=== PATIENT | male | born 1935 | race Caucasian/White ===

== ENCOUNTER → 2016-09-23 | Outpatient (CLI) | payer BC ==
[~2016-09-23] MED LIST: ALPR0.5T PO; AMLO5TAB2 PO; ASPCH81X PO; ASPI81TA28 PO; ATOR-24 PO; ATOR-54 PO; BISA-16 PO; CEPH500C PO; CITA20TA4 PO; CITA20TA9 PO; DICY10CA55 PO; FINA5TAB PO; FLUT0.15 NAE; METO25TA56 PO; MULT-506 PO; NITR0.4S UT; NITR1CAP16 PO; PANT40TA PO; PHEN-775 PO; PSYL55.43 PO; TRAM-10 PO; WARF5TAB90 PO
== END | disposition home or self-care (01) ==
LOC: C.PATHSPEC 09-22 11:35
PROVIDERS: ATTEND Urology
DX: C67.9 Malignant neoplasm of bladder, unspecified (principal)

== ENCOUNTER 2016-09-24 09:32 | Emergency (ER) | payer BC ==
[~2016-09-24] VITALS: Ht 182.9 cm; Wt 89.8 kg
[~2016-09-24 09:32] MED LIST changes: -ASPCH81X PO; -ATOR-54 PO; -BISA-16 PO; -CEPH500C PO; -CITA20TA4 PO; -DICY10CA55 PO; -FLUT0.15 NAE; -NITR1CAP16 PO; -PANT40TA PO; -PHEN-775 PO; -TRAM-10 PO
[2016-09-24 09:35] VITALS: TEMP 37; Ht 182.9 cm; Wt 89.8 kg
[2016-09-24 11:07] LABS: BASO % 0.4 %; BASO ABS # 0.04 K/uL (0-0.2); COMPLETE YES; EOS % 0.2 %; HEMATOCRIT 49.3 % (42-52); IG% 0.2 %; LYMPH % 24.8 %; LYMPH ABS # 2.38 K/uL (1.2-3.4); MEAN CELL VOLUME 94.1 fL (80-100); MEAN CORPUSCULAR HEMOGLOBIN 32.6 pg (25-34); MEAN CORPUSCULAR HGB CONC 34.7 g/dl (32-36); MEAN PLATELET VOLUME 11.8 fL (7.4-10.4); MONO % 12.2 %; NEUT % 62.2 %; PLATELET COUNT 152 K/uL (130-400); RED BLOOD COUNT 5.24 M/uL (4.7-6.1); WHITE BLOOD COUNT 9.58 K/uL (4.8-10.8)
--- NOTE | 2016-09-24 11:18 | DIAGNOSTIC IMAGING REPORT ---
CT HEAD WITHOUT CONTRAST (CT) CLINICAL HISTORY: Head and facial trauma. Head pain. COMPARISON STUDY: No previous studies for comparison. TECHNIQUE: Axial CT of the brain is performed from the vertex to the skull base. IV contrast was not administered for this examination. CT DOSE: FINDINGS: No intra or extra-axial mass lesions are visualized. There is no CT evidence of acute cortical infarction. There is no evidence of midline shift. There is no acute hemorrhage. No calvarial fractures are visualized. There are patchy white matter hypodensities likely on a small vessel basis. There is no evidence of pathologic ventricular dilatation. There is no evidence of acute sinusitis. There is nonspecific soft tissue asymmetry medial to the left orbit, in the region the nasolacrimal fold. IMPRESSION: 1. Soft tissue asymmetry in the region of the left nasolacrimal fold 2. No evidence of acute intracranial injury. Electronically signed by: Ronnie Solares M.D. 09/24/2016 11:16 AM Dictated Date/Time: 09/24/2016 11:13 AM
[2016-09-24 11:25] LABS: BUN/CREATININE RATIO 18.4 (10-20); CALCIUM 9.2 mg/dl (8.5-10.1); CREATININE 1.1 mg/dl (0.60-1.40); POTASSIUM 4.6 mmol/L (3.5-5.1)
[2016-09-24 11:27] LABS: INR 2.5 (0.9-1.1); PARTIAL THROMBOPLASTIN RATIO 1.3; PROTHROMBIN TIME (PATIENT) 27.9 SECONDS (9.0-12.0)
--- NOTE | 2016-09-24 11:28 | DIAGNOSTIC IMAGING REPORT ---
MAXILLOFACIAL CT WITHOUT CONTRAST CLINICAL HISTORY: Fall. Evaluate for fracture. COMPARISON STUDY: None. TECHNIQUE: A maxillofacial CT was performed without IV contrast. Coronal and sagittal reformats were viewed. FINDINGS: No acute facial fracture is present. There is significant soft tissue swelling with a suspected hematoma within the left aspect of the nose. Alignment of the temporomandibular joints is anatomic. Several punctate densities within the skin are probably old. The largest is a 2 mm radiodensity within the skin of the left aspect of the nose. IMPRESSION: 1. No acute facial fracture. 2. Significant soft tissue swelling of the nose with a suspected subcutaneous hematoma within the left aspect of the nose. 3. Several punctate radiodensities within the skin, including a 2 mm density within left aspect of the nose. These are likely chronic although a tiny foreign body could appear similar. Electronically signed by: Junior Anthony M.D. 09/24/2016 11:25 AM Dictated Date/Time: 09/24/2016 11:16 AM
--- NOTE | 2016-09-24 12:17 | DIAGNOSTIC IMAGING REPORT ---
PELVIS 1 OR 2 VIEW ROUTINE CLINICAL HISTORY: Fall. COMPARISON STUDY: CT of the abdomen and pelvis November 23, 2013. FINDINGS: Right pelvic surgical clips are noted. The sacroiliac joints and symphysis pubis are intact. No acute fracture within the pelvis or hips identified. 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 IMPRESSION: No acute fracture within the pelvis or hips. Electronically signed by: Junior Anthony M.D. 09/24/2016 12:15 PM Dictated Date/Time: 09/24/2016 12:15 PM
--- NOTE | 2016-09-24 12:19 | DIAGNOSTIC IMAGING REPORT ---
LEFT HIP UNILATERAL 2 VIEWS CLINICAL HISTORY: Left hip pain following fall. COMPARISON: CT of the abdomen and pelvis November 23, 2013. FINDINGS: No acute fracture is identified. Alignment is anatomic. 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 IMPRESSION: No acute fracture or dislocation of the left hip. Moderate left hip arthritis. Electronically signed by: Junior Anthony M.D. 09/24/2016 12:17 PM Dictated Date/Time: 09/24/2016 12:16 PM
[2016-09-24 13:39] VITALS: BP 164/88; PULSE 79; O2SAT 98
--- NOTE | 2016-09-24 18:10 | EMERGENCY ROOM VISIT NOTE ---
History Report prepared by Jesus: Arnold Nagy Under the Supervision of: Dr. Samuel Hall M.D. First contact with patient: 10:29 Chief Complaint: FALL Stated Complaint: FALL History of Present Illness The patient is an 81 year old male who presents to the Emergency Room with complaints of an acute fall that occurred just prior to arrival. The patient was taking his garbage out to the curb when he slipped on ice. He cut his nose which was initially bleeding. The bleeding has since slowed down. The nose itself was not bleeding. The patient also complains of left leg pain that feels like he pulled a muscle. He did not lose consciousness from the fall. The patient denies any headaches, teeth pain, neck pain, back pain, hip pain, or wrist pain. The patient is on Coumadin for a history of atrial fibrillation. He had just one episode of atrial fibrillation. He had his INR checked one week ago , which was 2.4. The patient cannot recall when he had his last tetanus shot. His PCP usually keeps him up to date. Source of History: patient Onset: prior to arrival Position: other (global) Quality: other (fall) Timing: other (acute) Associated Symptoms: No LOC, No back pain, No headache, No neck pain Review of Systems See HPI for pertinent positives & negatives. A total of 10 systems reviewed and were otherwise negative. 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 (5) superficial phlemitis (6) Varicose veins of lower extremity Family History Hypertension Lung disease Social History Smoking Status: Never Smoker Alcohol Use: none Marital Status: Housing Status: lives alone Occupation Status: retired Current/Historical Medications Scheduled Amlodipine Besylate (Norvasc), 5 MG PO DAILY Aspirin (Aspirin Ec), 81 MG PO DAILY Atorvastatin (Lipitor), 40 MG PO DAILY Citalopram Hydrobromide (Celexa), 20 MG PO DAILY Finasteride (Proscar), 5 MG PO DAILY Metoprolol Tartrate (Lopressor) (Lopressor), 25 MG PO BID Multivitamin (Multivitamin), 1 TAB PO DAILY Nitroglycerin (Nitrostat), 0.4 MG UT PRN Psyllium (Metamucil Powder), 1 PACK PO PRN Warfarin Sodium (Coumadin), 5 MG PO DAILY Scheduled PRN Alprazolam (Xanax), 1 TAB PO TID PRN for Anxiety/Agitation Allergies Coded Allergies: Sulfa Antibiotics (Verified Allergy, Severe, ITCHING, 09/24/16) Levofloxacin (Verified Allergy, Intermediate, BRADYCARDIA, 09/24/16) Sertraline (Verified Allergy, Intermediate, GI SYMPTOMS, 09/24/16) Metronidazole (Verified Allergy, Unknown, PVC'S, 09/24/16) Penicillins (Unverified Allergy, Unknown, UNKNOWN, 09/24/16) Meloxicam (Verified Adverse Reaction, Intermediate, UPSET STOMACH, 09/24/16 ) Doxycycline (Verified Adverse Reaction, Unknown, GI UPSET, 09/24/16) Physical Exam Vital Signs Date Time Temp Pulse Resp B/P Pulse Ox O2 Delivery O2 Flow Rate FiO2 09/24/16 13:39 79 18 164/88 98 Room Air 09/24/16 12:08 58 16 174/94 96 Room Air 09/24/16 09:35 37.0 63 18 160/92 98 Room Air Physical Exam Constitutional: Vital signs reviewed. Eyes: Pupils are equal round reactive to light. Conjunctiva are noninjected. ENT: Pharynx is clear without erythema or exudate. Mucous membranes are moist. Significant swelling to the left side of his nose without epistaxis or septal hematoma. Abrasion over the left nose with some slight bleeding. Neck supple without meningeal signs. No midline tenderness over the cervical spine. Respiratory: Clear to auscultation bilaterally. Breath sounds are equal bilaterally. Cardiovascular: Regular rate and rhythm. No rubs or gallops. GI: Soft, nondistended and nontender. Bowel sounds are present. Musculoskeletal: No peripheral edema. Mild left hip tenderness without shortening or deformity. Integumentary: No cyanosis. Neurological: The patient is awake and alert. Cranial nerves II-XII are intact. Motor is 5 out of 5 all extremities. Sensation is intact to light touch all extremities. Normal speech. No pronator drift. Psychiatric: Normal affect. Medical Decision & Procedures ER Provider Diagnostic Interpretation: X-ray results as stated below per interpretation by me and the radiologist: CT results as stated below per my review and the radiologist's interpretation: CT HEAD WITHOUT CONTRAST (CT) CLINICAL HISTORY: Head and facial trauma. Head pain. COMPARISON STUDY: No previous studies for comparison. TECHNIQUE: Axial CT of the brain is performed from the vertex to the skull base. IV contrast was not administered for this examination. CT DOSE: FINDINGS: No intra or extra-axial mass lesions are visualized. There is no CT evidence of acute cortical infarction. There is no evidence of midline shift. There is no acute hemorrhage. No calvarial fractures are visualized. There are patchy white matter hypodensities likely on a small vessel basis. There is no evidence of pathologic ventricular dilatation. There is no evidence of acute sinusitis. There is nonspecific soft tissue asymmetry medial to the left orbit, in the region the nasolacrimal fold. IMPRESSION: 1. Soft tissue asymmetry in the region of the left nasolacrimal fold 2. No evidence of acute intracranial injury. Electronically signed by: Ronnie Solares M.D. 09/24/2016 11:16 AM Dictated Date/Time: 09/24/2016 11:[address] WITHOUT CONTRAST CLINICAL HISTORY: Fall. Evaluate for fracture. COMPARISON STUDY: None. TECHNIQUE: A maxillofacial CT was performed without IV contrast. Coronal and sagittal reformats were viewed. FINDINGS: No acute facial fracture is present. There is significant soft tissue swelling with a suspected hematoma within the left aspect of the nose. Alignment of the temporomandibular joints is anatomic. Several punctate densities within the skin are probably old. The largest is a 2 mm radiodensity within the skin of the left aspect of the nose. IMPRESSION: 1. No acute facial fracture. 2. Significant soft tissue swelling of the nose with a suspected subcutaneous hematoma within the left aspect of the nose. 3. Several punctate radiodensities within the skin, including a 2 mm density within left aspect of the nose. These are likely chronic although a tiny foreign body could appear similar. Electronically signed by: Junior Anthony M.D. 09/24/2016 11:25 AM Dictated Date/Time: 09/24/2016 11:16 AM LEFT HIP UNILATERAL 2 VIEWS CLINICAL HISTORY: Left hip pain following fall. COMPARISON: CT of the abdomen and pelvis November 23, 2013. FINDINGS: No acute fracture is identified. Alignment is anatomic. 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 IMPRESSION: No acute fracture or dislocation of the left hip. Moderate left hip arthritis. Electronically signed by: Junior Anthony M.D. 09/24/2016 12:17 PM Dictated Date/Time: 09/24/2016 12:16 PM PELVIS 1 OR 2 VIEW ROUTINE CLINICAL HISTORY: Fall. COMPARISON STUDY: CT of the abdomen and pelvis November 23, 2013. FINDINGS: Right pelvic surgical clips are noted. The sacroiliac joints and symphysis pubis are intact. No acute fracture within the pelvis or hips identified. 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 IMPRESSION: No acute fracture within the pelvis or hips. Electronically signed by: Junior Anthony M.D. 09/24/2016 12:15 PM Dictated Date/Time: 09/24/2016 12:15 PM Laboratory Results 09/24/16 10:45 Red Blood Count 5.24, Mean Corpuscular Volume 94.1, Mean Corpuscular Hemoglobin 32.6, Mean Corpuscular Hemoglobin Concent 34.7, Mean Platelet Volume 11.8, Neutrophils (%) (Auto) 62.2, Lymphocytes (%) (Auto) 24.8, Monocytes (%) (Auto) 12.2, Eosinophils (%) (Auto) 0.2, Basophils (%) (Auto) 0.4, Neutrophils # (Auto ) 5.95, Lymphocytes # (Auto) 2.38, Monocytes # (Auto) 1.17, Eosinophils # (Auto ) 0.02, Basophils # (Auto) 0.04 09/24/16 10:45 Test 09/24/16 10:45 White Blood Count 9.58 K/uL (4.8-10.8) Red Blood Count 5.24 M/uL (4.7-6.1) Hemoglobin 17.1 g/dL (14.0-18.0) Hematocrit 49.3 % (42-52) Mean Corpuscular Volume 94.1 fL (80-100) Mean Corpuscular Hemoglobin 32.6 pg (25-34) Mean Corpuscular Hemoglobin Concent 34.7 g/dl (32-36) Platelet Count 152 K/uL (130-400) Mean Platelet Volume 11.8 fL (7.4-10.4) Neutrophils (%) (Auto) 62.2 % Lymphocytes (%) (Auto) 24.8 % Monocytes (%) (Auto) 12.2 % Eosinophils (%) (Auto) 0.2 % Basophils (%) (Auto) 0.4 % Neutrophils # (Auto) 5.95 K/uL (1.4-6.5) Lymphocytes # (Auto) 2.38 K/uL (1.2-3.4) Monocytes # (Auto) 1.17 K/uL (0.11-0.59) Eosinophils # (Auto) 0.02 K/uL (0-0.5) Basophils # (Auto) 0.04 K/uL (0-0.2) RDW Standard Deviation 46.5 fL (36.4-46.3) RDW Coefficient of Variation 13.5 % (11.5-14.5) Immature Granulocyte % (Auto) 0.2 % Immature Granulocyte # (Auto) 0.02 K/uL (0.00-0.02) Prothrombin Time 27.9 SECONDS (9.0-12.0) Prothromb Time International Ratio 2.5 (0.9-1.1) Activated Partial Thromboplast Time 33.6 SECONDS (21.0-31.0) Partial Thromboplastin Ratio 1.3 Anion Gap 6.0 mmol/L (3-11) Est Creatinine Clear Calc Drug Dose 57.8 ml/min Estimated GFR () 72.6 Estimated GFR (Non- 62.6 BUN/Creatinine Ratio 18.4 (10-20) Calcium Level 9.2 mg/dl (8.5-10.1) Laboratory results as reviewed by me. ED Course 1031: The patient was evaluated in room C10. A complete history and physical exam was performed. 1235: Checked on the patient. Discussed the test results. He has increased swelling to the left nose, no septal hematoma. Paging ENT to see if they have any recommendations. I was not able to locate a foreign body in the skin. 1247: Discussed the case with Dr. Glez, ENT. He said to offer aspiration, but it may recollect. If he is not having significant pain and it is not expanding, we can leave it alone. 1302: The patient does not want needle aspiration at this time. It is not hurting him or bothering him. It does not seem to be expanding and does not occlude the nasal passage. There is currently no active bleeding. He was given precautions to return. The patient is ready for discharge. Medical Decision This is an 81-year-old male who presents after a mechanical fall with a facial injury. Differential diagnosis includes nasal fracture, intracranial hemorrhage , skull fracture, contusion, concussion. I did perform a limited focused review of portions of the patient's old chart on the electronic medical record. The patient has had no recent pertinent visits to this hospital. I did evaluate the patient as noted above. The patient has a small abrasion and soft tissue swelling to the left nostril. It is over the lateral soft tissue and not the septum. He appears to be developing a small hematoma. He has some mild bleeding from the abrasion but does not require any sutures. He is neurologically intact. IV access was established. I did order and personally review the patient's x-rays as described above. He has no fracture to the left hip. He states that he feels more like he just pulled a muscle and is able ambulate without significant pain. I did order and review the patient' s blood work as noted in the electronic medical record. His INR is 2.5. I did order a CT of the facial bones and head. I did review the images myself as well as the radiology report as described above. There is no evidence of intracranial hemorrhage or facial fracture. I did reassess the patient. I did discuss the test results with him. I did explore the patient's abrasion and nose for any foreign body. I did not see any. It was cleaned and dressed. The hematoma appeared to be slightly bigger at this time and he has developed some ecchymosis to his lower orbits. I did discuss the case with Dr. Glez of ENT. He suggested that possibly I could needle aspirate the hematoma and then apply pressure. He also stated that if it does not expending significantly and not giving him discomfort we could live alone at this time. I did discuss options with the patient and he preferred to watch it. He states he has no pain at this time. There is no occlusion of his nasal passages. He was therefore discharged home with head injury precautions. He was advised to return should he have worsening of the hematoma. Consults Time Called: 1235 Consulting Physician: Dr. Glez ENT Returned Call: [phone]: Discussed the case with Dr. Glez, ENT. He said to offer aspiration, but it may recollect. If he is not having significant pain and it is not expanding, we can leave it alone. Impression Primary Impression: Acute head injury Additional Impressions: Anticoagulated on warfarin Subcutaneous hematoma Left hip pain Scribe Attestation The scribe's documentation has been prepared under my direct and personally reviewed by me in its entirety. I confirm that the note above accurately reflects all work, treatment, procedures, and medical decision making performed by me. Departure Information Dispostion Home / Self-Care Referrals Reinaldo Bill D.O. (PCP) Forms HOME CARE DOCUMENTATION FORM, IMPORTANT VISIT INFORMATION Patient Instructions A Signature Page, ED Head Injury Closed, My [facility] Additional Instructions You have been examined and treated today on an emergency basis only. This is not a substitute for, or an effort to provide, complete comprehensive medical care. It is impossible to recognize and treat all injuries or illnesses in a single emergency department visit. It is therefore important that you follow up closely with your physician. Call as soon as possible for an appointment. Return for worsening symptoms or if you develop fever, vomiting, Or any other concerning symptoms. Return also if you develop increased swelling or pain to your left nostril. Problem Qualifiers Primary Impression: Acute head injury Encounter type: initial encounter Qualified Codes: S09.90XA - Unspecified injury of head, initial encounter
[2017-01-23] MEDS ORDERED: CITA20TA4 PO (08:51)
[2017-01-23] MEDS ORDERED: DICY10CA55 PO (08:51)
[2017-01-23] MEDS ORDERED: PANT40TA PO (08:51)
[2017-01-27] MEDS ORDERED: ATOR-54 PO (09:05)
[2017-01-27] MEDS ORDERED: PHEN-775 PO (09:51)
[2017-01-27] MEDS ORDERED: NITR1CAP16 PO (09:51)
== END 2016-09-24 13:41 | disposition home or self-care (01) ==
LOC: C.EDB 09:34 → C.EDC 13:41
DX: S09.90XA Unspecified injury of head, initial encounter (principal); S00.31XA Abrasion of nose, initial encounter; S00.10XA Contusion of unspecified eyelid and periocular area, initial encounter; M25.552 Pain in left hip; W00.0XXA Fall on same level due to ice and snow, initial encounter; Y93.89 Activity, other specified; Y99.8 Other external cause status; I48.91 Unspecified atrial fibrillation; I10 Essential (primary) hypertension; E78.5 Hyperlipidemia, unspecified; Z82.49 Family history of ischemic heart disease and other diseases of the circulatory system; Z79.01 Long term (current) use of anticoagulants; Z79.82 Long term (current) use of aspirin; Z79.899 Other long term (current) drug therapy

== ENCOUNTER 2016-09-28 11:31 | Emergency (ER) | payer BC ==
[~2016-09-28] VITALS: Ht 182.9 cm; Wt 89.4 kg
[2016-09-28 11:36] VITALS: TEMP 36.9; Ht 182.9 cm; Wt 89.4 kg
--- NOTE | 2016-09-28 12:10 | EMERGENCY ROOM VISIT NOTE ---
History Report prepared by Jesus: Km Ernst Under the Supervision of: Dr. Cy Shipley M.D. First contact with patient: 11:52 Chief Complaint: LEG PAIN,LEG INJURY Stated Complaint: L LEG THIGH PAIN,SWELLING History of Present Illness The patient is an 81 year old male who presents to the Emergency Room with complaints of constant left leg pain due to a fall beginning four days prior to arrival. He describes his pain as soreness and currently rates his discomfort as a 5/10 in severity. The patient associates left upper thigh bruising and left thigh swelling with today's symptoms. He states he came to the ED four days ago after his fall on ice, in which, he had a scan of his face, blood drawn , INR check, and left leg x-ray that revealed no fractures or breaks. The patient notes he was taken off Coumadin for two days and began taking it again yesterday. He notes he can bear weight, but it is difficult for him to change positions from sitting to standing. The patient notes a history of intermittent atrial fibrillation. He does not have any other medical concerns at this time. Source of History: patient Onset: 4 days PAINT TINTER Position: leg (left) Symptom Intensity: 5/10 Quality: other (soreness) Timing: constant Modifying Factors (Worsening): other (changing positions from sitting to standing) Note: Associated symptoms: left upper thigh bruising and left thigh swelling Review of Systems See HPI for pertinent positives & negatives. A total of 10 systems reviewed and were otherwise negative. 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 (5) superficial phlemitis (6) Varicose veins of lower extremity Family History Hypertension Lung disease Social History Smoking Status: Former Smoker Alcohol Use: none Marital Status: Housing Status: lives alone Occupation Status: retired Current/Historical Medications Scheduled Amlodipine Besylate (Norvasc), 5 MG PO DAILY Aspirin (Aspirin Chewable), 81 MG PO DAILY Atorvastatin (Lipitor), 40 MG PO DAILY Cephalexin Monohydrate (Keflex), 500 MG PO QID Citalopram Hydrobromide (Celexa), 0.5 TAB PO DAILY Finasteride (Proscar), 5 MG PO DAILY Fluticasone Propionate (Nasal) (Flonase Allergy Relief), 1 SPRAY CATHERINE DAILY Metoprolol Tartrate (Lopressor) (Lopressor), 0.5 TAB PO BID Multivitamin (Multivitamin), 1 TAB PO DAILY Nitroglycerin (Nitrostat), 0.4 MG UT PRN Pantoprazole (Protonix), 40 MG PO DAILY Psyllium (Metamucil Powder), 1 PACK PO PRN Warfarin Sodium (Coumadin), 5 MG PO QPM Scheduled PRN Alprazolam (Xanax), 1 TAB PO TID PRN for Anxiety/Agitation Bisacodyl (Dulcolax), 1 TAB PO UD PRN for Constipation Tramadol (Ultram), 50 MG PO BID PRN for Pain Allergies Coded Allergies: Sulfa Antibiotics (Verified Allergy, Severe, ITCHING, 09/24/16) Levofloxacin (Verified Allergy, Intermediate, BRADYCARDIA, 09/24/16) Sertraline (Verified Allergy, Intermediate, GI SYMPTOMS, 09/24/16) Metronidazole (Verified Allergy, Unknown, PVC'S, 09/24/16) Penicillins (Unverified Allergy, Unknown, UNKNOWN, 09/24/16) Meloxicam (Verified Adverse Reaction, Intermediate, UPSET STOMACH, 09/24/16 ) Doxycycline (Verified Adverse Reaction, Unknown, GI UPSET, 09/24/16) Physical Exam Vital Signs Date Time Temp Pulse Resp B/P Pulse Ox O2 Delivery O2 Flow Rate FiO2 09/28/16 13:53 91 18 151/84 93 Room Air 09/28/16 11:36 36.9 113 18 122/72 96 Room Air Physical Exam GENERAL: Patient is in no acute distress. HEENT: Multiple contusions to the face consistent with his recent fall. No cellulitis. Mucous membranes are moist. NECK: No stridor, no adenopathy, no meningismus, trachea is midline. LUNGS: Clear to auscultation bilaterally, no wheeze, no rhonchi, breath sounds equal. HEART: Without murmurs gallops or rubs, regular rate and rhythm. ABDOMEN: Soft, nontender, bowel sounds positive, no hernias, no peritonitis. EXTREMITIES: There is an apparent hematoma about the left posterior thigh and lateral thigh/hip. No cellulitis. Patient can bear weight. Left thigh is larger than the right thigh on exam. NEUROLOGIC: Oriented x 3, no acute motor or sensory deficits, no focal weakness. SKIN: No rash, no jaundice, no diaphoresis. Medical Decision & Procedures ER Provider Diagnostic Interpretation: US results as stated below per my review and radiologist interpretation: CT results as stated below per my review and radiologist interpretation: ULTRASOUND LEFT LOWER EXTREMITY VENOUS CLINICAL HISTORY: Left leg pain and swelling. COMPARISON STUDY: Left lower extremity venous ultrasound dated 11/17/2014. CT scan of the left lower extremity dated 09/28/2016. TECHNIQUE: Real-time, grayscale, and color Doppler sonography of the deep veins of the left lower extremity was performed from the inguinal crease to the calf. Compression and augmentation were utilized. FINDINGS: There is no sonographic evidence of deep venous thrombosis identified in the left lower extremity. The common femoral, superficial femoral, and popliteal veins are patent and normally compressible. The greater saphenous vein and the profunda femoris vein at the junction with the common femoral vein are clear. The visualized calf veins are patent. There is a nonvascular complex multiloculated versus 2 adjacent complex fluid collections identified within the left quadriceps musculature in the mid thigh. These measure 8.6 x 2.1 x 3.7 cm and 5.7 x 1.7 x 3.5 cm. IMPRESSION: 1. There is no sonographic evidence of deep venous thrombosis identified in the left lower extremity. 2. Findings are consistent with a complex nonvascular multiloculated versus adjacent intramuscular fluid collections in the left quadriceps musculature. The appearance is most consistent with hematoma when correlated with today's CT scan. Clinical follow-up to resolution is recommended. Electronically signed by: Cy Duenas M.D. 09/28/2016 1:[address] SCAN OF THE LEFT FEMUR WITHOUT IV CONTRAST CLINICAL HISTORY: Fall with left leg pain. COMPARISON STUDY: Radiograph of the left hip and bony pelvis dated 09/24/2016. TECHNIQUE: CT scan of the left femur is performed from the bony pelvis to the knee. Images are reviewed in the axial, sagittal, coronal planes. IV contrast was not administered for this examination. CT DOSE: 544.27 mGy.cm FINDINGS: The skeletal structures are osteopenic. There is no evidence of fracture in the left femur or the imaged left hemipelvis. Arthritic change is noted in the left hip and knee joints. Subcutaneous soft tissue edema is present in the left thigh. Intramuscular hematoma is identified in the left lateral quadriceps musculature. This measures approximately 5 x 5 x 2.5 cm in aggregate dimension. There is advanced atherosclerotic calcification of the left femoral and popliteal arteries. No left pelvic sidewall or inguinal lymphadenopathy is seen. The prostate gland is markedly enlarged and heterogeneous, and contains coarse calcifications. This is only partially visualized. IMPRESSION: 1. Generalized osteopenia. There is no evidence fracture involving the left femur or the visualized left hemipelvis. 2. Soft tissue edema is present in the thigh and there is intramuscular hematoma within the lateral left quadriceps musculature as detailed above. Electronically signed by: Cy Duenas M.D. 09/28/2016 1:28 PM Laboratory Results 09/28/16 12:25 09/28/16 12:25 Test 09/28/16 12:25 Red Blood Count 4.44 M/uL (4.7-6.1) Mean Corpuscular Volume 94.8 fL (80-100) Mean Corpuscular Hemoglobin 33.3 pg (25-34) Mean Corpuscular Hemoglobin Concent 35.2 g/dl (32-36) RDW Standard Deviation 47.7 fL (36.4-46.3) RDW Coefficient of Variation 13.7 % (11.5-14.5) Mean Platelet Volume 11.5 fL (7.4-10.4) Prothrombin Time 16.1 SECONDS (9.0-12.0) Prothromb Time International Ratio 1.5 (0.9-1.1) Activated Partial Thromboplast Time 29.4 SECONDS (21.0-31.0) Partial Thromboplastin Ratio 1.1 Anion Gap 9.0 mmol/L (3-11) Est Creatinine Clear Calc Drug Dose 64.9 ml/min Estimated GFR () 83.5 Estimated GFR (Non- 72.0 BUN/Creatinine Ratio 20.9 (10-20) Calcium Level 9.0 mg/dl (8.5-10.1) Laboratory results reviewed by me. Medications Administered Medications (Trade) Dose Ordered Sig/Eleni Route Start Time Stop Time Status Last Admin Dose Admin Cephalexin Monohydrate (Keflex Cap) 500 mg NOW STAT PO 09/28/16 14:06 09/28/16 14:07 DC 09/28/16 14:20 500 MG ED Course 1155: The patient was evaluated in room B2. A complete history and physical exam was performed. 1406: Ordered Keflex Cap 500 mg PO. 1410: Reevaluated the patient. Discussed results and discharge instructions: He verbalized understanding and agreement. The patient is ready for discharge. Medical Decision The differential diagnoses include but are not limited to: hematoma, anemia, coagulopathy, DVT, fracture, contusion. There is a mild leukocytosis which could be consistent with the stress of his presentation or possibly infection. No concerning anemia. INR is 1.5, low for someone taking Coumadin however, the patient has been holding his Coumadin for a few days. There is no significant electrolyte abnormality or kidney failure. Left femur CT does not show any hip or femur fracture. A soft tissue hematoma was noted. Left leg ultrasound shows no DVT, a hematoma in the thigh was noted. The patient was reassured by his findings. Because of my concerns that he may develop a sinusitis with all the facial trauma and congestion, he was given a dose of oral Keflex. He is being discharged on this for a week. The patient was advised to use some heat to the left thigh hematoma. He will watch for redness or infection in the thigh. He is going to follow with his doctor's office. He is going to follow with the Coumadin clinic for his INR checks. If worsening, he can return. Impression Primary Impression: Hematoma of left thigh Additional Impression: Fall Scribe Attestation The scribe's documentation has been prepared under my direction and personally reviewed by me in its entirety. I confirm that the note above accurately reflects all work, treatment, procedures, and medical decision making performed by me. Departure Information Dispostion Home / Self-Care Prescriptions Cephalexin Monohydrate (Keflex) 500 Mg Cap 500 MG PO QID, #28 CAP Prov: Cy Shipley M.D. 09/28/16 Referrals Reinaldo Bill D.OKell (PCP) Forms HOME CARE DOCUMENTATION FORM, IMPORTANT VISIT INFORMATION Patient Instructions My [facility] Additional Instructions keflex 4x per day for 1 week follow with coumadin clinic this week heat to the leg may help return for worsening symptoms or fever see carmen cintron this week Problem Qualifiers
[2016-09-28] MEDS ORDERED: PANT40TA PO (12:17)
[2016-09-28] MEDS ORDERED: TRAM-10 PO (12:17)
[2016-09-28] MEDS ORDERED: ASPCH81X PO (12:17)
[2016-09-28] MEDS ORDERED: BISA-16 PO (12:17)
[2016-09-28] MEDS ORDERED: FLUT0.15 NAE (12:17)
[2016-09-28 12:37] LABS: HEMATOCRIT 42.1 % (42-52); MEAN CELL VOLUME 94.8 fL (80-100); MEAN CORPUSCULAR HEMOGLOBIN 33.3 pg (25-34); MEAN CORPUSCULAR HGB CONC 35.2 g/dl (32-36); MEAN PLATELET VOLUME 11.5 fL (7.4-10.4); PLATELET COUNT 144 K/uL (130-400); RED BLOOD COUNT 4.44 M/uL (4.7-6.1); WHITE BLOOD COUNT 14.37 K/uL (4.8-10.8)
[2016-09-28 12:46] LABS: INR 1.5 (0.9-1.1); PARTIAL THROMBOPLASTIN RATIO 1.1; PROTHROMBIN TIME (PATIENT) 16.1 SECONDS (9.0-12.0)
[2016-09-28 12:59] LABS: BUN/CREATININE RATIO 20.9 (10-20); CREATININE 0.98 mg/dl (0.60-1.40)
--- NOTE | 2016-09-28 13:31 | DIAGNOSTIC IMAGING REPORT ---
CT SCAN OF THE LEFT FEMUR WITHOUT IV CONTRAST CLINICAL HISTORY: Fall with left leg pain. COMPARISON STUDY: Radiograph of the left hip and bony pelvis dated 09/24/2016. TECHNIQUE: CT scan of the left femur is performed from the bony pelvis to the knee. Images are reviewed in the axial, sagittal, coronal planes. IV contrast was not administered for this examination. CT DOSE: 544.27 mGy.cm FINDINGS: The skeletal structures are osteopenic. There is no evidence of fracture in the left femur or the imaged left hemipelvis. Arthritic change is noted in the left hip and knee joints. Subcutaneous soft tissue edema is present in the left thigh. Intramuscular hematoma is identified in the left lateral quadriceps musculature. This measures approximately 5 x 5 x 2.5 cm in aggregate dimension. There is advanced atherosclerotic calcification of the left femoral and popliteal arteries. No left pelvic sidewall or inguinal lymphadenopathy is seen. The prostate gland is markedly enlarged and heterogeneous, and contains coarse calcifications. This is only partially visualized. IMPRESSION: 1. Generalized osteopenia. There is no evidence fracture involving the left femur or the visualized left hemipelvis. 2. Soft tissue edema is present in the thigh and there is intramuscular hematoma within the lateral left quadriceps musculature as detailed above. Electronically signed by: Cy Duenas M.D. 09/28/2016 1:28 PM Dictated Date/Time: 09/28/2016 1:22 PM
--- NOTE | 2016-09-28 13:38 | DIAGNOSTIC IMAGING REPORT ---
ULTRASOUND LEFT LOWER EXTREMITY VENOUS CLINICAL HISTORY: Left leg pain and swelling. COMPARISON STUDY: Left lower extremity venous ultrasound dated 11/17/2014. CT scan of the left lower extremity dated 09/28/2016. TECHNIQUE: Real-time, grayscale, and color Doppler sonography of the deep veins of the left lower extremity was performed from the inguinal crease to the calf. Compression and augmentation were utilized. FINDINGS: There is no sonographic evidence of deep venous thrombosis identified in the left lower extremity. The common femoral, superficial femoral, and popliteal veins are patent and normally compressible. The greater saphenous vein and the profunda femoris vein at the junction with the common femoral vein are clear. The visualized calf veins are patent. There is a nonvascular complex multiloculated versus 2 adjacent complex fluid collections identified within the left quadriceps musculature in the mid thigh. These measure 8.6 x 2.1 x 3.7 cm and 5.7 x 1.7 x 3.5 cm. IMPRESSION: 1. There is no sonographic evidence of deep venous thrombosis identified in the left lower extremity. 2. Findings are consistent with a complex nonvascular multiloculated versus adjacent intramuscular fluid collections in the left quadriceps musculature. The appearance is most consistent with hematoma when correlated with today's CT scan. Clinical follow-up to resolution is recommended. Electronically signed by: Cy Duenas M.D. 09/28/2016 1:36 PM Dictated Date/Time: 09/28/2016 1:34 PM
[2016-09-28 13:53] VITALS: BP 151/84; PULSE 91; O2SAT 93
[2016-09-28] MEDS ORDERED: CEPHALEXIN MONOHYDRATE 250 MG CAP PO STA (14:06)
[2016-09-28] MEDS ORDERED: CEPH500C PO (14:12)
[2017-01-23] MEDS ORDERED: PANT40TA PO (08:51)
[2017-01-23] MEDS ORDERED: DICY10CA55 PO (08:51)
[2017-01-23] MEDS ORDERED: CITA20TA4 PO (08:51)
[2017-01-27] MEDS ORDERED: ATOR-54 PO (09:05)
[2017-01-27] MEDS ORDERED: NITR1CAP16 PO (09:51)
[2017-01-27] MEDS ORDERED: PHEN-775 PO (09:51)
== END 2016-09-28 14:45 | disposition home or self-care (01) ==
LOC: C.EDB 11:34
DX: S70.12XA Contusion of left thigh, initial encounter (principal); W19.XXXA Unspecified fall, initial encounter; I10 Essential (primary) hypertension; E78.5 Hyperlipidemia, unspecified; Z87.891 Personal history of nicotine dependence; Z79.82 Long term (current) use of aspirin; Z82.49 Family history of ischemic heart disease and other diseases of the circulatory system

== ENCOUNTER 2016-10-10 10:43 | Emergency (ER) | payer BC ==
[~2016-10-10] VITALS: Ht 182.9 cm; Wt 89.5 kg
[~2016-10-10 10:43] MED LIST changes: +ASPCH81X PO; -ASPI81TA28 PO; +BISA-16 PO; +CEPH500C PO; +FLUT0.15 NAE; +PANT40TA PO; +TRAM-10 PO
[2016-10-10 10:56] VITALS: TEMP 36.8; Ht 182.9 cm; Wt 89.5 kg
--- NOTE | 2016-10-10 13:03 | DIAGNOSTIC IMAGING REPORT ---
ULTRASOUND VENOUS DOPPLER ULTRASOUND OF THE LEFT LOWER EXTREMITY CLINICAL HISTORY: Left lower extremity swelling COMPARISON STUDY: 09/28/2016 FINDINGS: There is a small complex collection in the medial thigh, smaller than the prior study. This is consistent with a resolving hematoma. No intraluminal thrombus was visualized. The veins were fully compressible from the groin through the popliteal vein. The calf vessels appeared normal as visualized. IMPRESSION: No evidence of left lower extremity DVT. Electronically signed by: Ronnie Solares M.D. 10/10/2016 1:01 PM Dictated Date/Time: 10/10/2016 1:00 PM
[2016-10-10 14:02] VITALS: BP 147/82; PULSE 75; O2SAT 98
--- NOTE | 2016-10-10 15:17 | EMERGENCY ROOM VISIT NOTE ---
History Report prepared by Jesus: Arnold Nagy Under the Supervision of: Dr. Indra Ley D.O. First contact with patient: 11:16 Chief Complaint: LEG PAIN,LEG INJURY Stated Complaint: LEFT LEG PAIN POSSIBLE BLOOD CLOT History of Present Illness The patient is an 81 year old male who presents to the Emergency Room with complaints of persistent swelling of the left leg for the past several weeks. The patient started to experience swelling of the left upper leg with bruising after a fall. He had a negative ultrasound at that time, but was told he had a hematoma. Since then, the patient's bruising has improved but the swelling has moved to the lower leg. He also noticed increased warmth of the swollen area. The patient has been to physical therapy twice since the fall. The patient does a lot of walking. Patient denies headache, change in vision, fevers, chest pain , shortness of breath, nausea, vomiting, diarrhea, pain with urination, and melena. Source of History: patient Onset: several weeks ago Position: leg (left) Quality: other (swollen) Timing: other (persistent) Associated Symptoms: No SOB, No chest pain, No diarrhea, No fevers, No headache, No melena, No nausea, No urinary symptoms, No vomiting Review of Systems See HPI for pertinent positives & negatives. A total of 10 systems reviewed and were otherwise negative. 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 (5) superficial phlemitis (6) Varicose veins of lower extremity Family History Hypertension Lung disease Social History Smoking Status: Former Smoker Alcohol Use: none Marital Status: Housing Status: lives alone Occupation Status: retired Current/Historical Medications Scheduled Amlodipine Besylate (Norvasc), 5 MG PO DAILY Aspirin (Aspirin Chewable), 81 MG PO DAILY Atorvastatin (Lipitor), 40 MG PO DAILY Citalopram Hydrobromide (Celexa), 0.5 TAB PO BID Finasteride (Proscar), 5 MG PO DAILY Fluticasone Propionate (Nasal) (Flonase Allergy Relief), 1 SPRAY CATHERINE DAILY Metoprolol Tartrate (Lopressor) (Lopressor), 0.5 TAB PO BID Multivitamin (Multivitamin), 1 TAB PO DAILY Nitroglycerin (Nitrostat), 0.4 MG UT PRN Psyllium (Metamucil Powder), 1 PACK PO PRN Warfarin Sodium (Coumadin), 5 MG PO QPM Scheduled PRN Alprazolam (Xanax), 1 TAB PO BID PRN for Anxiety/Agitation Bisacodyl (Dulcolax), 1 TAB PO UD PRN for Constipation Tramadol (Ultram), 50 MG PO BID PRN for Pain Allergies Coded Allergies: Sulfa Antibiotics (Verified Allergy, Severe, ITCHING, 10/10/16) Levofloxacin (Verified Allergy, Intermediate, BRADYCARDIA, 10/10/16) Sertraline (Verified Allergy, Intermediate, GI SYMPTOMS, 10/10/16) Metronidazole (Verified Allergy, Unknown, PVC'S, 10/10/16) Penicillins (Unverified Allergy, Unknown, UNKNOWN, 10/10/16) Meloxicam (Verified Adverse Reaction, Intermediate, UPSET STOMACH, 10/10/16 ) Doxycycline (Verified Adverse Reaction, Unknown, GI UPSET, 10/10/16) Physical Exam Vital Signs Date Time Temp Pulse Resp B/P Pulse Ox O2 Delivery O2 Flow Rate FiO2 10/10/16 14:02 75 16 147/82 98 10/10/16 13:01 66 16 151/86 100 10/10/16 10:56 36.8 86 18 143/89 96 Room Air Physical Exam GENERAL: Sitting up in chair, alert, well appearing, well nourished, no distress , non-toxic EYE EXAM: normal conjunctiva. OROPHARYNX: no exudate, no erythema, lips, buccal mucosa, and tongue normal and mucous membranes are moist NECK: supple, no nuchal rigidity, no adenopathy, non-tender LUNGS: Clear to auscultation. Normal chest wall mechanics HEART: no murmurs, S1 normal and S2 normal ABDOMEN: abdomen soft, non-tender, normo-active bowel sounds, no masses, no rebound or guarding. UPPER EXTREMITIES: upper extremities are grossly normal. LOWER EXTREMITIES: Swelling of the left calf with old bruising on left thing and knee. Left calf larger than right with mild pitting edema. NEURO EXAM: Normal sensorium, cranial nerves II-XII grossly intact, normal speech, no gross weakness of arms, no gross weakness of legs. Gross sensation intact. Medical Decision & Procedures ER Provider Diagnostic Interpretation: US results have been interpreted by the radiologist and reviewed by me. ULTRASOUND VENOUS DOPPLER ULTRASOUND OF THE LEFT LOWER EXTREMITY CLINICAL HISTORY: Left lower extremity swelling COMPARISON STUDY: 09/28/2016 FINDINGS: There is a small complex collection in the medial thigh, smaller than the prior study. This is consistent with a resolving hematoma. No intraluminal thrombus was visualized. The veins were fully compressible from the groin through the popliteal vein. The calf vessels appeared normal as visualized. IMPRESSION: No evidence of left lower extremity DVT. Electronically signed by: Ronnie Solares M.D. 10/10/2016 1:01 PM Dictated Date/Time: 10/10/2016 1:00 PM ED Course ED COURSE: Vital signs were reviewed and were normal. The patients medical record was reviewed The above diagnostic studies were performed and reviewed. ED treatments and interventions as stated above. 1120: The patient was evaluated in room A10. A complete history and physical examination was performed. 1355: Updated the patient on the US findings. He is ready to go home. 1340: Upon reevaluation, the patient is ready for discharge.I discussed my findings with the patient and he understands and agrees with the treatment plan. Based on the patients age, coexisting illnesses, exam and lab findings the decision to treat as an outpatient was made. The patient remained stable while under my care. The patient appeared well at the time of discharge. Medical Decision Etiologies such as DVT, musculoskeletal, infection, joint effusion, trauma, lymphedema, idiopathic, CHF, as well as others were entertained. Patient is an 81-year-old male who was referred in by his primary care doctor for swelling in his left lower extremity. He fell close to 2 weeks ago and saw has been decreasing but still present. Notes that the bruising has also been improving. He has no chest pain or shortness of breath. No other complaints. On exam he does have mild pitting edema along with old bruising present. There is mild erythema around his ankle. I do not believe this is cellulitis but rather venous stasis. Duplex of the left lower Shoney's was performed and was negative per patient was updated bedside. He is discharged follow-up with his primary care doctor. Discussed with Pt concerning signs and symptoms to watch out for. Pt was instructed to follow up with their PCP and discussed with the patient their option to return to the ED at anytime for persistent or worsening symptoms. The appropriate anticipatory guidance and out-patient management, including indications for return to the emergency department, were explained at length to the patient and understood. Impression Primary Impression: Left leg swelling Scribe Attestation The scribe's documentation has been prepared under my direction and personally reviewed by me in its entirety. I confirm that the note above accurately reflects all work, treatment, procedures, and medical decision making performed by me. Departure Information Dispostion Home / Self-Care Referrals Reinaldo Bill D.O. (PCP) Forms HOME CARE DOCUMENTATION FORM, IMPORTANT VISIT INFORMATION Patient Instructions ED Edema Leg Unilateral, My [facility] Additional Instructions Please follow up with your primary care doctor or if you are a student [facility] with in the next 24 hours. Any worsening of your symptoms, please return to the ED immediately. This includes any chest pain, shortness of breath, passing out, or any other concerning signs or symptoms from your standpoint. Please continue to remain active and elevate the leg when at rest.
[2017-01-23] MEDS ORDERED: DICY10CA55 PO (08:51)
[2017-01-23] MEDS ORDERED: CITA20TA4 PO (08:51)
[2017-01-23] MEDS ORDERED: PANT40TA PO (08:51)
[2017-01-27] MEDS ORDERED: ATOR-54 PO (09:05)
[2017-01-27] MEDS ORDERED: NITR1CAP16 PO (09:51)
[2017-01-27] MEDS ORDERED: PHEN-775 PO (09:51)
== END 2016-10-10 14:03 | disposition home or self-care (01) ==
LOC: C.EDB 10:45 → C.EDA 14:03
DX: R22.42 Localized swelling, mass and lump, left lower limb (principal); I10 Essential (primary) hypertension; E78.5 Hyperlipidemia, unspecified; Z87.891 Personal history of nicotine dependence; Z79.82 Long term (current) use of aspirin; Z79.01 Long term (current) use of anticoagulants; Z79.899 Other long term (current) drug therapy; Z88.0 Allergy status to penicillin; Z88.2 Allergy status to sulfonamides; Z88.8 Allergy status to other drugs, medicaments and biological substances; Z82.49 Family history of ischemic heart disease and other diseases of the circulatory system

== ENCOUNTER → 2016-11-14 | Outpatient (CLI) | payer BC ==
[~2016-11-14] MED LIST changes: +ATOR-54 PO; -CEPH500C PO; +CITA20TA4 PO; +DICY10CA55 PO; +NITR1CAP16 PO; +PHEN-775 PO
== END | disposition home or self-care (01) ==
LOC: C.LABSPEC 16:57
PROVIDERS: ATTEND Urology
DX: R39.9 Unspecified symptoms and signs involving the genitourinary system (principal)

== ENCOUNTER → 2016-12-11 | Outpatient (CLI) | payer BC | END | disposition home or self-care (01) | LOC: C.LABSPEC 17:24 | PROVIDERS: ATTEND Nurse Practitioner Family | DX: R39.9 Unspecified symptoms and signs involving the genitourinary system (principal) ==

== ENCOUNTER → 2017-01-27 | Day surgery (SDC) | payer BC ==
--- NOTE | 2017-01-16 11:02 | DIAGNOSTIC IMAGING REPORT ---
TWO VIEW CHEST CLINICAL HISTORY: Bladder cancer. FINDINGS: PA and lateral chest radiographs are compared to study dated 01/16/2016. The heart is normal in size. There is atherosclerotic calcification of the thoracic aorta. Enlargement of the central pulmonary arteries indicates pulmonary artery hypertension. Emphysema and chronic interstitial thickening are identified. No airspace consolidation or pleural effusion is seen. There is no pneumothorax. There is an indeterminant 2.0 cm density project over the left lung base. The skeletal structures are osteopenic. Degenerative change and DISH are noted in the thoracic spine. IMPRESSION: 1. Emphysema with no acute cardiopulmonary abnormality. 2. An indeterminant 2.0 cm density projects over the left lung base. Although this may represent artifact/superimposition of shadows, a pulmonary lesion is not excluded. Correlation with a chest CT scan is recommended. Electronically signed by: Cy Duenas M.D. 01/16/2017 11:01 AM Dictated Date/Time: 01/16/2017 10:58 AM
[2017-01-16 12:13] LABS: BASO % 0.5 %; BASO ABS # 0.04 K/uL (0-0.2); COMPLETE YES; EOS % 0.7 %; HEMATOCRIT 49.5 % (42-52); IG% 0.2 %; LYMPH % 31.2 %; LYMPH ABS # 2.65 K/uL (1.2-3.4); MEAN CELL VOLUME 96.3 fL (80-100); MEAN CORPUSCULAR HEMOGLOBIN 32.5 pg (25-34); MEAN CORPUSCULAR HGB CONC 33.7 g/dl (32-36); MEAN PLATELET VOLUME 11.8 fL (7.4-10.4); MONO % 13.9 %; NEUT % 53.5 %; PLATELET COUNT 165 K/uL (130-400); RED BLOOD COUNT 5.14 M/uL (4.7-6.1); WHITE BLOOD COUNT 8.49 K/uL (4.8-10.8)
[2017-01-16 12:37] LABS: BLOOD UREA NITROGEN 18 mg/dl (7-18); BUN/CREATININE RATIO 18.5 (10-20); CALCIUM 9.5 mg/dl (8.5-10.1); CARBON DIOXIDE 31 mmol/L (21-32); CHLORIDE 105 mmol/L (98-107); CREATININE 0.97 mg/dl (0.60-1.40); GLUCOSE 96 mg/dl (70-99); POTASSIUM 4.4 mmol/L (3.5-5.1); SODIUM 142 mmol/L (136-145)
[2017-01-23 08:53] VITALS: BMI 26.0
--- NOTE | 2017-01-23 09:35 | PAT Medication Instructions ---
Service Date January 23, 2017. Current Home Medication List Alprazolam (Xanax), 1 TAB PO BID PRN for Anxiety/Agitation Amlodipine Besylate (Norvasc), 5 MG PO QAM Aspirin (Aspirin Chewable), 81 MG PO noon Atorvastatin (Lipitor), 40 MG PO HS Bisacodyl (Dulcolax), 1 TAB PO UD PRN for Constipation Citalopram Hydrobromide (Citalopram Hydrobromide), 0.5 TAB PO QAM Dicyclomine Hcl (Bentyl), 10 MG PO BID PRN for abdominal pain Finasteride (Proscar), 5 MG PO QAM Metoprolol Tartrate (Lopressor) (Lopressor), 0.5 TAB PO BID Multivitamin (Multivitamin), 1 TAB PO noon Nitroglycerin (Nitrostat), 0.4 MG UT PRN Pantoprazole (Protonix), 40 MG PO DAILY PRN for Indigestion Psyllium (Metamucil Powder), 1 PACK PO PRN Tramadol (Ultram), 50 MG PO BID PRN for Pain Warfarin Sodium (Coumadin), 5 MG PO QPM Medication Instructions For Your Scheduled Surgery Nitroglycerin (Nitrostat), 0.4 MG UT PRN (if needed) Warfarin Sodium (Coumadin), 5 MG PO QPM (per [facility] instructions) Aspirin 81mg (continue as usual per surgeon and cardio instructions) - Hold the following medications the morning of surgery: Psyllium (Metamucil Powder), 1 PACK PO PRN Multivitamin (Multivitamin), 1 TAB PO noon Dicyclomine Hcl (Bentyl), 10 MG PO BID PRN for abdominal pain Bisacodyl (Dulcolax), 1 TAB PO UD PRN for Constipation - Take the following medications the morning of surgery with a sip of water: Tramadol (Ultram), 50 MG PO BID PRN for Pain (can take up to four hours prior to surgery if needed) Pantoprazole (Protonix), 40 MG PO DAILY PRN for Indigestion Metoprolol Tartrate (Lopressor) (Lopressor), 0.5 TAB PO BID Finasteride (Proscar), 5 MG PO QAM Citalopram Hydrobromide (Citalopram Hydrobromide), 0.5 TAB PO QAM Alprazolam (Xanax), 1 TAB PO BID PRN for Anxiety/Agitation Amlodipine Besylate (Norvasc), 5 MG PO QAM - Take the following medications as scheduled the night before surgery: Tramadol (Ultram), 50 MG PO BID PRN for Pain Psyllium (Metamucil Powder), 1 PACK PO PRN Metoprolol Tartrate (Lopressor) (Lopressor), 0.5 TAB PO BID Dicyclomine Hcl (Bentyl), 10 MG PO BID PRN for abdominal pain Bisacodyl (Dulcolax), 1 TAB PO UD PRN for Constipation Atorvastatin (Lipitor), 40 MG PO HS Alprazolam (Xanax), 1 TAB PO BID PRN for Anxiety/Agitation If you have any questions please call us at [phone] or [phone] ( [place]) or [phone]
[~2017-01-27] VITALS: Ht 182.9 cm; Wt 88.4 kg
[~2017-01-27] MED LIST changes: +ACETAMINOPHEN 325 MG TAB PO PRN; +ATROPINE SULFATE 0.1 MG/ML 5ML SYR IV PRN; +CIPROFLOXACIN / D5W 400 MG IV SCH; -CITA20TA9 PO; +EpHEDrine SULFATE INJ 50 MG/ML AMP IV PRN; +FENTANYL CITRATE INJ 50 MCG/1 ML 2 ML VIAL IV PRN; +FENTANYL CITRATE INJ 50 MCG/1 ML 2 ML VIAL ONE; -FLUT0.15 NAE; +GLYCOPYRROLATE INJ 0.2 MG/ML VIAL ONE; +HYDROmorphone INJ 1 MG/ML SYR IV PRN; +LABETALOL HCL IV 5 MG/ML 20ML IV PRN; +LACTATED RINGER'S 1000ML 1,000 ML IV SCH; +LIDOCAINE HCL 2% 2 ML VIAL (20MG/ML) ONE; +MEPERIDINE HCL 25 MG/ML CARP IV PRN; +MIDAZOLAM HCL 1 MG/ML 2ML VIAL ONE; +ONDANSETRON INJ 2 MG/ML 2 ML VIAL IV PRN; +ONDANSETRON INJ 2 MG/ML 2 ML VIAL ONE; +PHENAZOPYRIDINE HCL 200 MG TAB PO SCH; +PROPOFOL IV EMULSION 10 MG/ML 20 ML VIAL IV ONE; +SODIUM CHLORIDE 0.9% 1000ML 1,000 ML IV SCH
[2017-01-27 09:10] VITALS: BP 142/71; PULSE 49; TEMP 36.4; O2SAT 95; Ht 182.9 cm; Wt 88.4 kg
[2017-01-27 09:20] LABS: INR 1.1 (0.9-1.1); PROTHROMBIN TIME (PATIENT) 11.5 SECONDS (9.0-12.0)
--- NOTE | 2017-01-27 09:50 | History & Physical Bridge Note ---
H&P Re-Evaluation Bridge Note: I have examined the patient, reviewed the History & Physical and in the interval since the performance of the History & Physical I have noted the following changes of clinical significance: No changes noted
--- NOTE | 2017-01-27 10:15 | Discharge Instructions ---
Discharge Instructions Date of Service January 27, 2017. Admission Reason for Admission: Bladder Tumor Discharge Discharge Diagnosis / Problem: bladder tumor Discharge Goals Goal(s): Decrease discomfort, Improve function, Increase independence, Improve disease control, Prevent Disease Progression Activity Recommendations Activity Limitations: resume your previous activity Lifting Limitations: none Exercise/Sports Limitations: none May Resume Sexual Activity: when tolerated Shower/Bathe: no limitations Driving or Machine Use: resume 1 day after discharge . Instructions / Follow-Up Instructions / Follow-Up Please avoid taking your coumadin tonight if your urine is overly bloody. If it is clear, it is ok to resume the medication. Discharge Diet Recommended Diet: Regular Diet Pending Studies Studies pending at discharge: no Medical Emergencies . Who to Call and When: Medical Emergencies: If at any time you feel your situation is an emergency, please call 911 immediately. . Non-Emergent Contact Non-Emergency issues call your: Urologist Call Non-Emergent contact if: you have a fever, temperature is above 101.5, your pain is not controlled, your pain is worsening . . "Provider Documentation" section prepared by Doug Carmichael. . VTE Core Measure Inpt VTE Proph given/why not?: Warfarin (Coumadin)
--- NOTE | 2017-01-27 10:49 | [facility] Post Operative Brief Note ---
Immediate Operative Summary Operative Date January 27, 2017. Pre-Operative Diagnosis Bladder Carcinoma Post-Operative Diagnosis Bladder Carcinoma Procedure(s) Performed Transurethral Resection Bladder Tumor Surgeon Dr. Seth Ashford Printing Plate Clerk Surgeon(s) None Estimated Blood Loss 0 ml Findings Somewhat "carpeted" bladder tumor x2. Posterior wall, and left of midline. No large, protuberant, papillary tumors, but the two distinct areas were each around 2-3cm2 Specimens Permanent Specimen A: Posterior wall bladder biopsy Drains none Anesthesia gen Complication(s) None Disposition Recovery Room / PACU
[2017-01-27 11:30] VITALS: BP 164/87; PULSE 62; TEMP 36.4; O2SAT 100
--- NOTE | 2017-01-27 11:32 | Anesthesiology Progress Note ---
Anesthesia Post Op Note Date & Time January 27, 2017 at 11:33 Vital Signs Pain Intensity: 0 Vital Signs Past 12 Hours Date Time Temp Pulse Resp B/P Pulse Ox O2 Delivery O2 Flow Rate FiO2 01/27/17 11:30 65 12 147/85 100 Nasal Cannula 3 01/27/17 11:20 36.5 74 12 147/90 100 Nasal Cannula 3 01/27/17 11:10 73 12 153/89 100 Nasal Cannula 3 01/27/17 11:00 74 12 157/91 97 Nasal Cannula 3 01/27/17 10:50 36.4 80 12 165/97 97 Nasal Cannula 3 01/27/17 09:10 36.4 49 20 142/71 95 Room Air Notes Mental Status: alert / awake / arousable, participated in evaluation Pt Amnestic to Procedure: Yes Nausea / Vomiting: adequately controlled Pain: adequately controlled Airway Patency, RR, SpO2: stable & adequate BP & HR: stable & adequate Hydration State: stable & adequate Anesthetic Complications: no major complications apparent
--- NOTE | 2017-01-27 11:36 | OPERATIVE REPORT ---
DATE OF OPERATION: 01/27/2017 PREOPERATIVE DIAGNOSIS: Bladder cancer. POSTOPERATIVE DIAGNOSIS: Bladder cancer. PROCEDURE PERFORMED: Cystoscopy, bladder biopsy and fulguration. ANESTHESIA: General. ESTIMATED BLOOD LOSS: 0. URINE OUTPUT: Not recorded. SPECIMENS: Bladder biopsy x2 for routine pathology. DESCRIPTION OF THE PROCEDURE: Maninder Choudhury was identified in the preoperative holding area. Appropriate informed consents were reviewed and completed and the patient was transported to the operating suite. Upon arrival, he received appropriate preoperative antibiotics in the form of ciprofloxacin. Adequate general anesthesia was achieved and the patient was placed in dorsal lithotomy position where he was sterilely prepped and draped in standard fashion. To begin the case, I passed a 24 [place] resectoscope with visual obturator and 30 degree lens. Inspection revealed no evidence of stricture disease. Prostate was open. Full inspection of the bladder was carried out. There were no large papillary tumors appreciated. There were, however, 2 areas of abnormality appreciated. The first was directly on the posterior wall behind the trigone. The second was to the patient's left hand side along the posterior lateral wall. Both of these appeared to have early papillary features and essentially a carpeting type approach without a large papillary protruding tumor. These both encompassed an area of 2-3 cm2. I biopsied both of these areas with a cold cup biopsy forceps and passed these specimens off the table. I then used a resecting loop to simply fulgurate these areas without further resection. I fully inspected the bladder again with the 30 and 70 degree lens to ensure no other large areas or small areas of tumor and I appreciated no other abnormalities. At the conclusion of the case there was excellent hemostasis. Bladder was decompressed and the case concluded. I attest to the content of the Intraoperative Record and any orders documented therein. Any exceptio ns are noted below.
[2017-01-27 12:00] VITALS: BP 192/98; PULSE 73; O2SAT 100
[2017-01-27 12:29] VITALS: BP 162/89; PULSE 56; TEMP 36.5; O2SAT 92
== END | disposition home or self-care (01) ==
LOC: C.ACU 08:31
PROVIDERS: ATTEND Urology
DX: C67.9 Malignant neoplasm of bladder, unspecified (principal); M19.90 Unspecified osteoarthritis, unspecified site; N40.1 Benign prostatic hyperplasia with lower urinary tract symptoms; N13.8 Other obstructive and reflux uropathy; I10 Essential (primary) hypertension; E78.5 Hyperlipidemia, unspecified; Z72.0 Tobacco use; Z79.01 Long term (current) use of anticoagulants; Z79.82 Long term (current) use of aspirin; Z79.899 Other long term (current) drug therapy

== ENCOUNTER 2017-09-04 23:45 | Observation (INO) | payer BC ==
[~2017-09-04] VITALS: Ht 182.9 cm; Wt 88.0 kg
[~2017-09-04 23:45] MED LIST changes: -ACETAMINOPHEN 325 MG TAB PO PRN; -ATOR-24 PO; -ATROPINE SULFATE 0.1 MG/ML 5ML SYR IV PRN; -CIPROFLOXACIN / D5W 400 MG IV SCH; -EpHEDrine SULFATE INJ 50 MG/ML AMP IV PRN; -FENTANYL CITRATE INJ 50 MCG/1 ML 2 ML VIAL IV PRN; -FENTANYL CITRATE INJ 50 MCG/1 ML 2 ML VIAL ONE; -GLYCOPYRROLATE INJ 0.2 MG/ML VIAL ONE; -HYDROmorphone INJ 1 MG/ML SYR IV PRN; -LABETALOL HCL IV 5 MG/ML 20ML IV PRN; -LACTATED RINGER'S 1000ML 1,000 ML IV SCH; -LIDOCAINE HCL 2% 2 ML VIAL (20MG/ML) ONE; -MEPERIDINE HCL 25 MG/ML CARP IV PRN; -MIDAZOLAM HCL 1 MG/ML 2ML VIAL ONE; -NITR1CAP16 PO; -ONDANSETRON INJ 2 MG/ML 2 ML VIAL IV PRN; -ONDANSETRON INJ 2 MG/ML 2 ML VIAL ONE; -PHEN-775 PO; -PHENAZOPYRIDINE HCL 200 MG TAB PO SCH; -PROPOFOL IV EMULSION 10 MG/ML 20 ML VIAL IV ONE; -SODIUM CHLORIDE 0.9% 1000ML 1,000 ML IV SCH
[2017-09-04] MEDS ORDERED: DILTIAZEM HCL 5 MG/ML 5 ML VIAL IV STA (23:56)
[2017-09-05 00:05] LABS: BASO % 0.4 %; BASO ABS # 0.05 K/uL (0-0.2); EOS % 1.4 %; EOS ABS # 0.17 K/uL (0-0.5); HEMOGLOBIN 17.9 g/dL (14.0-18.0); IG# 0.04 K/uL (0.00-0.02); LYMPH % 40.8 %; LYMPH ABS # 4.96 K/uL (1.2-3.4); MEAN CELL VOLUME 97.9 fL (80-100); MEAN CORPUSCULAR HEMOGLOBIN 33.7 pg (25-34); MEAN CORPUSCULAR HGB CONC 34.4 g/dl (32-36); MEAN PLATELET VOLUME 11.4 fL (7.4-10.4); MONO % 14.3 %; MONO ABS # 1.74 K/uL (0.11-0.59); NEUT % 42.8 %; NEUT ABS # 5.19 K/uL (1.4-6.5); PLATELET COUNT 152 K/uL (130-400); RED CELL DISTRIBUTION WIDTH SD 49.9 fL (36.4-46.3); WHITE BLOOD COUNT 12.15 K/uL (4.8-10.8)
--- NOTE | 2017-09-05 00:08 | EMERGENCY ROOM VISIT NOTE ---
History Report prepared by Jesus: Avila Vaughn Under the Supervision of: Dr. Delvin Urias M.D. First contact with patient: 23:51 Chief Complaint: CHEST PAIN Stated Complaint: CHEST PAIN - JUST UNDER STERNUM,THROAT TIGHTNING History of Present Illness The patient is a 82 year old male who presents to the Emergency Room with complaints of constant mid chest pain that began at 2100. He rates his pain as a 7/10 in severity. He describes his pain as a tight sensation. The patient states that he started to experience chest pain around his epigastric region that radiated to his throat. The patient reports that he has not done any exertional activities today, but reports he went to the gym yesterday. He denies nausea, vomiting, syncope, shortness of breath, and heart palpitations. The patient states that he has a history of atrial fibrillation two years ago, which he takes Metoprolol for. He reports that he also takes Coumadin. The patient denies a history of heart failure. Source of History: patient Onset: 2100 Position: chest Symptom Intensity: 7/10 Quality: other (tight) Timing: constant Associated Symptoms: No LOC, No SOB, No nausea, No vomiting Review of Systems See HPI for pertinent positives & negatives. A total of 10 systems reviewed and were otherwise negative. 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 (5) superficial phlemitis (6) Varicose veins of lower extremity Family History Hypertension Lung disease Social History Smoking Status: Current Every Day Smoker Alcohol Use: none Marital Status: Housing Status: lives alone Occupation Status: retired Current/Historical Medications Scheduled Amlodipine Besylate (Norvasc), 5 MG PO QAM Aspirin (Aspirin Chewable), 81 MG PO noon Atorvastatin (Lipitor), 20 MG PO DAILY Citalopram Hydrobromide (Citalopram Hydrobromide), 10 MG PO DAILY Docusate Sodium (Colace), 100 MG PO DAILY Finasteride (Proscar), 5 MG PO QAM Metoprolol Tartrate (Lopressor) (Lopressor), 12.5 MG PO BID Multiple Vitamins W/ Minerals (Preservision Areds 2), 1 CAP PO BID Multivitamin (Multivitamin), 1 TAB PO noon Nitroglycerin (Nitrostat), 0.4 MG UT PRN Psyllium (Metamucil Powder), 1 PACK PO PRN Warfarin Sodium (Coumadin), 0 PO UD Scheduled PRN Alprazolam (Xanax), 0.25 MG PO TID PRN for Anxiety/Agitation Aluminum/Magnesium/Simeth (Maalox Max Susp), 30 ML PO DAILY PRN for GI Upset Dicyclomine Hcl (Bentyl), 10 MG PO BID PRN for abdominal pain Allergies Coded Allergies: Sulfa Antibiotics (Verified Allergy, Severe, ITCHING, 01/27/17) Levofloxacin (Verified Allergy, Intermediate, BRADYCARDIA, 01/27/17) Metronidazole (Verified Allergy, Unknown, PVC'S, 01/27/17) Penicillins (Unverified Allergy, Unknown, UNKNOWN, 01/27/17) Meloxicam (Verified Adverse Reaction, Intermediate, UPSET STOMACH, 01/27/17 ) Sertraline (Verified Adverse Reaction, Intermediate, GI SYMPTOMS, 01/27/17) Hydrocodone (Verified Adverse Reaction, Mild, constipation, 01/27/17) Doxycycline (Verified Adverse Reaction, Unknown, GI UPSET, 01/27/17) Physical Exam Vital Signs Date Time Temp Pulse Resp B/P (MAP) Pulse Ox O2 Delivery O2 Flow Rate FiO2 09/05/17 03:41 98 20 133/86 94 Room Air 09/05/17 03:35 116 137/98 09/05/17 03:00 96 20 129/84 95 Room Air 09/05/17 02:30 83 20 118/83 94 Room Air 09/05/17 02:00 92 20 143/81 94 Room Air 09/05/17 01:11 108 20 130/86 93 Room Air 09/05/17 00:44 101 18 106/76 94 Room Air 09/05/17 00:09 107 22 133/75 94 Room Air 09/05/17 00:01 95 Room Air 09/04/17 23:58 95 Room Air 09/04/17 23:58 130 16 163/118 95 Room Air 09/04/17 23:48 36.4 94 18 196/106 97 Room Air Physical Exam GENERAL: Patient is well appearing and in minimal distress. HEENT: No acute trauma, normocephalic atraumatic, mucous membranes moist, no nasal congestion, no scleral icterus. NECK: No stridor, no adenopathy, no meningismus, trachea is midline. LUNGS: No dyspnea. Clear to auscultation and equal bilaterally. No wheeze, no rhonchi. HEART: Tachycardic rate and irregular rhythm. No murmurs, rubs, gallops appreciated. ABDOMEN: Soft, nontender, bowel sounds positive, no masses appreciated, no peritonitis. BACK: No midline tenderness, no CVA tenderness EXTREMITIES: Normal motion all extremities, no cyanosis, no edema. NEUROLOGIC: Alert and oriented, no acute motor or sensory deficits, no focal weakness, cranial nerves grossly intact. SKIN: No rash, no jaundice, no diaphoresis. Medical Decision & Procedures ER Provider Diagnostic Interpretation: X ray results are stated below per my interpretation: Chest: 1 view: No infiltrate, no effusion, normal cardiac border, bilateral lower lobes have old scarring which is similar to previous chest x-rays. Laboratory Results 09/04/17 23:55 Red Blood Count 5.31, Mean Corpuscular Volume 97.9, Mean Corpuscular Hemoglobin 33.7, Mean Corpuscular Hemoglobin Concent 34.4, Mean Platelet Volume 11.4, Neutrophils (%) (Auto) 42.8, Lymphocytes (%) (Auto) 40.8, Monocytes (%) (Auto) 14.3, Eosinophils (%) (Auto) 1.4, Basophils (%) (Auto) 0.4, Neutrophils # (Auto ) 5.19, Lymphocytes # (Auto) 4.96, Monocytes # (Auto) 1.74, Eosinophils # (Auto ) 0.17, Basophils # (Auto) 0.05 09/04/17 23:55 Test 09/04/17 23:55 White Blood Count 12.15 K/uL (4.8-10.8) Red Blood Count 5.31 M/uL (4.7-6.1) Hemoglobin 17.9 g/dL (14.0-18.0) Hematocrit 52.0 % (42-52) Mean Corpuscular Volume 97.9 fL (80-100) Mean Corpuscular Hemoglobin 33.7 pg (25-34) Mean Corpuscular Hemoglobin Concent 34.4 g/dl (32-36) Platelet Count 152 K/uL (130-400) Mean Platelet Volume 11.4 fL (7.4-10.4) Neutrophils (%) (Auto) 42.8 % Lymphocytes (%) (Auto) 40.8 % Monocytes (%) (Auto) 14.3 % Eosinophils (%) (Auto) 1.4 % Basophils (%) (Auto) 0.4 % Neutrophils # (Auto) 5.19 K/uL (1.4-6.5) Lymphocytes # (Auto) 4.96 K/uL (1.2-3.4) Monocytes # (Auto) 1.74 K/uL (0.11-0.59) Eosinophils # (Auto) 0.17 K/uL (0-0.5) Basophils # (Auto) 0.05 K/uL (0-0.2) RDW Standard Deviation 49.9 fL (36.4-46.3) RDW Coefficient of Variation 14.0 % (11.5-14.5) Immature Granulocyte % (Auto) 0.3 % Immature Granulocyte # (Auto) 0.04 K/uL (0.00-0.02) Prothrombin Time 18.4 SECONDS (9.0-12.0) Prothromb Time International Ratio 1.8 (0.9-1.1) Activated Partial Thromboplast Time 30.1 SECONDS (21.0-31.0) Partial Thromboplastin Ratio 1.2 Anion Gap 8.0 mmol/L (3-11) Est Creatinine Clear Calc Drug Dose 60.7 ml/min Estimated GFR () 78.0 Estimated GFR (Non- 67.3 BUN/Creatinine Ratio 24.5 (10-20) Calcium Level 9.9 mg/dl (8.5-10.1) Magnesium Level 2.5 mg/dl (1.8-2.4) Total Bilirubin 0.4 mg/dl (0.2-1) Direct Bilirubin mg/dl (0-0.2) Aspartate Amino Transf (AST/SGOT) 29 U/L (15-37) Alanine Aminotransferase (ALT/SGPT) 38 U/L (12-78) Alkaline Phosphatase 208 U/L (45-117) Total Creatine Kinase 138 U/L (39-308) Creatine Kinase MB 4.2 ng/ml (0.5-3.6) Creatine Kinase MB Ratio 3.0 (0-3.0) Troponin I 0.027 ng/ml (0-0.045) Total Protein 7.6 gm/dl (6.4-8.2) Albumin 4.1 gm/dl (3.4-5.0) Lipase 219 U/L (73-393) Chemistry Specimen Hemolysis Laboratory results as reviewed by me. Medications Administered Medications (Trade) Dose Ordered Sig/Eleni Route Start Time Stop Time Status Last Admin Dose Admin Diltiazem HCl (Cardizem Inj) 20 mg NOW STAT IV 09/04/17 23:56 09/04/17 23:58 DC 09/05/17 00:07 20 MG Sodium Chloride 500 ml @ 999 mls/hr Q31M STAT IV 09/05/17 00:13 09/05/17 00:43 DC 09/05/17 00:29 999 MLS/HR Diltiazem HCl (Cardizem Inj) 15 mg NOW STAT IV 09/05/17 00:37 09/05/17 00:38 DC 09/05/17 00:42 15 MG Alprazolam (Xanax Tab) 0.5 mg NOW STAT PO 09/05/17 02:03 09/05/17 02:04 DC 09/05/17 02:13 0.5 MG Diltiazem HCl (Cardizem Inj) 15 mg NOW STAT IV 09/05/17 02:04 09/05/17 02:05 DC 09/05/17 02:20 15 MG Metoprolol Tartrate (Lopressor Iv) 5 mg STK-MED ONCE .ROUTE 09/05/17 03:33 09/05/17 03:34 DC 09/05/17 03:35 5 MG ECG Indication: chest pain Rate (beats per minute): 144 Rhythm: atrial fibrillation Findings: ST depression (Inferiolateral), other (RVR) ED Course 2352: The patient was evaluated in room A11B. A complete history and physical exam was performed. 2356: Ordered Cardizem Injection 20 mg IV. 0011: I reevaluated the patient and he is heart rate is down in the 110s and irregular. HE reports he is relieved of all symptoms. 0013: Ordered Sodium Chloride 500 ml @ 999 mls/hr IV. 0034: I reevaluated the patient and his heart rate increased to 130s. He does not currently complain of pain. 0037: Ordered Cardizem Injection 15 mg IV. 0040: I reevaluated the patient and he is resting comfortably. I discussed an NG tube placement with the patient and he agreed to further evaluation and treatment. 0042: [facility] He understands the patients condition and agrees to accept the patient. Medical Decision Differential: NSR, SVT, PACs, PVCs, Cardiac Dysrhythmia, Endocrine Dysfunction, Electrolyte/Metabolic Abnormality, Pulmonary Embolism, Infectious, GI, amongst other pathologies entertained. 82 yr old male who notes he usually is in NSR but is on coumadin for history afib arrives with low substernal chest pressure. In Afib RVR on arrival which when slowed with Cardizem he notes complete resolution of discomfort. Already on coumadin and thus I feel PE unlikely. There is lateral ST depressions consistent with rate though with pain free after slowing HR, no current trop bump and already on coumadin I feel further anticoag not at this time warranted. No clear evidence infectious etiology. May be a bit on dry side thus the NSS bolus. Other electrolytes OK. Patient ended up requiring 3 rounds cardizem to keep HR under moderate control and will be brought in to hospitalist service for further management. Medication Reconcilliation Current Medication List: was personally reviewed by me Blood Pressure Screening Patient's blood pressure: Elevated blood pressure Monitored by Hospitalist. Consults Time Called: 41 Consulting Physician: [facility] Returned Call: 41 I discussed the patients case with [facility]. He understands the patients condition and agrees to accept the patient. Impression Primary Impression: Atrial fibrillation with RVR Additional Impression: Substernal chest pain Critical Care I have personally spent greater than 35 minutes of critical care time in the direct management of this patient. This was a life/limb threatening event. This includes time spent evaluating patient, direct bedside care, chart review, placing orders, interpretation of diagnostic studies, discussion with consultants, patient, and family members, as well as other required patient management activities. This 35 minutes is in excess of all separately billable procedures. Scribe Attestation The scribe's documentation has been prepared under my direction and personally reviewed by me in its entirety. I confirm that the note above accurately reflects all work, treatment, procedures, and medical decision making performed by me. Departure Information Dispostion Being Evaluated By Hospitalist Referrals Reinaldo Bill D.O. (PCP) Patient Instructions My [facility] Problem Qualifiers
[2017-09-05] MEDS ORDERED: SODIUM CHLORIDE 0.9% 500ML 500 ML IV STA (00:13)
[2017-09-05 00:23] LABS: INR 1.8 (0.9-1.1); PTT PATIENT 30.1 SECONDS (21.0-31.0)
[2017-09-05] MEDS ORDERED: DILTIAZEM HCL 5 MG/ML 5 ML VIAL IV STA ×2 (00:37→02:04)
[2017-09-05] MEDS ORDERED: ATOR-22 PO (00:43)
[2017-09-05] MEDS ORDERED: CITA20TA4 PO (00:45)
[2017-09-05] MEDS ORDERED: RED PO (00:50)
[2017-09-05 00:54] LABS: ALBUMIN 4.1 gm/dl (3.4-5.0); ALKALINE PHOSPHATASE 208 U/L (45-117); ALT/SGPT 38 U/L (12-78); AST/SGOT 29 U/L (15-37); BLOOD UREA NITROGEN 25 mg/dl (7-18); CALCIUM 9.9 mg/dl (8.5-10.1); CARBON DIOXIDE 29 mmol/L (21-32); CKMB 4.2 ng/ml (0.5-3.6); CREATININE 1.03 mg/dl (0.60-1.40); GLUCOSE 166 mg/dl (70-99); LIPASE 219 U/L (73-393); SODIUM 139 mmol/L (136-145); TOTAL PROTEIN 7.6 gm/dl (6.4-8.2)
[2017-09-05] MEDS ORDERED: MULT60CA PO (00:54)
[2017-09-05] MEDS ORDERED: ALUMSUS2 PO (00:56)
[2017-09-05] MEDS ORDERED: ALPRAZOLAM 0.5 MG TAB PO STA (02:03)
--- NOTE | 2017-09-05 02:43 | History and Physical ---
History & Physical Date & Time of Service: Sep 05, 2017 at 02:43 . Chief Complaint: chest pain, palpitations . Primary Care Physician: Reinaldo Bill D.O. . History of Present Illness Source: patient, clinic records, hospital records 82 YO male followed by Dr. Bill for Internal Medicine and Dr. Sandra for Cardiology. History of ischemic heart disease, PAF, and other problems noted below. Developed midsternal / epigastric discomfort this evening around 21:00. Noted some palpitations. No dyspnea, diaphoresis, nausea, vomiting. Tried Maalox and TUMS without relief. Came to ED for evaluation where he was found to be in AF with RVR. Received 2 doses of IV diltiazem with slowing of his ventricular rate and improvement of his symptoms. . Past Medical/Surgical History Chronic and Resolved Medical Problems: (1) Anticoagulated on warfarin Status: Chronic (2) Benign hypertension Status: Chronic (3) BPH (benign prostatic hypertrophy) Status: Chronic (4) Carcinoma of bladder Status: Chronic (5) COPD (chronic obstructive pulmonary disease) Status: Chronic (6) Coronary artery disease Permanent Comment: cath 08/13/15 moderate mid RCA stenosis, indeterminate ostial LAD lesion Status: Chronic (7) Depression Status: Chronic (8) Dyslipidemia Status: Chronic (9) History of squamous cell carcinoma of skin Status: Chronic (10) Hyperlipidemia Status: Chronic (11) Hypertension Status: Chronic (13) Meningioma Status: Chronic (14) Neoplasm of ureter Status: Chronic (15) Paroxysmal atrial fibrillation Status: Chronic (16) Pseudoaneurysm of right femoral artery Permanent Comment: after cardiac cath 2014 Status: Resolved (17) 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 Sandra; moderate mid RCA, indeterminate ostial LAD Status: Chronic (2) Status post cataract extraction Status: Chronic (3) Status post tonsillectomy Status: Chronic . Family History FATHER Heart disease Hypertension MOTHER Heart disease Hypertension BROTHER Diabetes mellitus DAUGHTER Multiple sclerosis Social History Smoking Status: Former Smoker Smokeless Tobacco Use: Yes Alcohol Use: none Marital Status: ( in SNF) Occupational Status: retired Immunizations History of Influenza Vaccine: Yes History of Tetanus Vaccine?: Unknown History of Pneumococcal: Yes History of Hepatitis B Vaccine: Unknown Multi-Drug Resistant Organisms History of MDRO: No Allergies Coded Allergies: Sulfa Antibiotics (Verified Allergy, Severe, ITCHING, 01/27/17) Levofloxacin (Verified Allergy, Intermediate, BRADYCARDIA, 01/27/17) Metronidazole (Verified Allergy, Unknown, PVC'S, 01/27/17) Penicillins (Unverified Allergy, Unknown, UNKNOWN, 01/27/17) Meloxicam (Verified Adverse Reaction, Intermediate, UPSET STOMACH, 01/27/17 ) Sertraline (Verified Adverse Reaction, Intermediate, GI SYMPTOMS, 01/27/17) Hydrocodone (Verified Adverse Reaction, Mild, constipation, 01/27/17) Doxycycline (Verified Adverse Reaction, Unknown, GI UPSET, 01/27/17) Home Medications Scheduled Amlodipine Besylate (Norvasc), 5 MG PO QAM Aspirin (Aspirin Chewable), 81 MG PO noon Atorvastatin (Lipitor), 20 MG PO DAILY Citalopram Hydrobromide (Citalopram Hydrobromide), 10 MG PO DAILY Docusate Sodium (Colace), 100 MG PO DAILY Finasteride (Proscar), 5 MG PO QAM Metoprolol Tartrate (Lopressor) (Lopressor), 12.5 MG PO BID Multiple Vitamins W/ Minerals (Preservision Areds 2), 1 CAP PO BID Multivitamin (Multivitamin), 1 TAB PO noon Nitroglycerin (Nitrostat), 0.4 MG UT PRN Psyllium (Metamucil Powder), 1 PACK PO PRN Warfarin Sodium (Coumadin), 0 PO UD Scheduled PRN Alprazolam (Xanax), 0.25 MG PO TID PRN for Anxiety/Agitation Aluminum/Magnesium/Simeth (Maalox Max Susp), 30 ML PO DAILY PRN for GI Upset Dicyclomine Hcl (Bentyl), 10 MG PO BID PRN for abdominal pain Review of Systems Constitutional: No fever, No weight loss Eyes: + worsening of vision (macular degeneration), No diplopia ENT: No nasal symptoms, No sore throat Respiratory: No cough, No shortness of breath Cardiovascular: + problem reported (per HPI) Abdomen: No pain, No nausea, No vomiting, No diarrhea, No GI bleeding Musculoskeletal: + joint pain Genitourinary - Male: + urinary frequency, No hematuria, No dysuria Neurologic: + problem reported (occasinal headache) Psychiatric: + depression symptoms Endocrine: No excessive thirst, No excessive urination Hematologic / Lymphatic: + abnormal bleeding/bruising (bruises easily) Integumentary: No rash, No new/changing skin lesions Physical Exam Vital Signs Date Time Temp Pulse Resp B/P (MAP) Pulse Ox O2 Delivery O2 Flow Rate FiO2 09/05/17 02:30 83 20 118/83 94 Room Air 09/05/17 02:00 92 20 143/81 94 Room Air 09/05/17 01:11 108 20 130/86 93 Room Air 09/05/17 00:44 101 18 106/76 94 Room Air 09/05/17 00:09 107 22 133/75 94 Room Air 09/05/17 00:01 95 Room Air 09/04/17 23:58 95 Room Air 09/04/17 23:58 130 16 163/118 95 Room Air 09/04/17 23:48 36.4 94 18 196/106 97 Room Air General Appearance: WD/WN, no apparent distress Head: normocephalic, atraumatic Eyes: normal inspection, PERRL, EOMI, sclerae normal, + pertinent finding ( conjunctivae clear) ENT: hearing grossly normal, pharynx normal Neck: supple, no adenopathy, thyroid normal, no JVD, trachea midline Respiratory/Chest: lungs clear, no respiratory distress, no accessory muscle use Cardiovascular: no edema, no gallop, no JVD, no murmur, normal peripheral pulses, + irregularly irregular Abdomen/GI: normal bowel sounds, non tender, soft, no organomegaly, no pulsatile mass Extremities/Musculoskelatal: normal inspection, no calf tenderness, normal capillary refill, no pedal edema Neurologic/Psych: cook pressure II-XII nml as tested (PERRL, EOMI, no facial palsy, no dysarthria), no motor/sensory deficits (grossly intact), alert, oriented x 3, + depressed affect Skin: normal color, warm/dry, no rash Lymphatic: no adenopathy (cervical) Diagnostics Laboratory Results Results Past 24 Hours Test 09/04/17 23:55 Range/Units White Blood Count 12.15 4.8-10.8 K/uL Red Blood Count 5.31 4.7-6.1 M/uL Hemoglobin 17.9 14.0-18.0 g/dL Hematocrit 52.0 42-52 % Mean Corpuscular Volume 97.9 80-100 fL Mean Corpuscular Hemoglobin 33.7 25-34 pg Mean Corpuscular Hemoglobin Concent 34.4 32-36 g/dl Platelet Count 152 130-400 K/uL Mean Platelet Volume 11.4 7.4-10.4 fL Neutrophils (%) (Auto) 42.8 % Lymphocytes (%) (Auto) 40.8 % Monocytes (%) (Auto) 14.3 % Eosinophils (%) (Auto) 1.4 % Basophils (%) (Auto) 0.4 % Neutrophils # (Auto) 5.19 1.4-6.5 K/uL Lymphocytes # (Auto) 4.96 1.2-3.4 K/uL Monocytes # (Auto) 1.74 0.11-0.59 K/uL Eosinophils # (Auto) 0.17 0-0.5 K/uL Basophils # (Auto) 0.05 0-0.2 K/uL RDW Standard Deviation 49.9 36.4-46.3 fL RDW Coefficient of Variation 14.0 11.5-14.5 % Immature Granulocyte % (Auto) 0.3 % Immature Granulocyte # (Auto) 0.04 0.00-0.02 K/uL Prothrombin Time 18.4 9.0-12.0 SECONDS Prothromb Time International Ratio 1.8 0.9-1.1 Activated Partial Thromboplast Time 30.1 21.0-31.0 SECONDS Partial Thromboplastin Ratio 1.2 Sodium Level 139 136-145 mmol/L Potassium Level 3.5-5.1 mmol/L Chloride Level 102 98-107 mmol/L Carbon Dioxide Level 29 21-32 mmol/L Anion Gap 8.0 3-11 mmol/L Blood Urea Nitrogen 25 7-18 mg/dl Creatinine 1.03 0.60-1.40 mg/dl Est Creatinine Clear Calc Drug Dose 60.7 ml/min Estimated GFR () 78.0 Estimated GFR (Non- 67.3 BUN/Creatinine Ratio 24.5 10-20 Random Glucose 166 70-99 mg/dl Calcium Level 9.9 8.5-10.1 mg/dl Magnesium Level 2.5 1.8-2.4 mg/dl Total Bilirubin 0.4 0.2-1 mg/dl Direct Bilirubin 0-0.2 mg/dl Aspartate Amino Transf (AST/SGOT) 29 15-37 U/L Alanine Aminotransferase (ALT/SGPT) 38 12-78 U/L Alkaline Phosphatase 208 45-117 U/L Total Creatine Kinase 138 39-308 U/L Creatine Kinase MB 4.2 0.5-3.6 ng/ml Creatine Kinase MB Ratio 3.0 0-3.0 Troponin I 0.027 0-0.045 ng/ml Total Protein 7.6 6.4-8.2 gm/dl Albumin 4.1 3.4-5.0 gm/dl Lipase 219 73-393 U/L Chemistry Specimen Hemolysis Diagnostic Radiology CHEST ONE VIEW PORTABLE FINDINGS: A few bibasilar linear densities consistent with subsegmental atelectasis. The lungs are otherwise clear. No pleural effusions. No pneumothorax. The heart is normal in size. Severe degenerative changes within the glenohumeral joint. This also remains unchanged. IMPRESSION: A few bibasilar linear densities consistent with subsegmental atelectasis. Otherwise, no acute process within the chest. Electronically signed by: Pietro Dobbins M.D. 09/05/2017 8:12 AM Dictated Date/Time: 09/05/2017 8:11 AM . EKG EKG performed at 23:54 reviewed and demonstrated AF at 140 / minute, lateral ST depression. . Impression Assessment and Plan ATRIAL FIBRILLATION History of PAF. Presents with recurrent AF with RVR. Received IV diltiazem in ED with slowing of rate. Will continue metoprolol with IV metoprolol as needed pending Cardiology input. Continue warfarin. Consult Cardiology. CHEST PAIN Probably due to AF with RVR. EKG shows lateral ST depression. Known CAD per cath 2014. Continue aspirin, metoprolol, amlodipine, statin. Check serial cardiac markers. Consult Cardiology. HYPERTENSION Continue metoprolol and amlodipine. Follow and titrate Rx. VTE PROPHYLAXIS Continue warfarin. RESUSCITATION STATUS Discussed with patient. He has a living will. He would like resuscitation attempted in the event of a cardiopulmonary arrest if there is a reasonable chance of a meaningful recovery, but does not want prolonged extraordinary measures if prognosis is poor. Therefore, code status = "Level 1" (full resuscitation). DISPOSITION Observation status on Telemetry Status; transition to inpatient status if warranted. Expected discharge to home. Internal Medicine follow-up with Dr. Bill. Cardiology follow-up with Dr. Sandra. . VTE Prophylaxis Given or contraindicated: Warfarin (Coumadin)
[2017-09-05] MEDS ORDERED: METOPROLOL TARTRATE 1 MG/ML VIAL IV PRN (03:30)
[2017-09-05] MEDS ORDERED: NITROGLYCERIN 0.4 MG SL PER TAB CHARGE UT SCH (03:30)
[2017-09-05] MEDS ORDERED: ALUMINUM/MAGNESIUM/SIMETH (MAALOX MAX) 30 ML UDC PO PRN (03:30)
[2017-09-05] MEDS ORDERED: DOCU-94 PO (03:33)
[2017-09-05] MEDS ORDERED: METOPROLOL TARTRATE 1 MG/ML VIAL ONE (03:33)
[2017-09-05] MEDS ORDERED: METOPROLOL TARTRATE 1 MG/ML VIAL IV STA (03:45)
[2017-09-05 04:05] VITALS: BP 135/88; PULSE 87; TEMP 36.5; O2SAT 97; Ht 182.9 cm; Wt 88.0 kg
--- NOTE | 2017-09-05 04:05 | NUR ---
A/ID: PT ARRIVES FROM ED TO TELEMETRY 244 W[facility] TO [facility]ARDIOLOGY. AMBULATES INDEPENDENTLY FROM LITER TO BED WITH STEADY GAIT. A/O X 4 AND DENIES PAIN/CHEST PAIN. ENCOURAGED TO NOTIFY STAFF IF DEVELOPS. EARTH MOVING TECHNICIAN APPLIED REVEALS AFIB RATE IN THE 90'S-100'S. OTHER VS ACCEPTABLE. LUNGS CTA O2 SATS HIGH 90'S ON RA. PT LIVES INDEPENDENTLY AND DROVE TO FACILITY. ANTICIPATE D/C TO HOME. ORIENTED TO ROOM, UNIT AND CALL CHEN SYSTEM. PLAN OF CARE DISCUSSED AND QUESTIONS ENCOURAGED. CALL CHEN IN REACH. WILL CONTINUE TO MONITOR PT.
[2017-09-05] MEDS ORDERED: IV FLUIDS COMPLETED PRN (05:30)
[2017-09-05] MEDS ORDERED: METOPROLOL TARTRATE 1 MG/ML VIAL IV ONE (06:16)
--- NOTE | 2017-09-05 06:17 | NUR ---
A: SPOKE WITH DR GUY AND MADE AWARE THAT PT REMAINS IN AFIB WITH HR NOW SUSTAINING IN THE 120'S-130'S. AWAITING ORDERS.
--- NOTE | 2017-09-05 07:06 | NUR ---
A: AT 0645 NOTED ON TELEMETRY PT HEART RATE DROPPED TO 42 AND APPEARED TO BE SINUS RHYTHM. OBTAINED STAT 12 LEAD EKG TO CONFIRM. PATIENT REPORTS EPIGASTRIC DISCOMFORT IS GONE. UPDATED DR GUY.
[2017-09-05 08:05] VITALS: BP 138/78; PULSE 53; TEMP 36.3; O2SAT 96
[2017-09-05 08:07] LABS: CALCIUM 9.1 mg/dl (8.5-10.1); CREATININE 0.93 mg/dl (0.60-1.40)
--- NOTE | 2017-09-05 08:13 | DIAGNOSTIC IMAGING REPORT ---
CHEST ONE VIEW PORTABLE HISTORY: Substernal/epigastric Chest Pain COMPARISON: Chest 01/16/2017. FINDINGS: A few bibasilar linear densities consistent with subsegmental atelectasis. The lungs are otherwise clear. No pleural effusions. No pneumothorax. The heart is normal in size. Severe degenerative changes within the glenohumeral joint. This also remains unchanged. IMPRESSION: A few bibasilar linear densities consistent with subsegmental atelectasis. Otherwise, no acute process within the chest. Electronically signed by: Pietro Dobbins M.D. 09/05/2017 8:12 AM Dictated Date/Time: 09/05/2017 8:11 AM
--- NOTE | 2017-09-05 08:20 | NUR ---
PATIENT ASSESSED, DENIED DISCOMFORTS, SOB. REMAINED IN SR AT THIS TIME. MEDS GIVEN PER EMAR. VSS. SEE DATA.
[2017-09-05] MEDS: MULTIVITAMIN TAB PO SCH (08:25)
[2017-09-05] MEDS: CITALOPRAM 20 MG TAB PO SCH (08:26)
[2017-09-05] MEDS: ENTERIC COATED ASA PO SCH (08:26)
[2017-09-05] MEDS: AMLODIPINE BESYLATE 5 MG TAB PO SCH (08:27)
[2017-09-05] MEDS: FINASTERIDE 5 MG TAB PO SCH (08:27)
[2017-09-05] MEDS: CEROVITE ADV FORMULA TAB PO SCH ×2 (08:29→16:32)
[2017-09-05] MEDS ORDERED: DOCUSATE SODIUM 100 MG CAP PO SCH (09:00)
[2017-09-05] MEDS ORDERED: ATORVASTATIN 20 MG TAB PO SCH (09:00)
[2017-09-05] MEDS ORDERED: PSYLLIUM 58.6% PWD PACK PO SCH (09:00)
[2017-09-05] MEDS ORDERED: METOPROLOL TARTRATE 25 MG TAB PO SCH (09:00)
--- NOTE | 2017-09-05 09:37 | NUR ---
slag dumper case management note. Pt identified on social service screening tool as >80 and lives alone. Spoke with pt. Pt a&o. Pt lives alone. Pts is in [place] [facility]. Pt drives. Pt lives in a 2 story house with first floor living. Pt is independent with adl's. Pt does not have home health. Pt has a cleaning lady every 2 weeks. Explained role of behavioral health case manager. Pt plans to return home at discharge. Pt denies any discharge needs. Case management to follow with pt.
[2017-09-05] MEDS: ALPRAZOLAM 0.5 MG TAB PO PRN ×2 (10:59→20:34)
--- NOTE | 2017-09-05 12:10 | NUR ---
PATIENT REASSESSED, STABLE. DR CASTELLON HERE AND MADE AWARE OF FAST ARRHYTHMIA. SEE STRIP ON CHART. SEE VS, ASSESSMENT DATA.
[2017-09-05 12:46] VITALS: BP 126/76; PULSE 48; TEMP 36.6; O2SAT 96
--- NOTE | 2017-09-05 12:52 | CARDIOLOGY CONSULTATION ---
DATE OF CONSULTATION: 09/05/2017 [facility] REASON FOR CONSULTATION: Atrial fibrillation and chest discomfort. HISTORY OF PRESENT ILLNESS: The patient is an 82-year-old male patient who recently saw Dr. Sandra through our office. At that time, he was having some muscle aches and joint pains, which were felt perhaps due to Lipitor. He does have a history of coronary artery disease and by previous cardiac catheterization 2 years ago, he had moderate disease of the right coronary artery and an indeterminate ostial LAD stenosis. At that time, he had an abnormal nuclear stress test that suggested posterior wall ischemia. The patient has done well following that cardiac catheterization 2 years ago. He does have a history of paroxysmal atrial fibrillation. Although, he was not having any active symptoms, Dr. Sandra felt that he should have a recent stress test and it was scheduled for September. On the day of admission, the patient developed some epigastric discomfort. He thought it might be due to some indigestion or GERD. He has had these symptoms before in the past. At this time, however, it was different and that he felt his heart racing. He decided to present to the Emergency Department, where he was found to be in atrial fibrillation with RVR. He converted spontaneously to normal sinus rhythm. He has no cardiac complaints this morning and is currently in a sinus bradycardia. The patient's cardiac markers after admission are borderline elevated with a troponin peaking at 0.13. He denies shortness of breath. He has had no dizziness or lightheadedness. He is on long-term anticoagulation with Coumadin. He has never been on an antiarrhythmic medication. ALLERGIES: THE PATIENT HAS MULTIPLE ALLERGIES AND I SUGGEST THAT YOU REVIEW OF THE MEDICAL RECORD. PAST MEDICAL HISTORY: The patient has a history of paroxysmal atrial fibrillation and coronary artery disease as described in the history of chief complaint. In addition, he has had a history of previous DVT. History of hypertension and dyslipidemia. He also has a history of GERD and gastritis, which he felt so was the cause of his symptoms on initial presentation. FAMILY MEDICAL HISTORY: Noncontributory. SOCIAL HISTORY: The patient is currently an everyday smoker. He is . His is currently in a senior living. REVIEW OF SYSTEMS: A 10-point review of systems is otherwise negative. PHYSICAL EXAMINATION: GENERAL: He is alert and oriented. VITAL SIGNS: Blood pressure is 120/80 and pulse is regular at 55 beats per minute. He is afebrile. HEENT: He is normocephalic. Pupils are equal and reactive to light. Extraocular muscles are intact bilaterally. NECK: The neck veins are flat. Carotids have good upstrokes bilaterally without bruits. Thyroid is nonpalpable. RESPIRATORY: Breath sounds equal bilaterally and clear to auscultation. CARDIOVASCULAR: Heart has a regular rhythm. Normal S1 and S2. No S3 or S4. No cardiac rubs or murmurs. GASTROINTESTINAL: Abdomen is soft and nontender without organomegaly. EXTREMITIES: Free of edema, digit clubbing, or cyanosis. NEUROLOGIC: Grossly intact. SKIN: Warm to touch. LYMPH NODES: Negative to palpation. LABORATORY DATA: Creatinine is 0.93 and potassium is 4.0. Troponin peaked at 0.13. EKG shows sinus bradycardia today with nonspecific ST and T-wave changes. IMPRESSION: 1. Paroxysmal atrial fibrillation. 2. Known coronary artery disease by cardiac catheterization. 3. History of deep venous thrombosis. 4. Hypertension. 5. Dyslipidemia. 6. History of gastroesophageal reflux disease and gastritis. RECOMMENDATIONS: I believe that the patient's cardiac markers are reflection of demand ischemia and not acute coronary syndrome. The demand ischemia is most likely due to his atrial fibrillation with RVR on presentation. I think he is at increased risk for additional atrial fibrillation and with this underlying coronary artery disease, I think it is best that we start him on amiodarone. Recently, his metoprolol was decreased due to evidence of bradycardia. I think the patient is at risk for the need of a permanent pacemaker in the future. I discussed my treatment plans and of course, the possibility of a permanent pacemaker with the patient and he fully understands. I will hold his metoprolol at this point as we start the amiodarone. I will also reduce his dosage of warfarin as the amiodarone will impact the INR. I will have further evaluation and treatment options following the above.
[2017-09-05] MEDS: AMIODARONE 200 MG TAB PO SCH ×2 (13:28→18:51)
[2017-09-05] MEDS ORDERED: WARFARIN SOD 7.5 MG TAB PO SCH (16:00)
[2017-09-05 16:04] VITALS: BP 148/82; PULSE 62; TEMP 36.6; O2SAT 96
[2017-09-05] MEDS: WARFARIN SOD 5 MG TAB PO SCH (16:27)
--- NOTE | 2017-09-05 16:55 | NUR ---
PATIENT REASSESSED, STABLE. NO CHANGE NOTED AND PATIENT CONTINUED TO DENY DISCOMFORTS, SOB. AMIODARONE THERAPY INITIATED PER EMAR. SEE OUTCOME, VS DATA.
--- NOTE | 2017-09-05 17:38 | Progress Note ---
Medicine Progress Note Date & Time of Visit: Sep 05, 2017 at 10:20. Subjective Pt was seen and examined Lying in bed with no distress Pt said that he feels fine he is anxious to go home Converted to sinus rhythm this morning Denies any chest pain, palpitation, dizziness and SOB Objective Last 8 Hrs Date Time Temp Pulse Resp B/P (MAP) Pulse Ox O2 Delivery O2 Flow Rate FiO2 09/05/17 16:04 36.6 62 18 148/82 (104) 96 Room Air 09/05/17 12:46 36.6 48 16 126/76 (93) 96 Room Air Physical Exam: General- No acute distress Head- atraumatic Eyes- PERRL, EOMI ENT- oropharynx clear Neck- supple, no JVD Lungs- clear to auscultation Heart- regular rhythm Abdomen- normal bowel sounds, soft Extremities- no calf tenderness Neuro- alert, oriented x 3; PERRL, EOMI Skin- warm & dry Laboratory Results: Last 24 Hours Test 09/04/17 23:55 09/05/17 07:13 09/05/17 12:47 White Blood Count 12.15 K/uL Red Blood Count 5.31 M/uL Hemoglobin 17.9 g/dL Hematocrit 52.0 % Mean Corpuscular Volume 97.9 fL Mean Corpuscular Hemoglobin 33.7 pg Mean Corpuscular Hemoglobin Concent 34.4 g/dl Platelet Count 152 K/uL Mean Platelet Volume 11.4 fL Neutrophils (%) (Auto) 42.8 % Lymphocytes (%) (Auto) 40.8 % Monocytes (%) (Auto) 14.3 % Eosinophils (%) (Auto) 1.4 % Basophils (%) (Auto) 0.4 % Neutrophils # (Auto) 5.19 K/uL Lymphocytes # (Auto) 4.96 K/uL Monocytes # (Auto) 1.74 K/uL Eosinophils # (Auto) 0.17 K/uL Basophils # (Auto) 0.05 K/uL RDW Standard Deviation 49.9 fL RDW Coefficient of Variation 14.0 % Immature Granulocyte % (Auto) 0.3 % Immature Granulocyte # (Auto) 0.04 K/uL Prothrombin Time 18.4 SECONDS 20.9 SECONDS Prothromb Time International Ratio 1.8 2.0 Activated Partial Thromboplast Time 30.1 SECONDS Partial Thromboplastin Ratio 1.2 Sodium Level 139 mmol/L 139 mmol/L Potassium Level mmol/L 4.0 mmol/L Chloride Level 102 mmol/L 103 mmol/L Carbon Dioxide Level 29 mmol/L 30 mmol/L Anion Gap 8.0 mmol/L 6.0 mmol/L Blood Urea Nitrogen 25 mg/dl 20 mg/dl Creatinine 1.03 mg/dl 0.93 mg/dl Est Creatinine Clear Calc Drug Dose 60.7 ml/min 67.2 ml/min Estimated GFR () 78.0 88.3 Estimated GFR (Non- 67.3 76.2 BUN/Creatinine Ratio 24.5 21.6 Random Glucose 166 mg/dl 130 mg/dl Calcium Level 9.9 mg/dl 9.1 mg/dl Magnesium Level 2.5 mg/dl Total Bilirubin 0.4 mg/dl Direct Bilirubin mg/dl Aspartate Amino Transf (AST/SGOT) 29 U/L Alanine Aminotransferase (ALT/SGPT) 38 U/L Alkaline Phosphatase 208 U/L Total Creatine Kinase 138 U/L Creatine Kinase MB 4.2 ng/ml Creatine Kinase MB Ratio 3.0 Troponin I 0.027 ng/ml 0.130 ng/ml 0.076 ng/ml Total Protein 7.6 gm/dl Albumin 4.1 gm/dl Lipase 219 U/L Chemistry Specimen Hemolysis Assessment & Plan ATRIAL FIBRILLATION WITH RVR. 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 Fib RVR 3rd set troponin trending down Continue aspirin, statin. Metoprolol d/c by cardio No chest pain currently HYPERTENSION Continue amlodipine. Monitor BP VTE PROPHYLAXIS On warfarin. INR 2.0 RESUSCITATION STATUS FULL CODE Current Inpatient Medications: Current Inpatient Medications Medications (Trade) Dose Ordered Sig/Eleni Route Start Time Stop Time Status Last Admin Dose Admin Metoprolol Tartrate (Lopressor Iv) 5 mg Q4H PRN IV 09/05/17 03:30 10/05/17 03:29 09/05/17 06:22 5 MG Alprazolam (Xanax Tab) 0.25 mg TID PRN PO 09/05/17 03:30 18 03:29 09/05/17 10:59 0.25 MG Al Hydrox/Mg Hydrox/Simethicone (Maalox Max Susp) 30 ml DAILY PRN PO 09/05/17 03:30 10/05/17 03:29 Amlodipine Besylate (Norvasc Tab) 5 mg QAM PO 09/05/17 09:00 10/05/17 08:59 09/05/17 08:27 5 MG Aspirin (Ecotrin Tab) 81 mg QAM PO 09/05/17 09:00 10/05/17 08:59 09/05/17 08:26 81 MG Citalopram Hydrobromide (celeXA TAB) 10 mg DAILY PO 09/05/17 09:00 10/05/17 08:59 09/05/17 08:26 10 MG Finasteride (Proscar Tab) 5 mg QAM PO 09/05/17 09:00 10/05/17 08:59 09/05/17 08:27 5 MG Multivitamins (Multivitamin Tab) 1 tab DAILY PO 09/05/17 09:00 10/05/17 08:59 09/05/17 08:25 1 TAB Nitroglycerin (Nitrostat Tab) 0.4 mg PRN UT 09/05/17 03:30 10/05/17 03:29 Multivitamins/ Minerals (Multivitamin W/ Minerals Tab) 1 tab BID PO 09/05/17 09:00 10/05/17 08:59 09/05/17 08:29 1 TAB Miscellaneous (Iv Fluids Completed) 1 ea PRN PRN N/A 09/05/17 05:30 09/05/18 05:29 Amiodarone HCl (Cordarone Tab) 200 mg TIDM PO 09/05/17 16:45 10/05/17 16:44 09/05/17 13:28 200 MG Warfarin Sodium (Coumadin Tab) 5 mg DAILY@1600 PO 09/05/17 16:00 10/05/17 15:59 09/05/17 16:27 5 MG Atorvastatin Calcium (Lipitor Tab) 20 mg HS PO 09/05/17 21:00 10/05/17 20:59 Psyllium Hydrophilic Mucilloid (Metamucil Powder) 1 pkt HS PO 09/05/17 21:00 1/22/18 20:59 Docusate Sodium (coLACE CAP) 100 mg HS PO 09/05/17 21:00 10/05/17 20:59
[2017-09-05 19:28] VITALS: BP 159/84; PULSE 57; TEMP 36.7; O2SAT 95
[2017-09-05] MEDS: PSYLLIUM 58.6% PWD PACK PO SCH (19:31)
[2017-09-05] MEDS: DOCUSATE SODIUM 100 MG CAP PO SCH (19:33)
[2017-09-05] MEDS: ATORVASTATIN 20 MG TAB PO SCH (19:33)
--- NOTE | 2017-09-05 20:00 | NUR ---
AA&OX4,NSR,VSS,DENIES PAIN,CALL CHEN IN REACH,AMBULATING IN ROOM,WILL CONTINUE TO MONITOR
--- NOTE | 2017-09-06 | NUR ---
PT ASLEEP,REFUSED VITAL SIGNS AT THIS TIME,DENIES PAIN,CALL CHEN IN REACH,WILL CONTINUE TO MONITOR
[2017-09-06 03:40] VITALS: BP 168/81; PULSE 70; TEMP 36.4; O2SAT 95
--- NOTE | 2017-09-06 04:00 | NUR ---
assessment unchanged,denies pain,call mike in reach,will contineu to monitor
[2017-09-06 06:25] LABS: INR 1.8 (0.9-1.1)
[2017-09-06] MEDS: AMIODARONE 200 MG TAB PO SCH ×3 (07:40→17:19)
[2017-09-06] MEDS: CITALOPRAM 20 MG TAB PO SCH (07:41)
[2017-09-06] MEDS: ENTERIC COATED ASA PO SCH (07:41)
[2017-09-06] MEDS: AMLODIPINE BESYLATE 5 MG TAB PO SCH (07:41)
[2017-09-06] MEDS: CEROVITE ADV FORMULA TAB PO SCH ×2 (07:42→20:19)
[2017-09-06] MEDS: MULTIVITAMIN TAB PO SCH (07:42)
[2017-09-06] MEDS: FINASTERIDE 5 MG TAB PO SCH (07:43)
--- NOTE | 2017-09-06 07:45 | NUR ---
PATIENT DENIED DISCOMFORTS, SOB. PATIENT OOB TO CHAIR AND AMBULATING IN ROOM AND TOLERATING WELL. NO DYSRHYTHMIAS NOTED.
[2017-09-06 07:52] VITALS: BP 177/80; PULSE 63; TEMP 36.9; O2SAT 95
[2017-09-06] MEDS ORDERED: LISINOPRIL 10 MG TAB PO ONE (11:00)
[2017-09-06] MEDS ORDERED: LISINOPRIL 20 MG TAB PO ONE (11:00)
--- NOTE | 2017-09-06 11:00 | PROGRESS NOTE ---
DATE: 09/06/2017 FOLLOWUP VISIT SUBJECTIVE: The patient is an 82-year-old male with a history of coronary artery disease and paroxysmal atrial fibrillation. The patient presented with atrial fibrillation and RVR. He had a slight increase in his cardiac troponins, which are most likely due to his underlying coronary artery disease and demand ischemia. He has since converted to sinus mechanism. He is receiving a load of amiodarone and tolerating this medication without complaints. OBJECTIVE: GENERAL: He is alert and oriented. VITAL SIGNS: Blood pressure is 177/80, pulse is regular at 63 beats per minute. He is afebrile. HEENT: He is normocephalic. Pupils are equal and reactive to light. Extraocular muscles are intact bilaterally. NECK: The neck veins are flat. Carotids have good upstrokes bilaterally without bruits. Thyroid is nonpalpable. RESPIRATORY: Breath sounds equal bilaterally and clear to auscultation. CARDIOVASCULAR: Heart has a regular rhythm. Normal S1, S2. No S3, S4. No cardiac rubs or murmurs. GASTROINTESTINAL: Abdomen is soft, nontender without organomegaly. EXTREMITIES: Free of edema, digit clubbing, or cyanosis. NEUROLOGIC: Grossly intact. SKIN: Warm to touch. LYMPH NODES: Negative to palpation. LABORATORY DATA: Hemoglobin is 17.9, potassium is 4.1, creatinine is 0.93. INR 1.8 today. IMPRESSION: 1. Paroxysmal atrial fibrillation. 2. Known coronary artery disease by cardiac catheterization. 3. History of deep venous thrombosis. 4. Hypertension. 5. Dyslipidemia. 6. History of gastroesophageal reflux and gastritis. RECOMMENDATIONS: The patient's amiodarone will be increased to 400 mg t.i.d. starting today. He is hypertensive in the hospital and I have added lisinopril to his current medical regimen. If he continues to tolerate the amiodarone without incident, we may consider discharging him home tomorrow.
--- NOTE | 2017-09-06 12:02 | NUR ---
PATIENT REASSESSED, STABLE WITHOUT DYSRHYTHMIAS. PATIENT EDUCATED ON NEW MEDICATIONS, TREATMENT PLAN, VERBALIZED UNDERSTANDING.
[2017-09-06 12:11] VITALS: BP 137/45; PULSE 70; TEMP 36.5; O2SAT 98
--- NOTE | 2017-09-06 13:46 | Progress Note ---
Medicine Progress Note Date & Time of Visit: Sep 06, 2017 at 13:37. Subjective Pt was seen and examined Sitting in bed with no distress Pt said that he feels fine He wants to leave today to go to see his Denies any chest pain, palpitation, dizziness and SOB Objective Last 8 Hrs Date Time Temp Pulse Resp B/P (MAP) Pulse Ox O2 Delivery O2 Flow Rate FiO2 09/06/17 12:11 36.5 70 16 137/45 (75) 98 Room Air 09/06/17 07:52 36.9 63 16 177/80 (112) 95 Room Air Physical Exam: General- No acute distress Head- atraumatic Eyes- PERRL, EOMI ENT- oropharynx clear Neck- supple, no JVD Lungs- clear to auscultation Heart- regular rhythm Abdomen- normal bowel sounds, soft Extremities- no calf tenderness Neuro- alert, oriented x 3; PERRL, EOMI Skin- warm & dry Laboratory Results: Last 24 Hours Test 09/06/17 05:20 Prothrombin Time 18.4 SECONDS Prothromb Time International Ratio 1.8 Assessment & Plan ATRIAL FIBRILLATION WITH RVR. 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 Fib RVR 3rd set troponin trending down Continue aspirin, statin. Metoprolol d/c by cardio No chest pain currently Stable HYPERTENSION Continue amlodipine. Monitor BP VTE PROPHYLAXIS On warfarin. INR 1.8 RESUSCITATION STATUS FULL CODE DISPOSITION Possible discharge home tomorrow Consultants: cardio Current Inpatient Medications: Current Inpatient Medications Medications (Trade) Dose Ordered Sig/Eleni Route Start Time Stop Time Status Last Admin Dose Admin Metoprolol Tartrate (Lopressor Iv) 5 mg Q4H PRN IV 09/05/17 03:30 10/05/17 03:29 09/05/17 06:22 5 MG Alprazolam (Xanax Tab) 0.25 mg TID PRN PO 09/05/17 03:30 18 03:29 09/05/17 20:34 0.25 MG Al Hydrox/Mg Hydrox/Simethicone (Maalox Max Susp) 30 ml DAILY PRN PO 09/05/17 03:30 1/22/18 03:29 Amlodipine Besylate (Norvasc Tab) 5 mg QAM PO 09/05/17 09:00 10/05/17 08:59 09/06/17 07:41 5 MG Aspirin (Ecotrin Tab) 81 mg QAM PO 09/05/17 09:00 10/05/17 08:59 09/06/17 07:41 81 MG Citalopram Hydrobromide (celeXA TAB) 10 mg DAILY PO 09/05/17 09:00 10/05/17 08:59 09/06/17 07:41 10 MG Finasteride (Proscar Tab) 5 mg QAM PO 09/05/17 09:00 10/05/17 08:59 09/06/17 07:43 5 MG Multivitamins (Multivitamin Tab) 1 tab DAILY PO 09/05/17 09:00 10/05/17 08:59 09/06/17 07:42 1 TAB Nitroglycerin (Nitrostat Tab) 0.4 mg PRN UT 09/05/17 03:30 10/05/17 03:29 Multivitamins/ Minerals (Multivitamin W/ Minerals Tab) 1 tab BID PO 09/05/17 09:00 10/05/17 08:59 09/06/17 07:42 1 TAB Miscellaneous (Iv Fluids Completed) 1 ea PRN PRN N/A 09/05/17 05:30 09/05/18 05:29 Warfarin Sodium (Coumadin Tab) 5 mg DAILY@1600 PO 09/05/17 16:00 10/05/17 15:59 09/05/17 16:27 5 MG Atorvastatin Calcium (Lipitor Tab) 20 mg HS PO 09/05/17 21:00 10/05/17 20:59 09/05/17 19:33 20 MG Psyllium Hydrophilic Mucilloid (Metamucil Powder) 1 pkt HS PO 09/05/17 21:00 10/05/17 20:59 Docusate Sodium (coLACE CAP) 100 mg HS PO 09/05/17 21:00 10/05/17 20:59 09/05/17 19:33 100 MG Amiodarone HCl (Cordarone Tab) 400 mg TIDM PO 09/06/17 11:30 1/22/18 16:44 09/06/17 11:40 400 MG Lisinopril (Zestril Tab) 10 mg QAM PO 09/07/17 09:00 10/07/17 08:59
[2017-09-06 15:32] VITALS: BP 150/87; PULSE 65; TEMP 36.6; O2SAT 95
--- NOTE | 2017-09-06 15:32 | NUR ---
PATIENT REASSESSED, STABLE. SEE ASSESSMENT, VS, OUTCOME DATA.
[2017-09-06] MEDS: ALPRAZOLAM 0.5 MG TAB PO PRN ×2 (15:37→21:06)
[2017-09-06] MEDS: WARFARIN SOD 5 MG TAB PO SCH (15:40)
[2017-09-06] MEDS: PSYLLIUM 58.6% PWD PACK PO SCH (15:58)
[2017-09-06 19:13] VITALS: BP 160/81; PULSE 63; TEMP 36.7; O2SAT 97
--- NOTE | 2017-09-06 20:00 | NUR ---
AA&OX4,VSS,DENIES PAIN,AMBULATING IN ROOM WITHOUT ISSUES,CALL CHEN IN REACH,WILL CONTINUE TO MONITOR
[2017-09-06] MEDS: ATORVASTATIN 20 MG TAB PO SCH (20:18)
[2017-09-06] MEDS: DOCUSATE SODIUM 100 MG CAP PO SCH (20:18)
[2017-09-06 23:46] VITALS: BP 155/81; PULSE 69; TEMP 36.5; O2SAT 95
[2017-09-07] MEDS ORDERED: AMIODARONE 200 MG TAB PO SCH
--- NOTE | 2017-09-07 00:01 | NUR ---
A: Patient A&O, denies pain, chest pain or SOB on RA. Telemetry: Sinus Danilo, HR 50's. Voices no further complaints. Call mike in reach, will monitor.
[2017-09-07 04:00] VITALS: BP 131/73; PULSE 63; TEMP 36.8; O2SAT 96
--- NOTE | 2017-09-07 04:07 | NUR ---
A: Patient resting through the night, voiced no complaints. Call mike in reach.
[2017-09-07 07:15] LABS: INR 1.9 (0.9-1.1)
[2017-09-07 07:24] LABS: CALCIUM 8.9 mg/dl (8.5-10.1); CREATININE 1.18 mg/dl (0.60-1.40); POTASSIUM 4.5 mmol/L (3.5-5.1)
[2017-09-07 07:32] VITALS: BP 158/81; PULSE 56; TEMP 36.5; O2SAT 95
--- NOTE | 2017-09-07 08:00 | NUR ---
a: pt. alert and intact, he denies cp, pressure, sob or palpitations. sr sustained on the monitor and vss. pt. anticipates discharge to home today.
[2017-09-07] MEDS: AMIODARONE 200 MG TAB PO SCH ×2 (08:50→11:54)
[2017-09-07] MEDS: CEROVITE ADV FORMULA TAB PO SCH (08:51)
[2017-09-07] MEDS: AMLODIPINE BESYLATE 5 MG TAB PO SCH (08:51)
[2017-09-07] MEDS: CITALOPRAM 20 MG TAB PO SCH (08:51)
[2017-09-07] MEDS: MULTIVITAMIN TAB PO SCH (08:52)
[2017-09-07] MEDS: FINASTERIDE 5 MG TAB PO SCH (08:52)
[2017-09-07] MEDS: ENTERIC COATED ASA PO SCH (08:52)
[2017-09-07] MEDS ORDERED: LISINOPRIL 10 MG TAB PO SCH (09:00)
--- NOTE | 2017-09-07 10:29 | PROGRESS NOTE ---
DATE: 09/07/2017 FOLLOWUP VISIT SUBJECTIVE: The patient is an 82-year-old male with a history of coronary artery disease and paroxysmal atrial fibrillation. He presented with atrial fibrillation and RVR. After admission, his cardiac troponins did elevate slightly most likely on the basis of demand ischemia and his coronary artery disease. He was started on amiodarone, which he is tolerating and he is maintaining a sinus mechanism. The patient is anxious to go home and I think that would be appropriate today. OBJECTIVE: GENERAL: He is alert and oriented. VITAL SIGNS: Blood pressure is 140/80 and pulse is regular at 56. He is maintaining a sinus rhythm. HEENT: He is normocephalic. Pupils are equal and reactive to light. Extraocular muscles are intact bilaterally. NECK: The neck veins are flat. Carotids have good upstrokes bilaterally without bruits. Thyroid is nonpalpable. RESPIRATORY: Breath sounds are equal bilaterally and clear to auscultation. CARDIOVASCULAR: Heart has a regular rhythm. Normal S1 and S2. No S3 or S4. No cardiac rubs or murmurs. GASTROINTESTINAL: Abdomen is soft and nontender without organomegaly. EXTREMITIES: Free of edema, digit clubbing, or cyanosis. NEUROLOGIC: Grossly intact. SKIN: Warm to touch. LYMPH NODES: Negative to palpation. IMPRESSION: 1. Paroxysmal atrial fibrillation. 2. 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 3. History of deep venous thrombosis. 4. Hypertension and dyslipidemia. 5. History of gastroesophageal reflux. RECOMMENDATIONS: As outlined above, I think the patient can be discharged to outpatient followup. I would continue the amiodarone load with 400 mg twice daily until he is seen in the office. I will arrange for a followup earlier this week or next. CELE
[2017-09-07] MEDS ORDERED: PSYLLIUM 58.6% PWD PACK PO ONE (11:15)
[2017-09-07 11:25] VITALS: BP 179/91; PULSE 68; TEMP 36.4; O2SAT 97
[2017-09-07 12:16] VITALS: BP 179/91; PULSE 68; TEMP 36.4; O2SAT 97
--- NOTE | 2017-09-07 12:17 | Progress Note ---
Medicine Progress Note Date & Time of Visit: Sep 07, 2017 at 12:07. Subjective Pt was seen and examined Lying in bed with no distress with son at bedside Pt said that he only had a small bowel movement today He said that he had a large bowel movement yesterday Denies any chest pain, palpitation, dizziness and SOB Objective Last 8 Hrs Date Time Temp Pulse Resp B/P (MAP) Pulse Ox O2 Delivery O2 Flow Rate FiO2 09/07/17 11:25 36.4 68 20 179/91 (120) 97 Room Air 09/07/17 07:32 36.5 56 18 158/81 (106) 95 Room Air Physical Exam: General- No acute distress Head- atraumatic Eyes- PERRL, EOMI ENT- oropharynx clear Neck- supple, no JVD Lungs- clear to auscultation Heart- regular rhythm Abdomen- normal bowel sounds, soft Extremities- no calf tenderness Neuro- alert, oriented x 3; PERRL, EOMI Skin- warm & dry Laboratory Results: Last 24 Hours Test 09/07/17 06:36 Prothrombin Time 20.1 SECONDS Prothromb Time International Ratio 1.9 Sodium Level 137 mmol/L Potassium Level 4.5 mmol/L Chloride Level 103 mmol/L Carbon Dioxide Level 30 mmol/L Anion Gap 4.0 mmol/L Blood Urea Nitrogen 22 mg/dl Creatinine 1.18 mg/dl Est Creatinine Clear Calc Drug Dose 53.0 ml/min Estimated GFR () 66.2 Estimated GFR (Non- 57.1 BUN/Creatinine Ratio 18.9 Random Glucose 111 mg/dl Calcium Level 8.9 mg/dl Assessment & Plan ATRIAL FIBRILLATION WITH RVR. 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 Fib RVR 3rd set troponin trending down Continue aspirin, statin. Metoprolol d/c by cardio No chest pain currently Stable HYPERTENSION Continue amlodipine. Monitor BP VTE PROPHYLAXIS On warfarin. INR 1.9 RESUSCITATION STATUS FULL CODE DISPOSITION Discharge home today Consultants: cardio Current Inpatient Medications: Current Inpatient Medications Medications (Trade) Dose Ordered Sig/Eleni Route Start Time Stop Time Status Last Admin Dose Admin Metoprolol Tartrate (Lopressor Iv) 5 mg Q4H PRN IV 09/05/17 03:30 10/05/17 03:29 09/05/17 06:22 5 MG Alprazolam (Xanax Tab) 0.25 mg TID PRN PO 09/05/17 03:30 10/05/17 03:29 09/06/17 21:06 0.25 MG Al Hydrox/Mg Hydrox/Simethicone (Maalox Max Susp) 30 ml DAILY PRN PO 09/05/17 03:30 10/05/17 03:29 Amlodipine Besylate (Norvasc Tab) 5 mg QAM PO 09/05/17 09:00 10/05/17 08:59 09/07/17 08:51 5 MG Aspirin (Ecotrin Tab) 81 mg QAM PO 09/05/17 09:00 10/05/17 08:59 09/07/17 08:52 81 MG Citalopram Hydrobromide (celeXA TAB) 10 mg DAILY PO 09/05/17 09:00 10/05/17 08:59 09/07/17 08:51 10 MG Finasteride (Proscar Tab) 5 mg QAM PO 09/05/17 09:00 10/05/17 08:59 09/07/17 08:52 5 MG Multivitamins (Multivitamin Tab) 1 tab DAILY PO 09/05/17 09:00 10/05/17 08:59 09/07/17 08:52 1 TAB Nitroglycerin (Nitrostat Tab) 0.4 mg PRN UT 09/05/17 03:30 10/05/17 03:29 Multivitamins/ Minerals (Multivitamin W/ Minerals Tab) 1 tab BID PO 09/05/17 09:00 10/05/17 08:59 09/07/17 08:51 1 TAB Miscellaneous (Iv Fluids Completed) 1 ea PRN PRN N/A 09/05/17 05:30 09/05/18 05:29 Warfarin Sodium (Coumadin Tab) 5 mg DAILY@1600 PO 09/05/17 16:00 10/05/17 15:59 09/06/17 15:40 5 MG Atorvastatin Calcium (Lipitor Tab) 20 mg HS PO 09/05/17 21:00 10/05/17 20:59 09/06/17 20:18 20 MG Psyllium Hydrophilic Mucilloid (Metamucil Powder) 1 pkt HS PO 09/05/17 21:00 10/05/17 20:59 09/06/17 15:58 1 PKT Docusate Sodium (coLACE CAP) 100 mg HS PO 09/05/17 21:00 10/05/17 20:59 09/06/17 20:18 100 MG Amiodarone HCl (Cordarone Tab) 400 mg TIDM PO 09/06/17 11:30 10/05/17 16:44 09/07/17 11:54 400 MG Lisinopril (Zestril Tab) 10 mg QAM PO 09/07/17 09:00 10/07/17 08:59 09/07/17 08:52 10 MG
[2017-09-07] MEDS ORDERED: LSN10 PO (12:19)
[2017-09-07] MEDS ORDERED: CRD200 PO (12:19)
--- NOTE | 2017-09-07 12:27 | Discharge Instructions ---
Discharge Instructions Date of Service Sep 07, 2017. Admission Reason for Admission: Atrial Fibrillation With Rvr Discharge Discharge Diagnosis / Problem: Atrial fibrillation with RVR, hypertension, Dyslipidemia, Elevated troponin Discharge Goals Goal(s): Decrease discomfort, Improve function, Improve disease control Activity Recommendations Activity Limitations: resume your previous activity (as tolerated ) . Instructions / Follow-Up Instructions / Follow-Up Follow up with your primary care provider Dr. Bill within 1 week (Please call for the appointment) Follow up with your cardiology Dr. stapleton in 1to 2 weeks Continue follow with the coumadin clinic (INR 1.9 today) Metoprolol discontinued Fall precaution Home dose pack amiodarone given for tonight and tomorrow morning) Current Hospital Diet Patient's current hospital diet: AHA Diet (Heart Healthy) Discharge Diet Recommended Diet: AHA Diet (Heart Healthy) Pending Studies Studies pending at discharge: no Medical Emergencies . Who to Call and When: Medical Emergencies: If at any time you feel your situation is an emergency, please call 911 immediately. . Non-Emergent Contact Non-Emergency issues call your: Primary Care Provider, Supervisor Paste Mixing Call Non-Emergent contact if: you have any medication questions . . "Provider Documentation" section prepared by Sai Franco. . VTE Core Measure Inpt VTE Proph given/why not?: Warfarin (Coumadin)
[2017-09-07] MEDS ORDERED: AMIODARONE 200 MG TAB PO ONE (12:30)
--- NOTE | 2017-09-07 13:15 | NUR ---
a: discharge instructions given and pt. verbalizes understanding. son here for discharge. home pack of amiodarone given and wallet and money from security retrieved. skin tear drsg changes explained to pt. and supplies given.
--- NOTE | 2017-09-08 11:19 | Discharge Summary ---
Discharge Summary Date of Service Sep 08, 2017. Discharge Summary Admission Date: Sep 05, 2017 at 02:57 Discharge Date: Sep 07, 2017 Discharge Disposition: Home Principal Diagnosis: Atrial fibrillation with RVR, hypertension, Dyslipidemia, Elevated troponin Secondary Diagnoses/Problems: hypertension Dyslipidemia Elevated troponin Procedures: CHEST ONE VIEW PORTABLE HISTORY: Substernal/epigastric Chest Pain COMPARISON: Chest 01/16/2017. FINDINGS: A few bibasilar linear densities consistent with subsegmental atelectasis. The lungs are otherwise clear. No pleural effusions. No pneumothorax. The heart is normal in size. Severe degenerative changes within the glenohumeral joint. This also remains unchanged. IMPRESSION: A few bibasilar linear densities consistent with subsegmental atelectasis. Otherwise, no acute process within the chest. Electronically signed by: Pietro Dobbins M.D. 09/05/2017 8:12 AM Dictated Date/Time: 09/05/2017 8:11 AM Consultations: cardio Medication Reconciliation New Medications: Amiodarone HCl (Amiodarone HCl) 200 Mg Tab 400 MG PO BID for 30 Days, #120 TAB Lisinopril (Zestril) 10 Mg Tab 10 MG PO QAM for 30 Days, #30 TAB Continued Medications: Alprazolam (Xanax) 0.5 Mg Tab 0.25 MG PO TID PRN for Anxiety/Agitation, TAB Aluminum/Magnesium/Simeth (Maalox Max Susp) Susp 30 ML PO DAILY PRN for GI Upset Amlodipine Besylate (Norvasc) 5 Mg Tab 5 MG PO QAM, TAB Aspirin (Aspirin Chewable) 81 Mg Chew 81 MG PO noon Atorvastatin (Lipitor) 20 Mg Tab 20 MG PO DAILY, TAB Citalopram Hydrobromide (Citalopram Hydrobromide) 20 Mg Tab 10 MG PO DAILY, TAB 1/2 TABLET DOSE Dicyclomine Hcl (Bentyl) 10 Mg Cap 10 MG PO BID PRN for abdominal pain, CAP Docusate Sodium (Colace) 100 Mg Cap 100 MG PO DAILY, CAP Finasteride (Proscar) 5 Mg Tab 5 MG PO QAM Multiple Vitamins W/ Minerals (Preservision Areds 2) 1 Cap Cap 1 CAP PO BID Multivitamin (Multivitamin) Tab 1 TAB PO noon, TAB Nitroglycerin (Nitrostat) 0.4 Mg Sub 0.4 MG UT PRN, BTL NEEDED FOR CHEST PAIN : ONE TABLET UNDER THE TONGUE EVERY 5 MINUTES UP TO 3 DOSES. Psyllium (Metamucil Powder) Powd 1 PACK PO PRN, PACK Warfarin Sodium (Coumadin) 5 Mg Tab 0 PO UD Dose as of 09/05/17: 10 mg Mon, 5 mg Tue, 7.5 mg Wed, 5 mg Vidya, Fri, Sat, Sun Discontinued Medications: Metoprolol Tartrate (Lopressor) (Lopressor) 25 Mg Tab 12.5 MG PO BID Admission Information HPI (per Admitting provider): 82 YO male followed by Dr. Bill for Internal Medicine and Dr. Stapleton for Cardiology. History of ischemic heart disease, PAF, and other problems noted below. Developed midsternal / epigastric discomfort this evening around 21:00. Noted some palpitations. No dyspnea, diaphoresis, nausea, vomiting. Tried Maalox and TUMS without relief. Came to ED for evaluation where he was found to be in AF with RVR. Received 2 doses of IV diltiazem with slowing of his ventricular rate and improvement of his symptoms. . Physical Exam (per Admitting): General Appearance: WD/WN, no apparent distress Head: normocephalic, atraumatic Eyes: normal inspection, PERRL, EOMI, sclerae normal, + pertinent finding ( conjunctivae clear) ENT: hearing grossly normal, pharynx normal Neck: supple, no adenopathy, thyroid normal, no JVD, trachea midline Respiratory/Chest: lungs clear, no respiratory distress, no accessory muscle use Cardiovascular: no edema, no gallop, no JVD, no murmur, normal peripheral pulses, + irregularly irregular Abdomen/GI: normal bowel sounds, non tender, soft, no organomegaly, no pulsatile mass Extremities/Musculoskelatal: normal inspection, no calf tenderness, normal capillary refill, no pedal edema Neurologic/Psych: [place] II-XII nml as tested (PERRL, EOMI, no facial palsy, no dysarthria), no motor/sensory deficits (grossly intact), alert, oriented x 3 , + depressed affect Skin: normal color, warm/dry, no rash Lymphatic: no adenopathy (cervical) Hospital Course ATRIAL FIBRILLATION WITH RVR. 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 Fib RVR 3rd set troponin trending down Continue aspirin, statin. Metoprolol d/c by cardio No chest pain currently Stable HYPERTENSION Continue amlodipine. Monitor BP VTE PROPHYLAXIS On warfarin. INR 1.9 RESUSCITATION STATUS FULL CODE DISPOSITION Discharge home today Total time spent on discharge = 35 MINUTES This includes examination of the patient, discharge planning, medication reconciliation, and communication with other providers. Discharge Instructions Discharge Instructions Date of Service Sep 07, 2017. Admission Reason for Admission: Atrial Fibrillation With Rvr Discharge Discharge Diagnosis / Problem: Atrial fibrillation with RVR, hypertension, Dyslipidemia, Elevated troponin Discharge Goals Goal(s): Decrease discomfort, Improve function, Improve disease control Activity Recommendations Activity Limitations: resume your previous activity (as tolerated ) . Instructions / Follow-Up Instructions / Follow-Up Follow up with your primary care provider Dr. Bill within 1 week (Please call for the appointment) Follow up with your cardiology Dr. stapleton in 1to 2 weeks Continue follow with the coumadin clinic (INR 1.9 today) Metoprolol discontinued Fall precaution Home dose pack amiodarone given for tonight and tomorrow morning) Current Hospital Diet Patient's current hospital diet: AHA Diet (Heart Healthy) Discharge Diet Recommended Diet: AHA Diet (Heart Healthy) Pending Studies Studies pending at discharge: no Medical Emergencies . Who to Call and When: Medical Emergencies: If at any time you feel your situation is an emergency, please call 911 immediately. . Non-Emergent Contact Non-Emergency issues call your: Primary Care Provider, Label Cutter Call Non-Emergent contact if: you have any medication questions . . "Provider Documentation" section prepared by Sai Franco. . VTE Core Measure Inpt VTE Proph given/why not?: Warfarin (Coumadin) Additional Copies To Reinaldo Bill D.O.
[2017-11-23] MEDS ORDERED: LISI-461 PO (12:13)
[2017-11-23] MEDS ORDERED: PSYL48.59 PO (12:13)
[2017-11-23] MEDS ORDERED: AMIO200T4 PO (12:13)
[2017-11-23] MEDS ORDERED: RANI150T85 PO (12:13)
[2017-12-07] MEDS ORDERED: CIPR1TAB11 PO (16:07)
[2017-12-07] MEDS ORDERED: PHEN95TA14 PO (16:07)
[2018-02-25] MEDS ORDERED: WARF2.5T8 PO (11:31)
[2018-03-02] MEDS ORDERED: OXYC-57 PO (10:40)
[2018-05-08] MEDS ORDERED: BNT10 PO (12:27)
[2018-05-08] MEDS ORDERED: VANC5CAP OR (12:27)
== END 2017-09-07 13:20 | disposition home or self-care (01) ==
LOC: C.EDB 23:47 → C.2T 09-05 02:57 → ENRESERV 09-05 03:11
PROVIDERS: ADMIT Hospitalist; ATTEND Internal Medicine
DX: I48.0 Paroxysmal atrial fibrillation (principal); I25.118 Atherosclerotic heart disease of native coronary artery with other forms of angina pectoris; I10 Essential (primary) hypertension; R79.89 Other specified abnormal findings of blood chemistry; K21.9 Gastro-esophageal reflux disease without esophagitis; Z79.82 Long term (current) use of aspirin; Z79.01 Long term (current) use of anticoagulants; Z87.891 Personal history of nicotine dependence; Z86.718 Personal history of other venous thrombosis and embolism; Z85.828 Personal history of other malignant neoplasm of skin; Z82.49 Family history of ischemic heart disease and other diseases of the circulatory system; Z83.3 Family history of diabetes mellitus

== ENCOUNTER 2017-12-07 09:56 | Day surgery (SDC) | payer BC ==
[2017-11-23 12:33] VITALS: BMI 27.0
--- NOTE | 2017-11-23 13:15 | PAT Medication Instructions ---
Service Date Nov 23, 2017. Current Home Medication List Alprazolam (Xanax), 0.25 MG PO TID PRN for Anxiety/Agitation Amiodarone Hcl (Cordarone), 200 MG PO QPM Amlodipine Besylate (Norvasc), 5 MG PO QAM Aspirin (Aspirin Chewable), 81 MG PO noon Atorvastatin (Lipitor), 20 MG PO QAM Citalopram Hydrobromide (Citalopram Hydrobromide), 10 MG PO NOON Docusate Sodium (Colace), 100 MG PO QPM Finasteride (Proscar), 5 MG PO QAM Lisinopril (Zestril), 10 MG PO QPM Multiple Vitamins W/ Minerals (Preservision Areds 2), 1 CAP PO BID Multivitamin (Multivitamin), 1 TAB PO noon Nitroglycerin (Nitrostat), 0.4 MG UT PRN Psyllium (Metamucil), 1 DOSE PO QPM Warfarin Sodium (Coumadin), 2.5-5 PO QPM Medication Instructions For Your Scheduled Surgery - Follow surgeon and shallot cleaner for instructions: Warfarin Sodium (Coumadin), 2.5-5 PO QPM Aspirin (Aspirin Chewable), 81 MG PO noon - Hold the following medications 24 hours prior to surgery: Lisinopril (Zestril), 10 MG PO QPM - Hold the following medications the morning of surgery: Finasteride (Proscar), 5 MG PO QAM Multiple Vitamins W/ Minerals (Preservision Areds 2), 1 CAP PO BID Multivitamin (Multivitamin), 1 TAB PO noon - Take the following medications the morning of surgery with a sip of water: Nitroglycerin (Nitrostat), 0.4 MG UT PRN (if needed) Citalopram Hydrobromide (Citalopram Hydrobromide), 10 MG PO NOON Amlodipine Besylate (Norvasc), 5 MG PO QAM Alprazolam (Xanax), 0.25 MG PO TID PRN for Anxiety/Agitation (if needed) Atorvastatin (Lipitor), 20 MG PO QAM - Take the following medications as scheduled the night before surgery: Psyllium (Metamucil), 1 DOSE PO QPM Nitroglycerin (Nitrostat), 0.4 MG UT PRN (if needed) Multiple Vitamins W/ Minerals (Preservision Areds 2), 1 CAP PO BID Docusate Sodium (Colace), 100 MG PO QPM Amiodarone Hcl (Cordarone), 200 MG PO QPM Alprazolam (Xanax), 0.25 MG PO TID PRN for Anxiety/Agitation (if needed) If you have any questions please call us at [phone] or [phone] or [phone]
[2017-11-23 15:01] LABS: BASO % 0.2 %; BASO ABS # 0.02 K/uL (0-0.2); EOS % 0.6 %; EOS ABS # 0.06 K/uL (0-0.5); HEMATOCRIT 49.9 % (42-52); HEMOGLOBIN 16.5 g/dL (14.0-18.0); IG# 0.01 K/uL (0.00-0.02); LYMPH % 28.5 %; LYMPH ABS # 2.74 K/uL (1.2-3.4); MEAN CELL VOLUME 97.8 fL (80-100); MEAN CORPUSCULAR HEMOGLOBIN 32.4 pg (25-34); MEAN CORPUSCULAR HGB CONC 33.1 g/dl (32-36); MEAN PLATELET VOLUME 11.5 fL (7.4-10.4); MONO % 13.8 %; MONO ABS # 1.32 K/uL (0.11-0.59); NEUT % 56.8 %; NEUT ABS # 5.45 K/uL (1.4-6.5); PLATELET COUNT 169 K/uL (130-400); RED CELL DISTRIBUTION WIDTH CV 14.7 % (11.5-14.5); RED CELL DISTRIBUTION WIDTH SD 53.2 fL (36.4-46.3)
[2017-11-23 15:14] LABS: INR 1.6 (0.9-1.1); PTT PATIENT 29.4 SECONDS (21.0-31.0)
[2017-11-23 15:40] LABS: CALCIUM 9.4 mg/dl (8.5-10.1); CREATININE 1.11 mg/dl (0.60-1.40); POTASSIUM 4.6 mmol/L (3.5-5.1)
[~2017-12-07] VITALS: Ht 182.9 cm; Wt 89.8 kg
[~2017-12-07 09:56] MED LIST changes: +AMIO200T4 PO; +ATOR-22 PO; -ATOR-54 PO; -BISA-16 PO; +CIPROFLOXACIN 200MG / D5W IV SCH; -DICY10CA55 PO; +DOCU-94 PO; +LACTATED RINGER'S 1000ML 1,000 ML IV SCH; +LISI-461 PO; -METO25TA56 PO; +MULT60CA PO; -PANT40TA PO; +PSYL48.59 PO; -PSYL55.43 PO; -TRAM-10 PO
[2017-12-07 10:30] VITALS: BP 170/93; PULSE 91; TEMP 36.6; O2SAT 96; Ht 182.9 cm; Wt 89.8 kg
[2017-12-07 10:40] LABS: INR 1.1 (0.9-1.1); PTT PATIENT 25.3 SECONDS (21.0-31.0)
[2017-12-07] MEDS ORDERED: EpHEDrine SULFATE 50MG/5ML SYR ONE (11:25)
[2017-12-07] MEDS ORDERED: ONDANSETRON INJ 2 MG/ML 2 ML VIAL ONE (11:25)
[2017-12-07] MEDS ORDERED: LIDOCAINE HCL 2% 2 ML VIAL (20MG/ML) ONE (11:25)
[2017-12-07] MEDS ORDERED: FENTANYL CITRATE INJ 50 MCG/1 ML 2 ML VIAL ONE (11:25)
[2017-12-07] MEDS ORDERED: PROPOFOL IV EMULSION 10 MG/ML 20 ML VIAL IV ONE (11:25)
[2017-12-07] MEDS ORDERED: PHENYLEPHRINE 100MCG/ML 5ML SYR ONE (11:25)
[2017-12-07] MEDS ORDERED: SUCCINYLCHOLINE CHLORIDE 20 MG/ML 10 ML VIAL IV ONE (11:45)
[2017-12-07] MEDS ORDERED: ONDANSETRON INJ 2 MG/ML 2 ML VIAL IV PRN (12:00)
[2017-12-07] MEDS ORDERED: FENTANYL CITRATE INJ 50 MCG/1 ML 2 ML VIAL IV PRN (12:00)
[2017-12-07] MEDS ORDERED: ATROPINE SULFATE 0.1 MG/ML 5ML SYR IV PRN (12:00)
[2017-12-07] MEDS ORDERED: HYDROmorphone INJ 1 MG/ML SYR IV PRN (12:00)
[2017-12-07] MEDS ORDERED: EpHEDrine SULFATE INJ 50 MG/ML AMP IV PRN (12:00)
[2017-12-07] MEDS ORDERED: GLYCOPYRROLATE INJ 0.2 MG/ML VIAL ONE (15:47)
[2017-12-07] MEDS ORDERED: EpHEDrine SULFATE INJ 50 MG/ML AMP ONE (15:47)
[2017-12-07] MEDS ORDERED: PHENAZOPYRIDINE HCL 200 MG TAB PO STA (16:04)
[2017-12-07] MEDS ORDERED: SODIUM CHLORIDE 0.9% 1000ML 1,000 ML IV SCH (16:04)
--- NOTE | 2017-12-07 16:04 | [facility] Operative Report ---
Operative Report Operative Date Dec 07, 2017. Pre-Operative Diagnosis Bladder tumor Post-Operative Diagnosis Bladder tumor 3 Procedure(s) Performed Cystoscopy, bladder biopsy, fulguration of bladder tumor 3 (each a proximally 1 cm in diameter) Surgeon Becca Estimated Blood Loss 0cc Findings 3 small, papillary appearing bladder tumor recurrences Drains None Anesthesia Type General Complication(s) none Disposition yes Recovery Room / PACU Indications History of bladder cancer with recurrence on recent cystoscopy in the office Description of Procedure The patient was identified in the preoperative holding area, appropriate informed consents reviewed and completed and the patient was transported to the operating suite. Upon arrival he received appropriate preoperative antibiotics in the form of ciprofloxacin. Adequate general anesthesia was achieved, he was placed in dorsal lithotomy position where he was sterilely prepped and draped in standard fashion. I began the case by passing a 27 Kazakh resectoscope with 30 lens. Inspection of the urethra revealed no evidence of stricture disease. Inspection of the prostate revealed significant lateral lobe hypertrophy and an intravesical component. After filling the bladder, full inspection of the bladder was conducted. He has a moderately to heavily trabeculated bladder. He was noted to have 3 areas with papillary appearing tumors. These were somewhat flat, but with definite papillary architecture, in appearance without significant projection into the lumen of the bladder. I performed a biopsy of the lesion and directly on the posterior wall. I then used a loop device to fulgurate the 3 lesions. There was a tumor on the upper posterior wall, the lower posterior wall, and the left lateral wall. All these were fulgurated entirely. He had one using prostatic vessel from my scope riding across the prostate, used electrocautery to perform a point coagulation of that area. In the end, hemostasis was excellent, I elected to conclude the case. Patient was extubated and taken to the PACU in stable condition. There were no complications. Appearance of the tumors was documented in photographs. I attest to the content of the Intraoperative Record and any orders documented therein. Any exceptions are noted below.
[2017-12-07] MEDS ORDERED: PHEN95TA14 PO (16:07)
[2017-12-07] MEDS ORDERED: CIPR1TAB11 PO (16:07)
--- NOTE | 2017-12-07 16:08 | Discharge Instructions ---
Discharge Instructions Date of Service Dec 07, 2017. Admission Reason for Admission: Bladder Carcinoma Discharge Discharge Diagnosis / Problem: bladder cancer Discharge Goals Goal(s): Decrease discomfort, Increase independence, Improve disease control, Prevent Disease Progression Activity Recommendations Activity Limitations: resume your previous activity Lifting Limitations: none Exercise/Sports Limitations: none May Resume Sexual Activity: when tolerated Shower/Bathe: no limitations Driving or Machine Use: resume 1 day after discharge . Instructions / Follow-Up Instructions / Follow-Up Please resume your coumadin as previously scheduled. Current Hospital Diet Patient's current hospital diet: Discharge Diet Recommended Diet: Regular Diet Procedures Procedures Performed: Cystoscopy, bladder biopsy, fulguration of bladder tumor 3 (each a proximally 1 cm in diameter) Pending Studies Studies pending at discharge: no Medical Emergencies . Who to Call and When: Medical Emergencies: If at any time you feel your situation is an emergency, please call 911 immediately. . Non-Emergent Contact Non-Emergency issues call your: Urologist Call Non-Emergent contact if: you have a fever, your pain is not controlled, your pain is unusual for you . . "Provider Documentation" section prepared by Doug Carmichael. .
[2017-12-07] MEDS ORDERED: ACETAMINOPHEN 325 MG TAB PO PRN (16:15)
[2017-12-07] MEDS ORDERED: LABETALOL HCL IV 5 MG/ML 20ML IV ONE (16:42)
--- NOTE | 2017-12-07 16:53 | Anesthesiology Progress Note ---
Anesthesia Post Op Note Date & Time Dec 07, 2017 at 16:53 Vital Signs Pain Intensity: 0 Vital Signs Past 12 Hours Date Time Temp Pulse Resp B/P (MAP) Pulse Ox O2 Delivery O2 Flow Rate FiO2 12/07/17 16:45 76 17 160/92 94 Room Air 12/07/17 16:35 92 17 181/96 94 Room Air 12/07/17 16:25 96 17 184/99 100 Oxymask 8 12/07/17 16:15 97 16 182/93 100 Oxymask 8 12/07/17 16:08 36.5 96 16 180/99 100 Oxymask 8 12/07/17 10:30 36.6 91 20 170/93 (118) 96 Room Air Notes Mental Status: alert / awake / arousable, participated in evaluation Pt Amnestic to Procedure: Yes Nausea / Vomiting: adequately controlled Pain: adequately controlled Airway Patency, RR, SpO2: stable & adequate BP & HR: stable & adequate Hydration State: stable & adequate Anesthetic Complications: no major complications apparent
[2017-12-07 17:00] VITALS: BP 176/82; PULSE 72; TEMP 36.9; O2SAT 95
[2017-12-07 17:30] VITALS: BP 188/93; PULSE 85; O2SAT 95
== END 2017-12-07 17:47 | disposition home or self-care (01) ==
LOC: C.ACU 09:56
PROVIDERS: ATTEND Urology
DX: C67.9 Malignant neoplasm of bladder, unspecified (principal); I25.10 Atherosclerotic heart disease of native coronary artery without angina pectoris; J44.9 Chronic obstructive pulmonary disease, unspecified; I48.91 Unspecified atrial fibrillation; I10 Essential (primary) hypertension; E78.5 Hyperlipidemia, unspecified; F41.9 Anxiety disorder, unspecified; F32.9 Major depressive disorder, single episode, unspecified; Z98.890 Other specified postprocedural states; Z79.82 Long term (current) use of aspirin; Z79.899 Other long term (current) drug therapy; Z79.01 Long term (current) use of anticoagulants; Z88.2 Allergy status to sulfonamides; Z88.0 Allergy status to penicillin; Z88.1 Allergy status to other antibiotic agents; Z98.41 Cataract extraction status, right eye; Z87.891 Personal history of nicotine dependence; Z87.09 Personal history of other diseases of the respiratory system; Z86.718 Personal history of other venous thrombosis and embolism

== ENCOUNTER 2018-05-06 06:52 | Inpatient (IN) | payer BC, OTHER ==
[2018-05-06] VITALS (7 sets, daily range): BP systolic 142–163; BP diastolic 83–95; PULSE 59–77; TEMP 36.2–36.6; O2SAT 95–99; Ht 182.9 cm; Wt 90.0 kg
[~2018-05-06] VITALS: Ht 182.9 cm; Wt 90.0 kg
[~2018-05-06 06:52] MED LIST changes: -CIPROFLOXACIN 200MG / D5W IV SCH; -LACTATED RINGER'S 1000ML 1,000 ML IV SCH; +WARF2.5T8 PO; -WARF5TAB90 PO
[2018-05-06] MEDS ORDERED: SODIUM CHLORIDE 0.9% 1000ML 1,000 ML IV STA (07:17)
[2018-05-06] MEDS ORDERED: WARF5TAB7 PO (07:39)
[2018-05-06] MEDS ORDERED: ATOR-24 PO (07:39)
[2018-05-06] MEDS ORDERED: WARF2.5T8 PO (07:39)
[2018-05-06 07:40] LABS: ISTAT CREATININE 1.1 mg/dl (0.6-1.3); ISTAT IONIZED CALCIUM 1.14 mmol/l (1.12-1.32); ISTAT POTASSIUM 4.2 mEq/L (3.3-5.0)
[2018-05-06] MEDS ORDERED: OPTIRAY 320 IV PRN (07:45)
--- NOTE | 2018-05-06 07:57 | EMERGENCY ROOM VISIT NOTE ---
History First contact with patient: 07:08 Chief Complaint: GI ASSESSMENT Stated Complaint: RECTAL BLEEDING Nursing Triage Summary: Pt reports he woke up around 5am and had a bowel movement with blood in it. Pt reports bright red blood. Pt reports nausea. Pt denies pain. History of Present Illness The patient is a 82 year old male who presents to the Emergency Room with complaints of "rectal bleeding". The patient notes that when he woke up today around 5 AM he had a bowel movement which he notes was almost all bright red blood. He denies having this in the recent past. He notes he is on Coumadin for atrial fibrillation. Last INR 2.5. He notes no abdominal pain but does feel nauseous. He states he feels as though he could have another bowel movement just the same. He denies any history of rectal bleeding. He notes a history of hemorrhoids in the past but notes that they do not seem to be bothering him currently. He denies any chest pain, shortness of breath, fevers or chills. Review of Systems A complete 10-point Review of Systems was discussed with the patient, with pertinent positives and negatives listed in the History of Present Illness. All remaining Review of Systems questions can be considered negative unless otherwise specified. 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 Surgical Problems: (1) Status post cardiac catheterization (2) Status post cataract extraction (3) Status post tonsillectomy Family History Diabetes mellitus BROTHER Heart disease FATHER MOTHER Hypertension FATHER MOTHER Multiple sclerosis DAUGHTER Social History Smoking Status: Never Smoker Alcohol Use: none Marital Status: Housing Status: lives alone Occupation Status: retired Current/Historical Medications Scheduled Amiodarone Hcl (Cordarone), 200 MG PO QPM Amlodipine Besylate (Norvasc), 5 MG PO QAM Aspirin (Aspirin Chewable), 81 MG PO noon Atorvastatin (Lipitor), 40 MG PO QAM Citalopram Hydrobromide (Citalopram Hydrobromide), 10 MG PO NOON Docusate Sodium (Colace), 100 MG PO QPM Finasteride (Proscar), 5 MG PO QPM Lisinopril (Zestril), 10 MG PO QPM Multiple Vitamins W/ Minerals (Preservision Areds 2), 1 CAP PO BID Multivitamin (Multivitamin), 1 TAB PO noon Nitroglycerin (Nitrostat), 0.4 MG UT PRN Psyllium (Metamucil), 1 DOSE PO QPM Warfarin Sod (Jantoven), 2.5 MG PO TuSa Warfarin Sod (Jantoven), 5 MG PO SuMoWeThFr Scheduled PRN Alprazolam (Xanax), 0.25 MG PO TID PRN for Anxiety/Agitation Physical Exam Vital Signs Date Time Temp Pulse Resp B/P (MAP) Pulse Ox O2 Delivery O2 Flow Rate FiO2 05/06/18 09:46 72 16 199/120 97 Room Air 05/06/18 09:45 97 Room Air 05/06/18 08:29 67 18 173/88 94 Room Air 05/06/18 07:40 73 05/06/18 07:29 97 Room Air 05/06/18 07:03 36.6 83 18 146/82 94 Room Air Physical Exam VITAL SIGNS - Vital signs and nursing notes were reviewed. Stable. Afebrile. GENERAL -82-year-old male appearing his stated age who is in no acute distress. Communicates well with provider and answers questions appropriately. SKIN - Without rashes. Skin tear left hand. HEAD - NC/AT. EYES - PERRL with EOMI bilaterally. Sclera anicteric. EARS - No deformities of external structures noted on gross examination bilaterally. NOSE - Midline and without cyanosis. No epistaxis or purulent drainage noted. MOUTH/OROPHARYNX - Without perioral cyanosis. LUNGS - Chest wall symmetric without accessory muscle use, intercostals retractions, or central cyanosis. Normal vesicular breath sounds CTA B/L. No wheezes, rales, or rhonchi appreciated. CARDIAC - RRR with S1/S2. No murmur, rubs, or gallops appreciated. ABDOMEN - Abdominal contour normal without pulsations or visible masses. BS normoactive all four quadrants. No tenderness, palpable masses, hepatosplenomegaly, or ascites noted. EXTREMITIES - No clubbing or peripheral cyanosis. No pretibial edema present. +5 /5 strength noted in UE/LE bilaterally. NEUROLOGIC - Cranial nerves II through XII grossly intact. Sensory intact to light touch throughout. PSYCH - A&Ox3 and cooperates fully with examiner. Pt is very pleasant and interacts well with examiner. RECTAL exam: There is a small hemorrhoid that is not bleeding. Rectal examination does reveal bright red blood. No masses. Heme positive stool. Medical Decision & Procedures ER Provider Diagnostic Interpretation: ANGIO ABD/PELVIS WITH CONTRAST CLINICAL HISTORY: Bloody bowel movement. Rectal bleeding. COMPARISON STUDY: CT of the abdomen and pelvis September 24, [address] of the abdomen and pelvis November 23, 2013. TECHNIQUE: Axial images of the abdomen and pelvis were obtained during arterial phase following intravenous injection of 119 cc Optiray 320 IV. Sagittal and coronal reconstructed reviewed as well as maximal intensity projections on an independent 3-D workstation. FINDINGS: Lung bases are clear. Heart is mildly enlarged. Arterial phase images of liver, spleen, adrenal glands and pancreas are unremarkable. A 1.3 cm right adrenal nodule is unchanged since CT of November 23, 2013. This is benign. A 1.8 cm lesion within the upper pole of the right kidney was shown to represent a hyperdense cyst on prior CT of September 24, 2012. Extensive colonic diverticulosis is noted. There is no significant bowel wall thickening. Note is made of a small focus of increased attenuation within the posterior aspect of the distal descending colon shown on axial image 283 of 491. This may reflect a small focus of active extravasation or bowel contents. There are prominent perirectal vessels. Prostate is markedly enlarged. There is evidence for a previous distal right ureteral resection with reimplantation. There is no lymphadenopathy. There are postoperative findings within the right groin with a fat-containing right inguinal hernia. There is trace fluid. This is postsurgical. There are no suspicious osseous lesions. Caliber of the abdominal aorta is normal. There is no aneurysm or dissection within the abdominal aorta. 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 The vessel measures 2 cm in caliber. There is mild stenosis at the origin the celiac axis and right renal artery. SMA is patent. Small gallstone is noted. IMPRESSION: 1. Extensive colonic diverticulosis. Small intraluminal focus of increased attenuation within the distal descending colon may reflect a small focus of active extravasation or simply bowel contents. 2. No bowel obstruction. No small bowel wall thickening. 3. Prominent perirectal vessels, a nonspecific finding. 4. Normal caliber abdominal aorta. Extensive atherosclerotic plaque. Mild stenosis at the origin of the celiac axis and right renal artery. Patent SMA. 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 Electronically signed by: Junior Anthony M.D. 05/06/2018 8:49 AM Dictated Date/Time: 05/06/2018 8:23 AM Laboratory Results 05/06/18 07:24 Red Blood Count 5.15, Mean Corpuscular Volume 98.3, Mean Corpuscular Hemoglobin 32.8, Mean Corpuscular Hemoglobin Concent 33.4, Mean Platelet Volume 11.7, Neutrophils (%) (Auto) 59.8, Lymphocytes (%) (Auto) 28.6, Monocytes (%) (Auto) 9.5, Eosinophils (%) (Auto) 1.1, Basophils (%) (Auto) 0.6, Neutrophils # (Auto) 5.32, Lymphocytes # (Auto) 2.55, Monocytes # (Auto) 0.85, Eosinophils # (Auto) 0.10, Basophils # (Auto) 0.05 05/06/18 07:24 Test 05/06/18 07:24 05/06/18 07:27 White Blood Count 8.91 K/uL (4.8-10.8) Red Blood Count 5.15 M/uL (4.7-6.1) Hemoglobin 16.9 g/dL (14.0-18.0) Hematocrit 50.6 % (42-52) Mean Corpuscular Volume 98.3 fL (80-100) Mean Corpuscular Hemoglobin 32.8 pg (25-34) Mean Corpuscular Hemoglobin Concent 33.4 g/dl (32-36) Platelet Count 154 K/uL (130-400) Mean Platelet Volume 11.7 fL (7.4-10.4) Neutrophils (%) (Auto) 59.8 % Lymphocytes (%) (Auto) 28.6 % Monocytes (%) (Auto) 9.5 % Eosinophils (%) (Auto) 1.1 % Basophils (%) (Auto) 0.6 % Neutrophils # (Auto) 5.32 K/uL (1.4-6.5) Lymphocytes # (Auto) 2.55 K/uL (1.2-3.4) Monocytes # (Auto) 0.85 K/uL (0.11-0.59) Eosinophils # (Auto) 0.10 K/uL (0-0.5) Basophils # (Auto) 0.05 K/uL (0-0.2) RDW Standard Deviation 52.6 fL (36.4-46.3) RDW Coefficient of Variation 14.5 % (11.5-14.5) Immature Granulocyte % (Auto) 0.4 % Immature Granulocyte # (Auto) 0.04 K/uL (0.00-0.02) Activated Partial Thromboplast Time 31.4 SECONDS (21.0-31.0) Partial Thromboplastin Ratio 1.2 Est Creatinine Clear Calc Drug Dose 54.4 ml/min Estimated GFR () 68.3 Estimated GFR (Non- 58.9 BUN/Creatinine Ratio 19.5 (10-20) Calcium Level 8.9 mg/dl (8.5-10.1) Total Bilirubin 0.6 mg/dl (0.2-1) Aspartate Amino Transf (AST/SGOT) 26 U/L (15-37) Alanine Aminotransferase (ALT/SGPT) 46 U/L (12-78) Alkaline Phosphatase 127 U/L (45-117) Total Protein 7.3 gm/dl (6.4-8.2) Albumin 3.8 gm/dl (3.4-5.0) Globulin 3.5 gm/dl (2.5-4.0) Albumin/Globulin Ratio 1.1 (0.9-2) Bedside Hemoglobin 17.7 g/dl (14.0-18.0) Bedside Hematocrit 52 % (42-52) Bedside Sodium 141 mEq/L (135-144) Bedside Potassium 4.2 mEq/L (3.3-5.0) Bedside Chloride 102 mEq/L (101-112) Bedside Total CO2 26 mEq/l (24-31) Anion Gap 18.0 mmol/L (16-25) Bedside Blood Urea Nitrogen 25 mg/dl (7-18) Bedside Creatinine 1.1 mg/dl (0.6-1.3) Bedside Glucose (other) 120 mg/dl (70-99) Bedside Ionized Calcium (Migel) 1.14 mmol/l (1.12-1.32) Medications Administered Medications (Trade) Dose Ordered Sig/Eleni Route Start Time Stop Time Status Last Admin Dose Admin Sodium Chloride 1,000 ml @ 999 mls/hr Q1H1M STAT IV 05/06/18 07:17 05/06/18 08:17 DC 05/06/18 07:35 999 MLS/HR Medical Decision Patient was seen and evaluated as above in room B6. Review was performed of nursing notes and vital signs. After obtaining a thorough history and physical examination the above work up was performed. He presents to us today with bright red blood per rectum x2. He had a bowel movement at home and today here in the emergency department. Rectal exam is heme positive. INR 2.0. CBC reveals no concerning leukocytosis or anemia. Metabolic panel reveals no evidence of kidney failure. CT of the abdomen was obtained. This reveals a potential small diverticular bleed. No evidence of mesenteric ischemia. Findings discussed with the attending and subsequently Dyan Conte of [facility] gastroenterology. Patient will be admitted to the [facility] medicine team for further evaluation and management. I did discuss potentially reversing the INR and at this time it was recommended to hold medication rather than reverse. Patient was amenable to staying. Please refer to further documentation regarding his stay. He has been hemodynamically stable while here in the emergency department. Each bowel movement produces less and less blood here in the ED however I do believe that admission is still warranted. Case was discussed with the attending physician. In the evaluation and treatment of this patient the following differential diagnoses were entertained: GI bleed, diverticular bleed, mesenteric ischemia, hemorrhoid, among others Impression Primary Impression: GI bleeding Departure Information Dispostion Admitted as an inpatient Condition FAIR Referrals Reinaldo Bill D.O. (PCP) Patient Instructions [facility]
[2018-05-06 08:08] LABS: BASO % 0.6 %; BASO ABS # 0.05 K/uL (0-0.2); EOS % 1.1 %; HEMATOCRIT 50.6 % (42-52); HEMOGLOBIN 16.9 g/dL (14.0-18.0); IG# 0.04 K/uL (0.00-0.02); LYMPH % 28.6 %; LYMPH ABS # 2.55 K/uL (1.2-3.4); MEAN CELL VOLUME 98.3 fL (80-100); MEAN CORPUSCULAR HEMOGLOBIN 32.8 pg (25-34); MEAN CORPUSCULAR HGB CONC 33.4 g/dl (32-36); MEAN PLATELET VOLUME 11.7 fL (7.4-10.4); MONO % 9.5 %; MONO ABS # 0.85 K/uL (0.11-0.59); NEUT % 59.8 %; NEUT ABS # 5.32 K/uL (1.4-6.5); PLATELET COUNT 154 K/uL (130-400); RED CELL DISTRIBUTION WIDTH CV 14.5 % (11.5-14.5); RED CELL DISTRIBUTION WIDTH SD 52.6 fL (36.4-46.3); WHITE BLOOD COUNT 8.91 K/uL (4.8-10.8)
[2018-05-06 08:15] LABS: PTT PATIENT 31.4 SECONDS (21.0-31.0)
[2018-05-06 08:27] LABS: ALBUMIN 3.8 gm/dl (3.4-5.0); CALCIUM 8.9 mg/dl (8.5-10.1); CREATININE 1.15 mg/dl (0.60-1.40); TOTAL PROTEIN 7.3 gm/dl (6.4-8.2)
--- NOTE | 2018-05-06 08:50 | DIAGNOSTIC IMAGING REPORT ---
ANGIO ABD/PELVIS WITH CONTRAST CLINICAL HISTORY: Bloody bowel movement. Rectal bleeding. COMPARISON STUDY: CT of the abdomen and pelvis September 24, [address] of the abdomen and pelvis November 23, 2013. TECHNIQUE: Axial images of the abdomen and pelvis were obtained during arterial phase following intravenous injection of 119 cc Optiray 320 IV. Sagittal and coronal reconstructed reviewed as well as maximal intensity projections on an independent 3-D workstation. FINDINGS: Lung bases are clear. Heart is mildly enlarged. Arterial phase images of liver, spleen, adrenal glands and pancreas are unremarkable. A 1.3 cm right adrenal nodule is unchanged since CT of November 23, 2013. This is benign. A 1.8 cm lesion within the upper pole of the right kidney was shown to represent a hyperdense cyst on prior CT of September 24, 2012. Extensive colonic diverticulosis is noted. There is no significant bowel wall thickening. Note is made of a small focus of increased attenuation within the posterior aspect of the distal descending colon shown on axial image 283 of 491. This may reflect a small focus of active extravasation or bowel contents. There are prominent perirectal vessels. Prostate is markedly enlarged. There is evidence for a previous distal right ureteral resection with reimplantation. There is no lymphadenopathy. There are postoperative findings within the right groin with a fat-containing right inguinal hernia. There is trace fluid. This is postsurgical. There are no suspicious osseous lesions. Caliber of the abdominal aorta is normal. There is no aneurysm or dissection within the abdominal aorta. 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 The vessel measures 2 cm in caliber. There is mild stenosis at the origin the celiac axis and right renal artery. SMA is patent. Small gallstone is noted. IMPRESSION: 1. Extensive colonic diverticulosis. Small intraluminal focus of increased attenuation within the distal descending colon may reflect a small focus of active extravasation or simply bowel contents. 2. No bowel obstruction. No small bowel wall thickening. 3. Prominent perirectal vessels, a nonspecific finding. 4. Normal caliber abdominal aorta. Extensive atherosclerotic plaque. Mild stenosis at the origin of the celiac axis and right renal artery. Patent SMA. 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 Electronically signed by: Junior Anthony M.D. 05/06/2018 8:49 AM Dictated Date/Time: 05/06/2018 8:23 AM
[2018-05-06] MEDS ORDERED: ACETAMINOPHEN 325 MG TAB PO PRN (10:15)
[2018-05-06] MEDS ORDERED: ONDANSETRON INJ 2 MG/ML 2 ML VIAL IV PRN ×2 (10:15→17:30)
[2018-05-06] MEDS ORDERED: AMLODIPINE BESYLATE 5 MG TAB PO ONE (11:15)
[2018-05-06] MEDS: SODIUM CHLORIDE 0.9% 1000ML 1,000 ML IV SCH ×2 (11:21→22:21)
[2018-05-06] MEDS: MULTIVITAMIN TAB PO SCH (11:56)
[2018-05-06] MEDS: CITALOPRAM 20 MG TAB PO SCH (11:56)
--- NOTE | 2018-05-06 12:17 | Gastrointestinal Consultation ---
Gastrointestinal Consultation Date of Consultation: May 06, 2018 Attending Physician: Darryl Patrick Consulting Physician: Dion Hernandez Reason for Consultation: Rectal bleeding History of Present Illness Patient is a 82 year old male w PMHx of Afib on Coumadin and baby ASA, BPH, bladder & ureter ca, COPD, depression, CAD, dyslipidemia, HTN, SCC, mac degeneration, meningioma, R femoral artery pseudoaneurysm who presented to ED w c/o rectal bleeding starting 5AM today. He had mild cramping on lower abd area. Had another BM while in ED which he reported had more feces in it and also darker colored red blood. He denies any associated n/v, fever, chills, light headedness, dizziness. His blood ct showed no leukocytosis, normal H/H and platelet. INR 2 on Coumadin. CMP grossly unremarkable w mildly up BUN 22. CTA abd/pelvis performed showed extensive colonic diverticulosis w small intraluminal focus of increased attenuation on distal descending colon ? 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 Pt reported had 2 colonoscopies in the past. I see it being done in 2000, and 2002 in this hospital but I cannot access records. Hx of polyps and diverticulosis. He denies any constipation or straining prior to admission. He takes Metamucil at home. Past Medical/Surgical History Medical Problems: (1) Atrial fibrillation with RVR Status: Acute (2) Atrial fibrillation with RVR Status: Acute (3) Chest pain Status: Acute (4) Epigastric abdominal pain Status: Acute (5) Fall Status: Acute (6) GERD (gastroesophageal reflux disease) Status: Acute (7) Hematoma of left thigh Status: Acute (8) Left leg swelling Status: Acute (9) Pseudoaneurysm following procedure Status: Acute (10) Right leg DVT Status: Acute (11) Substernal chest pain Status: Acute Past Medical History: See above. Past Surgical History: Cataract surgery Tonsillectomy Cardiac cath Family History Diabetes mellitus BROTHER Heart disease FATHER MOTHER Hypertension FATHER MOTHER Multiple sclerosis DAUGHTER Social History Smoking Status: Never Smoker Alcohol Use: none Marital Status: Housing Status: lives alone Occupation Status: retired Allergies Coded Allergies: Sulfa Antibiotics (Verified Allergy, Severe, ITCHING, 05/06/18) Levofloxacin (Verified Allergy, Intermediate, BRADYCARDIA, 05/06/18) Metronidazole (Verified Allergy, Unknown, PVC'S, 05/06/18) Penicillins (Verified Allergy, Unknown, HIVES, 05/06/18) Meloxicam (Verified Adverse Reaction, Intermediate, UPSET STOMACH, 05/06/18 ) Sertraline (Verified Adverse Reaction, Intermediate, GI SYMPTOMS, 05/06/18) Doxycycline (Verified Adverse Reaction, Mild, GI UPSET, 05/06/18) Hydrocodone (Verified Adverse Reaction, Mild, constipation, 05/06/18) Current Medications Home Meds and Scripts Medications Dose Route/Sig Max Daily Dose Days Date Category Dose Instructions Jantoven (Warfarin Sodium) 5 Mg Tab 5 Mg PO SUMOWETHFR 05/06/18 Reported Jantoven (Warfarin Sodium) 2.5 Mg Tab 2.5 Mg PO TUSA 05/06/18 Reported Lipitor (Atorvastatin Calcium) 40 Mg Tab 40 Mg PO QAM 05/06/18 Reported Zestril (Lisinopril) 10 Mg Tab 10 Mg PO QPM 11/23/17 Reported Metamucil (Psyllium) 48.57 % Pow 1 Dose PO QPM 11/23/17 Reported Cordarone (Amiodarone Hcl) 200 Mg Tab 200 Mg PO QPM 11/23/17 Reported Colace (Docusate Sodium) 100 Mg Cap 100 Mg PO QPM 09/05/17 Reported Preservision Areds 2 (Multiple Vitamins W/ Minerals) 1 Cap Cap 1 Cap PO BID 09/05/17 Reported Citalopram Hydrobromide 20 Mg Tab 10 Mg PO NOON 09/05/17 Reported 1/2 TABLET DOSE Aspirin Chewable (Aspirin) 81 Mg Chew 81 Mg PO NOON 09/28/16 Reported Nitrostat (Nitroglycerin) 0.4 Mg Sub 0.4 Mg UT PRN 01/16/16 Reported NEEDED FOR CHEST PAIN : ONE TABLET UNDER THE TONGUE EVERY 5 MINUTES UP TO 3 DOSES. Xanax (Alprazolam) 0.5 Mg Tab 0.25 Mg PO TID PRN 08/10/15 Reported Multivitamin (Multivitamins) Tab 1 Tab PO NOON 03/14/14 Reported Norvasc (Amlodipine Besylate) 5 Mg Tab 5 Mg PO QAM 10/29/12 Reported Proscar (Finasteride) 5 Mg Tab 5 Mg PO QPM 12/02/09 Reported Review of Systems Constitutional: No fever, No chills Respiratory: No cough, No shortness of breath Cardiac: No chest pain Abdomen: + pain, + GI bleeding, No nausea, No vomiting Skin: No rash, No itch, No jaundice Physical Exam Date Time Temp Pulse Resp B/P (MAP) Pulse Ox O2 Delivery O2 Flow Rate FiO2 05/06/18 11:49 36.6 77 20 163/95 (117) 97 Room Air 05/06/18 10:44 73 16 173/91 96 05/06/18 09:46 72 16 199/120 97 Room Air 05/06/18 09:45 97 Room Air 05/06/18 08:29 67 18 173/88 94 Room Air 05/06/18 07:40 73 05/06/18 07:29 97 Room Air 05/06/18 07:03 36.6 83 18 146/82 94 Room Air General Appearance: WD/WN, no apparent distress Eyes: normal inspection, PERRL, EOMI Neck: supple, no JVD, trachea midline Respiratory/Chest: normal breath sounds, no respiratory distress, no accessory muscle use Cardiovascular: regular rate, rhythm, no gallop, no murmur Abdomen: normal bowel sounds, non tender, soft, + pertinent finding (Normal external rectum; + int hemorrhoids but small, + maroon colored speck of blood in rectal vault) Neurologic/Psych: alert, normal mood/affect, oriented x 3 Skin: normal color, no jaundice, no rash Laboratory Results Last 24 Hours Test 05/06/18 07:24 05/06/18 07:27 White Blood Count 8.91 K/uL Red Blood Count 5.15 M/uL Hemoglobin 16.9 g/dL Hematocrit 50.6 % Mean Corpuscular Volume 98.3 fL Mean Corpuscular Hemoglobin 32.8 pg Mean Corpuscular Hemoglobin Concent 33.4 g/dl Platelet Count 154 K/uL Mean Platelet Volume 11.7 fL Neutrophils (%) (Auto) 59.8 % Lymphocytes (%) (Auto) 28.6 % Monocytes (%) (Auto) 9.5 % Eosinophils (%) (Auto) 1.1 % Basophils (%) (Auto) 0.6 % Neutrophils # (Auto) 5.32 K/uL Lymphocytes # (Auto) 2.55 K/uL Monocytes # (Auto) 0.85 K/uL Eosinophils # (Auto) 0.10 K/uL Basophils # (Auto) 0.05 K/uL RDW Standard Deviation 52.6 fL RDW Coefficient of Variation 14.5 % Immature Granulocyte % (Auto) 0.4 % Immature Granulocyte # (Auto) 0.04 K/uL Prothrombin Time 20.9 SECONDS Prothromb Time International Ratio 2.0 Activated Partial Thromboplast Time 31.4 SECONDS Partial Thromboplastin Ratio 1.2 Sodium Level 140 mmol/L Potassium Level 4.0 mmol/L Chloride Level 104 mmol/L Carbon Dioxide Level 30 mmol/L Anion Gap 6.0 mmol/L 18.0 mmol/L Blood Urea Nitrogen 22 mg/dl Creatinine 1.15 mg/dl Est Creatinine Clear Calc Drug Dose 54.4 ml/min Estimated GFR () 68.3 Estimated GFR (Non- 58.9 BUN/Creatinine Ratio 19.5 Random Glucose 113 mg/dl Calcium Level 8.9 mg/dl Total Bilirubin 0.6 mg/dl Aspartate Amino Transf (AST/SGOT) 26 U/L Alanine Aminotransferase (ALT/SGPT) 46 U/L Alkaline Phosphatase 127 U/L Total Protein 7.3 gm/dl Albumin 3.8 gm/dl Globulin 3.5 gm/dl Albumin/Globulin Ratio 1.1 Bedside Hemoglobin 17.7 g/dl Bedside Hematocrit 52 % Bedside Sodium 141 mEq/L Bedside Potassium 4.2 mEq/L Bedside Chloride 102 mEq/L Bedside Total CO2 26 mEq/l Bedside Blood Urea Nitrogen 25 mg/dl Bedside Creatinine 1.1 mg/dl Bedside Glucose (other) 120 mg/dl Bedside Ionized Calcium (Migel) 1.14 mmol/l Impression Patient is a 82 year old male who presented to ED w rectal bleeding starting at 5AM today. He had another episode of BM w blood after went to ED but said had more feces and blood color was turning darker. He is on Coumadin and ASA 81mg daily for Afib, INR on presentation was 2. H/H normal, no significant rise in BUN. CTA done w findings of extensive colonic diverticuli and increased attenuation on descending colon ? active extravastation vs stool. DDx: diverticular bleeding, int hemorrhoids bleeding. Plan - CL diet today, and will give Golytely bowel prep which can sometimes help stop diverticular bleeding. NPO after midnight for possible colonoscopy showed rectal bleeding not stopped overnight - Vit K 5mg IV x 1 ; hold ASA and Coumadin. Keep INR <1.5 if need to perform colonoscopy. - Check Cdiff and stool cx to r/o infectious process causing bloody stools. I saw and evaluated the patient with Ms. Conte. Patient presented with sudden onset rectal bleeding this morning. He had 2 bloody bowel movements prior to admission which subsequently appears to be improving. Initially the patient had no abdominal discomfort however he does admit to cramping this afternoon. His last colonoscopy was performed approximately 8 years ago and notable for diverticulosis. Physical examination No obvious distress, mild epigastric discomfort with nonfocal tenderness Impression: Patient presenting with signs and symptoms most consistent with a diverticular hemorrhage. I would suggest a reversal of the patient's anticoagulation this afternoon and a bowel preparation. If the bleeding discontinues we will then make arrangements for an outpatient colonoscopy in the next 4-6 weeks. If the bleeding persists we would then make arrangements for colonoscopy to see if a bleeding site can be identified.
--- NOTE | 2018-05-06 12:47 | History and Physical ---
History & Physical Date & Time of Service: May 06, 2018 ~ 4397 Chief Complaint: Rectal bleeding Primary Care Physician: Reinaldo Bill D.O. History of Present Illness 82-year-old male who presents to the ED with rectal bleeding. Patient reports that he woke up early this morning and went to the bathroom. He was noted to have a large amount of bright red blood in the toilet with a small amount of stool contents. Patient reports having some mild nausea and abdominal bloating and some lower abdominal cramping. He denies vomiting. Patient reports he otherwise has been feeling well recently. He denies chest pain shortness of breath. He has chronic intermittent lightheaded and dizziness which is unchanged from baseline. No syncopal events. He denies fevers and chills. No urinary symptoms. In the ED, patient's hemoglobin is stable at 16.9. Patient is anticoagulated on Coumadin for history of paroxysmal atrial fibrillation, INR is 2.0. Patient is hemodynamically stable. He was given IVF. Past Medical/Surgical History Medical Problems: (1) Anticoagulated on warfarin Status: Chronic (2) Benign hypertension Status: Chronic (3) BPH (benign prostatic hypertrophy) Status: Chronic (4) Carcinoma of bladder Status: Chronic (5) COPD (chronic obstructive pulmonary disease) Status: Chronic (6) Coronary artery disease Permanent Comment: cath 08/13/15 moderate mid RCA stenosis, indeterminate ostial LAD lesion Status: Chronic (7) Depression Status: Chronic (8) Dyslipidemia Status: Chronic (9) History of squamous cell carcinoma of skin Status: Chronic (10) Hyperlipidemia Status: Chronic (11) Hypertension Status: Chronic (12) Insertion of stent into ureter Status: Chronic (13) Macular degeneration Status: Chronic (14) Meningioma Status: Chronic (15) Neoplasm of ureter Status: Chronic (16) Paroxysmal atrial fibrillation Status: Chronic (17) Pseudoaneurysm of right femoral artery Permanent Comment: after cardiac cath 2014 Status: Resolved (18) Varicose veins of lower extremity Status: Chronic Surgical Problems: (1) Status post cardiac catheterization Permanent Comment: [facility] 08/13/15 Dr. Sandra; moderate mid RCA, indeterminate ostial LAD Status: Chronic (2) Status post cataract extraction Status: Chronic (3) Status post tonsillectomy Status: Chronic Family History Diabetes mellitus BROTHER Heart disease FATHER MOTHER Hypertension FATHER MOTHER Multiple sclerosis DAUGHTER Social History Smoking Status: Former Smoker Alcohol Use: none Marital Status: Occupational Status: retired Immunizations History of Influenza Vaccine: Yes Influenza Vaccine Date: Jun 01, 2017 History of Tetanus Vaccine?: Yes Tetanus Immunization Date: Jun 10, 2012 History of Pneumococcal: Yes Pneumococcal Date: Jul 28, 2016 Allergies Coded Allergies: Sulfa Antibiotics (Verified Allergy, Severe, ITCHING, 05/06/18) Levofloxacin (Verified Allergy, Intermediate, BRADYCARDIA, 05/06/18) Metronidazole (Verified Allergy, Unknown, PVC'S, 05/06/18) Penicillins (Verified Allergy, Unknown, HIVES, 05/06/18) Meloxicam (Verified Adverse Reaction, Intermediate, UPSET STOMACH, 05/06/18 ) Sertraline (Verified Adverse Reaction, Intermediate, GI SYMPTOMS, 05/06/18) Doxycycline (Verified Adverse Reaction, Mild, GI UPSET, 05/06/18) Hydrocodone (Verified Adverse Reaction, Mild, constipation, 05/06/18) Home Medications Scheduled Amiodarone Hcl (Cordarone), 200 MG PO QPM Amlodipine Besylate (Norvasc), 5 MG PO QAM Aspirin (Aspirin Chewable), 81 MG PO noon Atorvastatin (Lipitor), 40 MG PO QAM Citalopram Hydrobromide (Citalopram Hydrobromide), 10 MG PO NOON Docusate Sodium (Colace), 100 MG PO QPM Finasteride (Proscar), 5 MG PO QPM Lisinopril (Zestril), 10 MG PO QPM Multiple Vitamins W/ Minerals (Preservision Areds 2), 1 CAP PO BID Multivitamin (Multivitamin), 1 TAB PO noon Nitroglycerin (Nitrostat), 0.4 MG UT PRN Psyllium (Metamucil), 1 DOSE PO QPM Warfarin Sod (Jantoven), 2.5 MG PO TuSa Warfarin Sod (Jantoven), 5 MG PO [id number] Scheduled PRN Alprazolam (Xanax), 0.25 MG PO TID PRN for Anxiety/Agitation Review of Systems ROS per HPI, all other systems reviewed and negative Physical Exam Vital Signs Date Time Temp Pulse Resp B/P (MAP) Pulse Ox O2 Delivery O2 Flow Rate FiO2 05/06/18 12:00 98 Room Air 05/06/18 11:49 36.6 77 20 163/95 (117) 97 Room Air 05/06/18 10:44 73 16 173/91 96 05/06/18 09:46 72 16 199/120 97 Room Air 05/06/18 09:45 97 Room Air 05/06/18 08:29 67 18 173/88 94 Room Air 05/06/18 07:40 73 05/06/18 07:29 97 Room Air 05/06/18 07:03 36.6 83 18 146/82 94 Room Air General Appearance: WD/WN, no apparent distress Head: normocephalic, atraumatic Eyes: normal inspection, EOMI, sclerae normal ENT: hearing grossly normal, + pertinent finding (Mucous murmurs moist) Neck: supple, no JVD, trachea midline Respiratory/Chest: lungs clear, normal breath sounds, no respiratory distress Cardiovascular: regular rate, rhythm, no edema, normal peripheral pulses Abdomen/GI: normal bowel sounds, non tender, soft, no organomegaly Extremities/Musculoskelatal: normal inspection, no calf tenderness, normal capillary refill Neurologic/Psych: no motor/sensory deficits, alert, normal mood/affect, oriented x 3 Skin: normal color, warm/dry Diagnostics Laboratory Results Results Past 24 Hours Test 05/06/18 07:24 05/06/18 07:27 Range/Units White Blood Count 8.91 4.8-10.8 K/uL Red Blood Count 5.15 4.7-6.1 M/uL Hemoglobin 16.9 14.0-18.0 g/dL Hematocrit 50.6 42-52 % Mean Corpuscular Volume 98.3 80-100 fL Mean Corpuscular Hemoglobin 32.8 25-34 pg Mean Corpuscular Hemoglobin Concent 33.4 32-36 g/dl Platelet Count 154 130-400 K/uL Mean Platelet Volume 11.7 7.4-10.4 fL Neutrophils (%) (Auto) 59.8 % Lymphocytes (%) (Auto) 28.6 % Monocytes (%) (Auto) 9.5 % Eosinophils (%) (Auto) 1.1 % Basophils (%) (Auto) 0.6 % Neutrophils # (Auto) 5.32 1.4-6.5 K/uL Lymphocytes # (Auto) 2.55 1.2-3.4 K/uL Monocytes # (Auto) 0.85 0.11-0.59 K/uL Eosinophils # (Auto) 0.10 0-0.5 K/uL Basophils # (Auto) 0.05 0-0.2 K/uL RDW Standard Deviation 52.6 36.4-46.3 fL RDW Coefficient of Variation 14.5 11.5-14.5 % Immature Granulocyte % (Auto) 0.4 % Immature Granulocyte # (Auto) 0.04 0.00-0.02 K/uL Prothrombin Time 20.9 9.0-12.0 SECONDS Prothromb Time International Ratio 2.0 0.9-1.1 Activated Partial Thromboplast Time 31.4 21.0-31.0 SECONDS Partial Thromboplastin Ratio 1.2 Sodium Level 140 136-145 mmol/L Potassium Level 4.0 3.5-5.1 mmol/L Chloride Level 104 98-107 mmol/L Carbon Dioxide Level 30 21-32 mmol/L Anion Gap 6.0 18.0 16-25 mmol/L Blood Urea Nitrogen 22 7-18 mg/dl Creatinine 1.15 0.60-1.40 mg/dl Est Creatinine Clear Calc Drug Dose 54.4 ml/min Estimated GFR () 68.3 Estimated GFR (Non- 58.9 BUN/Creatinine Ratio 19.5 10-20 Random Glucose 113 70-99 mg/dl Calcium Level 8.9 8.5-10.1 mg/dl Total Bilirubin 0.6 0.2-1 mg/dl Aspartate Amino Transf (AST/SGOT) 26 15-37 U/L Alanine Aminotransferase (ALT/SGPT) 46 12-78 U/L Alkaline Phosphatase 127 45-117 U/L Total Protein 7.3 6.4-8.2 gm/dl Albumin 3.8 3.4-5.0 gm/dl Globulin 3.5 2.5-4.0 gm/dl Albumin/Globulin Ratio 1.1 0.9-2 Bedside Hemoglobin 17.7 14.0-18.0 g/dl Bedside Hematocrit 52 42-52 % Bedside Sodium 141 135-144 mEq/L Bedside Potassium 4.2 3.3-5.0 mEq/L Bedside Chloride 102 101-112 mEq/L Bedside Total CO2 26 24-31 mEq/l Bedside Blood Urea Nitrogen 25 7-18 mg/dl Bedside Creatinine 1.1 0.6-1.3 mg/dl Bedside Glucose (other) 120 70-99 mg/dl Bedside Ionized Calcium (Migel) 1.14 1.12-1.32 mmol/l Diagnostic Radiology CTA IMPRESSION: 1. Extensive colonic diverticulosis. Small intraluminal focus of increased attenuation within the distal descending colon may reflect a small focus of active extravasation or simply bowel contents. 2. No bowel obstruction. No small bowel wall thickening. 3. Prominent perirectal vessels, a nonspecific finding. 4. Normal caliber abdominal aorta. Extensive atherosclerotic plaque. Mild stenosis at the origin of the celiac axis and right renal artery. Patent SMA. 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 Impression Assessment and Plan LOWER GI BLEED COUMADIN COAGULOPATHY -Admit to telemetry -Patient presenting from home with bright red bleeding per rectum that began early this morning; anticoagulated on Coumadin for paroxysmal atrial fibrillation, INR 2.0 -Likely diverticular bleed, CTA showing extensive colonic diverticulosis -Hemoglobin stable at 16.9; hemodynamically stable -Serial H&H -Will recheck INR at 1500, consider reversal at that time -GI consult, case discussed with MARLO Talley PAROXYSMAL ATRIAL FIBRILLATION -Currently in NSR -Rhythm controlled on amiodarone, will continue -Holding Coumadin due to GI bleed HISTORY OF CAD -Stable, no reports of chest pain -Check EKG HYPERTENSION -BP elevated, however patient missed his a.m. medications -Continue amlodipine and lisinopril at home doses and adjust if needed DVT PROPHYLAXIS -SCDs due to GI bleeding CODE STATUS -Patient is a full code as per my discussion with him. DISPOSITION -In my clinical judgment this beneficiary meets acute admission criteria, established by [facility], that includes being hospitalized through two midnights. Attending physician Dr. Patrick addendum I have seen and examined the patient with PARAM Perkins and agree with the assessment and plan as above and would like to comment that this patient likely has diverticular bleed given extensive diverticulosis. As per rectal exam from gastroenterology also evidence for hemorrhoid bleeding. Besides blood per rectum , patient also having abdominal pain on exam. His hemoglobin is relatively stable as Hgb 16.9 to 16.4. As per gastroenterology service, will keep on clear liquid diet for now, give Golytely bowel prep, NPO after midnight for possible colonoscopy if rectal bleeding persists. Holding aspirin and coumadin. Vitamin K 5 mg IV x 1 dose ordered as per gastroenterology recommendations. Give pain medications for abdominal pain control. Physical Exam General: no acute distress Lungs: CTABL, no wheezing, on room air Heart: regular rate Abdomen: soft, bowel sounds present, epigastric tenderness Legs: no edema Neuro: awake, alert, oriented x 3 Advanced Directives Existing Living Will: Yes Existing Power of Core Fitter: Yes Resuscitation Status VTE Prophylaxis Will order VTE Prophylaxis: Yes
[2018-05-06] MEDS ORDERED: HYDROmorphone INJ 0.5 MG/0.5 ML SYR IV PRN (15:30)
[2018-05-06 16:02] LABS: HEMOGLOBIN 16.4 g/dL (14.0-18.0)
[2018-05-06 16:06] LABS: INR 1.9 (0.9-1.1)
[2018-05-06] MEDS ORDERED: DICYCLOMINE HCL 10 MG CAP PO PRN (16:30)
[2018-05-06] MEDS ORDERED: PHYTONADIONE INJ 5 MG in SODIUM CHLORIDE 0.9% 50ML 50 ML IV ONE (16:30)
[2018-05-06] MEDS ORDERED: LAVAGE SOLUTION 4000ML PO SCH (17:00)
[2018-05-06] MEDS: CEROVITE ADV FORMULA TAB PO SCH (20:16)
[2018-05-06] MEDS: FINASTERIDE 5 MG TAB PO SCH (20:17)
[2018-05-06] MEDS: AMIODARONE 200 MG TAB PO SCH (20:17)
[2018-05-06] MEDS: LISINOPRIL 10 MG TAB PO SCH (20:18)
[2018-05-06] MEDS: ALPRAZOLAM 0.5 MG TAB PO PRN (23:57)
[2018-05-07 03:39] LABS: HEMATOCRIT 40.4 % (42-52); HEMOGLOBIN 13.6 g/dL (14.0-18.0)
[2018-05-07 03:58] VITALS: BP 198/96; PULSE 83; TEMP 36.7; O2SAT 97
[2018-05-07 06:52] VITALS: BP 158/91; PULSE 80; TEMP 37; O2SAT 94
[2018-05-07] MEDS: SODIUM CHLORIDE 0.9% 1000ML 1,000 ML IV SCH (07:30)
[2018-05-07] MEDS: AMLODIPINE BESYLATE 5 MG TAB PO SCH (07:43)
[2018-05-07] MEDS: CEROVITE ADV FORMULA TAB PO SCH ×2 (07:43→19:54)
[2018-05-07] MEDS: ATORVASTATIN 40 MG TAB PO SCH (07:43)
[2018-05-07] MEDS: ALPRAZOLAM 0.5 MG TAB PO PRN (07:48)
--- NOTE | 2018-05-07 09:28 | Gastroenterology Progress Note ---
Progress Note Date of Service: May 07, 2018 Subjective Pt evaluation today including: conversation w/ patient, physical exam, chart review, lab review, review of inpatient medication list Pt given Golytely, had multiple loose BMs w blood and loose stools till this AM. H/H 1340. He denies much abd cramping, no n/v. His Cdiff came back positive , stool cx pending. Review of Systems Constitutional: No fever, No chills Cardiac: No chest pain, No edema Abdomen: + GI bleeding, No pain, No nausea, No vomiting Psych: + anxiety Medications Current Inpatient Medications Medications (Trade) Dose Ordered Sig/Eleni Route Start Time Stop Time Status Last Admin Dose Admin Ioversol (Optiray 320) 100 ml UD PRN IV 05/06/18 07:45 05/10/18 07:44 Acetaminophen (Tylenol Tab) 650 mg Q4H PRN PO 05/06/18 10:15 06/05/18 10:14 Ondansetron HCl (Zofran Inj) 4 mg Q6H PRN IV 05/06/18 10:15 06/05/18 10:14 Sodium Chloride 1,000 ml @ 100 mls/hr Q10H IV 05/06/18 11:15 06/05/18 11:14 05/07/18 07:30 100 MLS/HR Alprazolam (Xanax Tab) 0.25 mg TID PRN PO 05/06/18 10:30 06/05/18 10:29 05/07/18 07:48 0.25 MG Amiodarone HCl (Cordarone Tab) 200 mg QPM PO 05/06/18 21:00 06/05/18 20:59 05/06/18 20:17 200 MG Amlodipine Besylate (Norvasc Tab) 5 mg QAM PO 05/07/18 09:00 06/06/18 08:59 05/07/18 07:43 5 MG Atorvastatin Calcium (Lipitor Tab) 40 mg QAM PO 05/07/18 09:00 06/06/18 08:59 05/07/18 07:43 40 MG Citalopram Hydrobromide (celeXA TAB) 10 mg DAILY@1200 PO 05/06/18 12:00 06/05/18 11:59 05/06/18 11:56 10 MG Finasteride (Proscar Tab) 5 mg QPM PO 05/06/18 21:00 06/05/18 20:59 05/06/18 20:17 5 MG Lisinopril (Zestril Tab) 10 mg QPM PO 05/06/18 21:00 06/05/18 20:59 05/06/18 20:18 10 MG Multivitamins (Multivitamin Tab) 1 tab DAILY@1200 PO 05/06/18 12:00 06/05/18 11:59 05/06/18 11:56 1 TAB Multivitamins/ Minerals (Multivitamin W/ Minerals Tab) 1 tab BID PO 05/06/18 21:00 06/05/18 20:59 05/07/18 07:43 1 TAB Hydromorphone HCl (Dilaudid Inj) 0.5 mg Q8H PRN IV 05/06/18 15:30 05/20/18 15:29 05/06/18 16:46 0.5 MG Dicyclomine HCl (Bentyl Cap) 10 mg BID PRN PO 05/06/18 16:30 06/05/18 16:29 05/06/18 17:57 10 MG Vancomycin HCl (Vancomycin Oral Soln) 125 mg Q6 PO 05/07/18 12:00 05/17/18 11:59 Raspberry (Raspberry Syrup 5ml Cup) 5 ml Q6 PO 05/07/18 12:00 05/21/18 11:59 Objective Vital Signs Date Time Temp Pulse Resp B/P (MAP) Pulse Ox O2 Delivery O2 Flow Rate FiO2 05/07/18 06:52 37.0 80 18 158/91 (113) 94 Room Air 05/07/18 03:58 36.7 83 18 198/96 (130) 97 Room Air 05/06/18 23:37 36.4 64 16 144/86 (105) 99 05/06/18 20:00 Room Air 05/06/18 19:15 36.5 63 18 143/84 (103) 95 05/06/18 16:00 65 05/06/18 16:00 98 Room Air 05/06/18 14:54 36.2 59 20 142/83 (102) 96 Room Air 05/06/18 12:00 98 Room Air 05/06/18 11:49 36.6 77 20 163/95 (117) 97 Room Air 05/06/18 10:44 73 16 173/91 96 05/06/18 09:46 72 16 199/120 97 Room Air 05/06/18 09:45 97 Room Air Physical Exam General Appearance: WD/WN, no apparent distress Eyes: normal inspection, PERRL, EOMI Neck: supple, no JVD, trachea midline Respiratory/Chest: normal breath sounds, no respiratory distress, no accessory muscle use Cardiovascular: regular rate, rhythm, no gallop, no murmur Abdomen: normal bowel sounds, non tender, soft Extremities: normal inspection, no pedal edema, no calf tenderness Neurologic/Psych: no motor/sensory deficits, alert, normal mood/affect, oriented x 3 Skin: normal color, no jaundice, no rash Laboratory Results Last 24 Hours Test 05/06/18 15:37 05/06/18 21:21 05/07/18 03:00 Hemoglobin 16.4 g/dL 15.0 g/dL 13.6 g/dL Hematocrit 49.0 % 45.0 % 40.4 % Prothrombin Time 19.9 SECONDS Prothromb Time International Ratio 1.9 Assessment and Plan Patient is a 82 year old male who presented to ED w rectal bleeding starting at 5AM today. He had another episode of BM w blood after went to ED but said had more feces and blood color was turning darker. He is on Coumadin and ASA 81mg daily for Afib, INR on presentation was 2. H/H normal, no significant rise in BUN. CTA done w findings of extensive colonic diverticuli and increased attenuation on descending colon ? active extravastation vs stool. DDx: diverticular bleeding, int hemorrhoids bleeding. Cdiff came back positive yesterday, stool cx pending. He admits hx of Cdiff many years ago. Denies recent illness or antibx exposure. Plan - CL diet today, advance as tolerated. - Vancomycin 125mg PO QID x 14 days. Contact precautions, stressed hand washing , bleaching toilet at home - Will cancel colonoscopy, reschedule for 4-6 weeks. - If stable, by tomorrow can DC home. I saw and evaluated the patient. Overnight he was found to be C. difficile positive. At this point we would recommend use of vancomycin 125 mg 4 times daily. This is the most likely cause of his medication. We will also recommend an outpatient colonoscopy to be done in 6-8 weeks. MR standpoint the patient can restart his Coumadin once his hematochezia has stopped. Please call with any questions or concerns, GI to sign off for the present time.
[2018-05-07] MEDS ORDERED: NURSING VERBAL MED ORDER ONE (11:30)
[2018-05-07 11:39] VITALS: BP 165/82; PULSE 74; TEMP 36.6; O2SAT 94
[2018-05-07] MEDS: VANCOMYCIN HCL 125 MG/2.5ML SOLN PO SCH ×3 (11:58→23:34)
[2018-05-07] MEDS: RASPBERRY SYRUP 5 ML UDP PO SCH ×3 (11:58→23:34)
[2018-05-07] MEDS: CITALOPRAM 20 MG TAB PO SCH (11:58)
[2018-05-07] MEDS: MULTIVITAMIN TAB PO SCH (11:58)
--- NOTE | 2018-05-07 11:58 | Clinical Documentation Query ---
CLINICAL DOCUMENTATION QUERY Dr. MARQUIS, In your clinical opinion is this patient being managed for: ( ) C diff colitis likely cause of GI bleed ( ) Not Agree ( ) Other explanation of clinical findings (No explanation is considered a No Response) ( x) Unable to determine ( ) Need to Discuss (Phone CDS or qliq) (No discussion is considered a No Response) The medical record reflects the following clinical findings, treatment, and risk factors. Clinical Indicators: 82 yo male presenting with bright red rectal bleeding. Stool + for C diff Treatment: GI consult, vancomycin, IV fluids, Risk Factors: age, hx C diff "many years ago" Please clarify and document your clinical opinion in the progress notes and discharge summary. Terms such as "probable", "suspected", "likely", "questionable", "possible", or "still to be ruled out" are acceptable. IF IN AGREEMENT, YOU MUST DOCUMENT ABOVE DIAGNOSTIC STATEMENT IN DAILY PROGRESS NOTES AND DISCHARGE SUMMARY. This document is not part of the patient's record. Thank You, Celeste Jarquin RN [phone]
--- NOTE | 2018-05-07 12:27 | Progress Note ---
Progress Note Date of Service May 07, 2018. Progress Note Subjective: Patient continues to have bowl movements with blood as per patient however these bowel movements are less blood as per patient. He showed hospitalist that was more brown and orange in color this morning. Patient's Hgb trending down however patient denies chest pain or shortness of breath or lightheadedness. Denies acute abdominal pain Physical Exam General no acute distress Lungs: clear to auscultation bilaterally Heart: regular rate Abdomen: bowel sounds present, no rebound tenderness or guarding Extremities: ambulatory, no edema, nontender Neuro: awake and alert, no focal deficits Assessment and Plan LOWER GI BLEED COUMADIN COAGULOPATHY -patient likely has diverticular bleed given extensive diverticulosis. As per rectal exam from gastroenterology also evidence for hemorrhoid bleeding. -CBC is downtrending and initially patient was planned to have colonoscopy on and received vitamin K 5 mg x 1 for his INR on 05/06/18 -However, C.difficile test came back positive yesterday and as per gastroenterology team the colonoscopy is canceled at this time to treat possible C.difficile exposure and recommendations of clear liquid diet to be advanced as tolerated -will continue to monitor patient's hemoglobin -monitor abdominal discomfort and pain medications as needed C.difficile exposure - Vancomycin 125mg PO QID x 14 days. Contact precautions, stressed hand washing , bleaching toilet at home PAROXYSMAL ATRIAL FIBRILLATION -Currently in NSR -Rhythm controlled on amiodarone, will continue -Continue to hold Coumadin for now due to blood per rectum, was given vitamin K 5 mg x 1 for his INR on 05/06/18 HISTORY OF CAD -Stable HYPERTENSION -Continue amlodipine and lisinopril at home doses DVT PROPHYLAXIS -SCDs due to GI bleeding CODE STATUS -Full Code
[2018-05-07 12:56] LABS: HEMATOCRIT 39.8 % (42-52); HEMOGLOBIN 13.1 g/dL (14.0-18.0); MEAN CELL VOLUME 98.8 fL (80-100); MEAN CORPUSCULAR HEMOGLOBIN 32.5 pg (25-34); MEAN PLATELET VOLUME 11.5 fL (7.4-10.4); PLATELET COUNT 160 K/uL (130-400); RED CELL DISTRIBUTION WIDTH CV 14.6 % (11.5-14.5); RED CELL DISTRIBUTION WIDTH SD 52.7 fL (36.4-46.3); WHITE BLOOD COUNT 10.43 K/uL (4.8-10.8)
[2018-05-07 13:03] LABS: MEAN CORPUSCULAR HGB CONC 32.9 g/dl (32-36)
[2018-05-07 15:49] VITALS: BP 164/77; PULSE 60; TEMP 36.5; O2SAT 98
[2018-05-07 19:13] VITALS: BP 161/82; PULSE 56; TEMP 36.4; O2SAT 98
[2018-05-07] MEDS: AMIODARONE 200 MG TAB PO SCH (19:54)
[2018-05-07] MEDS: FINASTERIDE 5 MG TAB PO SCH (19:54)
[2018-05-07] MEDS: LISINOPRIL 10 MG TAB PO SCH (19:55)
[2018-05-07] MEDS ORDERED: ALPRAZOLAM 0.5 MG TAB PO PRN (20:15)
[2018-05-07 23:50] VITALS: BP 160/95; PULSE 71; TEMP 36.7; O2SAT 96
[2018-05-08 06:14] VITALS: BP 163/91; PULSE 76; TEMP 36.8; O2SAT 97
[2018-05-08] MEDS: RASPBERRY SYRUP 5 ML UDP PO SCH ×2 (06:14→12:34)
[2018-05-08] MEDS: VANCOMYCIN HCL 125 MG/2.5ML SOLN PO SCH ×2 (06:14→12:33)
[2018-05-08 07:42] VITALS: BP 148/76; PULSE 66; TEMP 36.6; O2SAT 95
[2018-05-08 08:00] LABS: BASO % 0.2 %; BASO ABS # 0.02 K/uL (0-0.2); EOS % 0.5 %; EOS ABS # 0.04 K/uL (0-0.5); HEMATOCRIT 39.3 % (42-52); HEMOGLOBIN 13.1 g/dL (14.0-18.0); IG# 0.01 K/uL (0.00-0.02); LYMPH % 24.9 %; LYMPH ABS # 2.17 K/uL (1.2-3.4); MEAN CELL VOLUME 97.5 fL (80-100); MEAN CORPUSCULAR HEMOGLOBIN 32.5 pg (25-34); MEAN CORPUSCULAR HGB CONC 33.3 g/dl (32-36); MEAN PLATELET VOLUME 11.8 fL (7.4-10.4); MONO % 12.1 %; MONO ABS # 1.05 K/uL (0.11-0.59); NEUT % 62.2 %; NEUT ABS # 5.41 K/uL (1.4-6.5); PLATELET COUNT 152 K/uL (130-400); RED CELL DISTRIBUTION WIDTH CV 14.5 % (11.5-14.5); RED CELL DISTRIBUTION WIDTH SD 51.9 fL (36.4-46.3)
[2018-05-08 08:07] LABS: INR 1.1 (0.9-1.1)
[2018-05-08] MEDS: ATORVASTATIN 40 MG TAB PO SCH (08:51)
[2018-05-08] MEDS: AMLODIPINE BESYLATE 5 MG TAB PO SCH (08:52)
[2018-05-08] MEDS: CEROVITE ADV FORMULA TAB PO SCH (08:52)
--- NOTE | 2018-05-08 11:29 | Progress Note ---
Internal Med Progress Note Date of Service: May 08, 2018. Provider Documentation: Subjective: Hemoglobin successively stable as 13.1 from 05/07/18 to 05/08/18 Patient reports less bowel movements and no gross bleeding with some stool that is somewhat dark. He denies lightheadedness or shortness of breath or chest pain. Blood pressure stable. Physical Exam General no acute distress Lungs: clear to auscultation bilaterally Heart: regular rate Abdomen: bowel sounds present, no rebound tenderness or guarding Extremities: ambulatory, no edema, nontender Neuro: awake and alert, no focal deficits ASSESSMENT & PLAN: Hospital Course and Discharge Plans LOWER GI BLEED -patient likely has diverticular bleed given extensive diverticulosis. As per rectal exam from gastroenterology also evidence for hemorrhoid bleeding. -CBC was downtrending from 16.9 and initially patient was planned to have colonoscopy on 05/07/18 and received vitamin K 5 mg x 1 for his INR on 05/06/18 -However, C.difficile test came back and as per gastroenterology team the colonoscopy is canceled at this time to treat possible C.difficile exposure and recommendations -Vancomycin 125mg PO QID for 14 day total course was started on 05/07/18. Advised patient for hand washing and bleaching toilet at home -Hemoglobin successively stable as 13.1 from 05/07/18 to 05/08/18 with some resolution of symptoms -Outpatient Gastroenterology colonoscopy planned for 4 to 6 weeks from discharge date -advise patient to hold off on coumadin until absence of rectal bleeding or until follow up with primary care doctor on 05/13/18 C.difficile exposure -Vancomycin 125mg PO QID for 14 day total course was started on 05/07/18. Advised patient for hand washing and bleaching toilet at home PAROXYSMAL ATRIAL FIBRILLATION -Currently in NSR -Rhythm controlled on amiodarone, continue -advise patient to hold off on coumadin until absence of rectal bleeding or until follow up with primary care doctor on 05/13/18 HISTORY OF CAD -Stable HYPERTENSION -Continue amlodipine and lisinopril at home doses Discharge Instructions Please hold off on coumadin until absence of rectal bleeding or until follow up with primary care doctor on 05/13/18 Upcoming appointments 05/10/2018 1:00 PM Nurse Dermatology Sp Dermatology [facility] 05/10/2018 6:15 PM [facility] (probably can be skipped if off coumadin) 05/13/2018 11:20 AM Brenden Portillo MD General Internal Medicine [facility] 05/13/2018 1:45 PM Leslee Lopez MD Dermatology [facility] 05/21/2018 10:20 AM Yaniv Silveira MD Gastroenterology, [facility] Outpatient Gastroenterology colonoscopy planned for 4 to 6 weeks from discharge date Vital Signs: Date Time Temp Pulse Resp B/P (MAP) Pulse Ox O2 Delivery O2 Flow Rate FiO2 05/08/18 12:01 37.4 85 19 156/82 (106) 95 Room Air 05/08/18 08:00 Room Air 05/08/18 07:42 36.6 66 19 148/76 (100) 95 Room Air 05/08/18 06:14 36.8 76 18 163/91 (115) 97 Room Air 05/07/18 23:50 36.7 71 18 160/95 (116) 96 Room Air 05/07/18 20:00 Room Air 05/07/18 19:13 36.4 56 17 161/82 (108) 98 Room Air 05/07/18 15:49 36.5 60 18 164/77 (106) 98 Room Air Lab Results: Results Past 24 Hours Test 05/07/18 12:38 05/08/18 07:14 Range/Units White Blood Count 10.43 8.70 4.8-10.8 K/uL Red Blood Count 4.03 4.03 4.7-6.1 M/uL Hemoglobin 13.1 13.1 14.0-18.0 g/dL Hematocrit 39.8 39.3 42-52 % Mean Corpuscular Volume 98.8 97.5 80-100 fL Mean Corpuscular Hemoglobin 32.5 32.5 25-34 pg Mean Corpuscular Hemoglobin Concent 32.9 33.3 32-36 g/dl RDW Standard Deviation 52.7 51.9 36.4-46.3 fL RDW Coefficient of Variation 14.6 14.5 11.5-14.5 % Platelet Count 160 152 130-400 K/uL Mean Platelet Volume 11.5 11.8 7.4-10.4 fL Neutrophils (%) (Auto) 62.2 % Lymphocytes (%) (Auto) 24.9 % Monocytes (%) (Auto) 12.1 % Eosinophils (%) (Auto) 0.5 % Basophils (%) (Auto) 0.2 % Neutrophils # (Auto) 5.41 1.4-6.5 K/uL Lymphocytes # (Auto) 2.17 1.2-3.4 K/uL Monocytes # (Auto) 1.05 0.11-0.59 K/uL Eosinophils # (Auto) 0.04 0-0.5 K/uL Basophils # (Auto) 0.02 0-0.2 K/uL Immature Granulocyte % (Auto) 0.1 % Immature Granulocyte # (Auto) 0.01 0.00-0.02 K/uL Prothrombin Time 11.5 9.0-12.0 SECONDS Prothromb Time International Ratio 1.1 0.9-1.1
[2018-05-08 12:01] VITALS: BP 156/82; PULSE 85; TEMP 37.4; O2SAT 95
[2018-05-08] MEDS ORDERED: BNT10 PO (12:27)
[2018-05-08] MEDS ORDERED: VANC5CAP OR (12:27)
[2018-05-08] MEDS: CITALOPRAM 20 MG TAB PO SCH (12:33)
[2018-05-08] MEDS: MULTIVITAMIN TAB PO SCH (12:33)
--- NOTE | 2018-05-08 12:35 | Discharge Instructions ---
Discharge Instructions Date of Service May 08, 2018. Admission Reason for Admission: Gi Bleed Discharge Discharge Diagnosis / Problem: Lower GI bleed. Diverticulosis. Diverticuar Bleed. Hemorrhoids. Discharge Goals Goal(s): Improve disease control Activity Recommendations Activity Limitations: per Instructions/Follow-up section . Instructions / Follow-Up Instructions / Follow-Up Hospital Course and Discharge Plans LOWER GI BLEED -patient likely has diverticular bleed given extensive diverticulosis. As per rectal exam from gastroenterology also evidence for hemorrhoid bleeding. -CBC was downtrending from 16.9 and initially patient was planned to have colonoscopy on 05/07/18 and received vitamin K 5 mg x 1 for his INR on 05/06/18 -However, C.difficile test came back and as per gastroenterology team the colonoscopy is canceled at this time to treat possible C.difficile exposure and recommendations -Vancomycin 125mg PO QID for 14 day total course was started on 05/07/18. Advised patient for hand washing and bleaching toilet at home -Hemoglobin successively stable as 13.1 from 05/07/18 to 05/08/18 with some resolution of symptoms -Outpatient Gastroenterology colonoscopy planned for 4 to 6 weeks from discharge date -advise patient to hold off on coumadin until absence of rectal bleeding or until follow up with primary care doctor on 05/13/18 C.difficile exposure -Vancomycin 125mg PO QID for 14 day total course was started on 05/07/18. Advised patient for hand washing and bleaching toilet at home PAROXYSMAL ATRIAL FIBRILLATION -Currently in NSR -Rhythm controlled on amiodarone, continue -advise patient to hold off on coumadin until absence of rectal bleeding or until follow up with primary care doctor on 05/13/18 HISTORY OF CAD -Stable HYPERTENSION -Continue amlodipine and lisinopril at home doses Discharge Instructions Please hold off on coumadin until absence of rectal bleeding or until follow up with primary care doctor on 05/13/18 Upcoming appointments 05/10/2018 1:00 PM Nurse Dermatology Sp Dermatology [facility] 05/10/2018 6:15 PM [facility], [facility] (probably can be skipped if off coumadin) 05/13/2018 11:20 AM Brenden Portillo MD General Internal Medicine [facility] 05/13/2018 1:45 PM Leslee Lopez MD Dermatology [facility] 05/21/2018 10:20 AM Yaniv Silveira MD Gastroenterology, [facility] Outpatient Gastroenterology colonoscopy planned for 4 to 6 weeks from discharge date Current Hospital Diet Patient's current hospital diet: AHA Diet (Heart Healthy) Discharge Diet Recommended Diet: AHA Diet (Heart Healthy) Pending Studies Studies pending at discharge: no Laboratory Results 05/08/18 07:14 Red Blood Count 4.03, Mean Corpuscular Volume 97.5, Mean Corpuscular Hemoglobin 32.5, Mean Corpuscular Hemoglobin Concent 33.3, Mean Platelet Volume 11.8, Neutrophils (%) (Auto) 62.2, Lymphocytes (%) (Auto) 24.9, Monocytes (%) (Auto) 12.1, Eosinophils (%) (Auto) 0.5, Basophils (%) (Auto) 0.2, Neutrophils # (Auto ) 5.41, Lymphocytes # (Auto) 2.17, Monocytes # (Auto) 1.05, Eosinophils # (Auto ) 0.04, Basophils # (Auto) 0.02 05/06/18 07:24 Test 05/06/18 07:24 05/06/18 07:27 05/08/18 07:14 Activated Partial Thromboplast Time 31.4 SECONDS (21.0-31.0) Partial Thromboplastin Ratio 1.2 Est Creatinine Clear Calc Drug Dose 54.4 ml/min Estimated GFR () 68.3 Estimated GFR (Non- 58.9 BUN/Creatinine Ratio 19.5 (10-20) Calcium Level 8.9 mg/dl (8.5-10.1) Total Bilirubin 0.6 mg/dl (0.2-1) Aspartate Amino Transf (AST/SGOT) 26 U/L (15-37) Alanine Aminotransferase (ALT/SGPT) 46 U/L (12-78) Alkaline Phosphatase 127 U/L (45-117) Total Protein 7.3 gm/dl (6.4-8.2) Albumin 3.8 gm/dl (3.4-5.0) Globulin 3.5 gm/dl (2.5-4.0) Albumin/Globulin Ratio 1.1 (0.9-2) Bedside Hemoglobin 17.7 g/dl (14.0-18.0) Bedside Hematocrit 52 % (42-52) Bedside Sodium 141 mEq/L (135-144) Bedside Potassium 4.2 mEq/L (3.3-5.0) Bedside Chloride 102 mEq/L (101-112) Bedside Total CO2 26 mEq/l (24-31) Anion Gap 18.0 mmol/L (16-25) Bedside Blood Urea Nitrogen 25 mg/dl (7-18) Bedside Creatinine 1.1 mg/dl (0.6-1.3) Bedside Glucose (other) 120 mg/dl (70-99) Bedside Ionized Calcium (Migel) 1.14 mmol/l (1.12-1.32) White Blood Count 8.70 K/uL (4.8-10.8) Red Blood Count 4.03 M/uL (4.7-6.1) Hemoglobin 13.1 g/dL (14.0-18.0) Hematocrit 39.3 % (42-52) Mean Corpuscular Volume 97.5 fL (80-100) Mean Corpuscular Hemoglobin 32.5 pg (25-34) Mean Corpuscular Hemoglobin Concent 33.3 g/dl (32-36) Platelet Count 152 K/uL (130-400) Mean Platelet Volume 11.8 fL (7.4-10.4) Neutrophils (%) (Auto) 62.2 % Lymphocytes (%) (Auto) 24.9 % Monocytes (%) (Auto) 12.1 % Eosinophils (%) (Auto) 0.5 % Basophils (%) (Auto) 0.2 % Neutrophils # (Auto) 5.41 K/uL (1.4-6.5) Lymphocytes # (Auto) 2.17 K/uL (1.2-3.4) Monocytes # (Auto) 1.05 K/uL (0.11-0.59) Eosinophils # (Auto) 0.04 K/uL (0-0.5) Basophils # (Auto) 0.02 K/uL (0-0.2) RDW Standard Deviation 51.9 fL (36.4-46.3) RDW Coefficient of Variation 14.5 % (11.5-14.5) Immature Granulocyte % (Auto) 0.1 % Immature Granulocyte # (Auto) 0.01 K/uL (0.00-0.02) Prothrombin Time 11.5 SECONDS (9.0-12.0) Prothromb Time International Ratio 1.1 (0.9-1.1) Date/Time Source Procedure Growth Status 05/06/18 15:48 Stool C.difficile Toxin B Gene (PCR) - Final Positive for C. difficile toxin B gene Complete Medical Emergencies . Who to Call and When: Medical Emergencies: If at any time you feel your situation is an emergency, please call 911 immediately. . Non-Emergent Contact Non-Emergency issues call your: Primary Care Provider, Composition Professor Call Non-Emergent contact if: you have any medication questions . . "Provider Documentation" section prepared by Darryl Patrick. .
--- NOTE | 2018-05-08 12:36 | Discharge Summary ---
Discharge Summary Date of Service May 08, 2018. Discharge Summary Admission Date: May 06, 2018 at 10:10 Discharge Date: May 08, 2018 Discharge Disposition: Home Principal Diagnosis: Lower GI bleed. Diverticulosis. Diverticular Bleed. Hemorrhoids.possible hemorrhoid bleeding Secondary Diagnoses/Problems: hypertension has been on coumadin for paroxysmal atrial fibrillation but Coumadin stopped for now due to lower GI bleed Medication Reconciliation New Medications: Vancomycin Hcl (Vancomycin) 125 Mg Cap 1 CAP OR Q6H for 13 Days, #52 CAP Dicyclomine HCl (Dicyclomine HCl) 10 Mg Cap 10 MG PO BID PRN for abd cramping for 5 Days, #10 CAP Continued Medications: Alprazolam (Xanax) 0.5 Mg Tab 0.25 MG PO TID PRN for Anxiety/Agitation, TAB Amiodarone Hcl (Cordarone) 200 Mg Tab 200 MG PO QPM, TAB Amlodipine Besylate (Norvasc) 5 Mg Tab 5 MG PO QAM, TAB Aspirin (Aspirin Chewable) 81 Mg Chew 81 MG PO noon Atorvastatin (Lipitor) 40 Mg Tab 40 MG PO QAM, TAB Citalopram Hydrobromide (Citalopram Hydrobromide) 20 Mg Tab 10 MG PO NOON, TAB 1/2 TABLET DOSE Docusate Sodium (Colace) 100 Mg Cap 100 MG PO QPM, CAP Finasteride (Proscar) 5 Mg Tab 5 MG PO QPM Lisinopril (Zestril) 10 Mg Tab 10 MG PO QPM, TAB Multiple Vitamins W/ Minerals (Preservision Areds 2) 1 Cap Cap 1 CAP PO BID Multivitamin (Multivitamin) Tab 1 TAB PO noon, TAB Nitroglycerin (Nitrostat) 0.4 Mg Sub 0.4 MG UT PRN, BTL NEEDED FOR CHEST PAIN : ONE TABLET UNDER THE TONGUE EVERY 5 MINUTES UP TO 3 DOSES. Psyllium (Metamucil) 48.57 % Pow 1 DOSE PO QPM Discontinued Medications: Warfarin Sod (Jantoven) 2.5 Mg Tab 2.5 MG PO TuSa Warfarin Sod (Jantoven) 5 Mg Tab 5 MG PO [id number] Admission Information HPI (per Admitting provider): 82-year-old male who presents to the ED with rectal bleeding. Patient reports that he woke up early this morning and went to the bathroom. He was noted to have a large amount of bright red blood in the toilet with a small amount of stool contents. Patient reports having some mild nausea and abdominal bloating and some lower abdominal cramping. He denies vomiting. Patient reports he otherwise has been feeling well recently. He denies chest pain shortness of breath. He has chronic intermittent lightheaded and dizziness which is unchanged from baseline. No syncopal events. He denies fevers and chills. No urinary symptoms. In the ED, patient's hemoglobin is stable at 16.9. Patient is anticoagulated on Coumadin for history of paroxysmal atrial fibrillation, INR is 2.0. Patient is hemodynamically stable. He was given IVF. Physical Exam (per Admitting): General Appearance: WD/WN, no apparent distress Head: normocephalic, atraumatic Eyes: normal inspection, EOMI, sclerae normal ENT: hearing grossly normal, + pertinent finding (Mucous murmurs moist) Neck: supple, no JVD, trachea midline Respiratory/Chest: lungs clear, normal breath sounds, no respiratory distress Cardiovascular: regular rate, rhythm, no edema, normal peripheral pulses Abdomen/GI: normal bowel sounds, non tender, soft, no organomegaly Extremities/Musculoskelatal: normal inspection, no calf tenderness, normal capillary refill Neurologic/Psych: no motor/sensory deficits, alert, normal mood/affect, oriented x 3 Skin: normal color, warm/dry Hospital Course Hospital Course and Discharge Plans LOWER GI BLEED -patient likely has diverticular bleed given extensive diverticulosis. As per rectal exam from gastroenterology also evidence for hemorrhoid bleeding. -CBC was downtrending from 16.9 and initially patient was planned to have colonoscopy on 05/07/18 and received vitamin K 5 mg x 1 for his INR on 05/06/18 -However, C.difficile test came back and as per gastroenterology team the colonoscopy is canceled at this time to treat possible C.difficile exposure and recommendations -Vancomycin 125mg PO QID for 14 day total course was started on 05/07/18. Advised patient for hand washing and bleaching toilet at home -Hemoglobin successively stable as 13.1 from 05/07/18 to 05/08/18 with some resolution of symptoms -Outpatient Gastroenterology colonoscopy planned for 4 to 6 weeks from discharge date -advise patient to hold off on coumadin until absence of rectal bleeding or until follow up with primary care doctor on 05/13/18 C.difficile exposure -Vancomycin 125mg PO QID for 14 day total course was started on 05/07/18. Advised patient for hand washing and bleaching toilet at home PAROXYSMAL ATRIAL FIBRILLATION -Currently in NSR -Rhythm controlled on amiodarone, continue -advise patient to hold off on coumadin until absence of rectal bleeding or until follow up with primary care doctor on 05/13/18 HISTORY OF CAD -Stable HYPERTENSION -Continue amlodipine and lisinopril at home doses Discharge Instructions Please hold off on coumadin until absence of rectal bleeding or until follow up with primary care doctor on 05/13/18 Upcoming appointments 05/10/2018 1:00 PM Nurse Dermatology Sp Dermatology [facility] 05/10/2018 6:15 PM [facility] (probably can be skipped if off coumadin) 05/13/2018 11:20 AM Brenden Portillo MD General Internal Medicine [facility] 05/13/2018 1:45 PM Leslee Lopez MD Dermatology [facility] 05/21/2018 10:20 AM Yaniv Silveira MD Gastroenterology, [facility] Outpatient Gastroenterology colonoscopy planned for 4 to 6 weeks from discharge date Total time spent on discharge = 40 minutes This includes examination of the patient, discharge planning, medication reconciliation, and communication with other providers. Discharge Instructions see above
[2018-05-08 12:50] VITALS: BP 156/82; PULSE 85; TEMP 37.4; O2SAT 95
== END 2018-05-08 13:09 | disposition home or self-care (01) | DRG 371 ==
LOC: C.EDB 06:52 → C.2T 10:10 → ENRESERV 10:31 → C.2T 17:28
PROVIDERS: ADMIT Hospitalist; ATTEND Hospitalist
DX: A04.72 Enterocolitis due to Clostridium difficile, not specified as recurrent (principal); K57.31 Diverticulosis of large intestine without perforation or abscess with bleeding; I10 Essential (primary) hypertension; E78.5 Hyperlipidemia, unspecified; I48.0 Paroxysmal atrial fibrillation; I25.10 Atherosclerotic heart disease of native coronary artery without angina pectoris; F32.9 Major depressive disorder, single episode, unspecified; J44.9 Chronic obstructive pulmonary disease, unspecified; Z79.01 Long term (current) use of anticoagulants; Z79.82 Long term (current) use of aspirin; Z79.899 Other long term (current) drug therapy

== ENCOUNTER 2021-03-02 09:12 | Observation (INO) ==
[2021-03-02] MEDS ORDERED: SODIUM CHLORIDE 0.9% 1000ML 1,000 ML IV SCH (09:45)
[2021-03-02] MEDS ORDERED: OPTIRAY 320 100ml IV ONE (10:02)
--- NOTE | 2021-03-02 10:08 | Emergency Department Note ---
History of Present Illness General Chief complaint: Rectal Bleed Stated complaint: RECTAL BLEED Time Seen by Provider: 03/02/21 09:30 Source: patient Mode of arrival: ambulatory Limitations: no limitations History of Present Illness Provider complaint: diarrhea, GI bleed Onset (ago): day(s) 2 Location: abdomen Radiation: non-radiation Severity: moderate Pain Consistency: + colicky Maximum Pain Intensity: 6 Current Pain Intensity: 6 Quality: + aching Relieved By: + none Exacerbated By: + none Associated symptoms: + malaise Treatments prior to arrival: none This is an 85-year-old male presents emergency department complaining of diarrhea and GI bleed. Patient states on he began having looser stools and noticed a small amount of blood in the toilet water. States the stools are otherwise brown in color. States yesterday he noticed slightly more blood and then today when he had several episodes of diarrhea it appeared to be all blood. Patient states on arrival here he has had another episode and while still appearing bloody it does appear slightly darker. Patient states he does use w arfarin due to history of atrial fibrillation and states his last INR was 3. Patient states he has had accompanying lower abdominal cramping, pain is otherwise nonradiating, and seems to be colicky in nature. No accompanying nausea, vomiting, fevers, chills. Patient admits to slight increased fatigue and lightheadedness with standing. Patient states his last colonoscopy was a little over a year ago and was reported to him as unremarkable. No prior history of IBS or IBD. Patient states he has previously had a history of hemorrhoids as he is dealt with constipation a lot and has occasionally needed to strain. Pt seen during a time of high acuity and national emergency pandemic while wea ring PPE. Home Medications Medication Instructions Recorded Confirmed Type alprazolam [Xanax] 0.5 mg PO BID PRN 06/24/18 03/02/21 History amiodarone 200 mg PO HS 06/24/18 03/02/21 History amlodipine 2.5 mg PO QAM 06/24/18 03/02/21 History atorvastatin 40 mg PO QAM 06/24/18 03/02/21 History finasteride 5 mg PO HS 06/24/18 03/02/21 History lisinopril 10 mg PO QDL 06/24/18 03/02/21 History nitroglycerin [Nitrostat] 0.4 mg SUBLINGUAL DIRECTED PRN 06/24/18 03/02/21 History vit C,H-Hl-svetm-lutein-zeaxan 1 tab PO BID 06/24/18 03/02/21 History [PreserVision AREDS-2] multivitamin 1 tab PO QDL 03/18/19 03/02/21 History polyethylene glycol 3350 [Miralax] 17 g PO DAILY PRN 03/18/19 03/02/21 History warfarin 2.5 mg PO 5XWK 03/18/19 03/02/21 History warfarin 5 mg PO 2XWK 03/18/19 03/02/21 History psyllium seed (sugar) oral powder 1 tbs PO DAILY 01/26/20 03/02/21 History acetaminophen [Tylenol Extra 500 mg PO Q6H PRN 03/02/21 03/02/21 History Strength] aspirin [Aspir-81] 81 mg PO DAILY 03/02/21 03/02/21 History linaclotide [Linzess] 145 mcg PO DAILY 03/02/21 03/02/21 History Allergies Allergy/AdvReac Type Severity Reaction Status Date / Time Sulfa (Sulfonamide Allergy Severe ITCHING Verified 03/02/21 10:34 Antibiotics) levofloxacin Allergy Intermediate BRADYCARDIA Verified 03/02/21 10:34 metronidazole Allergy Unknown PVC'S Verified 03/02/21 10:34 Penicillins Allergy Unknown HIVES Verified 03/02/21 10:34 meloxicam AdvReac Intermediate UPSET Verified 03/02/21 10:34 STOMACH sertraline AdvReac Intermediate GI SYMPTOMS Verified 03/02/21 10:34 doxycycline AdvReac Mild GI UPSET Verified 03/02/21 10:34 hydrocodone AdvReac Mild constipatio Verified 03/02/21 10:34 n Past Med/Surg History Medical History Anticoagulated on warfarin Benign hypertension BPH (benign prostatic hypertrophy) C. difficile colitis Carcinoma of bladder Chronic pain of both shoulders COPD (chronic obstructive pulmonary disease) Coronary artery disease "cath 08/13/15 moderate mid RCA stenosis, indeterminate ostial LAD lesion" Depression Dyslipidemia History of squamous cell carcinoma of skin Hyperlipidemia Hypertension Macular degeneration Meningioma Neoplasm of ureter Osteoarthritis of shoulders, bilateral Paroxysmal atrial fibrillation Ulcer Surgical History History of colonoscopy History of urologic surgery Right ureterectomy with ureteral reimplantation 12/2012 Hx of inguinal hernia surgery Right Status post cardiac catheterization "[facility] 08/13/15 Dr. Sandra; moderate mid RCA, indeterminate ostial LAD" Status post cataract extraction Status post tonsillectomy Family History Mother Coronary heart disease Volvulus Brother Diabetes Social History Smoking Status: Former smoker Tobacco Type: Smokeless Tobacco (Dip or Chew) Do You Dip or Chew Tobacco: Yes (4 pouches a day); Hx Alcohol Use: No Hx Substance Use: No Preferred Language: Upper Sorbian Communication Ability: Effective Visual Impairment: No Limitations Hearing Ability: Normal Beliefs That Will Affect Care: None marital status: / Current Living Situation: Family Current Living Situation Comment: daughter lives with Other Information That Helps Us Care for You: No Feels Safe at Home: Yes Safety Concerns: Feels Safe At This Time Assistive Devices: Walker Assistive Devices Comment: reading glasses, 3 partials in mouth Review of Systems See HPI for pertinent positives & negatives. and A total of 10 systems reviewed and were otherwise negative Physical Exam Vital Signs Vital Signs - 24 hr 03/02/21 09:14 Temperature 36.5 C Temperature Source Oral Pulse Rate 103 H Respiratory Rate 18 Blood Pressure 178/86 H Blood Pressure Mean 116 Pulse Oximetry 96 Oxygen Delivery Method Room Air Sepsis Recent Fever Within 48 Hours No Sepsis New/Unexplained Change in Mental Status No Sepsis Action Taken by Nursing No Action Required GENERAL: alert, well appearing, well nourished, no distress, non-toxic EYE EXAM: normal conjunctiva, PERRL and EOM's grossly intact OROPHARYNX: no exudate, no erythema, lips, buccal mucosa, and tongue normal and mucous membranes are moist NECK: supple, no nuchal rigidity, no adenopathy, non-tender LUNGS: Clear to auscultation. Normal chest wall mechanics, no w/r/r HEART: no murmurs, S1 normal and S2 normal ABDOMEN: abdomen soft, non-tender, normo-active bowel sounds, no masses, no rebound or guarding. BACK: Back is symmetrical on inspection and there is no deformity, no midline tenderness, no CVA tenderness. SKIN: no rashes and no bruising UPPER EXTREMITIES: upper extremities are grossly normal. FROM, nml pulses b/l. LOWER EXTREMITIES: No pitting edema. FROM, nml pulses b/l. NEURO EXAM: Normal sensorium, cranial nerves II-XII grossly intact, normal speech, no gross weakness of arms, no gross weakness of legs. Gross sensation intact. Course Administered Medications Acetaminophen (Acetaminophen 325 Mg Tab) 650 mg PO Q4H PRN PRN Reason: Pain or Fever Stop: 04/01/21 14:43 Last Admin: 03/02/21 22:58 Dose: 650 mg Documented by: [id number] Alprazolam (Alprazolam 0.5 Mg Tablet) 0.5 mg PO BID PRN PRN Reason: Anxiety Stop: 04/01/21 14:43 Last Admin: 03/04/21 20:33 Dose: 0.5 mg Documented by: [id number] Admin: 03/04/21 00:22 Dose: 0.5 mg Documented by: [id number] Admin: 03/03/21 15:45 Dose: 0.5 mg Documented by: [id number] Admin: 03/02/21 20:29 Dose: 0.5 mg Documented by: [id number] Alprazolam (Alprazolam 0.5 Mg Tablet) 0.5 mg PO HS PRN PRN Reason: anxiety/insomnia Stop: 04/02/21 19:37 Last Admin: 03/03/21 21:03 Dose: 0.5 mg Documented by: [id number] Amiodarone HCl (Amiodarone 200 Mg Tab) 200 mg PO HS GRISELDA Stop: 04/01/21 20:59 Last Admin: 03/04/21 20:33 Dose: 200 mg Documented by: [id number] Admin: 03/03/21 21:03 Dose: 200 mg Documented by: [id number] Admin: 03/02/21 20:28 Dose: 200 mg Documented by: [id number] Amlodipine Besylate (Amlodipine Besylate 5 Mg Tab) 2.5 mg PO QAM GRISELDA Stop: 04/02/21 08:59 Last Admin: 03/04/21 08:06 Dose: 2.5 mg Documented by: [id number] Admin: 03/03/21 07:59 Dose: 2.5 mg Documented by: [id number] Atorvastatin Calcium (Atorvastatin 40 Mg Tab) 40 mg PO QAM [facility] Stop: 04/02/21 08:59 Last Admin: 03/04/21 08:06 Dose: 40 mg Documented by: [id number] Admin: 03/03/21 07:59 Dose: 40 mg Documented by: [id number] Finasteride (Finasteride 5 Mg Tab) 5 mg PO HS [facility] Stop: 04/01/21 20:59 Last Admin: 03/04/21 20:33 Dose: 5 mg Documented by: [id number] Admin: 03/03/21 21:03 Dose: 5 mg Documented by: [id number] Admin: 03/02/21 20:28 Dose: 5 mg Documented by: [id number] Lisinopril (Lisinopril 10 Mg Tab) 10 mg PO QAM [facility] Stop: 04/03/21 08:59 Last Admin: 03/04/21 08:06 Dose: 10 mg Documented by: [id number] Admin: 03/03/21 15:46 Dose: 10 mg Documented by: [id number] Multivitamins/Minerals (Cerovite Adv Formula Tab) 1 tab PO DAILY [facility] Stop: 04/02/21 08:59 Last Admin: 03/04/21 08:06 Dose: 1 tab Documented by: [id number] Admin: 03/03/21 07:59 Dose: 1 tab Documented by: [id number] Oxycodone HCl (Oxycodone Hcl Ir 5 Mg Tab (Immediate Release)) 5 mg PO Q6H PRN PRN Reason: Severe Pain Stop: 03/17/21 07:39 Last Admin: 03/03/21 07:58 Dose: 5 mg Documented by: [id number] Discontinued Medications Sodium Chloride (Nss 1000ml) 1,000 mls @ 125 mls/hr IV .Q8H GRISELDA Stop: 04/01/21 09:44 Last Infusion: 03/02/21 16:10 Dose: 0 mls/hr Documented by: [id number] Admin: 03/02/21 10:11 Dose: 125 mls/hr Documented by: [id number] Phytonadione 5 mg/ Sodium (Chloride) 50.5 mls @ 101 mls/hr IV ONE ONE; Protocol Stop: 03/02/21 13:59 Last Infusion: 03/02/21 13:58 Dose: 0 mls/hr Documented by: [id number] Admin: 03/02/21 13:39 Dose: 101 mls/hr Documented by: [id number] Ciprofloxacin (Cipro / D5w) 400 mg in 200 mls @ 100 mls/hr IV Q12H GRISELDA; Protoc ol Stop: 03/12/21 15:59 Last Infusion: 03/04/21 06:02 Dose: 0 mls/hr Documented by: [id number] Admin: 03/04/21 04:11 Dose: 100 mls/hr Documented by: [id number] Infusion: 03/03/21 17:53 Dose: 0 mls/hr Documented by: [id number] Admin: 03/03/21 15:45 Dose: 100 mls/hr Documented by: [id number] Infusion: 03/03/21 07:14 Dose: 0 mls/hr Documented by: [id number] Admin: 03/03/21 04:48 Dose: 100 mls/hr Documented by: [id number] Infusion: 03/02/21 18:33 Dose: 0 mls/hr Documented by: [id number] Admin: 03/02/21 16:33 Dose: 100 mls/hr Documented by: [id number] Metronidazole (Flagyl) 500 mg in 100 mls @ 100 mls/hr IV Q8H GRISELDA; Protocol Stop: 03/12/21 15:59 Last Admin: 03/04/21 08:37 Dose: Not Given Documented by: [id number] Infusion: 03/04/21 01:23 Dose: 0 mls/hr Documented by: [id number] Admin: 03/04/21 00:11 Dose: 100 mls/hr Documented by: [id number] Infusion: 03/03/21 17:06 Dose: 0 mls/hr Documented by: [id number] Admin: 03/03/21 15:45 Dose: 100 mls/hr Documented by: [id number] Infusion: 03/03/21 09:18 Dose: 0 mls/hr Documented by: [id number] Admin: 03/03/21 07:59 Dose: 100 mls/hr Documented by: [id number] Infusion: 03/03/21 01:45 Dose: 0 mls/hr Documented by: [id number] Admin: 03/03/21 00:45 Dose: 100 mls/hr Documented by: [id number] Infusion: 03/02/21 17:33 Dose: 0 mls/hr Documented by: [id number] Admin: 03/02/21 16:33 Dose: 100 mls/hr Documented by: [id number] Ioversol (Optiray 320 100ml) 93 ml IV ONCE ONE Stop: 03/02/21 10:03 Last Admin: 03/02/21 10:03 Dose: 93 ml Documented by: [id number] Lisinopril (Lisinopril 10 Mg Tab) 10 mg PO NOW STA Stop: 03/02/21 13:39 Last Admin: 03/02/21 13:58 Dose: 10 mg Documented by: [id number] Lisinopril (Lisinopril 10 Mg Tab) 10 mg PO QDL [facility] Stop: 04/02/21 11:29 Last Admin: 03/03/21 16:04 Dose: Not Given Documented by: [id number] Polyethylene Glycol/Electrolytes (Lavage Solution 4000ml) 8 dose PO TODAY@1730 [facility] Stop: 03/03/21 00:00 Last Admin: 03/02/21 18:09 Dose: 8 dose Documented by: [id number] Medical Decision Making Differential Diagnosis Differential diagnosis includes etiologies such as diverticulosis, AVM, coagulopathy, colitis, inflammatory bowel disease, malignancy, Meenu-Nunez tear, esophagitis, peptic ulcer disease, variceal bleed, gastritis, epistaxis, fissure, hemorrhoids, as well as others were entertained. Medical Records Attestation: I reviewed the patient's medical records. Home Medications Current Medication List: was personally reviewed by me Laboratory Data Attestation: I reviewed the patient's lab results. Result diagrams: 03/04/21 06:20 03/03/21 03:54 Lab Results 03/02/21 03/02/21 03/02/21 Range/Units 10:05 10:05 10:05 WBC 13.01 H (4.8-10.8) K/uL RBC 4.84 (4.7-6.1) M/uL Hgb 15.3 (14.0-18.0) g/dL Hct 47.6 (42-52) % MCV 98.3 (80-100) fL MCH 31.6 (25-34) pg MCHC 32.1 (32-36) g/dL RDW Std Deviation 52.8 H (36.4-46.3) fL RDW Coeff of Courtney 14.6 H (11.5-14.5) % Plt Count 225 (130-400) K/uL MPV 11.1 H (7.4-10.4) fL Immature Gran % (Auto) 0.2 % Neut % (Auto) 74.7 % Lymph % (Auto) 14.5 % Cotton % (Auto) 10.2 % Eos % (Auto) 0.2 % Baso % (Auto) 0.2 % Neut # (Auto) 9.71 H (1.4-6.5) K/uL Lymph # (Auto) 1.89 (1.2-3.4) K/uL Cotton # (Auto) 1.33 H (0.11-0.59) K/uL Eos # (Auto) 0.02 (0-0.5) K/uL Baso # (Auto) 0.03 (0-0.2) K/uL Immature Gran # (Auto) 0.03 H (0.00-0.02) K/uL PT 26.4 H (9.0-12.0) Seconds INR 2.8 H (0.9-1.1) Sodium (136-145) mmol/L Potassium (3.5-5.1) mmol/L Chloride (98-107) mmol/L Carbon Dioxide (21-32) mmol/L Anion Gap (3-11) BUN (7-18) mg/dl Creatinine (0.6-1.4) mg/dl Est Cr Clr Drug Dosing ml/min Est GFR ( Amer) ml/min Est GFR (Non-Af Amer) ml/min BUN/Creatinine Ratio (10-20) Glucose (70-99) mg/dl Calcium (8.5-10.1) mg/dl Magnesium (1.8-2.4) mg/dl Total Bilirubin (0.2-1) mg/dl AST (15-37) U/L ALT (12-78) U/L Alkaline Phosphatase (45-117) U/L Troponin I (0-0.045) ng/ml Total Protein (6.4-8.2) gm/dl Albumin (3.4-5.0) gm/dl Globulin (2.5-4.0) gm/dl Albumin/Globulin Ratio (0.9-2) Lipase (73-393) U/L Blood Type O Positive Antibody Screen NEGATIVE Crossmatch See Detail 03/02/21 Range/Units 10:05 WBC (4.8-10.8) K/uL RBC (4.7-6.1) M/uL Hgb (14.0-18.0) g/dL Hct (42-52) % MCV (80-100) fL MCH (25-34) pg MCHC (32-36) g/dL RDW Std Deviation (36.4-46.3) fL RDW Coeff of Courtney (11.5-14.5) % Plt Count (130-400) K/uL MPV (7.4-10.4) fL Immature Gran % (Auto) % Neut % (Auto) % Lymph % (Auto) % Cotton % (Auto) % Eos % (Auto) % Baso % (Auto) % Neut # (Auto) (1.4-6.5) K/uL Lymph # (Auto) (1.2-3.4) K/uL Cotton # (Auto) (0.11-0.59) K/uL Eos # (Auto) (0-0.5) K/uL Baso # (Auto) (0-0.2) K/uL Immature Gran # (Auto) (0.00-0.02) K/uL PT (9.0-12.0) Seconds INR (0.9-1.1) Sodium 138 (136-145) mmol/L Potassium 4.1 (3.5-5.1) mmol/L Chloride 104 (98-107) mmol/L Carbon Dioxide 30 (21-32) mmol/L Anion Gap 4.0 (3-11) BUN 25 H (7-18) mg/dl Creatinine 1.20 (0.6-1.4) mg/dl Est Cr Clr Drug Dosing 49.4 ml/min Est GFR ( Amer) 63.5 ml/min Est GFR (Non-Af Amer) 54.8 ml/min BUN/Creatinine Ratio 20.5 H (10-20) Glucose 126 H (70-99) mg/dl Calcium 9.2 (8.5-10.1) mg/dl Magnesium 2.4 (1.8-2.4) mg/dl Total Bilirubin 0.6 (0.2-1) mg/dl AST 31 (15-37) U/L ALT 52 (12-78) U/L Alkaline Phosphatase 125 H (45-117) U/L Troponin I < 0.015 (0-0.045) ng/ml Total Protein 7.8 (6.4-8.2) gm/dl Albumin 3.5 (3.4-5.0) gm/dl Globulin 4.3 H (2.5-4.0) gm/dl Albumin/Globulin Ratio 0.8 L (0.9-2) Lipase 123 (73-393) U/L Blood Type Antibody Screen Crossmatch Imaging Data Radiologist's Impression: CT abd pelvis IV con only CLINICAL HISTORY: lower abd pain, gi bleed COMPARISON STUDY: August 19, 2019 TECHNIQUE: A dose lowering technique was utilized adhering to the principles of ALARA. CT DOSE: 1197.72 mGy.cm FINDINGS: Lower chest: Minimal atelectasis is seen at bilateral bases.. Liver: The contrast-enhanced liver is normal in size, contour, and attenuation. There is no intrahepatic biliary ductal dilatation. The hepatic veins and portal veins are patent. Gallbladder: Is fluid-filled with small gallstone within its dependent portion. No definite inflammatory changes are seen in the gallbladder fossa. Spleen: Normal in size and attenuation. Pancreas: Unremarkable. Adrenal glands: Unremarkable. Kidneys: No hydronephrosis is seen. Nonobstructive nephrolithiasis is seen on the left. Few calcifications are seen within right renal pelvis which are most likely vascular. Few or cystic lesions are seen within left renal parenchyma, largest is measured in 1.9 cm and seen at lower pole of the left kidney. Pelvic viscera: Urinary bladder is adequately filled with fluid. Prostate gland is significantly enlarged with lobulated cortical protrusion to the urinary bladder lumen. There is fat-containing right inguinal hernia with questionable 3.5 x 1.7 cm area of decreased attenuation attached to its anterior aspect. There are possible mild surrounding fat stranding. Bowel: Bowel loops are nondilated. Appendix shows normal morphology and gas filled. Diverticulosis of descending and sigmoid colon is seen. Minimal fat s tranding is seen within mid lower abdomen and could represent developing diverticulitis which is better visualized on coronal reconstruction image 334 out of 513 and also marked in PACs on series 3 image 262. Peritoneum: There is no intraperitoneal free air or abdominal ascites. Vasculature: Abdominal aorta is normal in caliber with heavy calcifications of its wall. Adenopathy: None. Skeletal structures: Multilevel degenerative changes of the spine. IMPRESSION: 1. Fat-containing inguinal hernia with hypoattenuating collection at the its anterior aspect and possible mild fat stranding. No bowel loops are seen within the hernia sac. Please correlate above-mentioned findings with direct inspection. Further evaluation with ultrasound might be considered if clinically indicated. 2. Diverticulosis of descending and sigmoid colon, possible developing diverticulitis as detailed above. 3. Nonobstructive nephrolithiasis on the left. 4. Atherosclerosis. 5. Cholelithiasis without cholecystitis. 6. Enlarged prostate gland with lobulated contour protrudes into the urinary bladder lumen. No evidence of hydronephrosis. 7. Additional findings as above. ACT 112: Negative or not required by law. The above report was generated using voice recognition software. It may contain grammatical, syntax or spelling errors. Electronically signed by: Michaelle Hansen DO 03/02/2021 11:28 AM Dictated: 03/02/21 1114Transcribed: 03/02/21 1114 ECG Data Attestation: I personally reviewed and interpreted this ECG as follows: Indication: + abdominal pain Rate (beats per minute): 94 Rhythm: + normal sinus ECG Intervals/blocks: + Normal QRS and + Normal QT ECG [place]: + Normal ECG ST segments: + Normal ST segments MDM Narrative This is an 85-year-old male who presents due to concern for GI bleed. Patient with history of Coumadin use due to atrial fibrillation. Patient was noted to have a bloody bowel movement on arrival here and had 2 subsequent episodes while being evaluated. Patient was hemodynamically stable. H&H stable. Patient with mild lower abdominal cramping accompanying. CT did not reveal any active bleeding, diverticulosis was noted, as well as inguinal hernia. I do not be lieve these are the cause of the patient's bleeding. No prior history of significant GI bleed other than some hemorrhoids. Patient has had prior colonoscopy which is reported to him as unremarkable. Due to recurrent episodes of bleeding here despite stable labs and vital signs, case was discussed with hospitalist for additional evaluation and management. Patient was not reversed at this time ending additional evaluation given his history of atrial fibrillation and risk of stroke. Patient and family at bedside kept aware of all results, verbalized understanding, were in agreement with plan. An order was placed for continuous cardiac monitoring. The monitor shows a rate of 72_ with _normal sinus_ rhythm. Impression & Plan Acute GI bleeding, Abdominal pain Discharge Plan Visit Data Chief Complaint: Rectal Bleed Stated Complaint: RECTAL BLEED ED Provider: Mary Ellen Barrera Discharge Problem: Acute GI bleeding, Abdominal pain Patient Disposition: Admitted As Inpatient Discharge Instructions Interventions: ED Discharge Assessment Last Done: 03/02/21 14:07 Discharge Problem: Abdominal pain Qualifiers: Abdominal location: lower abdomen, unspecified Qualified Code(s): R10.30 - Lower abdominal pain, unspecified
[2021-03-02 10:14] LABS: Basophils # (auto) 0.03 K/uL (0-0.2); Basophils % (auto) 0.2 %; Eosinophils # (auto) 0.02 K/uL (0-0.5); Eosinophils % (auto) 0.2 %; Hematocrit (blood only) 47.6 % (42-52); Hemoglobin 15.3 g/dL (14.0-18.0); Immature Granulocytes # (auto) 0.03 K/uL (0.00-0.02); Immature Granulocytes % (auto) 0.2 %; Lymphocytes # (auto) 1.89 K/uL (1.2-3.4); Lymphocytes % (auto) 14.5 %; Mean Corpuscular Hemoglobin 31.6 pg (25-34); Mean Corpuscular Hgb Conc 32.1 g/dL (32-36); Mean Corpuscular Volume 98.3 fL (80-100); Mean Platelet Volume 11.1 fL (7.4-10.4); Monocytes # (auto) 1.33 K/uL (0.11-0.59); Monocytes % (auto) 10.2 %; Neutrophils # (auto) 9.71 K/uL (1.4-6.5); Neutrophils % (auto) 74.7 %; Platelet Count 225 K/uL (130-400); RDW Coefficient of Variation 14.6 % (11.5-14.5); RDW Standard Deviation 52.8 fL (36.4-46.3); Red Blood Count 4.84 M/uL (4.7-6.1); White Blood Count 13.01 K/uL (4.8-10.8)
[2021-03-02 10:25] LABS: INR 2.8 (0.9-1.1); Prothrombin Time 26.4 Seconds (9.0-12.0)
[2021-03-02 10:32] LABS: Alanine Aminotransferase 52 U/L (12-78); Albumin Level 3.5 gm/dl (3.4-5.0); Aspartate Aminotransferase 31 U/L (15-37); BUN Creatinine Ratio 20.5 (10-20); Blood Urea Nitrogen 25 mg/dl (7-18); Calcium 9.2 mg/dl (8.5-10.1); Carbon Dioxide 30 mmol/L (21-32); Chloride 104 mmol/L (98-107); Creatinine Clr Calc Pharmacy 49.4 ml/min; Est GFR (African American) 63.5 ml/min; Est GFR (Non-African American) 54.8 ml/min; Glucose 126 mg/dl (70-99); Lipase 123 U/L (73-393); Magnesium 2.4 mg/dl (1.8-2.4); Potassium 4.1 mmol/L (3.5-5.1); Sodium 138 mmol/L (136-145)
[2021-03-02 10:37] LABS: Albumin Globulin Ratio 0.8 (0.9-2); Alkaline Phosphatase 125 U/L (45-117); Bilirubin,Total 0.6 mg/dl (0.2-1); Globulin 4.3 gm/dl (2.5-4.0); Total Protein 7.8 gm/dl (6.4-8.2); Troponin I < 0.015 ng/ml (0-0.045)
--- NOTE | 2021-03-02 11:08 | Electrocardiogram Report ---
Test Reason : Blood Pressure : / mmHG Vent. Rate : 094 BPM Atrial Rate : 094 BPM P-R Int : 182 ms QRS Dur : 082 ms QT Int : 360 ms P-R-T Axes : 022 023 022 degrees QTc Int : 450 ms Normal sinus rhythm Confirmed by Seth Montoya ([id number]) on 03/02/2021 11:07:33 AM Referred By: REFERRED SELF Confirmed By:Bigg Montoya
--- NOTE | 2021-03-02 11:30 | CT Scan Report ---
CT abd pelvis IV con only CLINICAL HISTORY: lower abd pain, gi bleed COMPARISON STUDY: August 19, 2019 TECHNIQUE: A dose lowering technique was utilized adhering to the principles of ALARA. CT DOSE: 1197.72 mGy.cm FINDINGS: Lower chest: Minimal atelectasis is seen at bilateral bases.. Liver: The contrast-enhanced liver is normal in size, contour, and attenuation. There is no intrahepa tic biliary ductal dilatation. The hepatic veins and portal veins are patent. Gallbladder: Is fluid-filled with small gallstone within its dependent portion. No definite inflammat ory changes are seen in the gallbladder fossa. Spleen: Normal in size and attenuation. Pancreas: Unremarkable. Adrenal glands: Unremarkable. Kidneys: No hydronephrosis is seen. Nonobstructive nephrolithiasis is seen on the left. Few calcifica tions are seen within right renal pelvis which are most likely vascular. Few or cystic lesions are se en within left renal parenchyma, largest is measured in 1.9 cm and seen at lower pole of the left kid soren. Pelvic viscera: Urinary bladder is adequately filled with fluid. Prostate gland is significantly enla rged with lobulated cortical protrusion to the urinary bladder lumen. There is fat-containing right inguinal hernia with questionable 3.5 x 1.7 cm area of decreased attenu ation attached to its anterior aspect. There are possible mild surrounding fat stranding. Bowel: Bowel loops are nondilated. Appendix shows normal morphology and gas filled. Diverticulosis of descending and sigmoid colon is seen. Minimal fat stranding is seen within mid lower abdomen and cou ld represent developing diverticulitis which is better visualized on coronal reconstruction image 334 out of 513 and also marked in PACs on series 3 image 262. Peritoneum: There is no intraperitoneal free air or abdominal ascites. Vasculature: Abdominal aorta is normal in caliber with heavy calcifications of its wall. Adenopathy: None. Skeletal structures: Multilevel degenerative changes of the spine. IMPRESSION: 1. Fat-containing inguinal hernia with hypoattenuating collection at the its anterior aspect and pos sible mild fat stranding. No bowel loops are seen within the hernia sac. Please correlate above-menti oned findings with direct inspection. Further evaluation with ultrasound might be considered if clini kavya indicated. 2. Diverticulosis of descending and sigmoid colon, possible developing diverticulitis as detailed ab ove. 3. Nonobstructive nephrolithiasis on the left. 4. Atherosclerosis. 5. Cholelithiasis without cholecystitis. 6. Enlarged prostate gland with lobulated contour protrudes into the urinary bladder lumen. No evide nce of hydronephrosis. 7. Additional findings as above. ACT 112: Negative or not required by law. The above report was generated using voice recognition software. It may contain grammatical, syntax o r spelling errors. Electronically signed by: Michaelle Hansen DO 03/02/2021 11:28 AM
--- NOTE | 2021-03-02 12:25 | History & Physical Report ---
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 Currently patient hemodynamically stable and hemoglobin 15.3. Patient had witnessed 2 large melena BMs in ED. He remains asymptomatic from an anemia standpoint. He does not meet SIRS or sepsis criteria. Mild leukocytosis at 13,000. CT abdomen pelvis concerning for early development of possible acute sigmoid diverticulitis, also noted incidentally was right fat-containing inguinal hernia with possible fat stranding. Admit to med telemetry Discussed case with GI -likely diverticular bleed Reverse INR with 5 mg IV vitamin K Repeat H&H and INR at 4 PM Clear liquid diet Type and cross 2 units and hold, will transfuse if hemoglobin less than 8 or symptomatic Hold ASA and warfarin Will rediscuss with GI after 4 PM labs given elevated wbc, mild LLQ and concern for diverticular bleed will empirically tx with IV zosyn Possible right inguinal hernia Obtain ultrasound of right inguinal region to eval for hernia -if positive will get general surgery input (3) Paroxysmal atrial fibrillation: (4) Anticoagulated on warfarin: Rate and rhythm controlled on amiodarone, currently in normal sinus rhythm INR 2.8, reverse warfarin with vitamin K Repeat INR at 4 PM and in a.m. (5) Coronary artery disease: Nonobstructive On ASA, lisinopril, statin as outpatient Holding ASA in setting of GI bleed (6) Hypertension: Blood pressure elevated in ED, will reevaluate On amlodipine and lisinopril Patient due for lisinopril and will give dose now (7) Dyslipidemia: Continue statin (8) DVT prophylaxis: SCD/teds Dispo: Med telemetry PCP: Fly Full code Patient was seen and examined in collaboration with Dr. Knight, please see addendum History of Present Illness Chief Complaint: Bloody loose BMs x2 days. 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 Symptoms started on whenever he would have a bowel movement he would also had a ring of red blood noted in toilet bowl. He persistently continued to have bright red blood with bowel movements for the past 2 days. When he woke up this morning he had the urge to have a bowel movement and passed a large amount of melena without stool. Since being in ED he is also passing an additional 2 more BMs. Further he complains of having left-sided intermittent abdominal discomfort. Pain waxes and wanes, improves with bowel movement, last several hours, described as a dull ache and, "bothersome." He denies ever having similar symptoms before. He further denies any fever, chills, sweats, lightheadedness, dizziness, syncope, chest pain, shortness breath, EDUARDO, nausea, vomiting, diarrhea, increased urgency with urination, or hematuria. He does have difficulty with chronic constipation. He follows with gastroenterology in approximately 2 to 3 months ago was started on Linzess. This has helped significantly as his bowel movements are typically on the looser side. He also occasionally takes Metamucil and MiraLAX as needed. He does admit to straining approximately 2 days ago but denies any pain with bowel movement. He has been eating and drinking normally and appetite is normal. In ED patient remained hemodynamically stable, mildly hypertensive. Lab work notable for H&H 15.3 and 47.6, WBC 13.01, INR 2.8, BUN 25, creatinine 1.20, glucose 126. CT abdomen pelvis reveals diverticulosis of descending and sigmoid colon with a possible development of diverticulitis. Also noted is fat-containing inguinal hernia with hypoattenuating collection in its anterior aspect and possible mild fat stranding. In ED he received IV fluid. Allergies Allergy/AdvReac Type Severity Reaction Status Date / Time Sulfa (Sulfonamide Allergy Severe ITCHING Verified 03/02/21 10:34 Antibiotics) levofloxacin Allergy Intermediate BRADYCARDIA Verified 03/02/21 10:34 metronidazole Allergy Unknown PVC'S Verified 03/02/21 10:34 Penicillins Allergy Unknown HIVES Verified 03/02/21 10:34 meloxicam AdvReac Intermediate UPSET Verified 03/02/21 10:34 STOMACH sertraline AdvReac Intermediate GI SYMPTOMS Verified 03/02/21 10:34 doxycycline AdvReac Mild GI UPSET Verified 03/02/21 10:34 hydrocodone AdvReac Mild constipatio Verified 03/02/21 10:34 n Home Medications Medication Instructions Recorded Confirmed Type alprazolam [Xanax] 0.5 mg PO BID PRN 06/24/18 03/02/21 History amiodarone 200 mg PO HS 06/24/18 03/02/21 History amlodipine 2.5 mg PO QAM 06/24/18 03/02/21 History atorvastatin 40 mg PO QAM 06/24/18 03/02/21 History finasteride 5 mg PO HS 06/24/18 03/02/21 History lisinopril 10 mg PO QDL 06/24/18 03/02/21 History nitroglycerin [Nitrostat] 0.4 mg SUBLINGUAL DIRECTED PRN 06/24/18 03/02/21 History vit C,G-Jp-vmxna-lutein-zeaxan 1 tab PO BID 06/24/18 03/02/21 History [PreserVision AREDS-2] multivitamin 1 tab PO QDL 03/18/19 03/02/21 History polyethylene glycol 3350 [Miralax] 17 g PO DAILY PRN 03/18/19 03/02/21 History warfarin 2.5 mg PO 5XWK 03/18/19 03/02/21 History warfarin 5 mg PO 2XWK 03/18/19 03/02/21 History psyllium seed (sugar) oral powder 1 tbs PO DAILY 01/26/20 03/02/21 History acetaminophen [Tylenol Extra 500 mg PO Q6H PRN 03/02/21 03/02/21 History Strength] aspirin [Aspir-81] 81 mg PO DAILY 03/02/21 03/02/21 History linaclotide [Linzess] 145 mcg PO DAILY 03/02/21 03/02/21 History Past Med/Surg History Medical History Anticoagulated on warfarin Benign hypertension BPH (benign prostatic hypertrophy) C. difficile colitis Carcinoma of bladder Chronic pain of both shoulders COPD (chronic obstructive pulmonary disease) Coronary artery disease "cath 08/13/15 moderate mid RCA stenosis, indeterminate ostial LAD lesion" Depression Dyslipidemia History of squamous cell carcinoma of skin Hyperlipidemia Hypertension Macular degeneration Meningioma Neoplasm of ureter Osteoarthritis of shoulders, bilateral Paroxysmal atrial fibrillation Ulcer Surgical History History of colonoscopy History of urologic surgery Right ureterectomy with ureteral reimplantation 12/2012 Hx of inguinal hernia surgery Right Status post cardiac catheterization "[facility] 08/13/15 Dr. Sandra; moderate mid RCA, indeterminate ostial LAD" Status post cataract extraction Status post tonsillectomy Family History (Updated 03/02/21 @ 12:22 by Laina Duff PA-C) Mother Coronary heart disease Volvulus Brother Diabetes Social History (Updated 03/02/21 @ 13:21 by Laina Duff PA-C) Smoking Status: Former smoker Tobacco Type: Smokeless Tobacco (Dip or Chew) Do You Dip or Chew Tobacco: Yes (4 pouches a day); Hx Alcohol Use: No Hx Substance Use: No Preferred Language: Swazi Communication Ability: Effective Visual Impairment: No Limitations Hearing Ability: Normal Beliefs That Will Affect Care: None marital status: / Current Living Situation: Family Current Living Situation Comment: daughter lives with Other Information That Helps Us Care for You: No Feels Safe at Home: Yes Safety Concerns: Feels Safe At This Time Assistive Devices: Denture - Upper and Denture - Lower Assistive Devices Comment: reading glasses, 3 partials in mouth Review of Systems Review of Systems: All systems reviewed & are unremarkable except as noted in HPI & below Physical Exam Physical Exam: Constitutional: WD/WN, vitals as above, NAD, sitting up in bed, pleasant, conversing easily Head: Normocephalic, Atraumatic Eyes: PERRL, conjunctivae normal, anicteric sclerae ENMT: external ear and nose normal, oropharynx normal Neck: trachea midline, no thyromegaly normal visual inspection Respiratory: normal respiratory effort, lungs clear to auscultation, no wheeze, rales, rhonchi. Normal insp/exp effort, no accessory muscle use Cardiovascular: RRR, no murmur, no edema Vessels: no JVD or carotid bruit Chest: normal inspection of chest Abdomen: normal bowel sounds, soft, mild tenderness to palpation left lower quadrant, no rebound, no guarding, no rigidity, no hepatosplenomegaly Musculoskeletal: no cyanosis or clubbing, extremities motor strength 5/5 Skin: no rashes, warm and dry normal turgor Neurologic: PERRL, EOMI, accommodation nl, no face palsy, no dysarthria CN's II-XI intact bilaterally and moves all extremities Psychiatric: A+Ox3, euthymic affect Lymphatic: no cervical or axillary lymphadenopathy : Rectal exam normal, no fissure or hemorrhoid Results & Data Results & Data ([facility]) Vital Signs (Past 12 Hours) Vital Signs Temp Pulse Resp BP Pulse Ox 03/02/21 11:30 173/96 H 97 03/02/21 09:14 36.5 C 103 H 18 178/86 H 96 Diagnostic Findings Abdomen/Pelvis CT 03/02/21 09:46 CT abd pelvis IV con only CLINICAL HISTORY: lower abd pain, gi bleed COMPARISON STUDY: August 19, 2019 TECHNIQUE: A dose lowering technique was utilized adhering to the principles of ALARA. CT DOSE: 1197.72 mGy.cm FINDINGS: Lower chest: Minimal atelectasis is seen at bilateral bases.. Liver: The contrast-enhanced liver is normal in size, contour, and attenuation. There is no intrahepatic biliary ductal dilatation. The hepatic veins and portal veins are patent. Gallbladder: Is fluid-filled with small gallstone within its dependent portion. No definite inflammatory changes are seen in the gallbladder fossa. Spleen: Normal in size and attenuation. Pancreas: Unremarkable. Adrenal glands: Unremarkable. Kidneys: No hydronephrosis is seen. Nonobstructive nephrolithiasis is seen on the left. Few calcifications are seen within right renal pelvis which are most likely vascular. Few or cystic lesions are seen within left renal parenchyma, largest is measured in 1.9 cm and seen at lower pole of the left kidney. Pelvic viscera: Urinary bladder is adequately filled with fluid. Prostate gland is significantly enlarged with lobulated cortical protrusion to the urinary bladder lumen. There is fat-containing right inguinal hernia with questionable 3.5 x 1.7 cm area of decreased attenuation attached to its anterior aspect. There are possible mild surrounding fat stranding. Bowel: Bowel loops are nondilated. Appendix shows normal morphology and gas filled. Diverticulosis of descending and sigmoid colon is seen. Minimal fat stranding is seen within mid lower abdomen and could represent developing diverticulitis which is better visualized on coronal reconstruction image 334 out of 513 and also marked in PACs on series 3 image 262. Peritoneum: There is no intraperitoneal free air or abdominal ascites. Vasculature: Abdominal aorta is normal in caliber with heavy calcifications of its wall. Adenopathy: None. Skeletal structures: Multilevel degenerative changes of the spine. IMPRESSION: 1. Fat-containing inguinal hernia with hypoattenuating collection at the its anterior aspect and possible mild fat stranding. No bowel loops are seen within the hernia sac. Please correlate above-mentioned findings with direct inspection. Further evaluation with ultrasound might be considered if clinically indicated. 2. Diverticulosis of descending and sigmoid colon, possible developing diverticulitis as detailed above. 3. Nonobstructive nephrolithiasis on the left. 4. Atherosclerosis. 5. Cholelithiasis without cholecystitis. 6. Enlarged prostate gland with lobulated contour protrudes into the urinary bladder lumen. No evidence of hydronephrosis. 7. Additional findings as above. ACT 112: Negative or not required by law. The above report was generated using voice recognition software. It may contain grammatical, syntax or spelling errors. Electronically signed by: Michaelle Hansen DO 03/02/2021 11:28 AM Medications Administered Medication List Sodium Chloride (Nss 1000ml) 1,000 mls @ 125 mls/hr IV .Q8H GRISELDA Stop: 04/01/21 09:44 Last Admin: 03/02/21 10:11 Dose: 125 mls/hr Documented by: [id number] Discontinued Medications Ioversol (Optiray 320 100ml) 93 ml IV ONCE ONE Stop: 03/02/21 10:03 Last Admin: 03/02/21 10:03 Dose: 93 ml Documented by: [id number] ECG Rate (beats per minute): 94 Rhythm: normal sinus COVID-19 Results Results COVID-19 Adm Lab Results: RBC 4.84 M/uL (4.7-6.1) 03/02/21 WBC 13.01 K/uL (4.8-10.8) H 03/02/21 Hgb 15.3 g/dL (14.0-18.0) 03/02/21 Hct 47.6 % (42-52) 03/02/21 Plt Count 225 K/uL (130-400) 03/02/21 Neutrophils (%) (Auto) 74.7 % 03/02/21 Lymphocytes (%) (Auto) 14.5 % 03/02/21 Monocytes # (Auto) 1.33 K/uL (0.11-0.59) H 03/02/21 Eosinophils # (Auto) 0.02 K/uL (0-0.5) 03/02/21 Immature Granulocyte % (Auto) 0.2 % 03/02/21 Neutrophils # (Auto) 9.71 K/uL (1.4-6.5) H 03/02/21 Lymphocytes # (Auto) 1.89 K/uL (1.2-3.4) 03/02/21 Monocytes # (Auto) 1.33 K/uL (0.11-0.59) H 03/02/21 Eosinophils # (Auto) 0.02 K/uL (0-0.5) 03/02/21 Basophils # (Auto) 0.03 K/uL (0-0.2) 03/02/21 Immature Granulocyte # (Auto) 0.03 K/uL (0.00-0.02) H 03/02/21 Na 138 mmol/L (136-145) 03/02/21 K 4.1 mmol/L (3.5-5.1) 03/02/21 Cl 104 mmol/L (98-107) 03/02/21 CO2 30 mmol/L (21-32) 03/02/21 Anion Gap 4.0 (3-11) 03/02/21 BUN 25 mg/dl (7-18) H 03/02/21 Creatinine 1.20 mg/dl (0.6-1.4) 03/02/21 BUN/Creatinine Ratio 20.5 (10-20) H 03/02/21 Glucose Level 126 mg/dl (70-99) H 03/02/21 Ca 9.2 mg/dl (8.5-10.1) 03/02/21 Total Bilirubin 0.6 mg/dl (0.2-1) 03/02/21 AST/SGOT 31 U/L (15-37) 03/02/21 ALT/SGPT 52 U/L (12-78) 03/02/21 Alkaline Phosphatase 125 U/L (45-117) H 03/02/21 Total Protein 7.8 gm/dl (6.4-8.2) 03/02/21 Albumin 3.5 gm/dl (3.4-5.0) 03/02/21 Globulin 4.3 gm/dl (2.5-4.0) H 03/02/21 Albumin/Globulin Ratio 0.8 (0.9-2) L 03/02/21 Troponin I < 0.015 ng/ml (0-0.045) 03/02/21 INR 2.8 (0.9-1.1) H 03/02/21 COVID-19 PCR NEGATIVE (Negative) 03/02/21 Code Status & VTE Plan Code Status Full Code VTE Prophylaxis Plan VTE Prophylaxis will be ordered: Yes Supervising Physician Co-Signing Physician Notes I have seen and examined the patient and have discussed the case with the provider above. I agree with the assessment and plan as stated. 85 yo M with possible warfarin-associated diverticular bleed. He is hypertensive and tachycardic presenting because of increased hematochezia this morning. Denies fevers, chills, abd pain. INR reversed in ER. Denies lightheadedness. Physical reveals normal coloring, normal mentation, tachy heart rate with regular rhythm to auscultation, clear lungs to auscultation throughout, soft abdomen that is NTND and no CVA tenderness. Rectal exam deferred. Agree wt plan for clear liquids with plan to monitor H/H and transfuse as needed overnight. Trend INR in am. GI consulted. Cont to monitor closely on telemetry. He will receive abx based on questionable developing diverticulitis present on CT study. Hypertension noted but patient was noncompliant with his antihypertensive this morning. This was given and will watch for improvement over the next few hours. DO Eugene
[2021-03-02] MEDS ORDERED: PHYTONADIONE 5 MG in SODIUM CHLORIDE 0.9% 50 ML IV ONE (13:30)
[2021-03-02] MEDS ORDERED: lisinopril 10 MG TAB PO STA (13:38)
[2021-03-02] MEDS ORDERED: ACETAMINOPHEN 325 MG TAB PO PRN (14:44)
[2021-03-02] MEDS ORDERED: MAGNESIUM HYDROXIDE SUSP 30 ML UDC PO PRN (14:44)
[2021-03-02] MEDS ORDERED: ALUMINUM/MAGNESIUM SUSP 30 ML UDC PO PRN (14:44)
[2021-03-02] MEDS ORDERED: PIPERACILL/TAZOBAC CONSULT ACTIVE PRN (14:44)
[2021-03-02] MEDS ORDERED: SODIUM CHLORIDE 0.9% 250 ML IV PRN (14:44)
[2021-03-02] MEDS ORDERED: ONDANSETRON INJ 2 MG/ML 2 ML VIAL IV PRN (14:44)
[2021-03-02] MEDS ORDERED: POLYETHYLENE (MIRALAX) 17 GM PACK PO PRN (14:44)
[2021-03-02 16:14] LABS: Hematocrit (blood only) 45.3 % (42-52); Hemoglobin 14.9 g/dL (14.0-18.0)
[2021-03-02] MEDS: CIPROFLOXACIN / D5W 400 MG/200 ML BAG IV SCH (16:33)
[2021-03-02] MEDS: metroNIDAZOLE 500 MG/100 ML BAG IV SCH (16:33)
[2021-03-02 16:37] LABS: INR 2.1 (0.9-1.1); Prothrombin Time 20.3 Seconds (9.0-12.0)
[2021-03-02] MEDS ORDERED: LAVAGE SOLUTION 4000ML PO SCH (17:30)
[2021-03-02] MEDS: FINASTERIDE 5 MG TAB PO SCH (20:28)
[2021-03-02] MEDS: AMIODARONE 200 MG TAB PO SCH (20:28)
[2021-03-02] MEDS: ALPRAZolam 0.5 MG TABLET PO PRN (20:29)
[2021-03-02 22:41] LABS: Hematocrit (blood only) 39.6 % (42-52)
[2021-03-02 22:53] LABS: INR 1.6 (0.9-1.1); Prothrombin Time 15.7 Seconds (9.0-12.0)
[2021-03-03] MEDS: metroNIDAZOLE 500 MG/100 ML BAG IV SCH ×3 (00:45→15:45)
[2021-03-03 04:20] LABS: Basophils # (auto) 0.02 K/uL (0-0.2); Basophils % (auto) 0.2 %; Eosinophils # (auto) 0.03 K/uL (0-0.5); Eosinophils % (auto) 0.2 %; Hematocrit (blood only) 36.9 % (42-52); Hemoglobin 12.2 g/dL (14.0-18.0); Immature Granulocytes # (auto) 0.03 K/uL (0.00-0.02); Immature Granulocytes % (auto) 0.2 %; Lymphocytes # (auto) 2.91 K/uL (1.2-3.4); Lymphocytes % (auto) 24.1 %; Mean Corpuscular Hemoglobin 31.4 pg (25-34); Mean Corpuscular Hgb Conc 33.1 g/dL (32-36); Mean Corpuscular Volume 94.9 fL (80-100); Mean Platelet Volume 10.9 fL (7.4-10.4); Monocytes # (auto) 1.64 K/uL (0.11-0.59); Monocytes % (auto) 13.6 %; Neutrophils # (auto) 7.43 K/uL (1.4-6.5); Neutrophils % (auto) 61.7 %; Platelet Count 182 K/uL (130-400); RDW Coefficient of Variation 14.5 % (11.5-14.5); RDW Standard Deviation 49.7 fL (36.4-46.3); Red Blood Count 3.89 M/uL (4.7-6.1); White Blood Count 12.06 K/uL (4.8-10.8)
[2021-03-03 04:37] LABS: INR 1.4 (0.9-1.1)
[2021-03-03 04:38] LABS: Albumin Level 2.9 gm/dl (3.4-5.0); BUN Creatinine Ratio 22.9 (10-20); Calcium 8.5 mg/dl (8.5-10.1); Est GFR (African American) 75.5 ml/min; Est GFR (Non-African American) 65.2 ml/min; Potassium 3.6 mmol/L (3.5-5.1)
[2021-03-03 04:43] LABS: Bilirubin,Total 0.9 mg/dl (0.2-1); Globulin 2.9 gm/dl (2.5-4.0); Total Protein 5.8 gm/dl (6.4-8.2)
[2021-03-03] MEDS: CIPROFLOXACIN / D5W 400 MG/200 ML BAG IV SCH ×2 (04:48→15:45)
[2021-03-03] MEDS ORDERED: oxyCODONE HCL IR 5 MG TAB (IMMEDIATE RELEASE) PO PRN (07:40)
[2021-03-03] MEDS ORDERED: MoRPHine SULFATE 4 MG/ML 1 ML CARP\\VIAL IV PRN (07:40)
[2021-03-03] MEDS: ATORVASTATIN 40 MG TAB PO SCH (07:59)
[2021-03-03] MEDS: CEROVITE ADV FORMULA TAB PO SCH (07:59)
[2021-03-03] MEDS: amLODIPine BESYLATE 5 MG TAB PO SCH (07:59)
[2021-03-03] MEDS ORDERED: PSYLLIUM 58.6% POWDER PACKET PO SCH (09:00)
[2021-03-03] MEDS ORDERED: LINACLOTIDE 145 MCG CAPSULE PO SCH (09:00)
[2021-03-03 10:24] LABS: Hemoglobin 12.7 g/dL (14.0-18.0)
--- NOTE | 2021-03-03 11:16 | Anesthesiology Consultation ---
Date of Service March 03, 2021 Assessment & Plan (1) Encounter for pre-operative examination: Chart Review Chart Review: Acceptable Risk for Surgery History Surgery Operation Date: 03/03/21 15:00 Proposed Procedures p Colonoscopy - Moe Bustamante MD Height/Weight Height: 6 ft Weight: 87 kg Allergies Allergy/AdvReac Type Severity Reaction Status Date / Time Sulfa (Sulfonamide Allergy Severe ITCHING Verified 03/02/21 10:34 Antibiotics) levofloxacin Allergy Intermediate BRADYCARDIA Verified 03/02/21 10:34 metronidazole Allergy Unknown PVC'S Verified 03/02/21 10:34 Penicillins Allergy Unknown HIVES Verified 03/02/21 10:34 meloxicam AdvReac Intermediate UPSET Verified 03/02/21 10:34 STOMACH sertraline AdvReac Intermediate GI SYMPTOMS Verified 03/02/21 10:34 doxycycline AdvReac Mild GI UPSET Verified 03/02/21 10:34 hydrocodone AdvReac Mild constipatio Verified 03/02/21 10:34 n Medications Home Medications Medication Instructions Recorded Confirmed Last Taken alprazolam [Xanax] 0.5 mg PO BID PRN 06/24/18 03/02/21 08/17/19 amiodarone 200 mg PO HS 06/24/18 03/02/21 03/01/21 amlodipine 2.5 mg PO QAM 06/24/18 03/02/21 03/02/21 atorvastatin 40 mg PO QAM 06/24/18 03/02/21 03/02/21 finasteride 5 mg PO HS 06/24/18 03/02/21 03/01/21 lisinopril 10 mg PO QDL 06/24/18 03/02/21 03/01/21 nitroglycerin [Nitrostat] 0.4 mg SUBLINGUAL DIRECTED PRN 06/24/18 03/02/21 Unknown vit C,E-Gp-lxqnd-lutein-zeaxan 1 tab PO BID 06/24/18 03/02/21 03/02/21 [PreserVision AREDS-2] multivitamin 1 tab PO QDL 03/18/19 03/02/21 03/01/21 polyethylene glycol 3350 [Miralax] 17 g PO DAILY PRN 03/18/19 03/02/21 03/01/21 warfarin 2.5 mg PO 5XWK 03/18/19 03/02/21 02/28/21 warfarin 5 mg PO 2XWK 03/18/19 03/02/21 03/01/21 psyllium seed (sugar) oral powder 1 tbs PO DAILY 01/26/20 03/02/21 Unknown acetaminophen [Tylenol Extra 500 mg PO Q6H PRN 03/02/21 03/02/21 Unknown Strength] aspirin [Aspir-81] 81 mg PO DAILY 03/02/21 03/02/21 03/01/21 linaclotide [Linzess] 145 mcg PO DAILY 03/02/21 03/02/21 03/01/21 Active Medications Generic Name Dose Route Start Last Admin Trade Name Freq PRN Reason Stop Dose Admin Acetaminophen 650 mg 03/02/21 14:44 03/02/21 22:58 Acetaminophen 325 Mg Tab PO 04/01/21 14:43 650 mg Q4H PRN Administration Pain or Fever Alprazolam 0.5 mg 03/02/21 14:44 03/02/21 20:29 Alprazolam 0.5 Mg Tablet PO 04/01/21 14:43 0.5 mg BID PRN Administration Anxiety Amiodarone HCl 200 mg 03/02/21 21:00 03/02/21 20:28 Amiodarone 200 Mg Tab PO 04/01/21 20:59 200 mg HS GRISELDA Administration Amlodipine Besylate 2.5 mg 03/03/21 09:00 03/03/21 07:59 Amlodipine Besylate 5 Mg Tab PO 04/02/21 08:59 2.5 mg QAM GRISELDA Administration Atorvastatin Calcium 40 mg 03/03/21 09:00 03/03/21 07:59 Atorvastatin 40 Mg Tab PO 04/02/21 08:59 40 mg QAM GRISELDA Administration Finasteride 5 mg 03/02/21 21:00 03/02/21 20:28 Finasteride 5 Mg Tab PO 04/01/21 20:59 5 mg HS GRISELDA Administration Ciprofloxacin 400 mg in 200 mls @ 100 mls/hr 03/02/21 16:00 03/03/21 07:14 Cipro / D5w IV 03/12/21 15:59 Infused Q12H GRISELDA Infusion Protocol Metronidazole 500 mg in 100 mls @ 100 mls/hr 03/02/21 16:00 03/03/21 09:18 Flagyl IV 03/12/21 15:59 Infused Q8H GRISELDA Infusion Protocol Multivitamins/Minerals 1 tab 03/03/21 09:00 03/03/21 07:59 Cerovite Adv Formula Tab PO 04/02/21 08:59 1 tab DAILY GRISELDA Administration Oxycodone HCl 5 mg 03/03/21 07:40 03/03/21 07:58 Oxycodone Hcl Ir 5 Mg Tab (Immediate Release) PO 03/17/21 07:39 5 mg Q6H PRN Administration Severe Pain Past Medical History Medical History Anticoagulated on warfarin Benign hypertension BPH (benign prostatic hypertrophy) C. difficile colitis Carcinoma of bladder Chronic pain of both shoulders COPD (chronic obstructive pulmonary disease) Coronary artery disease "cath 08/13/15 moderate mid RCA stenosis, indeterminate ostial LAD lesion" Depression Dyslipidemia History of squamous cell carcinoma of skin Hyperlipidemia Hypertension Macular degeneration Meningioma Neoplasm of ureter Osteoarthritis of shoulders, bilateral Paroxysmal atrial fibrillation Ulcer Past Family History Family History Mother Coronary heart disease Volvulus Brother Diabetes Past Surgical History Surgical History History of colonoscopy History of urologic surgery Right ureterectomy with ureteral reimplantation 12/2012 Hx of inguinal hernia surgery Right Status post cardiac catheterization "[facility] 08/13/15 Dr. Sandra; moderate mid RCA, indeterminate ostial LAD" Status post cataract extraction Status post tonsillectomy Social History Smoking Status: Former smoker tobacco type: smokeless tobacco Do You Dip or Chew Tobacco: Yes (4 pouches a day) Hx Alcohol Use: No Hx Substance Use: No Physical Exam Vital Signs Last Vital Signs Temp 36.5 C 03/03/21 07:35 Pulse 81 03/03/21 08:00 Resp 20 03/03/21 07:35 BP 147/80 H 03/03/21 07:35 Pulse Ox 96 03/03/21 07:35 Testing Laboratory Results 03/03/21 10:12 03/03/21 03:54 PT 14.0 Seconds (9.0-12.0) H 03/03/21 03:54 INR 1.4 (0.9-1.1) H 03/03/21 03:54 Blood Type O Positive 03/02/21 10:05 Antibody Screen NEGATIVE 03/02/21 10:05 Electrocardiogram Date: 03/03/21 Findings: + NSR @ (83) and + NSST changes
--- NOTE | 2021-03-03 11:24 | Gastrointestinal Consultation ---
Date of Consultation March 03, 2021 Assessment & Plan (1) Acute GI bleeding: Likely lower GI bleed due to diverticulosis in the setting of Coumadin use and constipation however may also be due to ischemic colitis. Less likely due to UGIB in view of stable hemodynamic and BUN at baseline. Recommend: Colonoscopy today. Patient was explained in detail regarding risks, benefits, limitations and alternatives of the above endoscopic procedure. Risks of intravenous sedation used for procedure were also explained. Risks include, but not limited to perforation, bleeding, infection, respiratory distress, cardiac arrest and . Patient is also aware about the possibility of missed lesion. Patient's questions were answered. The patient verbalized understanding the information and agreed to undergo the procedure. Continue to monitor H/H. History of Present Illness Attending Physician: Kena Knight DO 85 years old male patient with AFIB on Coumadin, COPD, CAD, presented to the hospital with bright red bleeding per rectum, CT scan showed left sided diverticulosis and ? diverticulitis. His initial Hgb was 15 and now dropped to 12. Continue with rectal bleeding today after drinking half a gallon of Golytel y. No abdominal pain. No nausea or vomiting. Allergies Allergy/AdvReac Type Severity Reaction Status Date / Time Sulfa (Sulfonamide Allergy Severe ITCHING Verified 03/02/21 10:34 Antibiotics) levofloxacin Allergy Intermediate BRADYCARDIA Verified 03/02/21 10:34 metronidazole Allergy Unknown PVC'S Verified 03/02/21 10:34 Penicillins Allergy Unknown HIVES Verified 03/02/21 10:34 meloxicam AdvReac Intermediate UPSET Verified 03/02/21 10:34 STOMACH sertraline AdvReac Intermediate GI SYMPTOMS Verified 03/02/21 10:34 doxycycline AdvReac Mild GI UPSET Verified 03/02/21 10:34 hydrocodone AdvReac Mild constipatio Verified 03/02/21 10:34 n Home Medications Medication Instructions Recorded Confirmed Type alprazolam [Xanax] 0.5 mg PO BID PRN 06/24/18 03/02/21 History amiodarone 200 mg PO HS 06/24/18 03/02/21 History amlodipine 2.5 mg PO QAM 06/24/18 03/02/21 History atorvastatin 40 mg PO QAM 06/24/18 03/02/21 History finasteride 5 mg PO HS 06/24/18 03/02/21 History lisinopril 10 mg PO QDL 06/24/18 03/02/21 History nitroglycerin [Nitrostat] 0.4 mg SUBLINGUAL DIRECTED PRN 06/24/18 03/02/21 History vit C,P-Ju-gqelp-lutein-zeaxan 1 tab PO BID 06/24/18 03/02/21 History [PreserVision AREDS-2] multivitamin 1 tab PO QDL 03/18/19 03/02/21 History polyethylene glycol 3350 [Miralax] 17 g PO DAILY PRN 03/18/19 03/02/21 History warfarin 2.5 mg PO 5XWK 03/18/19 03/02/21 History warfarin 5 mg PO 2XWK 03/18/19 03/02/21 History psyllium seed (sugar) oral powder 1 tbs PO DAILY 01/26/20 03/02/21 History acetaminophen [Tylenol Extra 500 mg PO Q6H PRN 03/02/21 03/02/21 History Strength] aspirin [Aspir-81] 81 mg PO DAILY 03/02/21 03/02/21 History linaclotide [Linzess] 145 mcg PO DAILY 03/02/21 03/02/21 History Patient History Medical History Anticoagulated on warfarin Benign hypertension BPH (benign prostatic hypertrophy) C. difficile colitis Carcinoma of bladder Chronic pain of both shoulders COPD (chronic obstructive pulmonary disease) Coronary artery disease "cath 08/13/15 moderate mid RCA stenosis, indeterminate ostial LAD lesion" Depression Dyslipidemia History of squamous cell carcinoma of skin Hyperlipidemia Hypertension Macular degeneration Meningioma Neoplasm of ureter Osteoarthritis of shoulders, bilateral Paroxysmal atrial fibrillation Ulcer Surgical History History of colonoscopy History of urologic surgery Right ureterectomy with ureteral reimplantation 12/2012 Hx of inguinal hernia surgery Right Status post cardiac catheterization "[facility] 08/13/15 Dr. Sandra; moderate mid RCA, indeterminate ostial LAD" Status post cataract extraction Status post tonsillectomy Family History Mother Coronary heart disease Volvulus Brother Diabetes Social History (Updated 03/02/21 @ 13:21 by Laina Duff PA-C) Smoking Status: Former smoker Tobacco Type: Smokeless Tobacco (Dip or Chew) Do You Dip or Chew Tobacco: Yes (4 pouches a day); Hx Alcohol Use: No Hx Substance Use: No Preferred Language: [place] Communication Ability: Effective Visual Impairment: No Limitations Hearing Ability: Normal Beliefs That Will Affect Care: None marital status: / Current Living Situation: Family Current Living Situation Comment: daughter lives with Other Information That Helps Us Care for You: No Feels Safe at Home: Yes Safety Concerns: Feels Safe At This Time Assistive Devices Comment: reading glasses, 3 partials in mouth Review of Systems Constitutional: no fever, no chills, no fatigue and no weight loss Eyes: no eye pain and no worsening vision Ear, Nose, Mouth, Throat: no tinnitus, no dizziness, no nasal discharge and no epistaxis Respiratory: no cough, no dyspnea, no dyspnea on exertion and no wheezing Cardiovascular: no chest pain, no orthopnea, no palpitations and no edema Gastrointestinal: as per Subjective / HPI Musculoskeletal: no stiffness and no myalgia Neurologic: no localized weakness, no paralysis, no tremor(s) and no headache(s) Endocrine: no polydipsia and no polyuria Hematologic / Lymphatic: no easy bleeding and no night sweats Physical Exam Constitutional: + well hydrated, cooperative and comfortable Eyes: PERRL, conjunctivae normal, anicteric sclerae ENMT: external ear and nose normal, oropharynx normal Neck: normal visual inspection and trachea midline Respiratory: normal respiratory effort, lungs clear to auscultation Auscultation: no wheezes Cardiovascular: RRR, no murmur, no edema Gastrointestinal (Abdomen): normal bowel sounds, soft, nontender, no hepatosplenomegaly Musculoskeletal: no cyanosis or clubbing, extremities motor strength 5/5 Skin: no rashes, warm and dry Neurologic: awake; no focal motor deficits Motor/Sensory: no tremor Results & Data ([facility]) Vital Signs (Past 12 Hours) Vital Signs Temp Pulse Pulse Pulse Resp BP Pulse Ox 03/03/21 08:00 81 03/03/21 07:35 36.5 C 88 20 147/80 H 96 03/03/21 04:00 36.5 C 89 18 147/81 H 97 03/02/21 23:55 36.7 C 79 18 119/77 97 Laboratory Results Laboratory Results - last 24 hr 03/02/21 03/02/21 03/02/21 10:05 12:36 12:36 WBC RBC Hgb Hct MCV MCH MCHC RDW Std Deviation RDW Coeff of Courtney Plt Count MPV Immature Gran % (Auto) Neut % (Auto) Lymph % (Auto) [place] % (Auto) Eos % (Auto) Baso % (Auto) Neut # (Auto) Lymph # (Auto) [place] # (Auto) Eos # (Auto) Baso # (Auto) Immature Gran # (Auto) PT INR Sodium Potassium Chloride Carbon Dioxide Anion Gap BUN Creatinine Est Cr Clr Drug Dosing Est GFR ( Amer) Est GFR (Non-Af Amer) BUN/Creatinine Ratio Glucose Estimat Average Glucose Hemoglobin A1c Calcium Magnesium Total Bilirubin AST ALT Alkaline Phosphatase Total Protein Albumin Globulin Albumin/Globulin Ratio COVID-19 Eval Order Covid19 at [facility] SARS-CoV-2 (PCR) NEGATIVE Crossmatch See Detail 03/02/21 03/02/21 03/02/21 16:05 16:05 22:12 WBC RBC Hgb 14.9 13.0 L Hct 45.3 39.6 L MCV MCH MCHC RDW Std Deviation RDW Coeff of Courtney Plt Count MPV Immature Gran % (Auto) Neut % (Auto) Lymph % (Auto) [place] % (Auto) Eos % (Auto) Baso % (Auto) Neut # (Auto) Lymph # (Auto) [place] # (Auto) Eos # (Auto) Baso # (Auto) Immature Gran # (Auto) PT 20.3 H INR 2.1 H Sodium Potassium Chloride Carbon Dioxide Anion Gap BUN Creatinine Est Cr Clr Drug Dosing Est GFR ( Amer) Est GFR (Non-Af Amer) BUN/Creatinine Ratio Glucose Estimat Average Glucose Hemoglobin A1c Calcium Magnesium Total Bilirubin AST ALT Alkaline Phosphatase Total Protein Albumin Globulin Albumin/Globulin Ratio COVID-19 Eval Order SARS-CoV-2 (PCR) Crossmatch 03/02/21 03/03/21 03/03/21 22:12 03:54 03:54 WBC 12.06 H RBC 3.89 L Hgb 12.2 L Hct 36.9 L MCV 94.9 MCH 31.4 MCHC 33.1 RDW Std Deviation 49.7 H RDW Coeff of Courtney 14.5 Plt Count 182 MPV 10.9 H Immature Gran % (Auto) 0.2 Neut % (Auto) 61.7 Lymph % (Auto) 24.1 [place] % (Auto) 13.6 Eos % (Auto) 0.2 Baso % (Auto) 0.2 Neut # (Auto) 7.43 H Lymph # (Auto) 2.91 [place] # (Auto) 1.64 H Eos # (Auto) 0.03 Baso # (Auto) 0.02 Immature Gran # (Auto) 0.03 H PT 15.7 H 14.0 H INR 1.6 H 1.4 H Sodium Potassium Chloride Carbon Dioxide Anion Gap BUN Creatinine Est Cr Clr Drug Dosing Est GFR ( Amer) Est GFR (Non-Af Amer) BUN/Creatinine Ratio Glucose Estimat Average Glucose Hemoglobin A1c Calcium Magnesium Total Bilirubin AST ALT Alkaline Phosphatase Total Protein Albumin Globulin Albumin/Globulin Ratio COVID-19 Eval Order SARS-CoV-2 (PCR) Crossmatch 03/03/21 03/03/21 03/03/21 03:54 03:54 10:12 WBC RBC Hgb 12.7 L Hct 38.0 L MCV MCH MCHC RDW Std Deviation RDW Coeff of Courtney Plt Count MPV Immature Gran % (Auto) Neut % (Auto) Lymph % (Auto) [place] % (Auto) Eos % (Auto) Baso % (Auto) Neut # (Auto) Lymph # (Auto) [place] # (Auto) Eos # (Auto) Baso # (Auto) Immature Gran # (Auto) PT INR Sodium 141 Potassium 3.6 Chloride 108 H Carbon Dioxide 26 Anion Gap 7.0 BUN 24 H Creatinine 1.04 Est Cr Clr Drug Dosing 57.0 Est GFR ( Amer) 75.5 Est GFR (Non-Af Amer) 65.2 BUN/Creatinine Ratio 22.9 H Glucose 114 H Estimat Average Glucose Pending Hemoglobin A1c Pending Calcium 8.5 Magnesium 2.0 Total Bilirubin 0.9 AST 23 ALT 37 Alkaline Phosphatase 90 Total Protein 5.8 L D Albumin 2.9 L Globulin 2.9 Albumin/Globulin Ratio 1.0 COVID-19 Eval Order SARS-CoV-2 (PCR) Crossmatch
[2021-03-03] MEDS ORDERED: lisinopril 10 MG TAB PO SCH (11:30)
[2021-03-03] MEDS ORDERED: ATROPINE SULFATE 0.1 MG/ML 10ML SYR IV PRN (11:56)
[2021-03-03] MEDS ORDERED: LIDOCAINE 2% 2 ML VIAL/AMP(20MG/ML) INFIL ONE (12:20)
[2021-03-03] MEDS ORDERED: PROPOFOL IV EMULSION 10 MG/ML 20 ML VIAL IV ONE (12:20)
--- NOTE | 2021-03-03 12:45 | Operative Report ---
Post Operative Report Pre & Post Diagnosis Operation Date: 03/03/21 15:00 Pre-Op Diagnosis: Hematochezia, Presumed Gastrointestional Bleed I identified the patient and participated in the time-out.: Yes Procedure Operation Date: 03/03/21 15:00 Actual Procedures p Colonoscopy - Moe Bustamante MD Surgeon Meo Bustamante MD Stacker Operator None Estimated Blood Loss 0 Findings See Below (Active diverticular bleeding treated by over the scope clip) Specimens None Description of Procedure Colonoscopy I attest to the content of the Intraoperative Record and any orders documented therein. Any exceptions are noted below.
--- NOTE | 2021-03-03 13:09 | Electrocardiogram Report ---
Test Reason : Blood Pressure : / mmHG Vent. Rate : 083 BPM Atrial Rate : 083 BPM P-R Int : 168 ms QRS Dur : 094 ms QT Int : 402 ms P-R-T Axes : 059 045 087 degrees QTc Int : 472 ms Normal sinus rhythm Nonspecific ST and T wave abnormality Abnormal ECG Confirmed by Seth Montoya ([id number]) on 03/03/2021 1:08:31 PM Referred By: REFERRED SELF Confirmed By:Bigg Montoya
--- NOTE | 2021-03-03 13:23 | Anesthesiology Progress Note ---
Date of Service March 03, 2021 Anesthesia Post Procedure Vital Signs Vital Signs: Temp Pulse Pulse Pulse Resp BP BP 03/03/21 13:20 78 17 153/82 H 03/03/21 13:10 79 14 149/86 H 03/03/21 13:03 36.5 C 81 18 141/68 H 03/03/21 11:00 36.6 C 84 18 143/84 H 03/03/21 08:00 81 03/03/21 07:35 36.5 C 88 20 147/80 H 03/03/21 04:00 36.5 C 89 18 147/81 H 03/02/21 23:55 36.7 C 79 18 119/77 03/02/21 22:20 80 03/02/21 19:40 36.7 C 104 H 18 151/99 H 03/02/21 17:11 93 H 20 146/88 H 03/02/21 14:47 36.4 C L 99 H 94 H 21 194/102 H 03/02/21 13:39 107 H 17 179/95 H Pulse Ox Pulse Ox 03/03/21 13:20 98 03/03/21 13:10 99 03/03/21 13:03 99 03/03/21 11:00 95 03/03/21 08:00 03/03/21 07:35 96 03/03/21 04:00 97 03/02/21 23:55 97 03/02/21 22:20 03/02/21 19:40 95 03/02/21 17:11 03/02/21 14:47 95 95 03/02/21 13:39 97 Pain Intensity Left Lower Abdomen: Pain Intensity: 8 Transfer of Care Handoff Completed per policy Notes Mental Status: alert / awake / arousable Patient Amnestic to Procedure: Yes Nausea / Vomiting: adequately controlled Pain: adequately controlled Airway Patency, RR, SpO2: stable & adequate BP & HR: stable & adequate Hydration State: stable & adequate Anesthetic Complications: no major complications apparent
--- NOTE | 2021-03-03 13:39 | GI REPORT ---
Patient Name: Maninder Choudhury Procedure Date: 03/03/2021 12:11 PM Date of : 1935 Admit Type: Inpatient Age: 85 Gender: Male Attending MD: Moe Bustamante MD Procedure: Colonoscopy Providers: Moe Bustamante MD Referring MD: Kena Knight Do Indications: Rectal bleeding Medicines: Propofol per Anesthesia Complications: No immediate complications. Estimated Blood Loss: Estimated blood loss: none. Procedure: Pre-Anesthesia Assessment: - Prior to the procedure, a History and Physical was performed, and patient medications, allergies and sensitivities were reviewed. The patient's tolerance of previous anesthesia was reviewed. - The risks and benefits of the procedure and the sedation options and risks were discussed with the patient. All questions were answered and informed consent was obtained. - Patient identification and proposed procedure were verified prior to the procedure by the physician and the nurse. The procedure was verified in the procedure room. - Pre-procedure physical examination revealed no contraindications to sedation. After I obtained informed consent, the scope was passed under direct vision. Throughout the procedure, the patient's blood pressure, pulse, and oxygen saturations were monitored continuously. The Colonoscope was introduced through the anus and advanced to the terminal ileum. The colonoscopy was performed without difficulty. The patient tolerated the procedure well. The quality of the bowel preparation was good. The terminal ileum, ileocecal valve, appendiceal orifice, and rectum were photographed. Findings: The perianal and digital rectal examinations were normal. The terminal ileum appeared normal. Scattered small and large-mouthed diverticula were found in the entire colon. A single medium-mouthed diverticulum was found in the descending colon with active bleeding coming from the diverticular opening. For location marking, one hemostatic clip was successfully placed (MR conditional). For hemostasis, one over the scope clip (PADLOCK) clip was successfully placed (MR conditional). Bleeding had stopped at the end of the procedure. Non-bleeding internal hemorrhoids were found during retroflexion. The hemorrhoids were small. Impression: - The examined portion of the ileum was normal. - Diverticulosis in the entire examined colon. - Active bleeding coming from a diverticular opening in the descending colon treated and controlled using a Padlock clip. - Non-bleeding internal hemorrhoids. - No specimens collected. Recommendation: - [facility] care. - Clear liquid diet today, then advance as tolerated to resume regular diet. - Monitor H/H. Moe Bustamante MD 03/03/2021 1:38:40 PM This report has been signed electronically. Note Initiated On: 03/03/2021 12:11 PM Number of Addenda: 0 I attest to the content of the Intraoperative Record and orders documented therein, exceptions below {[id number]}
--- NOTE | 2021-03-03 14:15 | Ultrasound Report ---
US abdomen limited CLINICAL HISTORY: Eval for R inguinal hernia on CT COMPARISON STUDY: Abdomen and pelvis CT 03/02/2021. FINDINGS: Confirmation of the nonreducible fat-containing right inguinal hernia. The hernia neck saray ures 2.8 cm. Focal area of shadowing along the anterior aspect of the hernia favors the prior mesh. IMPRESSION: There is a moderate size fat-containing nonreducible right inguinal hernia. Focal area o f shadowing anterior to the hernia may represent the residual mesh from the previous hernia repair. ACT 112: Negative or not required by law. Electronically signed by: Pietro Dobbins M.D. 03/03/2021 2:13 PM
--- NOTE | 2021-03-03 15:44 | Hospitalist Progress Note ---
Date of Service March 03, 2021 Assessment & Plan (1) Acute GI bleeding: warfarin -associated GI bleeding. INR reversed with vitamin K. Diverticular bleed in descending colon seen today on colonoscopy. Treated wtih Padlock clip. CBC in am. clears tday with advancement in diet in am. Cont abx for now until confirm with GI that these may be stopped. (2) Paroxysmal atrial fibrillation: He has remained in sinus rhythm on telemetry. Cont holding warfarin and aspirin at this time. Cont amiodarone per home regimen. (3) Anticoagulated on warfarin: reversed with vitamin K on admission (4) Coronary artery disease: Nonobstructive CAD, stable. Cont medical management with lisinopril, statin (5) Hypertension: controlled, cont current therapy (6) DVT prophylaxis: SCD/teds Dispo: to home in 1-2 days. Full code DO [facility] Admission and Anticipated Discharge Date Admission Date: March 02, 2021 Subjective 85 yo M presented with hematochezia INR reversed yesterday continued to have bloody BMs overnight with prep Colonoscopy today with diverticular bleed improved and denies pain Feeling well but very concerned about having insomnia tonight was asking to take oxycodone together with xanax for sleep as needed daughter present at bedside-all questions answered. Review of Systems Review of Systems: All systems reviewed & are unremarkable except as noted in Subjective Physical Exam Physical Exam: CONSTITUTIONAL: WNWD, vitals as above, generally well- appearing EYES: normal conjunctivae, no scleral icterus ENT: external ear and nose normal, MMM RESPIRATORY: clear to auscultation bilaterally, no crackles, rales or wheezes, normal respiratory effort CARDIOVASCULAR: regular rate and rhythm, S1 and 2 heard without murmurs, gallops or rubs, no JVD, no peripheral edema GASTROINTESTINAL: soft, nontender, nondistended MUSCULOSKELETAL: strength 5/5 throughout, head is normocephalic and atraumatic SKIN: warm and dry NEUROLOGIC: CN 2-12 grossly intact, no sensory deficit, normal cognition, normal speech, no tremor, no gross focal deficits. PSYCHIATRIC: alert cooperative and oriented to person, place and time. Results & Data Results & Data ([facility]) Vital Signs (Past 12 Hours) Vital Signs Temp Pulse Pulse Pulse Resp BP Pulse Ox 03/03/21 13:30 36.2 C L 77 15 161/73 H 98 03/03/21 13:20 78 17 153/82 H 98 03/03/21 13:10 79 14 149/86 H 99 03/03/21 13:03 36.5 C 81 18 141/68 H 99 03/03/21 11:00 36.6 C 84 18 143/84 H 95 03/03/21 08:00 81 03/03/21 07:35 36.5 C 88 20 147/80 H 96 03/03/21 04:00 36.5 C 89 18 147/81 H 97 Laboratory Results Short CBC 03/02/21 03/02/21 03/03/21 Range/Units 16:05 22:12 03:54 WBC 12.06 H (4.8-10.8) K/uL Hgb 14.9 13.0 L 12.2 L (14.0-18.0) g/dL Hct 45.3 39.6 L 36.9 L (42-52) % Plt Count 182 (130-400) K/uL 03/03/21 Range/Units 10:12 WBC (4.8-10.8) K/uL Hgb 12.7 L (14.0-18.0) g/dL Hct 38.0 L (42-52) % Plt Count (130-400) K/uL BMP 03/03/21 03:54 Sodium 141 Potassium 3.6 Chloride 108 H Carbon Dioxide 26 BUN 24 H Creatinine 1.04 Glucose 114 H Calcium 8.5 Liver Function 03/03/21 Range/Units 03:54 Total Bilirubin 0.9 (0.2-1) mg/dl AST 23 (15-37) U/L ALT 37 (12-78) U/L Alkaline Phosphatase 90 (45-117) U/L Albumin 2.9 L (3.4-5.0) gm/dl Medications Administered Current Inpatient Medications Acetaminophen (Acetaminophen 325 Mg Tab) 650 mg PO Q4H PRN PRN Reason: Pain or Fever Stop: 04/01/21 14:43 Last Admin: 03/02/21 22:58 Dose: 650 mg Documented by: Al Hydrox/Mg Hydrox/Simethicone (Aluminum/Magnesium Susp 30 Ml Udc) 15 ml PO Q4H PRN PRN Reason: Dyspepsia Stop: 04/01/21 14:43 Alprazolam (Alprazolam 0.5 Mg Tablet) 0.5 mg PO BID PRN PRN Reason: Anxiety Stop: 04/01/21 14:43 Last Admin: 03/02/21 20:29 Dose: 0.5 mg Documented by: Amiodarone HCl (Amiodarone 200 Mg Tab) 200 mg PO HS GRISELDA Stop: 04/01/21 20:59 Last Admin: 03/02/21 20:28 Dose: 200 mg Documented by: Amlodipine Besylate (Amlodipine Besylate 5 Mg Tab) 2.5 mg PO QAM GRISELDA Stop: 04/02/21 08:59 Last Admin: 03/03/21 07:59 Dose: 2.5 mg Documented by: Atorvastatin Calcium (Atorvastatin 40 Mg Tab) 40 mg PO QAM [facility] Stop: 04/02/21 08:59 Last Admin: 03/03/21 07:59 Dose: 40 mg Documented by: Finasteride (Finasteride 5 Mg Tab) 5 mg PO HS [facility] Stop: 04/01/21 20:59 Last Admin: 03/02/21 20:28 Dose: 5 mg Documented by: Ciprofloxacin (Cipro / D5w) 400 mg in 200 mls @ 100 mls/hr IV Q12H GRISELDA; Protocol Stop: 03/12/21 15:59 Last Infusion: 03/03/21 07:14 Dose: Infused Documented by: Metronidazole (Flagyl) 500 mg in 100 mls @ 100 mls/hr IV Q8H GRISELDA; Protocol Stop: 03/12/21 15:59 Last Infusion: 03/03/21 09:18 Dose: Infused Documented by: Linaclotide (Linaclotide 145 Mcg Capsule) 145 mcg PO DAILY GRISELDA Stop: 04/02/21 08:59 Lisinopril (Lisinopril 10 Mg Tab) 10 mg PO QAM GRISELDA Stop: 04/03/21 08:59 Magnesium Hydroxide (Magnesium Hydroxide Susp 30 Ml Udc) 30 ml PO Q12H PRN PRN Reason: Constipation Stop: 04/01/21 14:43 Morphine Sulfate (Morphine Sulfate 4 Mg/Ml 1 Ml Carp\Vial) 4 mg IV Q2H PRN PRN Reason: Pain Stop: 03/17/21 07:39 Multivitamins/Minerals (Cerovite Adv Formula Tab) 1 tab PO DAILY GRISELDA Stop: 04/02/21 08:59 Last Admin: 03/03/21 07:59 Dose: 1 tab Documented by: Ondansetron HCl (Ondansetron Inj 2 Mg/Ml 2 Ml Vial) 4 mg IV Q6H PRN PRN Reason: Nausea Stop: 04/01/21 14:43 Oxycodone HCl (Oxycodone Hcl Ir 5 Mg Tab (Immediate Release)) 5 mg PO Q6H PRN PRN Reason: Severe Pain Stop: 03/17/21 07:39 Last Admin: 03/03/21 07:58 Dose: 5 mg Documented by: Polyethylene Glycol (Polyethylene (Miralax) 17 Gm Pack) 17 gm PO DAILY PRN PRN Reason: Constipation Stop: 04/01/21 14:43 Psyllium Hydrophilic Mucilloid (Psyllium 58.6% Powder Packet) 1 pkt PO DAILY GRISELDA Stop: 04/02/21 08:59
[2021-03-03] MEDS: ALPRAZolam 0.5 MG TABLET PO PRN ×2 (15:45→21:03)
[2021-03-03] MEDS: lisinopril 10 MG TAB PO SCH (15:46)
[2021-03-03] MEDS: AMIODARONE 200 MG TAB PO SCH (21:03)
[2021-03-03] MEDS: FINASTERIDE 5 MG TAB PO SCH (21:03)
[2021-03-04] MEDS: metroNIDAZOLE 500 MG/100 ML BAG IV SCH ×2 (00:11→08:37)
[2021-03-04] MEDS: ALPRAZolam 0.5 MG TABLET PO PRN ×2 (00:22→20:33)
[2021-03-04] MEDS: CIPROFLOXACIN / D5W 400 MG/200 ML BAG IV SCH (04:11)
[2021-03-04 06:35] LABS: Estimated Average Glucose 120 mg/dl; Hemoglobin A1C 5.8 % (4.5-5.6)
[2021-03-04 06:59] LABS: Hematocrit (blood only) 35.9 % (42-52); Hemoglobin 11.5 g/dL (14.0-18.0); Mean Corpuscular Hemoglobin 31.4 pg (25-34); Mean Corpuscular Volume 98.1 fL (80-100); Mean Platelet Volume 11.3 fL (7.4-10.4); Nucleated RBC # (auto) 0.06 K/uL (0-0); Nucleated RBC % (auto) 0.5 %; Platelet Count 195 K/uL (130-400); RDW Coefficient of Variation 14.7 % (11.5-14.5); RDW Standard Deviation 52.7 fL (36.4-46.3); Red Blood Count 3.66 M/uL (4.7-6.1); White Blood Count 11.58 K/uL (4.8-10.8)
[2021-03-04] MEDS: CEROVITE ADV FORMULA TAB PO SCH (08:06)
[2021-03-04] MEDS: amLODIPine BESYLATE 5 MG TAB PO SCH (08:06)
[2021-03-04] MEDS: ATORVASTATIN 40 MG TAB PO SCH (08:06)
[2021-03-04] MEDS: lisinopril 10 MG TAB PO SCH (08:06)
--- NOTE | 2021-03-04 11:34 | Gastroenterology Progress Note ---
Date of Service March 04, 2021 Assessment & Plan (1) Diverticular hemorrhage: 85 year old male admitted with rectal bleeding s/p colonoscopy w/ bleeding site at diverticula, clipped, clinically feeling well. Continue diet as ordered Trend H&H Would watch overnight If remains stable, consider DC in the AM Admission and Anticipated Discharge Date Admission Date: March 02, 2021 Supervising Physician Co-Signing Physician Notes Attg add: I interviewed and examined pt, reviewed chart and labs. Pt with scant amt of brown-red stool this am. Abd is non tender, Hgb stable. Follow hgb overnight, plan for d/c tomorrow if hgb stable. Subjective Feeling well Had a brown/bloody stool this AM Less blood than prior No abd pain No nausea, vomiting. Colonoscopy reviewed. Review of Systems Review of Systems: All systems reviewed & are unremarkable except as noted in HPI & below Physical Exam Constitutional: WD/WN, vitals as above no acute distress Neck: trachea midline, no thyromegaly Respiratory: normal respiratory effort, lungs clear to auscultation Cardiovascular: RRR, no murmur, no edema Gastrointestinal (Abdomen): normal bowel sounds, soft, nontender, no hepatosplenomegaly Results & Data ([facility]) Vital Signs (Past 12 Hours) Vital Signs Temp Pulse Resp BP BP Pulse Ox 03/04/21 11:03 36.3 C L 90 20 149/87 H 100 03/04/21 06:57 36.7 C 73 18 145/80 H 94 Laboratory Results 03/04/21 03/03/21 Range/Units 06:20 03:54 WBC 11.58 H (4.8-10.8) K/uL RBC 3.66 L (4.7-6.1) M/uL Hgb 11.5 L (14.0-18.0) g/dL Hct 35.9 L (42-52) % MCV 98.1 (80-100) fL MCH 31.4 (25-34) pg MCHC 32.0 (32-36) g/dL RDW Std Deviation 52.7 H (36.4-46.3) fL RDW Coeff of Courtney 14.7 H (11.5-14.5) % Plt Count 195 (130-400) K/uL MPV 11.3 H (7.4-10.4) fL Absolute Nucleated RBC 0.06 H (0-0) K/uL Nucleated RBC % (auto) 0.5 % Estimat Average Glucose 120 mg/dl Hemoglobin A1c 5.8 H (4.5-5.6) %
--- NOTE | 2021-03-04 12:42 | Surgery Consultation ---
Date of Consultation March 04, 2021 Assessment & Plan (1) Recurrent inguinal hernia: Recurrent fat-containing hernia, asymptomatic. He is not lifting as much as he was while caring for his . He is not interested in repair and has plans for the summer. He can follow-up in clinic in a few months or sooner if he develops symptoms. Supervising Physician Co-Signing Physician Notes I personally saw and evaluated the patient with David Dumont PA-C and agree with the assessment and plan 85 yo male with recurrent right inguinal hernia, minimally symptomatic -CT images and results reviewed -No need for any surgical intervention while inpatient -He can follow up with myself or Dr. Smalls, whoever he prefers once he has recovered from his diverticular bleed History of Present Illness Attending Physician: Kena Knight, History of Present Illness 85 y/o male on coumadin for A-fib admitted for bloody BMs. Had colonoscopy yesterday, diverticular bleed was clipped. We were asked to see for incidental finding of recurrent inguinal hernia on CT. This was also present on CT 09/01 with similar appearance. Initial mesh repair of indirect hernia was 03/02/[address] Smalls. He has noticed a groin lump in the past, but has not had any pain. Allergies Allergy/AdvReac Type Severity Reaction Status Date / Time Sulfa (Sulfonamide Allergy Severe ITCHING Verified 03/02/21 10:34 Antibiotics) levofloxacin Allergy Intermediate BRADYCARDIA Verified 03/02/21 10:34 metronidazole Allergy Unknown PVC'S Verified 03/02/21 10:34 Penicillins Allergy Unknown HIVES Verified 03/02/21 10:34 meloxicam AdvReac Intermediate UPSET Verified 03/02/21 10:34 STOMACH sertraline AdvReac Intermediate GI SYMPTOMS Verified 03/02/21 10:34 doxycycline AdvReac Mild GI UPSET Verified 03/02/21 10:34 hydrocodone AdvReac Mild constipatio Verified 03/02/21 10:34 n Home Medications Medication Instructions Recorded Confirmed Type alprazolam [Xanax] 0.5 mg PO BID PRN 06/24/18 03/02/21 History amiodarone 200 mg PO HS 06/24/18 03/02/21 History amlodipine 2.5 mg PO QAM 06/24/18 03/02/21 History atorvastatin 40 mg PO QAM 06/24/18 03/02/21 History finasteride 5 mg PO HS 06/24/18 03/02/21 History lisinopril 10 mg PO QDL 06/24/18 03/02/21 History nitroglycerin [Nitrostat] 0.4 mg SUBLINGUAL DIRECTED PRN 06/24/18 03/02/21 History vit C,J-Ke-ijwqh-lutein-zeaxan 1 tab PO BID 06/24/18 03/02/21 History [PreserVision AREDS-2] multivitamin 1 tab PO QDL 03/18/19 03/02/21 History polyethylene glycol 3350 [Miralax] 17 g PO DAILY PRN 03/18/19 03/02/21 History warfarin 2.5 mg PO 5XWK 03/18/19 03/02/21 History warfarin 5 mg PO 2XWK 03/18/19 03/02/21 History psyllium seed (sugar) oral powder 1 tbs PO DAILY 01/26/20 03/02/21 History acetaminophen [Tylenol Extra 500 mg PO Q6H PRN 03/02/21 03/02/21 History Strength] aspirin [Aspir-81] 81 mg PO DAILY 03/02/21 03/02/21 History linaclotide [Linzess] 145 mcg PO DAILY 03/02/21 03/02/21 History Patient History Medical History Anticoagulated on warfarin Benign hypertension BPH (benign prostatic hypertrophy) C. difficile colitis Carcinoma of bladder Chronic pain of both shoulders COPD (chronic obstructive pulmonary disease) Coronary artery disease "cath 08/13/15 moderate mid RCA stenosis, indeterminate ostial LAD lesion" Depression Dyslipidemia History of squamous cell carcinoma of skin Hyperlipidemia Hypertension Macular degeneration Meningioma Neoplasm of ureter Osteoarthritis of shoulders, bilateral Paroxysmal atrial fibrillation Ulcer Surgical History History of colonoscopy History of urologic surgery Right ureterectomy with ureteral reimplantation 12/2012 Hx of inguinal hernia surgery Right Status post cardiac catheterization "[facility] 08/13/15 Dr. Sandra; moderate mid RCA, indeterminate ostial LAD" Status post cataract extraction Status post tonsillectomy Family History Mother Coronary heart disease Volvulus Brother Diabetes Social History Smoking Status: Former smoker Tobacco Type: Smokeless Tobacco (Dip or Chew) Do You Dip or Chew Tobacco: Yes (4 pouches a day); Hx Alcohol Use: No Hx Substance Use: No Preferred Language: Persian Communication Ability: Effective Visual Impairment: No Limitations Hearing Ability: Normal Beliefs That Will Affect Care: None marital status: / Current Living Situation: Family Current Living Situation Comment: daughter lives with Other Information That Helps Us Care for You: No Feels Safe at Home: Yes Safety Concerns: Feels Safe At This Time Assistive Devices: None Assistive Devices Comment: reading glasses, 3 partials in mouth Review of Systems Gastrointestinal: + diarrhea/loose stools and + blood in stools; no abdominal pain and no nausea Physical Exam Constitutional: WD/WN, vitals as above Gastrointestinal (Abdomen): right inguinal hernia present, nontender, not easily reducible Results & Data ([facility]) Vital Signs (Past 12 Hours) Vital Signs Temp Pulse Resp BP BP Pulse Ox 03/04/21 11:03 36.3 C L 90 20 149/87 H 100 03/04/21 06:57 36.7 C 73 18 145/80 H 94 PG Care Time/CCT Total # of Minutes Spent Total Time Spent with Patient: Total time spent is greater than 50% in coordination of care (as documented) at patient's floor/unit and/or counseling patient: Coding Level of Care Code 42269 Initial Inpt Care Lvl 1 Diagnoses Recurrent inguinal hernia K40.91
--- NOTE | 2021-03-04 16:11 | Hospitalist Progress Note ---
Date of Service March 04, 2021 Assessment & Plan (1) Acute GI bleeding: warfarin -associated GI bleeding. INR reversed with vitamin K. Diverticular bleed in descending colon seen on colonoscopy. Treated [facility] Pad[facility] clip. Cont to trend CBC in am and monitor clinically. (2) Paroxysmal atrial fibrillation: Cont holding warfarin and aspirin at this time. Cont amiodarone per home regimen. (3) Anticoagulated on warfarin: reversed with vitamin K on admission, discuss with GI appropriate restart for his coumadin. Patient needs follow-up [facility] anticoagulation clinic. (4) Coronary artery disease: Nonobstructive CAD, stable. Cont medical management with lisinopril, statin (5) Hypertension: controlled, cont current therapy (6) DVT prophylaxis: SCD/teds Full code Dispo: likely DC home in am as long as cleared with GI team. Kena Knight DO [facility] Hospitalist Admission and Anticipated Discharge Date Admission Date: March 02, 2021 Subjective 85 yo M presented with hematochezia Doing well today, tolerating p.o. A small stool described as brown mixed with some blood Denies abdominal pain, fevers, chills Hemodynamically stable and doing well overall. Review of Systems Review of Systems: All systems reviewed & are unremarkable except as noted in Subjective Physical Exam Physical Exam: CONSTITUTIONAL: WNWD, vitals as above, generally well- appearing EYES: normal conjunctivae, no scleral icterus ENT: external ear and nose normal, MMM RESPIRATORY: clear to auscultation bilaterally, no crackles, rales or wheezes, normal respiratory effort CARDIOVASCULAR: regular rate and rhythm, S1 and 2 heard without murmurs, gallops or rubs, no JVD, no peripheral edema GASTROINTESTINAL: soft, nontender, nondistended MUSCULOSKELETAL: strength 5/5 throughout, head is normocephalic and atraumatic SKIN: warm and dry NEUROLOGIC: CN 2-12 grossly intact, no sensory deficit, normal cognition, normal speech, no tremor, no gross focal deficits. PSYCHIATRIC: alert cooperative and oriented to person, place and time. Results & Data Results & Data ([facility]) Vital Signs (Past 12 Hours) Vital Signs Temp Pulse Resp BP BP Pulse Ox 03/04/21 15:03 36.7 C 73 20 115/75 95 03/04/21 11:03 36.3 C L 90 20 149/87 H 100 03/04/21 06:57 36.7 C 73 18 145/80 H 94 Laboratory Results Short CBC 03/04/21 Range/Units 06:20 WBC 11.58 H (4.8-10.8) K/uL Hgb 11.5 L (14.0-18.0) g/dL Hct 35.9 L (42-52) % Plt Count 195 (130-400) K/uL Medications Administered Current Inpatient Medications Acetaminophen (Acetaminophen 325 Mg Tab) 650 mg PO Q4H PRN PRN Reason: Pain or Fever Stop: 04/01/21 14:43 Last Admin: 03/02/21 22:58 Dose: 650 mg Documented by: Al Hydrox/Mg Hydrox/Simethicone (Aluminum/Magnesium Susp 30 Ml Udc) 15 ml PO Q4H PRN PRN Reason: Dyspepsia Stop: 04/01/21 14:43 Alprazolam (Alprazolam 0.5 Mg Tablet) 0.5 mg PO BID PRN PRN Reason: Anxiety Stop: 04/01/21 14:43 Last Admin: 03/04/21 00:22 Dose: 0.5 mg Documented by: Alprazolam (Alprazolam 0.5 Mg Tablet) 0.5 mg PO HS PRN PRN Reason: anxiety/insomnia Stop: 04/02/21 19:37 Last Admin: 03/03/21 21:03 Dose: 0.5 mg Documented by: Amiodarone HCl (Amiodarone 200 Mg Tab) 200 mg PO HS GRISELDA Stop: 04/01/21 20:59 Last Admin: 03/03/21 21:03 Dose: 200 mg Documented by: Amlodipine Besylate (Amlodipine Besylate 5 Mg Tab) 2.5 mg PO QAM [facility] Stop: 04/02/21 08:59 Last Admin: 03/04/21 08:06 Dose: 2.5 mg Documented by: Atorvastatin Calcium (Atorvastatin 40 Mg Tab) 40 mg PO QAM GRISELDA Stop: 04/02/21 08:59 Last Admin: 03/04/21 08:06 Dose: 40 mg Documented by: Finasteride (Finasteride 5 Mg Tab) 5 mg PO HS GRISELDA Stop: 04/01/21 20:59 Last Admin: 03/03/21 21:03 Dose: 5 mg Documented by: Linaclotide (Linaclotide 145 Mcg Capsule) 145 mcg PO DAILY GRISELDA Stop: 04/02/21 08:59 Lisinopril (Lisinopril 10 Mg Tab) 10 mg PO QAM GRISELDA Stop: 04/03/21 08:59 Last Admin: 03/04/21 08:06 Dose: 10 mg Documented by: Magnesium Hydroxide (Magnesium Hydroxide Susp 30 Ml Udc) 30 ml PO Q12H PRN PRN Reason: Constipation Stop: 04/01/21 14:43 Morphine Sulfate (Morphine Sulfate 4 Mg/Ml 1 Ml Carp\Vial) 4 mg IV Q2H PRN PRN Reason: Pain Stop: 03/17/21 07:39 Multivitamins/Minerals (Cerovite Adv Formula Tab) 1 tab PO DAILY GRISELDA Stop: 04/02/21 08:59 Last Admin: 03/04/21 08:06 Dose: 1 tab Documented by: Ondansetron HCl (Ondansetron Inj 2 Mg/Ml 2 Ml Vial) 4 mg IV Q6H PRN PRN Reason: Nausea Stop: 04/01/21 14:43 Oxycodone HCl (Oxycodone Hcl Ir 5 Mg Tab (Immediate Release)) 5 mg PO Q6H PRN PRN Reason: Severe Pain Stop: 03/17/21 07:39 Last Admin: 03/03/21 07:58 Dose: 5 mg Documented by: Polyethylene Glycol (Polyethylene (Miralax) 17 Gm Pack) 17 gm PO DAILY PRN PRN Reason: Constipation Stop: 04/01/21 14:43 Psyllium Hydrophilic Mucilloid (Psyllium 58.6% Powder Packet) 1 pkt PO DAILY GRISELDA Stop: 04/02/21 08:59
[2021-03-04] MEDS: AMIODARONE 200 MG TAB PO SCH (20:33)
[2021-03-04] MEDS: FINASTERIDE 5 MG TAB PO SCH (20:33)
[2021-03-05] MEDS: ALPRAZolam 0.5 MG TABLET PO PRN (03:29)
[2021-03-05 07:33] LABS: Hematocrit (blood only) 35.8 % (42-52); Hemoglobin 11.6 g/dL (14.0-18.0); Mean Corpuscular Hemoglobin 31.8 pg (25-34); Mean Corpuscular Hgb Conc 32.4 g/dL (32-36); Mean Corpuscular Volume 98.1 fL (80-100); Mean Platelet Volume 11.2 fL (7.4-10.4); Platelet Count 192 K/uL (130-400); RDW Coefficient of Variation 14.8 % (11.5-14.5); RDW Standard Deviation 53.2 fL (36.4-46.3); Red Blood Count 3.65 M/uL (4.7-6.1); White Blood Count 11.36 K/uL (4.8-10.8)
[2021-03-05] MEDS: lisinopril 10 MG TAB PO SCH (08:12)
[2021-03-05] MEDS: amLODIPine BESYLATE 5 MG TAB PO SCH (08:12)
[2021-03-05] MEDS: CEROVITE ADV FORMULA TAB PO SCH (08:12)
[2021-03-05] MEDS: ATORVASTATIN 40 MG TAB PO SCH (08:12)
--- NOTE | 2021-03-05 09:52 | Gastroenterology Progress Note ---
Date of Service March 05, 2021 Assessment & Plan (1) Diverticular hemorrhage: 85 year old male admitted with rectal bleeding s/p colonoscopy w/ bleeding site at diverticula, clipped, clinically feeling well. Continue diet as ordered No contraindication to discharge home Resume OP medications including linzess and miralax Admission and Anticipated Discharge Date Admission Date: March 02, 2021 Supervising Physician Co-Signing Physician Notes attg add: iinterviewed and examined pt, reviewed chart and labs. Pt without further bleeding, hgb stable. plan as above. Subjective No concerns overnight No abd pain No further BM Wants to go home Review of Systems Review of Systems: All systems reviewed & are unremarkable except as noted in HPI & below Physical Exam Constitutional: WD/WN, vitals as above no acute distress Neck: trachea midline, no thyromegaly Respiratory: normal respiratory effort, lungs clear to auscultation Cardiovascular: RRR, no murmur, no edema Gastrointestinal (Abdomen): normal bowel sounds, soft, nontender, no hepatosplenomegaly Results & Data ([facility]) Vital Signs (Past 12 Hours) Vital Signs Temp Pulse Resp BP Pulse Ox 03/05/21 07:40 36.8 C 80 18 152/76 H 94 03/04/21 23:54 36.5 C 70 16 123/72 95
--- NOTE | 2021-03-05 11:54 | Hospitalist Progress Note ---
Date of Service March 05, 2021 Assessment & Plan (1) Acute GI bleeding: warfarin -associated GI bleeding. INR reversed with vitamin K. Diverticular bleed in descending colon seen on colonoscopy. Treated [facility] Pad[facility] clip. Appreciate GI input and recommendation Hemoglobin remains stable and no more bleeding Denies any other symptoms except minimal weakness To be discharged home this afternoon and Coumadin can be restarted from tomorrow (2) Paroxysmal atrial fibrillation: Cont amiodarone per home regimen. We will restart Coumadin and aspirin from tomorrow as per her product marketing consultant (3) Anticoagulated on warfarin: reversed with vitamin K on admission, Patient needs follow-up [facility] anticoagulation clinic. Anticoagulation will be started from tomorrow (4) Coronary artery disease: Nonobstructive CAD, stable. Cont medical management with lisinopril, statin No acute symptoms (5) Hypertension: controlled, cont current therapy (6) DVT prophylaxis: SCD/teds Full code Dispo: likely DC home in am as long as cleared with GI team. We will discharge him home this afternoon Admission and Anticipated Discharge Date Admission Date: March 02, 2021 Subjective 03/05/2021 The patient was seen and examined in medical telemetry unit He has been feeling much better and only complains to have some weakness Denies any more blood per rectum and has been moving bowel Denies any other symptoms Review of Systems Review of Systems: All systems reviewed and are unremarkable except as noted below Neurologic: + generalized weakness Physical Exam 2 Physical Exam: Sitting on a chair without any acute distress Constitutional: well developed and well nourished; not ill appearing Eyes: PERRL, conjunctivae normal, anicteric sclerae ENMT: external ear and nose normal, oropharynx normal Neck: trachea midline, no thyromegaly Respiratory: no respiratory distress Auscultation: lungs clear to auscultation bilaterally Cardiovascular: Rate/Rhythm: + irregularly irregular Heart Sounds: no murmur Extremities: + edema (Trace edema bilaterally) Gastrointestinal (Abdomen): Inspection/Auscultation: normal bowel sounds; abdomen not distended Percussion/Palpation: abdomen soft; abdomen nontender Musculoskeletal: No acute arthritis in any joint Neurologic: Alert, awake and oriented x3. Generally weak but no focal neuro deficit. Has minimal tremors at rest Psychiatric: A+Ox3, euthymic affect Lymphatic: no cervical or axillary lymphadenopathy Results & Data Results & Data ([facility]) Vital Signs (Past 12 Hours) Vital Signs Temp Pulse Resp BP Pulse Ox 03/05/21 07:40 36.8 C 80 18 152/76 H 94 03/04/21 23:54 36.5 C 70 16 123/72 95 Laboratory Results Short CBC 03/05/21 Range/Units 06:55 WBC 11.36 H (4.8-10.8) K/uL Hgb 11.6 L (14.0-18.0) g/dL Hct 35.8 L (42-52) % Plt Count 192 (130-400) K/uL Medications Administered Current Inpatient Medications Acetaminophen (Acetaminophen 325 Mg Tab) 650 mg PO Q4H PRN PRN Reason: Pain or Fever Stop: 04/01/21 14:43 Last Admin: 03/02/21 22:58 Dose: 650 mg Documented by: Al Hydrox/Mg Hydrox/Simethicone (Aluminum/Magnesium Susp 30 Ml Udc) 15 ml PO Q4H PRN PRN Reason: Dyspepsia Stop: 04/01/21 14:43 Alprazolam (Alprazolam 0.5 Mg Tablet) 0.5 mg PO BID PRN PRN Reason: Anxiety Stop: 04/01/21 14:43 Last Admin: 03/04/21 20:33 Dose: 0.5 mg Documented by: Alprazolam (Alprazolam 0.5 Mg Tablet) 0.5 mg PO HS PRN PRN Reason: anxiety/insomnia Stop: 04/02/21 19:37 Last Admin: 03/05/21 03:29 Dose: 0.5 mg Documented by: Amiodarone HCl (Amiodarone 200 Mg Tab) 200 mg PO HS GRISELDA Stop: 04/01/21 20:59 Last Admin: 03/04/21 20:33 Dose: 200 mg Documented by: Amlodipine Besylate (Amlodipine Besylate 5 Mg Tab) 2.5 mg PO QAM [facility] Stop: 04/02/21 08:59 Last Admin: 03/05/21 08:12 Dose: 2.5 mg Documented by: Atorvastatin Calcium (Atorvastatin 40 Mg Tab) 40 mg PO QAM GRISELDA Stop: 04/02/21 08:59 Last Admin: 03/05/21 08:12 Dose: 40 mg Documented by: Finasteride (Finasteride 5 Mg Tab) 5 mg PO HS [facility] Stop: 04/01/21 20:59 Last Admin: 03/04/21 20:33 Dose: 5 mg Documented by: Linaclotide (Linaclotide 145 Mcg Capsule) 145 mcg PO DAILY [facility] Stop: 04/02/21 08:59 Lisinopril (Lisinopril 10 Mg Tab) 10 mg PO QAM GRISELDA Stop: 04/03/21 08:59 Last Admin: 03/05/21 08:12 Dose: 10 mg Documented by: Magnesium Hydroxide (Magnesium Hydroxide Susp 30 Ml Udc) 30 ml PO Q12H PRN PRN Reason: Constipation Stop: 04/01/21 14:43 Morphine Sulfate (Morphine Sulfate 4 Mg/Ml 1 Ml Carp\Vial) 4 mg IV Q2H PRN PRN Reason: Pain Stop: 03/17/21 07:39 Multivitamins/Minerals (Cerovite Adv Formula Tab) 1 tab PO DAILY [facility] Stop: 04/02/21 08:59 Last Admin: 03/05/21 08:12 Dose: 1 tab Documented by: Ondansetron HCl (Ondansetron Inj 2 Mg/Ml 2 Ml Vial) 4 mg IV Q6H PRN PRN Reason: Nausea Stop: 04/01/21 14:43 Oxycodone HCl (Oxycodone Hcl Ir 5 Mg Tab (Immediate Release)) 5 mg PO Q6H PRN PRN Reason: Severe Pain Stop: 03/17/21 07:39 Last Admin: 03/03/21 07:58 Dose: 5 mg Documented by: Polyethylene Glycol (Polyethylene (Miralax) 17 Gm Pack) 17 gm PO DAILY PRN PRN Reason: Constipation Stop: 04/01/21 14:43 Psyllium Hydrophilic Mucilloid (Psyllium 58.6% Powder Packet) 1 pkt PO DAILY [facility] Stop: 04/02/21 08:59
--- NOTE | 2021-03-05 17:54 | Discharge Summary ---
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 Symptoms started on whenever he would have a bowel movement he would also had a ring of red blood noted in toilet bowl. He persistently continued to have bright red blood with bowel movements for the past 2 days. When he woke up this morning he had the urge to have a bowel movement and passed a large amount of melena without stool. Since being in ED he is also passing an additional 2 more BMs. Further he complains of having left-sided intermittent abdominal discomfort. Pain waxes and wanes, improves with bowel movement, last several hours, described as a dull ache and, "bothersome." He denies ever having similar symptoms before. He further denies any fever, chills, sweats, lightheadedness, dizziness, syncope, chest pain, shortness breath, EDUARDO, nausea, vomiting, diarrhea, increased urgency with urination, or hematuria. He does have difficulty with chronic constipation. He follows with gastroenterology in approximately 2 to 3 months ago was started on Linzess. This has helped significantly as his bowel movements are typically on the looser side. He also occasionally takes Metamucil and MiraLAX as needed. He does admit to straining approximately 2 days ago but denies any pain with bowel movement. He has been eating and drinking normally and appetite is normal. In ED patient remained hemodynamically stable, mildly hypertensive. Lab work notable for H&H 15.3 and 47.6, WBC 13.01, INR 2.8, BUN 25, creatinine 1.20, glucose 126. CT abdomen pelvis reveals diverticulosis of descending and sigmoid colon with a possible development of diverticulitis. Also noted is fat-containing inguinal hernia with hypoattenuating collection in its anterior aspect and possible mild fat stranding. In ED he received IV fluid. Admission Exam Per Admitting Provider Physical Exam: Constitutional: WD/WN, vitals as above, NAD, sitting up in bed, pleasant, conversing easily Head: Normocephalic, Atraumatic Eyes: PERRL, conjunctivae normal, anicteric sclerae ENMT: external ear and nose normal, oropharynx normal Neck: trachea midline, no thyromegaly normal visual inspection Respiratory: normal respiratory effort, lungs clear to auscultation, no wheeze, rales, rhonchi. Normal insp/exp effort, no accessory muscle use Cardiovascular: RRR, no murmur, no edema Vessels: no JVD or carotid bruit Chest: normal inspection of chest Abdomen: normal bowel sounds, soft, mild tenderness to palpation left lower quadrant, no rebound, no guarding, no rigidity, no hepatosplenomegaly Musculoskeletal: no cyanosis or clubbing, extremities motor strength 5/5 Skin: no rashes, warm and dry normal turgor Neurologic: PERRL, EOMI, accommodation nl, no face palsy, no dysarthria CN's II-XI intact bilaterally and moves all extremities Psychiatric: A+Ox3, euthymic affect Lymphatic: no cervical or axillary lymphadenopathy : Rectal exam normal, no fissure or hemorrhoid Principal Diagnosis Acute diverticular bleed status post colonoscopy with successful clipping of the bleeding vessel, paroxysmal atrial fibrillation on Coumadin, CAD, hypertension Discharge Exam Constitutional well developed and well nourished; not ill appearing Eyes PERRL, conjunctivae normal, anicteric sclerae ENMT external ear and nose normal, oropharynx normal Neck trachea midline, no thyromegaly Respiratory no respiratory distress Auscultation: lungs clear to auscultation bilaterally Cardiovascular Rate/Rhythm: + irregularly irregular Heart Sounds: no murmur Extremities: + edema (Trace edema bilaterally) Gastrointestinal (Abdomen) Inspection/Auscultation: normal bowel sounds; abdomen not distended Percussion/Palpation: abdomen soft; abdomen nontender Psychiatric A+Ox3, euthymic affect Lymphatic no cervical or axillary lymphadenopathy Discharge Data Allergies Allergy/AdvReac Type Severity Reaction Status Date / Time Sulfa (Sulfonamide Allergy Severe ITCHING Verified 03/02/21 10:34 Antibiotics) levofloxacin Allergy Intermediate BRADYCARDIA Verified 03/02/21 10:34 metronidazole Allergy Unknown PVC'S Verified 03/02/21 10:34 Penicillins Allergy Unknown HIVES Verified 03/02/21 10:34 meloxicam AdvReac Intermediate UPSET Verified 03/02/21 10:34 STOMACH sertraline AdvReac Intermediate GI SYMPTOMS Verified 03/02/21 10:34 doxycycline AdvReac Mild GI UPSET Verified 03/02/21 10:34 hydrocodone AdvReac Mild constipatio Verified 03/02/21 10:34 n Consultations 03/02/21 12:19 Consult Gastroenterology Routine 03/04/21 08:27 Consult General Surgery Routine Procedures Performed Operation Date: 03/03/21 15:00 Actual Procedures p Colonoscopy Hemostasis - Moe Bustamante MD Ordered Studies 03/02/21 09:46 CT abd pelvis IV con only Stat 03/03/21 US abdomen limited Routine Hospital Course (1) Acute GI bleeding: warfarin -associated GI bleeding. INR reversed with vitamin K. Diverticular bleed in descending colon seen on colonoscopy. Treated [facility] clip. Appreciate GI input and recommendation Hemoglobin remains stable and no more bleeding Denies any other symptoms except minimal weakness To be discharged home this afternoon and Coumadin can be restarted from tomorrow (2) Paroxysmal atrial fibrillation: Cont amiodarone per home regimen. We will restart Coumadin and aspirin from tomorrow as per her marble coper (3) Anticoagulated on warfarin: reversed with vitamin K on admission, Patient needs follow-up [facility] anticoagulation clinic. Anticoagulation will be started from tomorrow (4) Coronary artery disease: Nonobstructive CAD, stable. Cont medical management with lisinopril, statin No acute symptoms (5) Hypertension: controlled, cont current therapy (6) DVT prophylaxis: SCD/teds Full code Dispo: likely DC home in am as long as cleared with GI team. We will discharge him home this afternoon Total Time Total Time Spent Total Time Spent (In Minutes): 35 minutes Total Time Includes: Examination of the Patient, Discharge Planning, Medication Reconciliation and Communication With Other Providers Discharge Plan Discharge Items Patient Disposition: Home - Self-Care Reason For Visit: HEMATOCHEZIA,PRESUMED GIB Discharge Diagnosis: Acute diverticular bleed status post colonoscopy with successful clipping of the bleeding vessel, paroxysmal atrial fibrillation on Coumadin, CAD, hypertension Condition on Discharge: Fair Activity: Resume your previous activity Non-emergency contact: Primary Care Provider Call non-emergency contact if: you have any medication questions and your symptoms worsen Follow-up/Referrals: Marianne Whyte PA-C [Physician Investigations Consultant] - (Date & Time 03/11/2021 12:30 PM Provider Marianne Whyte PA-C Department Cardiology, [facility] ) Reinaldo Bill, [Primary Care Provider] - (Date & Time 03/11/2021 10:20 AM Provider Evette Leach MD Department General Internal Medicine [facility] ) Diet: Regular Addtl Attending Provider Instructions: Please take extra precautions to avoid fall You can restart your Coumadin and aspirin from tomorrow that is from 03/06/2021 No change of your other medications Please keep your follow-up appointments Coumadin clinic has been notified Pending Studies at Discharge: No Stand-Alone Forms: My [facility] Realtime Games, Smoking Cessation Medications and DC Order Prescriptions: Continued Metamucil (sugar) Powder 1 tbs PO DAILY RF: 0 atorvastatin 40 mg Tablet 40 mg PO QAM RF: 0 amiodarone 200 mg Tablet 200 mg PO HS RF: 0 amlodipine 5 mg Tablet 2.5 mg PO QAM RF: 0 alprazolam [Xanax] 0.5 mg Tablet 0.5 mg PO BID PRN (Reason: Anxiety) RF: 0 lisinopril 10 mg Tablet 10 mg PO QDL RF: 0 nitroglycerin [Nitrostat] 0.4 mg Tablet, Sublingual 0.4 mg Sublingual DIRECTED PRN (Reason: Chest Pain) RF: 0 finasteride 5 mg Tablet 5 mg PO HS RF: 0 PreserVision AREDS-2 [id number] Capsule 1 tab PO BID RF: 0 multivitamin Tablet 1 tab PO QDL RF: 0 polyethylene glycol 3350 [Miralax] 17 gram Powder In Packet 17 g PO DAILY PRN (Reason: Constipation) RF: 0 warfarin 5 mg tablet 2.5 mg PO 5XWK RF: 0 warfarin 5 mg tablet 5 mg PO 2XWK RF: 0 aspirin 81 mg Tablet,Delayed Release (Dr/Ec) 81 mg PO DAILY RF: 0 Linzess 145 mcg capsule 145 mcg PO DAILY RF: 0 acetaminophen [Tylenol Extra Strength] 500 mg Tablet 500 mg PO Q6H PRN (Reason: Pain) RF: 0 Discharge Orders: Discharge Order (Routine); Ordered 03/05/21 Ordered By: Laura Dash Admission Data Admit Date/Time: 03/02/21 12:19 Attending Provider: Laura Dash Admit Provider: Kena Knight Primary Care Provider: Reinaldo Bill Other Providers: Moe Bustamante ; David Dumont Jr ; Kena Knight Other Interventions: Discharge Summary Assessment (RN) Last Done: 03/05/21 12:17
== END 2021-03-05 14:12 | disposition home or self-care (01) ==
LOC: ED 09:12 → INTOOBSV 12:19 → 2N 12:19 → SUATTDRO 12:19 → 2N 14:07

== ENCOUNTER 2021-12-04 07:04 | Inpatient (IN) ==
--- NOTE | 2021-12-04 07:33 | Emergency Department Note ---
History of Present Illness General Chief complaint: Fall Stated complaint: FALL, Time Seen by Provider: 12/04/21 07:18 History of Present Illness Maximum Pain Intensity: 5 86-year-old male presents to the ED with a chief complaint of a fall. The patient states that around 4 AM he had the need to urinate. He states that he walk to the bathroom on his own and then on the way back he stumbled and reached for a chair. He states that the chair tipped over causing him to fall. The patient subsequently hit his head on something. He states that he has some pain and a small bump on the back of his head. Denies loss of consciousness. Is any other symptoms. He was noted to have a low pulse ox on scene and in the emergency department. He does not use home oxygen. His room air saturations here was 84%. The patient denies any shortness of breath. He denies any chest pains. He does report a chronic cough since May but nothing new. Denies any fevers. No additional complaints at this time. Home Medications Medication Instructions Recorded Confirmed Type alprazolam 0.5 mg tablet (Xanax) 0.5 mg PO BID PRN 06/24/18 12/04/21 History amiodarone 200 mg tablet 200 mg PO HS 06/24/18 12/04/21 History atorvastatin 40 mg tablet 40 mg PO QAM 06/24/18 12/04/21 History finasteride 5 mg tablet 5 mg PO HS 06/24/18 12/04/21 History lisinopril 10 mg tablet 10 mg PO HS 06/24/18 12/04/21 History nitroglycerin 0.4 mg sublingual 0.4 mg SUBLINGUAL DIRECTED PRN 06/24/18 12/04/21 History tablet (Nitrostat) vit C 250 mg-vit E 90 mg-zinc 40 1 tab PO BID 06/24/18 12/04/21 History mg-copper 1 [id number] capsule (PreserVision AREDS-2) multivitamin 1 tab PO QDL 03/18/19 12/04/21 History polyethylene glycol 3350 17 gram 17 g PO BID 03/18/19 12/04/21 History oral powder packet (Miralax) psyllium seed (sugar) oral powder 2 tbsp PO BID 01/26/20 12/04/21 History (Metamucil (sugar)) aspirin 81 mg tablet,delayed 81 mg PO DAILY 03/02/21 12/04/21 History release bisacodyl 10 mg rectal suppository 10 mg FL DAILY PRN 09/23/21 12/04/21 History sodium phosphates 19 gram-7 118 ml FL Q3D PRN 09/23/21 12/04/21 History gram/118 mL enema (Fleet Enema) amlodipine 5 mg tablet 5 mg PO QAM tab 10/30/21 12/04/21 History lidocaine 4 % topical patch 1 patch TOPICAL Q8H PRN ea 10/30/21 12/04/21 History (Salonpas (lidocaine)) triamcinolone acetonide 0.1 % 1 applic TOPICAL DAILY PRN 10/30/21 12/04/21 History topical cream acetaminophen 500 mg tablet 500 mg PO QID 12/04/21 12/04/21 History acetaminophen 650 mg rectal 650 mg FL Q4 PRN MDD 3g 12/04/21 12/04/21 History suppository acetaminophen 650 mg rectal 650 mg FL Q4H PRN MDD 3g 12/04/21 12/04/21 History suppository carboxymethylcellulose sodium 0.25 1 drp OPB UD PRN 12/04/21 12/04/21 History % eye drops (TheraTears) fluoride (sodium) 1.1 % dental 1 applic DENTAL DAILY 12/04/21 12/04/21 History cream (PreviDent 5000 Plus) guaifenesin 600 mg tablet, 600 mg PO Q12H 12/04/21 12/04/21 History extended release 12 hr (Mucinex) linaclotide 290 mcg capsule 290 mcg PO QAM 12/04/21 12/04/21 History (Linzess) oxycodone 5 mg tablet 7.5 mg PO TID 12/04/21 12/04/21 History Allergies Allergy/AdvReac Type Severity Reaction Status Date / Time Sulfa (Sulfonamide Allergy Severe ITCHING Verified 10/30/21 11:24 Antibiotics) levofloxacin Allergy Intermediate BRADYCARDIA Verified 10/30/21 11:24 metronidazole Allergy Unknown PVC'S Verified 10/30/21 11:24 Penicillins Allergy Unknown HIVES Verified 10/30/21 11:24 meloxicam AdvReac Intermediate UPSET Verified 10/30/21 11:24 STOMACH sertraline AdvReac Intermediate GI SYMPTOMS Verified 10/30/21 11:24 doxycycline AdvReac Mild GI UPSET Verified 10/30/21 11:24 hydrocodone AdvReac Mild constipatio Verified 10/30/21 11:24 n Past Med/Surg History Medical History Abnormal chest CT Acute GI bleeding Anticoagulated on warfarin Atherosclerotic heart disease of [place] coronary artery without angina pectoris BPH (benign prostatic hypertrophy) Brain metastases C. 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 Sandra; moderate mid RCA, indeterminate ostial LAD" Status post cataract extraction Status post tonsillectomy Family History Mother Coronary heart disease Volvulus Brother Diabetes Social History Smoking Status: Never smoker Tobacco Type: Smokeless Tobacco (Dip or Chew) Hx Alcohol Use: No Hx Substance Use: No Preferred Language: Polish Communication Ability: Effective Visual Impairment: No Limitations Hearing Ability: Normal Paintless Dent Repair Technician Required: No Beliefs That Will Affect Care: None marital status: / Current Living Situation: Care Home Current Living Situation Comment: daughter lives with Feels Safe at Home: Yes Assistive Devices: Walker Review of Systems A total of 10 systems reviewed and were otherwise negative Physical Exam Vital Signs Vital Signs - 24 hr 12/04/21 07:05 12/04/21 07:40 12/04/21 08:00 Temperature 36.7 C Temperature Source Oral Pulse Rate 92 H 85 81 Pulse Rate from SpO2 Sensor 82 Pulse Rhythm Regular Respiratory Rate 20 20 26 H Respiratory Effort / Characteristics Non-Labored Respiratory Depth Normal Respiratory Pattern Regular Blood Pressure 101/53 L Blood Pressure Mean 69 Pulse Oximetry 84 L 95 96 Oxygen Delivery Method Room Air Nasal Cannula Nasal Cannula Oxygen Flow Rate 4 3 Sepsis Recent Fever Within 48 Hours No Sepsis New/Unexplained Change in Mental Status No Sepsis Action Taken by Nursing No Action Required 12/04/21 08:30 12/04/21 09:17 12/04/21 09:30 Temperature Temperature Source Pulse Rate 92 H 90 84 Pulse Rate from SpO2 Sensor 92 H 90 Pulse Rhythm Respiratory Rate 22 17 16 Respiratory Effort / Characteristics Respiratory Depth Respiratory Pattern Blood Pressure 132/79 138/63 128/62 Blood Pressure Mean 96 88 84 Pulse Oximetry 95 94 Oxygen Delivery Method Nasal Cannula Oxygen Flow Rate 3 Sepsis Recent Fever Within 48 Hours Sepsis New/Unexplained Change in Mental Status Sepsis Action Taken by Nursing CONSTITUTIONAL/VITAL SIGNS: Reviewed / noted above. GENERAL: Non-toxic in appearance. INTEGUMENTARY: Warm, dry, and [place]. HEAD: Some tenderness to palpation of the occipital region otherwise no Rashmi hematomas were noted. No midline tenderness to the neck. EYES: without scleral icterus or trauma. ENT/OROPHARYNX: clear and moist. LYMPHADENOPATHY/NECK: Is supple without lymphadenopathy or meningismus. RESPIRATORY: Clear to auscultation bilaterally. No increased work of breathing. CARDIOVASCULAR: Regular rate and rhythm. CHEST: Swell tenderness. GI/ABDOMEN: Soft and nontender. No organomegaly or pulsatile mass. EXTREMITIES: Warm and well perfused. BACK: No CVA tenderness. NEUROLOGICAL: Intact without focal deficits. PSYCHIATRIC: normal affect. MUSCULOSKELETAL: Normally developed with good muscle tone. TRIAGE NURSING DOCUMENTATION REVIEWED. Course Administered Medications Discontinued Medications Albuterol (Albut/Ipratrop 3mg/0.5mg Neb 3 Ml Vial) 3 ml NEB NOW STA; Protocol Stop: 12/04/21 08:46 Last Admin: 12/04/21 09:24 Dose: 3 ml Documented by: [id number] Cefepime HCl (Maxipime) 2,000 mg in 20 mls @ 5 mls/min IV NOW STA; Protocol Stop: 12/04/21 09:15 Last Admin: 03/23/22 09:24 Dose: 5 mls/min Documented by: [id number] Ioversol (Optiray 320 125ml) 120 ml IV ONCE ONE Stop: 12/04/21 09:07 Last Admin: 12/04/21 09:06 Dose: 120 ml Documented by: [id number] Medical Decision Making Differential Diagnosis Differential includes close head injury, intracranial bleed, facial trauma, cervical spine trauma, chest and thoracic trauma, abdominal and intra-abdominal trauma, spine neurologic trauma, extremity trauma. The differential was considered includes acute myocardial infarction, acute coronary syndrome, myocarditis, pericarditis, pericardial effusions /tamponad, esophageal perforation, pulmonary embolism, pneumonia, pneumothorax, cardiomyopathy, congestive heart, anemia , COPD/asthma exacerbation. Medical Records Attestation: I reviewed the patient's medical records. Home Medications Current Medication List: was personally reviewed by me Laboratory Data Attestation: I reviewed the patient's lab results. Result diagrams: 12/04/21 07:43 12/04/21 07:43 Lab Results 12/04/21 12/04/21 12/04/21 Range/Units 07:43 07:43 07:43 WBC 25.52 H (4.8-10.8) K/uL RBC 3.02 L (4.7-6.1) M/uL Hgb 8.5 L (14.0-18.0) g/dL Hct 27.3 L (42-52) % MCV 90.4 (80-100) fL MCH 28.1 (25-34) pg MCHC 31.1 L (32-36) g/dL RDW Std Deviation 55.0 H (36.4-46.3) fL RDW Coeff of Courtney 16.6 H (11.5-14.5) % Plt Count 307 (130-400) K/uL MPV 9.8 (7.4-10.4) fL Immature Gran % (Auto) 0.5 % Neut % (Auto) 86.6 % Lymph % (Auto) 5.8 % [place] % (Auto) 6.9 % Eos % (Auto) 0.1 % Baso % (Auto) 0.1 % Neut # (Auto) 22.10 H (1.4-6.5) K/uL Lymph # (Auto) 1.48 (1.2-3.4) K/uL [place] # (Auto) 1.77 H (0.11-0.59) K/uL Eos # (Auto) 0.02 (0-0.5) K/uL Baso # (Auto) 0.02 (0-0.2) K/uL Immature Gran # (Auto) 0.13 H (0.00-0.02) K/uL RBC Morphology Unremarkable Sodium 142 (136-145) mmol/L Potassium 3.8 (3.5-5.1) mmol/L Chloride 107 (98-107) mmol/L Carbon Dioxide 28 (21-32) mmol/L Anion Gap 7 (3-11) BUN 52 H (6-23) mg/dl Creatinine 1.38 (0.6-1.4) mg/dl Est Cr Clr Drug Dosing 42.2 ml/min Est GFR ( Amer) 53.3 ml/min Est GFR (Non-Af Amer) 46.0 ml/min BUN/Creatinine Ratio 37.7 H (10-20) Glucose 128 H (70-99(Fasting)) mg/dl Calcium 9.8 (8.5-10.1) mg/dl Total Bilirubin 0.9 (0.2-1.0) mg/dl AST 25 (13-39) U/L ALT 33 (7-52) U/L Alkaline Phosphatase 80 (34-104) U/L Troponin I 0.03 (0-0.04) ng/ml B-Natriuretic Peptide 124 H (0-100) pg/ml Total Protein 5.8 L (6.0-8.3) gm/dl Albumin 2.6 L (3.4-5.0) gm/dl Globulin 3.2 (2.5-4.0) gm/dl Albumin/Globulin Ratio 0.8 L (0.9-2) SARS-CoV-2 (PCR) (Negative) Influenza Type A (PCR) (Neg) Influenza Type B (PCR) (Neg) RSV (RT-PCR) (Neg) 12/04/21 Range/Units 07:48 WBC (4.8-10.8) K/uL RBC (4.7-6.1) M/uL Hgb (14.0-18.0) g/dL Hct (42-52) % MCV (80-100) fL MCH (25-34) pg MCHC (32-36) g/dL RDW Std Deviation (36.4-46.3) fL RDW Coeff of Courtney (11.5-14.5) % Plt Count (130-400) K/uL MPV (7.4-10.4) fL Immature Gran % (Auto) % Neut % (Auto) % Lymph % (Auto) % [place] % (Auto) % Eos % (Auto) % Baso % (Auto) % Neut # (Auto) (1.4-6.5) K/uL Lymph # (Auto) (1.2-3.4) K/uL [place] # (Auto) (0.11-0.59) K/uL Eos # (Auto) (0-0.5) K/uL Baso # (Auto) (0-0.2) K/uL Immature Gran # (Auto) (0.00-0.02) K/uL RBC Morphology Sodium (136-145) mmol/L Potassium (3.5-5.1) mmol/L Chloride (98-107) mmol/L Carbon Dioxide (21-32) mmol/L Anion Gap (3-11) BUN (6-23) mg/dl Creatinine (0.6-1.4) mg/dl Est Cr Clr Drug Dosing ml/min Est GFR ( Amer) ml/min Est GFR (Non-Af Amer) ml/min BUN/Creatinine Ratio (10-20) Glucose (70-99(Fasting)) mg/dl Calcium (8.5-10.1) mg/dl Total Bilirubin (0.2-1.0) mg/dl AST (13-39) U/L ALT (7-52) U/L Alkaline Phosphatase (34-104) U/L Troponin I (0-0.04) ng/ml B-Natriuretic Peptide (0-100) pg/ml Total Protein (6.0-8.3) gm/dl Albumin (3.4-5.0) gm/dl Globulin (2.5-4.0) gm/dl Albumin/Globulin Ratio (0.9-2) SARS-CoV-2 (PCR) NEGATIVE (Negative) Influenza Type A (PCR) Negative (Neg) Influenza Type B (PCR) Negative (Neg) RSV (RT-PCR) Negative (Neg) Imaging Data Radiologist's Impression: Chest X-Ray 12/04/21 07:27 XR chest 1V portable CLINICAL HISTORY: weakness TECHNIQUE: Single frontal radiograph of the chest was obtained. Comparison: Comparison is made to chest one view 11/12/2021 and PET/CT 11/25/2021 FINDINGS: No lines and tubes are seen. Calcified aortic knob is seen. Nodular opacities in the right lung are better seen than in prior exam. The left lung atelectasis is again seen with worsening opacities in the lung bases. There is likely a small left pleural effusion. IMPRESSION: Redemonstration of left lung atelectasis in this patient with known left lung mass. Nodular opacities in the right lung are favored to represent metastatic disease corresponding with foci of uptake in the prior PET/CT. Infectious/inflammatory etiology is also possible. ACT 112: Negative or not required by law. Electronically signed by: Richard Tanner M.D. 12/04/2021 7:[address] 12/04/21 07:27 CT head/brain wo con CLINICAL HISTORY: fall, head pain Technique: Contiguous axial CT images of the head were acquired from the base of the skull to the vertex without intravenous contrast administration. Images were viewed in brain, subdural and bone windows. Automated dose lowering techniques and/or adjustment according to patient size were utilized for this exam. Comparison: Comparison is made to CT head 08/18/2019 Findings: Areas of decreased attenuation are present in the periventricular and subcortical white matter bilaterally consistent with small vessel ischemic disease. Generalized cerebral atrophy with commensurate enlargement of the ve ntricles, sulci, and cisterns is also present. There is no acute intracranial hemorrhage or evidence of acute territorial infarction. No shift of the midline structures, mass effect, or extra-axial abnormalities are shown. Atherosclerotic calcifications are present in the intracranial segments of the internal carotid arteries. Imaged portions of the paranasal sinuses and mastoid air cells are clear. The orbits appear normal. There are no acute fractures of the calvaria or scalp swelling. Impression: No acute intracranial hemorrhage, no evidence of acute territorial infarction or other acute intracranial disease process. ACT 112: Negative or not required by law. Electronically signed by: Richard Tanner M.D. 12/04/2021 8:31 AM Chest CTA 12/04/21 08:31 CHEST CTA for PULMONARY ARTERIES CT DOSE: 607.28 mGy.cm HISTORY: hypoxia TECHNIQUE: Multiaxial CT images of the chest were performed following the intravenous administration of contrast to evaluate the pulmonary arteries. Maximal intensity projection images were also obtained. A dose lowering technique was utilized adhering to the principles of ALARA. COMPARISON STUDY: Chest CTA 10/17/2021. PET CT 11/25/2021. FINDINGS: Normal caliber thoracic aorta with no evidence for dissection. Small filling defect seen within a subsegmental branch of the right middle lobe best seen on images 119 and 108. This may represent a small pulmonary embolus. Remaining pulmonary arteries show no filling defects to suggest a pulmonary embolus. There is mass effect along the distal left main pulmonary artery and left upper lobe pulmonary arteries due to the large left upper lobe mass. The exact borders of this mass are difficult to assess but appeared to measure approximately 8.0 x 6.7 cm. This results in complete collapse of the left upper lobe which is unchanged. This mass also extends into the distal left mainstem bronchus. The endobronchial component best in image 169 results in near complete obstruction of the left lower lobe bronchus. There is partial opacification of the majority of the left lower lobe bronchi. Interstitial thickening and patchy airspace opacities within the left lower lobe may represent a postobstructive pneumonitis. This has progressed in the interval. Increase in size in a small left pleural effusion. Severe emphysema. No pneumothorax. Multiple scattered pul monary nodules are again noted consistent with metastatic disease. Majority of these have increased in size. There is ill-defined 1.8 cm right thyroid nodule, unchanged. Mild mediastinal left hilar lymphadenopathy has slightly progressed. Increase in size in the left perinephric metastatic focus. 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 A 3.3 cm right renal mass is similar to the prior study. Skeletal metastatic foci are better appreciated on the prior PET/CT. IMPRESSION: 1. Possible small subsegmental pulmonary embolus within the right middle lobe. Otherwise, the central pulmonary arteries are patent. There is mass effect along the distal left main pulmonary artery and left upper lobe pulmonary arteries due to the left upper lobe mass. 2. Interval progression of the left upper lobe mass and extensive metastatic disease as described above. The left upper lobe mass results in complete collapse of the left upper lobe, unchanged. This also demonstrates an endobronchial component of the distal left mainstem bronchus with near complete obstruction of the left lower lobe bronchus. 3. Interstitial thickening and patchy airspace opacities within the left lower lobe with partial opacification of the left lower lobe bronchi. This favors a postobstructive pneumonitis. An aspiration pneumonitis could also have a similar appearance. 4. Small left pleural effusion has progressed. 5. Additional findings as described above. ACT 112: Negative or not required by law. Electronically signed by: Pietro Dobbins M.D. 12/04/2021 9:29 AM ECG Data Attestation: I personally reviewed and interpreted this ECG as follows: Additional Comments: Lead EKG: Per my interpretation shows a normal sinus rhythm at a rate of 84. No ST elevation. No PVCs. Normal QTC. MDM Narrative 86-year-old male presents with a fall. Sounds like he lost his balance when he was back from the bathroom. He use a chair to support himself which subsequently moved or tilted over causing him to fall. He has some posterior head pain. Incidentally he was found to be hypoxic. Patient does have known metastatic lung disease. Here he is found to be hypoxic with saturations of 84% on room air. He saw hotel reservation agent on November 20, 2 weeks ago and his pulse ox was documented at 98% on room air there. He does have a history of COPD. He does not use home oxygen. He reportedly saw the hotel reservation agent for hemoptysis. He had been on anticoagulation for A. fib but currently is not on anticoagulation. He does not complain of shortness of breath. He reports a chronic cough. Noth ing new. No fevers. No chest pains. He does have a history of smoking a long time ago. He does not use home oxygen. The patient is twelve-lead EKG shows a normal sinus rhythm. His white blood cell count is 25 and his hemoglobin is 8.5. These are abnormal for the patient. Complete metabolic panel was unremarkable. Troponin was negative. BNP is elevated at 124. BUN is 52. Troponin was negative. CT scan of the brain was negative for acute disease. Chest x-ray shows redemonstration of a left lung atelectasis with a known left lung mass. There is also some right lung opacities that favor metastatic disease corresponding to a prior patent CT scan. Covid test is negative. CT scan of the chest today shows possible subsegmental PE. There is also findings suggesting worsening metastatic disease as well as either aspiration pneumonitis on the left lower lobe versus obstructive pneumonitis related to obstructing left lower lobe bronchus. The patient was empirically treated with IV cefepime. He was also given a DuoNeb treatment. He will be seen by the hospitalist for further inpatient evaluation and care. Impression & Plan Hypoxia, Pneumonia, Fall, Leukocytosis Discharge Plan Visit Data Chief Complaint: Fall Stated Complaint: FALL, ED Provider: Feliciano Prater Discharge Problem: Hypoxia, Pneumonia, Fall, Leukocytosis Patient Disposition: Being Evaluated by Hospitalist Forms Stand Alone Forms: [facility], Virtual Emergency Department, Important Visit Information Prescriptions Prescriptions: No Action Metamucil (sugar) Powder 2 tbsp PO BID RF: 0 lidocaine [Salonpas (lidocaine)] 4 % adhesive patch,medicated 1 patch topical Q8H PRN (Reason: Pain) RF: 0 triamcinolone acetonide 0.1 % cream 1 applic topical DAILY PRN (Reason: Unknown) RF: 0 atorvastatin 40 mg Tablet 40 mg PO QAM RF: 0 amiodarone 200 mg Tablet 200 mg PO HS RF: 0 alprazolam [Xanax] 0.5 mg Tablet 0.5 mg PO BID PRN (Reason: Anxiety) RF: 0 lisinopril 10 mg Tablet 10 mg PO HS RF: 0 nitroglycerin [Nitrostat] 0.4 mg Tablet, Sublingual 0.4 mg Sublingual DIRECTED PRN (Reason: Chest Pain) RF: 0 finasteride 5 mg Tablet 5 mg PO HS RF: 0 PreserVision AREDS-2 [id number] kw-ldvy-ld-mg Capsule 1 tab PO BID RF: 0 amlodipine 5 mg tablet 5 mg PO QAM RF: 0 multivitamin Tablet 1 tab PO QDL RF: 0 polyethylene glycol 3350 [Miralax] 17 gram Powder In Packet 17 g PO BID RF: 0 bisacodyl 10 mg Suppository 10 mg FL DAILY PRN (Reason: Constipation) RF: 0 Fleet Enema 19-7 gram/118 mL Enema 118 ml FL Q3D PRN (Reason: Constipation) RF: 0 aspirin 81 mg Tablet,Delayed Release (Dr/Ec) 81 mg PO DAILY RF: 0 acetaminophen 500 mg Tablet 500 mg PO QID RF: 0 TheraTears 0.25 % Drops 1 drp OPB UD PRN (Reason: Dry Eyes) RF: 0 Linzess 290 mcg capsule 290 mcg PO QAM RF: 0 oxycodone 5 mg tablet 7.5 mg PO TID RF: 0 fluoride (sodium) [PreviDent 5000 Plus] 1.1 % Cream 1 applic DENTAL DAILY RF: 0 guaifenesin [Mucinex] 600 mg Tablet Extended Release 12hr 600 mg PO Q12H RF: 0 acetaminophen 650 mg Suppository 650 mg FL Q4 MDD 3g PRN (Reason: elevated temperature) RF: 0 acetaminophen 650 mg Suppository 650 mg FL Q4H MDD 3g PRN (Reason: Pain) RF: 0 Referrals Referrals: Jose Wilson [Primary Care Provider] -
--- NOTE | 2021-12-04 07:48 | XRay Report ---
XR chest 1V portable CLINICAL HISTORY: weakness TECHNIQUE: Single frontal radiograph of the chest was obtained. Comparison: Comparison is made to chest one view 11/12/2021 and PET/CT 11/25/2021 FINDINGS: No lines and tubes are seen. Calcified aortic knob is seen. Nodular opacities in the right lung are b lan seen than in prior exam. The left lung atelectasis is again seen with worsening opacities in th e lung bases. There is likely a small left pleural effusion. IMPRESSION: Redemonstration of left lung atelectasis in this patient with known left lung mass. Nodular opacities in the right lung are favored to represent metastatic disease corresponding with foci of uptake in t he prior PET/CT. Infectious/inflammatory etiology is also possible. ACT 112: Negative or not required by law. Electronically signed by: Richard Tanner M.D. 12/04/2021 7:47 AM
[2021-12-04 07:58] LABS: Hematocrit (blood only) 27.3 % (42-52); Hemoglobin 8.5 g/dL (14.0-18.0); Mean Corpuscular Hemoglobin 28.1 pg (25-34); Mean Corpuscular Hgb Conc 31.1 g/dL (32-36); Mean Corpuscular Volume 90.4 fL (80-100); Mean Platelet Volume 9.8 fL (7.4-10.4); Platelet Count 307 K/uL (130-400); RDW Coefficient of Variation 16.6 % (11.5-14.5); Red Blood Count 3.02 M/uL (4.7-6.1); White Blood Count 25.52 K/uL (4.8-10.8)
[2021-12-04 08:19] LABS: Albumin Globulin Ratio 0.8 (0.9-2); Albumin Level 2.6 gm/dl (3.4-5.0); BUN Creatinine Ratio 37.7 (10-20); Bilirubin,Total 0.9 mg/dl (0.2-1.0); Calcium 9.8 mg/dl (8.5-10.1); Creatinine Clr Calc Pharmacy 42.2 ml/min; Est GFR (African American) 53.3 ml/min; Globulin 3.2 gm/dl (2.5-4.0); Potassium 3.8 mmol/L (3.5-5.1); Total Protein 5.8 gm/dl (6.0-8.3)
[2021-12-04 08:20] LABS: Troponin I 0.03 ng/ml (0-0.04)
[2021-12-04 08:22] LABS: Basophils # (auto) 0.02 K/uL (0-0.2); Basophils % (auto) 0.1 %; Eosinophils # (auto) 0.02 K/uL (0-0.5); Eosinophils % (auto) 0.1 %; Immature Granulocytes # (auto) 0.13 K/uL (0.00-0.02); Immature Granulocytes % (auto) 0.5 %; Lymphocytes # (auto) 1.48 K/uL (1.2-3.4); Lymphocytes % (auto) 5.8 %; Monocytes # (auto) 1.77 K/uL (0.11-0.59); Monocytes % (auto) 6.9 %; Neutrophils % (auto) 86.6 %; RBC Morphology Unremarkable
--- NOTE | 2021-12-04 08:32 | CT Scan Report ---
CT head/brain wo con CLINICAL HISTORY: fall, head pain Technique: Contiguous axial CT images of the head were acquired from the base of the skull to the angela elaine without intravenous contrast administration. Images were viewed in brain, subdural [facility]. Automated dose lowering techniques and/or adjustment according to patient size were utilized for this exam. Comparison: Comparison is made to CT head 08/18/2019 Findings: Areas of decreased attenuation are present in the periventricular and subcortical white matter bilate rally consistent with small vessel ischemic disease. Generalized cerebral atrophy with commensurate e nlargement of the ventricles, sulci, and cisterns is also present. There is no acute intracranial hem orrhage or evidence of acute territorial infarction. No shift of the midline structures, mass effect, or extra-axial abnormalities are shown. Atherosclerotic calcifications are present in the intracran ial segments of the internal carotid arteries. Imaged portions of the paranasal sinuses and mastoid air cells are clear. The orbits appear normal. There are no acute fractures of the calvaria or scalp swelling. Impression: No acute intracranial hemorrhage, no evidence of acute territorial infarction or other acute intracra nial disease process. ACT 112: Negative or not required by law. Electronically signed by: Richard Tanner M.D. 12/04/2021 8:31 AM
[2021-12-04 08:37] LABS: Influenza A virus by PCR Negative (Neg); Influenza B virus by PCR Negative (Neg); RSV by PCR Negative (Neg); SARS CoV2 RNA(COVID-19) InHosp NEGATIVE (Negative)
[2021-12-04] MEDS ORDERED: ALBUT/IPRATROP 3MG/0.5MG NEB 3 ML VIAL NEB STA (08:45)
[2021-12-04] MEDS ORDERED: OPTIRAY 320 125ml IV ONE (09:06)
[2021-12-04] MEDS ORDERED: CEFEPIME 2,000 MG/20 ML VIAL IV STA (09:12)
--- NOTE | 2021-12-04 09:32 | CT Scan Report ---
CHEST CTA for PULMONARY ARTERIES CT DOSE: 607.28 mGy.cm HISTORY: hypoxia TECHNIQUE: Multiaxial CT images of the chest were performed following the intravenous administration of contrast to evaluate the pulmonary arteries. Maximal intensity projection images were also obtaine d. A dose lowering technique was utilized adhering to the principles of ALARA. COMPARISON STUDY: Chest CTA 10/17/2021. PET CT 11/25/2021. FINDINGS: Normal caliber thoracic aorta with no evidence for dissection. Small filling defect seen wi thin a subsegmental branch of the right middle lobe best seen on images 119 and 108. This may represe nt a small pulmonary embolus. Remaining pulmonary arteries show no filling defects to suggest a pulmo nary embolus. There is mass effect along the distal left main pulmonary artery and left upper lobe pu lmonary arteries due to the large left upper lobe mass. The exact borders of this mass are difficult to assess but appeared to measure approximately 8.0 x 6.7 cm. This results in complete collapse of th e left upper lobe which is unchanged. This mass also extends into the distal left mainstem bronchus. The endobronchial component best in image 169 results in near complete obstruction of the left lower lobe bronchus. There is partial opacification of the majority of the left lower lobe bronchi. Interst itial thickening and patchy airspace opacities within the left lower lobe may represent a postobstruc tive pneumonitis. This has progressed in the interval. Increase in size in a small left pleural effus ion. Severe emphysema. No pneumothorax. Multiple scattered pulmonary nodules are again noted consiste nt with metastatic disease. Majority of these have increased in size. There is ill-defined 1.8 cm rig ht thyroid nodule, unchanged. Mild mediastinal left hilar lymphadenopathy has slightly progressed. In crease in size in the left perinephric metastatic focus. 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 A 3.3 cm right renal mass is similar to the prio r study. Skeletal metastatic foci are better appreciated on the prior PET/CT. IMPRESSION: 1. Possible small subsegmental pulmonary embolus within the right middle lobe. Otherwise, the central pulmonary arteries are patent. There is mass effect along the distal left main pulmonary artery and left upper lobe pulmonary arteries due to the left upper lobe mass. 2. Interval progression of the left upper lobe mass and extensive metastatic disease as described abo ve. The left upper lobe mass results in complete collapse of the left upper lobe, unchanged. This als o demonstrates an endobronchial component of the distal left mainstem bronchus with near complete obs truction of the left lower lobe bronchus. 3. Interstitial thickening and patchy airspace opacities within the left lower lobe with partial opac ification of the left lower lobe bronchi. This favors a postobstructive pneumonitis. An aspiration pn eumonitis could also have a similar appearance. 4. Small left pleural effusion has progressed. 5. Additional findings as described above. ACT 112: Negative or not required by law. Electronically signed by: Pietro Dobbins M.D. 12/04/2021 9:29 AM
[2021-12-04] MEDS ORDERED: AMPICILLIN/SULBACTAM SOD 1,500 MG in 0.9 % SODIUM CHLORIDE 100 ML IV STA (11:02)
[2021-12-04] MEDS ORDERED: oxyCODONE/APAP 7.5/325MG TAB PO STA (11:04)
--- NOTE | 2021-12-04 11:12 | History & Physical Report ---
Date of Service December 04, 2021 Assessment & Plan (1) Pneumonia: Plan: Post obstructive pneumonia likely complicated by aspiration - Continue Cefepime while in house and can transition to cefdinir for comfort (allergy to penicillins with hives) - Likely cause of his hypoxia at this time with thick secretions and weak cough - Will schedule nebs as well as cough assist with flutter valve - 2 step perform for oxygen need - 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 (5) Endobronchial mass: Plan: As aobve- bronch performed early November- SCLC (6) Brain metastases: Plan: As above (7) COPD (chronic obstructive pulmonary disease): Plan: Continue nebulizers scheduled- Oxygen for comfort Spo2 goal 88-92% (8) Hypertension: Plan: Did talk with nursing at [facility] and they reported that he was hypotensive this morning 80-90 range systolic - Will currently hold his antihypertensives and follow- He is normally in the 140 range with review- Currently 110-120s (9) Dyslipidemia: Plan: Hold statin with brain metastasis - skilled nursing benefits is cancelled by his oncological disease. (10) Coronary artery disease: Plan: non obstructive - continue ASA - antihypertensives on hold as above. 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 He was to start Hospice this week- which has not been set up yet. He comes to the EMD today following a fall at [facility], where he was walking, tripped, grabbed on to a chair but the chair moved. He fell and did hit the back of his head. In the EMD he was noted to have hypoxia to 84% on room air, he has not required oxygen as outpatient to this point. He is also noted to have change in his secretions to thick and yellow and upper airway rhonchi. He was given dose of Cefepime for post obstructive pna/pneumonitis noted on his CTA of chest. He had CT of head performed without acute bleed noted. CTA of chest was notable for subsegmental PE on the right, and continued note of left upper lobe collapse with postobstructive PNA vs. Pneumonitis as above, also noting increase in his pleural effusion. Patient will be brought in to set up oxygen for continued transition to palliative/hospice care, as this has not been put in place yet- will have 2 step completed to assist with oxygen for comfort moving forward. Continue with albuterol nebulizers and cough assist for expectoration of secretions. Patient also with history noteable for afib and is on Ammiodarone and was previously on Warfarin- where he had GI bleed in 03/04, CAD is non obstructive. His Coumadin was held prior to his bronchoscopy 12/03 and was subsequently discontinued secondary to hemoptysis. He is currently in NSR here as well. Allergies Allergy/AdvReac Type Severity Reaction Status Date / Time Sulfa (Sulfonamide Allergy Severe ITCHING Verified 10/30/21 11:24 Antibiotics) levofloxacin Allergy Intermediate BRADYCARDIA Verified 10/30/21 11:24 metronidazole Allergy Unknown PVC'S Verified 10/30/21 11:24 Penicillins Allergy Unknown HIVES Verified 10/30/21 11:24 meloxicam AdvReac Intermediate UPSET Verified 10/30/21 11:24 STOMACH sertraline AdvReac Intermediate GI SYMPTOMS Verified 10/30/21 11:24 doxycycline AdvReac Mild GI UPSET Verified 10/30/21 11:24 hydrocodone AdvReac Mild constipatio Verified 10/30/21 11:24 n Home Medications Medication Instructions Recorded Confirmed Type alprazolam 0.5 mg tablet (Xanax) 0.5 mg PO BID PRN 06/24/18 12/04/21 History amiodarone 200 mg tablet 200 mg PO HS 06/24/18 12/04/21 History atorvastatin 40 mg tablet 40 mg PO QAM 06/24/18 12/04/21 History finasteride 5 mg tablet 5 mg PO HS 06/24/18 12/04/21 History lisinopril 10 mg tablet 10 mg PO HS 06/24/18 12/04/21 History nitroglycerin 0.4 mg sublingual 0.4 mg SUBLINGUAL DIRECTED PRN 06/24/18 12/04/21 History tablet (Nitrostat) vit C 250 mg-vit E 90 mg-zinc 40 1 tab PO BID 06/24/18 12/04/21 History mg-copper 1 [id number]-[id number] capsule (PreserVision AREDS-2) multivitamin 1 tab PO QDL 03/18/19 12/04/21 History polyethylene glycol 3350 17 gram 17 g PO BID 03/18/19 12/04/21 History oral powder packet (Miralax) psyllium seed (sugar) oral powder 2 tbsp PO BID 01/26/20 12/04/21 History (Metamucil (sugar)) aspirin 81 mg tablet,delayed 81 mg PO DAILY 03/02/21 12/04/21 History release bisacodyl 10 mg rectal suppository 10 mg NH DAILY PRN 09/23/21 12/04/21 History sodium phosphates 19 gram-7 118 ml NH Q3D PRN 09/23/21 12/04/21 History gram/118 mL enema (Fleet Enema) amlodipine 5 mg tablet 5 mg PO QAM tab 10/30/21 12/04/21 History lidocaine 4 % topical patch 1 patch TOPICAL Q8H PRN ea 10/30/21 12/04/21 History (Salonpas (lidocaine)) triamcinolone acetonide 0.1 % 1 applic TOPICAL DAILY PRN 10/30/21 12/04/21 History topical cream acetaminophen 500 mg tablet 500 mg PO QID 12/04/21 12/04/21 History acetaminophen 650 mg rectal 650 mg NH Q4 PRN MDD 3g 12/04/21 12/04/21 History suppository acetaminophen 650 mg rectal 650 mg NH Q4H PRN MDD 3g 12/04/21 12/04/21 History suppository carboxymethylcellulose sodium 0.25 1 drp OPB UD PRN 12/04/21 12/04/21 History % eye drops (TheraTears) fluoride (sodium) 1.1 % dental 1 applic DENTAL DAILY 12/04/21 12/04/21 History cream (PreviDent 5000 Plus) guaifenesin 600 mg tablet, 600 mg PO Q12H 12/04/21 12/04/21 History extended release 12 hr (Mucinex) linaclotide 290 mcg capsule 290 mcg PO QAM 12/04/21 12/04/21 History (Linzess) oxycodone 5 mg tablet 7.5 mg PO TID 12/04/21 12/04/21 History Past Med/Surg History Medical History Abnormal chest CT Acute GI bleeding Anticoagulated on warfarin Atherosclerotic heart disease of douglas coronary artery without angina pectoris BPH (benign prostatic hypertrophy) Brain metastases C. 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 Beliefs That Will Affect Care: None marital status: / Current Living Situation: Senior Care Current Living Situation Comment: daughter lives with Feels Safe at Home: Yes Assistive Devices: Walker Review of Systems Review of Systems: REVIEW OF SYSTEMS: Constitutional: No fever, sweats or chills Eyes: No diplopia, no worsening or blurred vision ENT: (+) thickened liquids with coughing while eating, normal hearing, Respiratory: (+) cough, sputum, dyspnea at rest or on exertion Cardiovascular: No chest pain, tightness or palpitations Abdomen: No pain, nausea, vomiting, diarrhea or constipation Musculoskeletal: No joint pain, calf pain, swelling Neurologic: No weakness, numbness/tingling, or balance problems Psychiatric: No anxiety or depression Skin: (+) sacral wound Physical Exam Physical Exam: PHYSICAL EXAM: General: awake, alert, no apparent distress Head: Normocephalic, atraumatic, non tender to palpation around skull or cervical spine ENT: PERRL, EOMI, no pharyngeal exudate, mucous membranes dry Neuro: AAO x 3, speech clear and appropriate, strength intact bilaterally 5/5, sensation intact and equal all extremities and dermatomes, no pronator drift Chest: equal rise and fall of the chest, no accessory muscle use, scattered rhonchi throughout > left upper lobe, with end expiratory wheeze, thick yellow sputum Cardiac: Regular rate and rhythm, telemetry reviewed, skin warm dry, cap refill <3 seconds, peripheral pulses +2 no JVD, no murmur, no JVD, no edema GI: NABS x 4 quadrants, soft, nontender to palpation, no rebound, guarding or tenderness : Spontaneously voiding, no pain, no CVA tenderness, Extremities: Normal inspection, no peripheral edema or erythema, calfs nontender to palpation Psych: Normal mood and affect Skin: sacral decubitus stage II-III present on admission no pain Results & Data Results & Data ([facility]) Vital Signs (Past 12 Hours) Vital Signs Temp Pulse Resp BP Pulse Ox 12/04/21 10:31 102 H 17 127/100 12/04/21 10:00 89 20 118/57 L 12/04/21 09:30 84 16 128/62 12/04/21 09:17 90 17 138/63 94 12/04/21 08:30 92 H 22 132/79 95 12/04/21 08:00 81 26 H 96 12/04/21 07:40 85 20 95 12/04/21 07:05 36.7 C 92 H 20 101/53 L 84 L Laboratory Results Laboratory Results - last 24 hr 12/04/21 12/04/21 12/04/21 07:43 07:43 07:43 WBC 25.52 H RBC 3.02 L Hgb 8.5 L Hct 27.3 L MCV 90.4 MCH 28.1 MCHC 31.1 L RDW Std Deviation 55.0 H RDW Coeff of Courtney 16.6 H Plt Count 307 MPV 9.8 Immature Gran % (Auto) 0.5 Neut % (Auto) 86.6 Lymph % (Auto) 5.8 Gallia % (Auto) 6.9 Eos % (Auto) 0.1 Baso % (Auto) 0.1 Neut # (Auto) 22.10 H Lymph # (Auto) 1.48 Gallia # (Auto) 1.77 H Eos # (Auto) 0.02 Baso # (Auto) 0.02 Immature Gran # (Auto) 0.13 H RBC Morphology Unremarkable Sodium 142 Potassium 3.8 Chloride 107 Carbon Dioxide 28 Anion Gap 7 BUN 52 H Creatinine 1.38 Est Cr Clr Drug Dosing 42.2 Est GFR ( Amer) 53.3 Est GFR (Non-Af Amer) 46.0 BUN/Creatinine Ratio 37.7 H Glucose 128 H Calcium 9.8 Total Bilirubin 0.9 AST 25 ALT 33 Alkaline Phosphatase 80 Troponin I 0.03 B-Natriuretic Peptide 124 H Total Protein 5.8 L Albumin 2.6 L Globulin 3.2 Albumin/Globulin Ratio 0.8 L SARS-CoV-2 (PCR) Influenza Type A (PCR) Influenza Type B (PCR) RSV (RT-PCR) 12/04/21 07:48 WBC RBC Hgb Hct MCV MCH MCHC RDW Std Deviation RDW Coeff of Courtney Plt Count MPV Immature Gran % (Auto) Neut % (Auto) Lymph % (Auto) Gallia % (Auto) Eos % (Auto) Baso % (Auto) Neut # (Auto) Lymph # (Auto) Gallia # (Auto) Eos # (Auto) Baso # (Auto) Immature Gran # (Auto) RBC Morphology Sodium Potassium Chloride Carbon Dioxide Anion Gap BUN Creatinine Est Cr Clr Drug Dosing Est GFR ( Amer) Est GFR (Non-Af Amer) BUN/Creatinine Ratio Glucose Calcium Total Bilirubin AST ALT Alkaline Phosphatase Troponin I B-Natriuretic Peptide Total Protein Albumin Globulin Albumin/Globulin Ratio SARS-CoV-2 (PCR) NEGATIVE Influenza Type A (PCR) Negative Influenza Type B (PCR) Negative RSV (RT-PCR) Negative Diagnostic Findings Chest X-Ray 12/04/21 07:27 XR chest 1V portable CLINICAL HISTORY: weakness TECHNIQUE: Single frontal radiograph of the chest was obtained. Comparison: Comparison is made to chest one view 11/12/2021 and PET/CT 11/25/2021 FINDINGS: No lines and tubes are seen. Calcified aortic knob is seen. Nodular opacities in the right lung are better seen than in prior exam. The left lung atelectasis is again seen with worsening opacities in the lung bases. There is likely a small left pleural effusion. IMPRESSION: Redemonstration of left lung atelectasis in this patient with known left lung mass. Nodular opacities in the right lung are favored to represent metastatic disease corresponding with foci of uptake in the prior PET/CT. Infectious/inflammatory etiology is also possible. ACT 112: Negative or not required by law. Electronically signed by: Richard Tanner M.D. 12/04/2021 7:[address] 12/04/21 07:27 CT head/brain wo con CLINICAL HISTORY: fall, head pain Technique: Contiguous axial CT images of the head were acquired from the base of the skull to the vertex without intravenous contrast administration. Images were viewed in brain, subdural and bone windows. Automated dose lowering techniques and/or adjustment according to patient size were utilized for this exam. Comparison: Comparison is made to CT head 08/18/2019 Findings: Areas of decreased attenuation are present in the periventricular and subcortical white matter bilaterally consistent with small vessel ischemic disease. Generalized cerebral atrophy with commensurate enlargement of the ventricles, sulci, and cisterns is also present. There is no acute intracranial hemorrhage or evidence of acute territorial infarction. No shift of the midline structures, mass effect, or extra-axial abnormalities are shown. Atherosclerotic calcifications are present in the intracranial segments of the internal carotid arteries. Imaged portions of the paranasal sinuses and mastoid air cells are clear. The orbits appear normal. There are no acute fractures of the calvaria or scalp swelling. Impression: No acute intracranial hemorrhage, no evidence of acute territorial infarction or other acute intracranial disease process. ACT 112: Negative or not required by law. Electronically signed by: Richard Tanner M.D. 12/04/2021 8:31 AM Chest CTA 12/04/21 08:31 CHEST CTA for PULMONARY ARTERIES CT DOSE: 607.28 mGy.cm HISTORY: hypoxia TECHNIQUE: Multiaxial CT images of the chest were performed following the intravenous administration of contrast to evaluate the pulmonary arteries. Maximal intensity projection images were also obtained. A dose lowering technique was utilized adhering to the principles of ALARA. COMPARISON STUDY: Chest CTA 10/17/2021. PET CT 11/25/2021. FINDINGS: Normal caliber thoracic aorta with no evidence for dissection. Small filling defect seen within a subsegmental branch of the right middle lobe best seen on images 119 and 108. This may represent a small pulmonary embolus. Remaining pulmonary arteries show no filling defects to suggest a pulmonary embolus. There is mass effect along the distal left main pulmonary artery and left upper lobe pulmonary arteries due to the large left upper lobe mass. The exact borders of this mass are difficult to assess but appeared to measure approximately 8.0 x 6.7 cm. This results in complete collapse of the left upper lobe which is unchanged. This mass also extends into the distal left mainstem bronchus. The endobronchial component best in image 169 results in near complete obstruction of the left lower lobe bronchus. There is partial opacification of the majority of the left lower lobe bronchi. Interstitial thickening and patchy airspace opacities within the left lower lobe may represent a postobstructive pneumonitis. This has progressed in the interval. Increase in size in a small left pleural effusion. Severe emphysema. No pneumothorax. Multiple scattered pulmonary nodules are again noted consistent with metastatic disease. Majority of these have increased in size. There is ill-defined 1.8 cm right thyroid nodule, unchanged. Mild mediastinal left hilar lymphadenopathy has slightly progressed. Increase in size in the left perinephric metastatic focus. 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 A 3.3 cm right renal mass is similar to the prior study. Skeletal metastatic foci are better appreciated on the prior PET/CT. IMPRESSION: 1. Possible small subsegmental pulmonary embolus within the right middle lobe. Otherwise, the central pulmonary arteries are patent. There is mass effect along the distal left main pulmonary artery and left upper lobe pulmonary arteries due to the left upper lobe mass. 2. Interval progression of the left upper lobe mass and extensive metastatic d isease as described above. The left upper lobe mass results in complete collapse of the left upper lobe, unchanged. This also demonstrates an endobronchial component of the distal left mainstem bronchus with near complete obstruction of the left lower lobe bronchus. 3. Interstitial thickening and patchy airspace opacities within the left lower lobe with partial opacification of the left lower lobe bronchi. This favors a postobstructive pneumonitis. An aspiration pneumonitis could also have a similar appearance. 4. Small left pleural effusion has progressed. 5. Additional findings as described above. ACT 112: Negative or not required by law. Electronically signed by: Pietro Dobbins M.D. 12/04/2021 9:29 AM Medications Administered Home Medications alprazolam 0.5 mg tablet (Xanax) 0.5 mg PO BID PRN 06/24/18 [History Confirmed 12/04/21] amiodarone 200 mg tablet 200 mg PO HS 06/24/18 [History Confirmed 12/04/21] atorvastatin 40 mg tablet 40 mg PO QAM 06/24/18 [History Confirmed 12/04/21] finasteride 5 mg tablet 5 mg PO HS 06/24/18 [History Confirmed 12/04/21] lisinopril 10 mg tablet 10 mg PO HS 06/24/18 [History Confirmed 12/04/21] nitroglycerin 0.4 mg sublingual tablet (Nitrostat) 0.4 mg SUBLINGUAL DIRECTED PRN 06/24/18 [History Confirmed 12/04/21] vit C 250 mg-vit E 90 mg-zinc 40 mg-copper 1 [id number]-gwqjil capsule (PreserVision AREDS-2) 1 tab PO BID 06/24/18 [History Confirmed 12/04/21] multivitamin 1 tab PO QDL 03/18/19 [History Confirmed 12/04/21] polyethylene glycol 3350 17 gram oral powder packet (Miralax) 17 g PO BID 03/18/19 [History Confirmed 12/04/21] psyllium seed (sugar) oral powder (Metamucil (sugar)) 2 tbsp PO BID 01/26/20 [History Confirmed 12/04/21] aspirin 81 mg tablet,delayed release 81 mg PO DAILY 03/02/21 [History Confirmed 12/04/21] bisacodyl 10 mg rectal suppository 10 mg NH DAILY PRN 09/23/21 [History Confirmed 12/04/21] sodium phosphates 19 gram-7 gram/118 mL enema (Fleet Enema) 118 ml NH Q3D PRN 09/23/21 [History Confirmed 12/04/21] amlodipine 5 mg tablet 5 mg PO QAM tab 10/30/21 [History Confirmed 12/04/21] lidocaine 4 % topical patch (Salonpas (lidocaine)) 1 patch TOPICAL Q8H PRN ea 10/30/21 [History Confirmed 12/04/21] triamcinolone acetonide 0.1 % topical cream 1 applic TOPICAL DAILY PRN 10/30/21 [History Confirmed 12/04/21] acetaminophen 500 mg tablet 500 mg PO QID 12/04/21 [History Confirmed 12/04/21] acetaminophen 650 mg rectal suppository 650 mg NH Q4 PRN MDD 3g 12/04/21 [History Confirmed 12/04/21] acetaminophen 650 mg rectal suppository 650 mg NH Q4H PRN MDD 3g 12/04/21 [History Confirmed 12/04/21] carboxymethylcellulose sodium 0.25 % eye drops (TheraTears) 1 drp OPB UD PRN 12/04/21 [History Confirmed 12/04/21] fluoride (sodium) 1.1 % dental cream (PreviDent 5000 Plus) 1 applic DENTAL DAILY 12/04/21 [History Confirmed 12/04/21] guaifenesin 600 mg tablet, extended release 12 hr (Mucinex) 600 mg PO Q12H 12/04/21 [History Confirmed 12/04/21] linaclotide 290 mcg capsule (Linzess) 290 mcg PO QAM 12/04/21 [History Confirmed 12/04/21] oxycodone 5 mg tablet 7.5 mg PO TID 12/04/21 [History Confirmed 12/04/21] Discontinued Medications Albuterol (Albut/Ipratrop 3mg/0.5mg Neb 3 Ml Vial) 3 ml NEB NOW STA; Protocol Stop: 12/04/21 08:46 Last Admin: 12/04/21 09:24 Dose: 3 ml Documented by: [id number] Cefepime HCl (Maxipime) 2,000 mg in 20 mls @ 5 mls/min IV NOW STA; Protocol Stop: 12/04/21 09:15 Last Admin: 12/04/21 09:24 Dose: 5 mls/min Documented by: [id number] Ampicillin Sodium/Sulbactam Sodium 1,500 mg/ Sodium Chloride 104 mls @ 200 mls/hr IV Q6 STA; Protocol Stop: 12/04/21 11:33 Last Admin: 12/04/21 11:26 Dose: Not Given Documented by: [id number] Ioversol (Optiray 320 125ml) 120 ml IV ONCE ONE Stop: 12/04/21 09:07 Last Admin: 12/04/21 09:06 Dose: 120 ml Documented by: [id number] Additional Comments: Normal sinus rhythm Normal ECG When compared with ECG of 23-SEP-2021 09:58, Nonspecific T wave abnormality no longer evident in Lateral leads Code Status & VTE Plan Code Status CODE: DNR/DNI VTE: SCDs, Supervising Physician Co-Signing Physician Notes I personally saw and examined the patient. I verified all goddard points and agree with MARLO Stevenson with the following exceptions and/or additions: 86 year old male with stage IV squamous cell lung cancer presents to ER with worsening shortness of breath and hypoxia. O/E mild respiratory distress with accessory muscle use. reduced breath sounds on left side A/P Goals of care - planning on transitioning to hospice care. DNR/DNI. No escalation of care. Roxanol started as outpatient but not yet on home med list - will start here for breakthrough pain. Stop atorvastatin with goal of comfort. Pneumonia - recommend treating for comfort with cefepime while inpatient with possible short course of antibiotics on discharge to avoid quick decline and enable his to get back to [facility]. PG Care Time/CCT Total # of Minutes Spent Total Time Spent with Patient: Total time spent is greater than 50% in coordination of care (as documented) at patient's floor/unit and/or counseling patient: Coding Level of Care Code 82170 Initial Inpt Care Lvl 3 Diagnoses Pneumonia J18.9 Hypoxia R09.02 Fall W19.XXXA Endobronchial mass R91.8 Squamous cell lung cancer C34.90 Brain metastases C79.31 COPD (chronic obstructive pulmonary disease) J44.9 Hypertension I10 Dyslipidemia E78.5 Coronary artery disease I25.10 Pulmonary embolism I26.99
[2021-12-04] MEDS ORDERED: oxyCODONE/ACETAMINOPHEN 5mg/325mg TAB PO STA (11:16)
--- NOTE | 2021-12-04 13:37 | Electrocardiogram Report ---
Test Reason : Blood Pressure : / mmHG Vent. Rate : 084 BPM Atrial Rate : 084 BPM P-R Int : 164 ms QRS Dur : 094 ms QT Int : 390 ms P-R-T Axes : 039 023 047 degrees QTc Int : 460 ms Normal sinus rhythm Normal ECG When compared with ECG of 23-SEP-2021 09:58, Nonspecific T wave abnormality no longer evident in Lateral leads Confirmed by Seth Montoya ([id number]) on 12/04/2021 1:37:16 PM Referred By: REFERRED SELF Confirmed By:Bigg Montoya
[2021-12-04] MEDS ORDERED: bisacodyL 10 MG SUPP PR PRN (15:47)
[2021-12-04] MEDS ORDERED: NITROGLYCERIN SL 0.4 MG/TAB TAB SL PRN (15:47)
[2021-12-04] MEDS: oxyCODONE HCL IR 5 MG TAB (IMMEDIATE RELEASE) PO SCH ×2 (15:57→20:06)
[2021-12-04] MEDS ORDERED: LIDOCAINE 5% 1 PATCH TD PRN (16:02)
[2021-12-04] MEDS ORDERED: MoRPHine SULFATE 5 MG/0.25 ML UDP PO PRN (17:19)
[2021-12-04] MEDS: ALPRAZolam 0.5 MG TABLET PO PRN (20:06)
[2021-12-04] MEDS: guaiFENesin 600 MG TABCR PO SCH (20:10)
[2021-12-04] MEDS: ACETAMINOPHEN 500 MG TAB PO SCH ×2 (20:12→22:42)
[2021-12-04] MEDS: ALBUT/IPRATROP 3MG/0.5MG NEB 3 ML VIAL NEB SCH ×2 (20:33→23:52)
[2021-12-04] MEDS ORDERED: FINASTERIDE 5 MG TAB PO SCH (21:00)
[2021-12-04] MEDS ORDERED: AMIODARONE 200 MG TAB PO SCH (21:00)
[2021-12-04] MEDS: CEFEPIME 2,000 MG in SYRINGE 0 ML IV SCH (22:42)
[2021-12-05] MEDS: ALBUT/IPRATROP 3MG/0.5MG NEB 3 ML VIAL NEB SCH ×2 (07:32→12:14)
--- NOTE | 2021-12-05 08:05 | Hospitalist Progress Note ---
Date of Service December 05, 2021 Assessment & Plan Admission and Anticipated Discharge Date Admission Date: December 04, 2021 Results & Data Results & Data ([facility]) Vital Signs (Past 12 Hours) Vital Signs Temp Pulse Pulse Pulse Pulse Pulse Pulse 12/05/21 07:33 86 12/05/21 07:18 107 H 100 H 107 H 85 89 12/04/21 20:37 96 H 12/04/21 20:26 36.9 C 95 H Resp Resp Resp Resp Resp BP Pulse Ox 12/05/21 07:33 20 91 12/05/21 07:18 22 20 20 18 12/04/21 20:37 18 92 12/04/21 20:26 18 114/58 L 96 Pulse Ox Pulse Ox Pulse Ox Pulse Ox Pulse Ox 12/05/21 07:33 12/05/21 07:18 88 L 92 86 L 91 91 12/04/21 20:37 12/04/21 20:26 PG Care Time/CCT Total # of Minutes Spent Total Time Spent with Patient: Total time spent is greater than 50% in coordination of care (as documented) at patient's floor/unit and/or counseling patient: Coding
[2021-12-05 08:36] LABS: Hematocrit (blood only) 27.6 % (42-52); Hemoglobin 8.4 g/dL (14.0-18.0); Mean Corpuscular Hemoglobin 27.8 pg (25-34); Mean Corpuscular Hgb Conc 30.4 g/dL (32-36); Mean Corpuscular Volume 91.4 fL (80-100); Mean Platelet Volume 9.8 fL (7.4-10.4); Platelet Count 300 K/uL (130-400); RDW Coefficient of Variation 16.8 % (11.5-14.5); RDW Standard Deviation 55.6 fL (36.4-46.3); Red Blood Count 3.02 M/uL (4.7-6.1); White Blood Count 26.48 K/uL (4.8-10.8)
[2021-12-05 08:47] LABS: INR 1.2 (0.9-1.1)
[2021-12-05 08:55] LABS: Basophils # (auto) 0.02 K/uL (0-0.2); Basophils % (auto) 0.1 %; Eosinophils # (auto) 0.04 K/uL (0-0.5); Eosinophils % (auto) 0.2 %; Immature Granulocytes # (auto) 0.11 K/uL (0.00-0.02); Immature Granulocytes % (auto) 0.4 %; Lymphocytes # (auto) 3.04 K/uL (1.2-3.4); Lymphocytes % (auto) 11.5 %; Monocytes # (auto) 2.32 K/uL (0.11-0.59); Monocytes % (auto) 8.8 %; Neutrophils # (auto) 20.95 K/uL (1.4-6.5)
[2021-12-05] MEDS ORDERED: ASPIRIN 81 MG ECTAB PO SCH (09:00)
[2021-12-05] MEDS ORDERED: LINACLOTIDE 145 MCG CAPSULE PO SCH (09:00)
[2021-12-05 09:03] LABS: BUN Creatinine Ratio 35.1 (10-20); Calcium 9.9 mg/dl (8.5-10.1); Creatinine Clr Calc Pharmacy 52.4 ml/min; Est GFR (African American) 69.3 ml/min; Est GFR (Non-African American) 59.8 ml/min
[2021-12-05] MEDS ORDERED: FUROSEMIDE 20 MG TAB PO ONE (09:30)
[2021-12-05] MEDS: ACETAMINOPHEN 500 MG TAB PO SCH ×2 (10:04→13:04)
[2021-12-05] MEDS: guaiFENesin 600 MG TABCR PO SCH (10:04)
[2021-12-05] MEDS: oxyCODONE HCL IR 5 MG TAB (IMMEDIATE RELEASE) PO SCH ×2 (10:04→13:04)
[2021-12-05] MEDS: CEFEPIME 2,000 MG in SYRINGE 0 ML IV SCH (10:04)
[2021-12-05 10:53] LABS: Ferritin 334.3 ng/ml (8-388)
--- NOTE | 2021-12-05 11:41 | Discharge Summary ---
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 He was to start Hospice this week- which has not been set up yet. He comes to the EMD today following a fall at [facility], where he was walking, tripped, grabbed on to a chair but the chair moved. He fell and did hit the back of his head. In the EMD he was noted to have hypoxia to 84% on room air, he has not required oxygen as outpatient to this point. He is also noted to have change in his secretions to thick and yellow and upper airway rhonchi. He was given dose of Cefepime for post obstructive pna/pneumonitis noted on his CTA of chest. He had CT of head performed without acute bleed noted. CTA of chest was notable for subsegmental PE on the right, and continued note of left upper lobe collapse with postobstructive PNA vs. Pneumonitis as above, also noting increase in his pleural effusion. Patient will be brought in to set up oxygen for continued transition to palliative/hospice care, as this has not been put in place yet- will have 2 step completed to assist with oxygen for comfort moving forward. Continue with albuterol nebulizers and cough assist for expectoration of secretions. Patient also with history noteable for afib and is on Ammiodarone and was previously on Warfarin- where he had GI bleed in 03/04, CAD is non obstructive. His Coumadin was held prior to his bronchoscopy 12/03 and was subsequently discontinued secondary to hemoptysis. He is currently in NSR here as well. Admission Exam Per Admitting Provider General: awake, alert, no apparent distress Head: Normocephalic, atraumatic, non tender to palpation around skull or cervical spine ENT: PERRL, EOMI, no pharyngeal exudate, mucous membranes dry Neuro: AAO x 3, speech clear and appropriate, strength intact bilaterally 5/5, sensation intact and equal all extremities and dermatomes, no pronator drift Chest: equal rise and fall of the chest, no accessory muscle use, scattered rhonchi throughout > left upper lobe, with end expiratory wheeze, thick yellow sputum Cardiac: Regular rate and rhythm, telemetry reviewed, skin warm dry, cap refill <3 seconds, peripheral pulses +2 no JVD, no murmur, no JVD, no edema GI: NABS x 4 quadrants, soft, nontender to palpation, no rebound, guarding or tenderness : Spontaneously voiding, no pain, no CVA tenderness, Extremities: Normal inspection, no peripheral edema or erythema, calfs nontender to palpation Psych: Normal mood and affect Skin: sacral decubitus stage II-III present on admission no pain Principal Diagnosis Obstructive Pneumonia secondary to lung mass, hypoxia Discharge Exam General: awake, alert, no apparent distress, sitting up in bed, wanting the TV to be turned on, mildly uncomfortable but just got dose of oxycodone and reports tolerable Head: Normocephalic, atraumatic, non tender to palpation around skull or cervical spine ENT: EOMI, pupils equal/reactive, dry mm Resp: scattered rhonchi, most pronounced DANNIE, end expiratory wheezing, +cough, yellow/white sputum in tissue, on 4L NC CV: RRR, no JVD/edema GI: +BS, soft, non-tnder : condom cath with yellow urine Ext: moves all extremities, sacral decubitus stage III (present on admission) Psych: aox3, cooperative, normal affect Discharge Data Allergies Allergy/AdvReac Type Severity Reaction Status Date / Time Sulfa (Sulfonamide Allergy Severe ITCHING Verified 10/30/21 11:24 Antibiotics) levofloxacin Allergy Intermediate BRADYCARDIA Verified 10/30/21 11:24 metronidazole Allergy Unknown PVC'S Verified 10/30/21 11:24 Penicillins Allergy Unknown HIVES Verified 10/30/21 11:24 meloxicam AdvReac Intermediate UPSET Verified 10/30/21 11:24 STOMACH sertraline AdvReac Intermediate GI SYMPTOMS Verified 10/30/21 11:24 doxycycline AdvReac Mild GI UPSET Verified 10/30/21 11:24 hydrocodone AdvReac Mild constipatio Verified 10/30/21 11:24 n Consultations 12/04/21 10:38 ED Decision to Admit Stat Ordered Studies Chest X-Ray 12/04/21 07:27 XR chest 1V portable CLINICAL HISTORY: weakness TECHNIQUE: Single frontal radiograph of the chest was obtained. Comparison: Comparison is made to chest one view 11/12/2021 and PET/CT 11/25/2021 FINDINGS: No lines and tubes are seen. Calcified aortic knob is seen. Nodular opacities in the right lung are better seen than in prior exam. The left lung atelectasis is again seen with worsening opacities in the lung bases. There is likely a small left pleural effusion. IMPRESSION: Redemonstration of left lung atelectasis in this patient with known left lung mass. Nodular opacities in the right lung are favored to represent metastatic disease corresponding with foci of uptake in the prior PET/CT. Infectious/inflammatory etiology is also possible. ACT 112: Negative or not required by law. Electronically signed by: Richard Tanner M.D. 12/04/2021 7:[address] 12/04/21 07:27 CT head/brain wo con CLINICAL HISTORY: fall, head pain Technique: Contiguous axial CT images of the head were acquired from the base of the skull to the vertex without intravenous contrast administration. Images were viewed in brain, subdural and bone windows. Automated dose lowering techniques and/or adjustment according to patient size were utilized for this exam. Comparison: Comparison is made to CT head 08/18/2019 Findings: Areas of decreased attenuation are present in the periventricular and subcortical white matter bilaterally consistent with small vessel ischemic disease. Generalized cerebral atrophy with commensurate enlargement of the ventricles, sulci, and cisterns is also present. There is no acute intracranial hemorrhage or evidence of acute territorial infarction. No shift of the midline structures, mass effect, or extra-axial abnormalities are shown. Atherosclerotic calcifications are present in the intracranial segments of the internal carotid arteries. Imaged portions of the paranasal sinuses and mastoid air cells are clear. The orbits appear normal. There are no acute fractures of the calvaria or scalp swelling. Impression: No acute intracranial hemorrhage, no evidence of acute territorial infarction or other acute intracranial disease process. ACT 112: Negative or not required by law. Electronically signed by: Richard Tanner M.D. 12/04/2021 8:31 AM Chest CTA 12/04/21 08:31 CHEST CTA for PULMONARY ARTERIES CT DOSE: 607.28 mGy.cm HISTORY: hypoxia TECHNIQUE: Multiaxial CT images of the chest were performed following the intrav enous administration of contrast to evaluate the pulmonary arteries. Maximal intensity projection images were also obtained. A dose lowering technique was utilized adhering to the principles of ALARA. COMPARISON STUDY: Chest CTA 10/17/2021. PET CT 11/25/2021. FINDINGS: Normal caliber thoracic aorta with no evidence for dissection. Small filling defect seen within a subsegmental branch of the right middle lobe best seen on images 119 and 108. This may represent a small pulmonary embolus. Remaining pulmonary arteries show no filling defects to suggest a pulmonary embolus. There is mass effect along the distal left main pulmonary artery and left upper lobe pulmonary arteries due to the large left upper lobe mass. The exact borders of this mass are difficult to assess but appeared to measure approximately 8.0 x 6.7 cm. This results in complete collapse of the left upper lobe which is unchanged. This mass also extends into the distal left mainstem bronchus. The endobronchial component best in image 169 results in near complete obstruction of the left lower lobe bronchus. There is partial opacification of the majority of the left lower lobe bronchi. Interstitial thickening and patchy airspace opacities within the left lower lobe may represent a postobstructive pneumonitis. This has progressed in the interval. Increase in size in a small left pleural effusion. Severe emphysema. No pneumothorax. Multiple scattered pulmonary nodules are again noted consistent with metastatic disease. Majority of these have increased in size. There is ill-defined 1.8 cm right thyroid nodule, unchanged. Mild mediastinal left hilar lymphadenopathy has slightly progressed. Increase in size in the left perinephric metastatic focus. 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 A 3.3 cm right renal mass is similar to the prior study. Skeletal metastatic foci are better appreciated on the prior PET/CT. IMPRESSION: 1. Possible small subsegmental pulmonary embolus within the right middle lobe. Otherwise, the central pulmonary arteries are patent. There is mass effect along the distal left main pulmonary artery and left upper lobe pulmonary arteries due to the left upper lobe mass. 2. Interval progression of the left upper lobe mass and extensive metastatic disease as described above. The left upper lobe mass results in complete collaps e of the left upper lobe, unchanged. This also demonstrates an endobronchial component of the distal left mainstem bronchus with near complete obstruction of the left lower lobe bronchus. 3. Interstitial thickening and patchy airspace opacities within the left lower lobe with partial opacification of the left lower lobe bronchi. This favors a postobstructive pneumonitis. An aspiration pneumonitis could also have a similar appearance. 4. Small left pleural effusion has progressed. 5. Additional findings as described above. ACT 112: Negative or not required by law. Electronically signed by: Pietro Dobbins M.D. 12/04/2021 9:29 AM Hospital Course (1) Pneumonia: Post obstructive pneumonia likely complicated by aspiration Cefepime given while inpatient while - Continue Cefepime while in house and can transition to cefdinir for comfort (allergy to penicillins with hives) - Likely cause of his hypoxia at this time with thick secretions and weak cough - Will schedule nebs as well as cough assist with flutter valve - 2 step perform for oxygen need - [facility] does have oxygen there if delay in obtaining --> no need for 2 step and O2 arranged at discharge Transitioned to cefdinir for comfort at discharge and sent with rx for roxanol, lorazepam liquid prn Also discussed with patient/heme onc that patient may benefit from decadron for yoly pain if needing adjusctive therapy given diffuse metastatic disease Hospice to eval at [facility] today, as patient did not even want admitted intiially but needed hospice in place and was to have eval prior to being brought in but they were to come the next day (2) Hypoxia: As above stable on supplemental o2, continued at discharge as enrolling in hospice ativan/roxanol prn as above for symptoms did check iron studies/give dose of venofer as discussed with patient prior to d/c (3) Squamous cell lung cancer: Stage IV with multiple metastasis - Transitioning to hospice care-- they are to eval at [facility] today Supportive care (4) Fall: Currently with no sequela or pain anywhere at this time on admission due to fall but did report level of back/hip pain and was recently started on oxycodone by oncology --> difficulty with swallowing recently, changed to liquid roxanol as needed, given dose prior to discharge/transport to [facility] CT head on admission negative for bleed (did have recent MRI brain with at least 4 lesions noted) - If delayed subdural were to occur this would also be terminal event and transition to comfort --> would consider decadron for yoly pain/any evidence for vasogenic edema as discussed with oncology and discussed with patient given back/pelvic pain and likely yoly disease given mets to brain as well but no evidence for vascogenic edema at this time (5) Endobronchial mass: As aobve- bronch performed early November- SCLC (6) Brain metastases: As above (7) COPD (chronic obstructive pulmonary disease): Continued nebulizers scheduled- Oxygen for comfort Spo2 goal 88-92% (8) Hypertension: Did talk with nursing at [facility] and they reported that he was hypotensive this morning 80-90 range systolic - Will currently hold his antihypertensives and follow- He is normally in the 140 range with review- Currently 110-120s Discontinued amlodipine, can discontinue lisinopril per hospice if not taking much PO (9) Dyslipidemia: Hold statin with brain metastasis - [facility] benefits is cancelled by his oncological disease. Discontinued (10) Coronary artery disease: non obstructive - continue ASA - antihypertensives on hold as above. (11) Pulmonary embolism: Reported as POSSIBLE subsegmental PE within right middle lobe - This will not require anticoagulation - This would also not prolong his life with his metastatic cancer Discussed and not continuing AC at discharge given transition to hospice Total Time Total Time Spent Total Time Spent (In Minutes): 35 Discharge Plan Discharge Items Patient Disposition: Hospice - Medical Facility Reason For Visit: HYPOXIA, FALL, POST OBSTRUCTIVE PNEUMONIA/ASPIRATI Discharge Diagnosis: Post obstructive pneumonia, hypoxia, metastatic disease Goals: You have been hospitalized for an acute medical problem. During your stay at [facility], we have made an effort to correct the problem that brought you to the hospital while keeping you as comfortable as possible. Medications were used to bring your condition under control and your discharge instructions will include directions for any medications you should take after leaving the hospital. Please make sure you see your Primary Care Provider as part of your follow up plan. Activity: As commented below Non-emergency contact: Primary Care Provider Call non-emergency contact if: you have any medication questions and your pain is not controlled Follow-up/Referrals: Jose Wilson [Primary Care Provider] - Diet: Other - See Diet Comment Diet Comment: as tolerated for comfort Addtl Attending Provider Instructions: You were hospitalized for shortness of breath and worsening respiratory status secondary to a postobstructive pneumonia. You were given IV antibiotics while in the hospital and sent with a prescription cefdinir for comfort as tolerated. This may not resolve the issue given the obstruction due to mass from her cancer. You were also found to have POSSIBLE small blood clots in the lung, which is likely from your cancer. You have not been restarted on coumadin given prior bleeding/hemoptysis and these are not large and restarting anticoagulation not recommended. And your iron stores were checked before you went and given a dose of IV iron to help with your anemia and your breathing. As discussed I have sent a prescription for liquid Roxanol as well as liquid lorazepam for both pain and anxiety symptoms given your issues with swallowing and hospice is to evaluate you at [facility] today. You have also voiced concerns for bone and back pain which could be related to the fall however given your evidence of metastatic disease to the brain it may be worth discussing with hospice about starting an agent like Decadron which is a steroid and can help with these symptoms as well. Given the advanced nature of the metastatic disease, prognosis is poor moving forward, but we are hopeful to gain better pain control and focus on comfort moving forward as you have voiced/expressed. It has been a pleasure being a part of the medical team providing for you and wish you the best. Pending Studies at Discharge: No Stand-Alone Forms: My [facility] Skilled Items Patient informed of condition?: Yes DNR: Yes Discharge Level of Care: Other Communicable Disease: No Discharge Prognosis: Deteriorating Lines: None Urinary Catheter: No Medications and DC Order Prescriptions: New lorazepam 2 mg/mL concentrate 0.25 mg PO BID PRN (Reason: anxiety) Qty: 30 RF: 0 morphine concentrate 100 mg/5 mL (20 mg/mL) solution 5 mg PO Q6H PRN (Reason: pain) Qty: 30 RF: 0 Continued Metamucil (sugar) Powder 2 tbsp PO BID RF: 0 lidocaine [Salonpas (lidocaine)] 4 % adhesive patch,medicated 1 patch topical Q8H PRN (Reason: Pain) RF: 0 triamcinolone acetonide 0.1 % cream 1 applic topical DAILY PRN (Reason: Unknown) RF: 0 amiodarone 200 mg Tablet 200 mg PO HS RF: 0 alprazolam [Xanax] 0.5 mg Tablet 0.5 mg PO BID PRN (Reason: Anxiety) RF: 0 lisinopril 10 mg Tablet 10 mg PO HS RF: 0 nitroglycerin [Nitrostat] 0.4 mg Tablet, Sublingual 0.4 mg Sublingual DIRECTED PRN (Reason: Chest Pain) RF: 0 finasteride 5 mg Tablet 5 mg PO HS RF: 0 PreserVision AREDS-2 [id number] Capsule 1 tab PO BID RF: 0 multivitamin Tablet 1 tab PO QDL RF: 0 polyethylene glycol 3350 [Miralax] 17 gram Powder In Packet 17 g PO BID RF: 0 bisacodyl 10 mg Suppository 10 mg NJ DAILY PRN (Reason: Constipation) RF: 0 Fleet Enema 19-7 gram/118 mL Enema 118 ml NJ Q3D PRN (Reason: Constipation) RF: 0 aspirin 81 mg Tablet,Delayed Release (Dr/Ec) 81 mg PO DAILY RF: 0 acetaminophen 500 mg Tablet 500 mg PO QID RF: 0 TheraTears 0.25 % Drops 1 drp OPB UD PRN (Reason: Dry Eyes) RF: 0 Linzess 290 mcg capsule 290 mcg PO QAM RF: 0 oxycodone 5 mg tablet 7.5 mg PO TID RF: 0 fluoride (sodium) [PreviDent 5000 Plus] 1.1 % Cream 1 applic DENTAL DAILY RF: 0 guaifenesin [Mucinex] 600 mg Tablet Extended Release 12hr 600 mg PO Q12H RF: 0 acetaminophen 650 mg Suppository 650 mg NJ Q4 MDD 3g PRN (Reason: elevated temperature) RF: 0 Discontinued atorvastatin 40 mg Tablet 40 mg PO QAM RF: 0 amlodipine 5 mg tablet 5 mg PO QAM RF: 0 acetaminophen 650 mg Suppository 650 mg NJ Q4H MDD 3g PRN (Reason: Pain) RF: 0 Discharge Orders: Discharge Order (Routine); Ordered 12/05/21 Ordered By: Della Larios Admission Data Admit Date/Time: 12/04/21 11:09 Attending Provider: Tr Philip Admit Provider: Michele Garcia Primary Care Provider: Jose Wilson Other Providers: Michele Garcia Supervising Physician Co-Signing Physician Notes During face to face encounter, I obtained a physical examination and history of hospital stay with patient. I discussed discharge plan with patient and FAN Larios. I reviewed above note and agree with it. Treated pneumonia with antibiotics for comfort. Coding Level of Care Code D/C DAY MANAGEMENT >30 MINS Diagnoses Pneumonia J18.9 Hypoxia R09.02 Squamous cell lung cancer C34.90 Fall W19.XXXA Endobronchial mass R91.8 Brain metastases C79.31 COPD (chronic obstructive pulmonary disease) J44.9 Hypertension I10 Dyslipidemia E78.5 Coronary artery disease I25.10 Pulmonary embolism I26.99
[2021-12-05] MEDS: ALPRAZolam 0.5 MG TABLET PO PRN (11:42)
[2021-12-05] MEDS ORDERED: IRON SUCROSE 200 MG in 0.9 % SODIUM CHLORIDE 100 ML IV ONE (11:45)
== END 2021-12-05 13:57 | disposition hospice, inpatient (51) | DRG 193 ==
LOC: ED 07:04 → SUATTDRO 11:09 → EDINP 11:09 → 3W 17:32
DX: W01.10XA Fall on same level from slipping, tripping and stumbling with subsequent striking against unspecified object, initial encounter; Z79.1 Long term (current) use of non-steroidal anti-inflammatories (NSAID); E78.5 Hyperlipidemia, unspecified; I10 Essential (primary) hypertension; T17.908A Unspecified foreign body in respiratory tract, part unspecified causing other injury, initial encounter; Z79.899 Other long term (current) drug therapy; C34.12 Malignant neoplasm of upper lobe, left bronchus or lung; Z88.6 Allergy status to analgesic agent; Z88.1 Allergy status to other antibiotic agents; Z51.5 Encounter for palliative care; S09.90XA Unspecified injury of head, initial encounter; I48.0 Paroxysmal atrial fibrillation; Z88.5 Allergy status to narcotic agent; Z79.82 Long term (current) use of aspirin; Z66 Do not resuscitate; C78.7 Secondary malignant neoplasm of liver and intrahepatic bile duct; Z87.891 Personal history of nicotine dependence; I26.93 Single subsegmental thrombotic pulmonary embolism without acute cor pulmonale; I25.10 Atherosclerotic heart disease of native coronary artery without angina pectoris; J98.11 Atelectasis; J44.9 Chronic obstructive pulmonary disease, unspecified; Z88.2 Allergy status to sulfonamides; Z88.0 Allergy status to penicillin; Z79.891 Long term (current) use of opiate analgesic; C79.31 Secondary malignant neoplasm of brain; Z88.8 Allergy status to other drugs, medicaments and biological substances; J18.8 Other pneumonia, unspecified organism; C78.6 Secondary malignant neoplasm of retroperitoneum and peritoneum